=== PATIENT | female | born 1930 | race Caucasian/White ===

== ENCOUNTER 2016-12-15 09:37 | Emergency (ER) | payer OTHER, MEDICARE ==
[2016-12-15 10:00] VITALS: BP 147/70; BMI 35.2
--- NOTE | 2016-12-15 10:04 | DR.GENAD ---
HPI - PCP Primary Care Physician: DR. ROMERO - HPI Comment HPI Comment: PATIENT WAS REACHING FOR HER PHONE AND FELL OFF THE BED. HIT HEAD AND HAVE MULTIPLE BRUISES. NO LOC. - Complaint/Symptoms Chief Complaint Doctors Comments: FELL, MULTIPLE BRUISE, HIT HEAD. Chief Complaint:: JENNA FROM [facility] CALLED AND STATES " PT TOOK A TUMBLE AND SHE HAS A KNOT ON HER HEAD AND BRUISES TO HER BODY " .. Self Treatment fo Chief Complaint: PT STATES " I WAS REACHING FOR MY PHONE AND IT WAS TOO FAR AND SHE FELL OFF THE BED AND HIT THE FLOOR AND THAT A SENIOR GROUP MANAGER WALKED IN AND FOUND HER NO LOC" - Nurses notes reviewed Nurses Notes Review: Yes - Source History Provided: Patient, Correction - Mode of Arrival Mode of Arrival: Wheelchair - Timing Onset of Chief Complaint: 12/15/16 Came on: Suddenly - Duration Duration: Constant Duration: Minutes - Severity Severity: Moderate PMH - PMH Past Medical History: Yes Past Medical History: Anxiety, Arthritis, Coronary Artery Disease, Depression, GERD, Hypertension Past Surgical History: Yes Surgical History: Hysterectomy - Family History History of Family Medical Conditions: No Family Medical History: Coronary Artery Disease, Heart Failure, Hypertension - Social History Does patient currently use any type of tobacco product: No Have you used tobacco products in the last 12 months: No Type of Tobacco Use: None Does any household member use tobacco: No Alcohol Use: None Do you use any recreational Drugs:: No Lives With: Family Lives Where: Home - infectious screening In the last 2 months have you had wt loss of >10#?: NO Have you had fever, night sweats or hemotysis?: No Have you traveled outside the country in the last 6 months?: No Isolation: Standard ROS - Review of Systems Constitutional: No Symptoms Reported Eyes: No Symptoms Reported. negative: Eye Pain, Discharge ENTM: No Symptoms Reported Respiratoy: No Symptoms Reported Cardiovascular: No Symptoms Reported Gastrointestinal/Abdominal: No Symptoms Reported Genitourinary: No Symptoms Reported Neurological: No Symptoms Reported Musculoskeletal: Back Pain, Neck, Elbow, Knee Integumentary: Bruises (ABRASION) Hematologic/Lymphatic: Easy Bruising Endocrine: No Symptoms Reported All Other Systems: Reviewed and Negative PE - Vital Signs Vitals: Temperature 99.1 F Pulse Rate 103 Respiratory Rate 22 Blood Pressure [Right Calf] 109/62 Blood Pressure [Right Arm] 102/51 Blood Pressure [Left Arm] 141/74 Blood Pressure 147/70 O2 Sat by Pulse Oximetry 97 - General Limitations: No Limitations General Appearance: Alert - Head Head Exam: Other (BRUISING FOREHEQAD) - Eyes Eye exam: Normal Appearance - ENT ENT Exam: Normal External Ear Exam External Ear Exam: Normal External Inspection TM/Canal Exam: Bilateral Normal Nose Exam: Normal Nose Exam Mouth Exam: Normal Inspection Throat Exam: Normal Inspection - Neck Neck Exam: Trachea Midline, Tenderness (LOWER NECK) - Chest Chest Inspection: Symmetric Chest Wall Rise - Respiratory Respiratory Exam: Bilateral Rhonchi, Lower Rhonchi - Cardiovascular Cardiovascular Exam: Regular Rate, Normal Rhythm, Normal Heart Sounds - Abdominal Exam Abdominal Exam: Normal Bowel Sounds, Soft. negative: Distention, Tenderness - Extremities Extremities Exam: Tenderness, Joint Swelling - Back Back Exam: Paraspinal Tenderness - Neurologic Neurological Exam: Alert - Skin Skin Exam: Erythema MDM - Differential Diagnosis Differential Diagnosis: MULTIPLE CONTUSION, STRAIN, SPRAIN, FRACTURE Course - Treatment Treatment: SEE ORDERS. - Education/Counseling Education/Counseling: Patient Educated On: Diagnosis, Needs for Follow Up ROR - XRAY XRAY Interpreted by: Radiologist XRAY Findings: REPORT NOTED - Diagnosis Discharge Problem: Multiple contusions, Sprain, multiple, Head trauma - Discharge Plan Disposition: 01 HOME, SELF-CARE Condition: Stable - Follow ups/Referrals Follow ups/Referrals: Jules Romero [Primary Care Provider] - 1 day - Instructions Instructions: Contusion, Knee Sprain, [id number], Knee Pain, [id number], Hip Pain, Elbow Contusion, [id number], Facial or Scalp Contusion Additional Instructions: RETURN TO ED IF WORSE. AMBULATE IN WHEEL CHAIR NEEDED.
--- NOTE | 2016-12-15 10:38 | CT ---
CT head without contrast Indication: Fall with head injury. Comparison: 12/10/2016 Technique: CT images of the head were obtained without contrast. Automatic exposure control was util ized. Findings: There is a left-sided forehead scalp contusion. No underlying calvarial fracture is identi fied. The major paranasal sinuses and mastoid air cells are clear. Moderate generalized brain atroph y is unchanged from prior. There is no evidence for acute bleed, mass, mass effect, or abnormal extr a-axial collection. Impression: No acute intracranial abnormality. Reported By:
--- NOTE | 2016-12-15 10:45 | CT ---
CT cervical spine without contrast Indication: Fall with neck injury. Technique: CT images of the cervical spine were obtained without contrast. Automatic exposure contro l was utilized. Findings: There is straightening of the normal cervical lordosis, which is likely positional or rela cody to muscle spasm. No acute fracture or subluxation of the cervical spine is identified. There is moderate to advanced multilevel discogenic and facet arthropathy, most significant at C5-6 and C6-7. No prevertebral soft tissue swelling is appreciated. The lung apices are clear, without evidence fo r apical pneumothorax. Impression: No evidence for acute cervical spine fracture. Multilevel degenerative disease. Reported By:
--- NOTE | 2016-12-15 10:49 | CT ---
CT lumbar spine without contrast Indication: Low back pain after fall. Technique: CT images of the lumbar spine were obtained without contrast. Automatic exposure control was utilized. Findings: There is mild dextroscoliosis of the lumbar spine. The AP alignment is normal. There is no evidence for significant vertebral body height loss. No acute lumbar spine fracture or subluxation is identified. There is multilevel facet and discogenic DJD, most significant at L5-S1. Generalized osteopenia is noted. Colonic diverticulosis is noted. There are multiple urinary bladder diverticula. Impression: No evidence of acute lumbar spine injury. Multilevel spondylosis. Generalized osteopenia. Colonic diverticulosis, multiple urinary bladder diverticula. Reported By:
--- NOTE | 2016-12-15 11:27 | RAD ---
Left hip, two views Indication: Hip pain after fall. Findings: The bones are diffusely osteopenic. There are mild degenerative changes of the hips. No co rtical lucency or malalignment of the hip identified. Impression: No evidence of acute left hip fracture or subluxation. Reported By:
--- NOTE | 2016-12-15 11:28 | RAD ---
Left elbow, three views Indication: Elbow pain after fall. Findings: The lateral view is suboptimal. The bones are diffusely osteopenic. No cortical lucency or malalignment identified. No significant soft tissue abnormality. Impression: No acute fracture or subluxation of the left elbow is identified. Generalized osteopenia . Reported By:
--- NOTE | 2016-12-15 11:32 | RAD ---
Left knee, three views Indication: Knee pain after fall. Findings: There is moderate tricompartmental DJD. No acute fracture or subluxation is identified. Th ere is a small joint effusion. The bones are diffusely osteopenic. Impression: No evidence for acute left knee injury. Moderate tricompartmental DJD. Reported By:
--- NOTE | 2016-12-15 11:36 | RAD ---
Right knee, three views Indication: Knee pain after fall. Findings: There is moderate to advanced tricompartmental DJD, most significant in the medial femorot ibial compartment. Small joint effusion is noted. No acute fracture or subluxation of the right knee is identified. There is generalized osteopenia. Impression: Tricompartmental DJD without evidence for acute right knee injury. Reported By:
[2016-12-15] MEDS ORDERED: TYLENOL ELIXIR 325 MG UDC PO ONE (11:49)
== END 2016-12-15 12:10 | disposition home or self-care (01) ==
LOC: ER 09:37
DX: S20.219A Contusion of unspecified front wall of thorax, initial encounter (principal); S09.8XXA Other specified injuries of head, initial encounter; T07 Unspecified multiple injuries; W06.XXXA Fall from bed, initial encounter; Y92.129 Unspecified place in nursing home as the place of occurrence of the external cause
CPT/HCPCS: 70450; 72125; 72131; 73070; 73501; 73564; 99283

== ENCOUNTER 2017-01-21 17:48 | Inpatient (IN) | payer OTHER, MEDICARE ==
[2017-01-21 21:46] VITALS: BMI 25.6
[2017-01-21] MEDS: NS 1000 ML 1,000 ML IV SCH (22:32)
[2017-01-22 05:16] LABS: BASOPHILS % (AUTO) 0.6 % (0.2-1.0); EOSINOPHILS # (AUTO) 0.3 x10^3/uL (0.0-0.2); EOSINOPHILS % (AUTO) 4.4 % (0.9-2.9); HEMATOCRIT 30.9 % (36.0-47.0); HEMOGLOBIN 10.5 g/dL (12.0-16.0); LYMPHOCYTES # (AUTO) 1.4 X10^3/uL (1.3-2.9); MEAN CORPUSCULAR HEMOGLOBIN 27.3 pg (27.0-34.0); MEAN CORPUSCULAR HGB CONC 34.2 g/dL (33.0-35.0); MEAN CORPUSCULAR VOLUME 79.9 fL (80.0-100.0); MEAN PLATELET VOLUME 6.6 fL (7.4-11.0); MONOCYTES % (AUTO) 15.7 % (0.0-13.0); NEUTROPHILS # (AUTO) 3.8 x10^3/uL (2.2-4.8); NEUTROPHILS % (AUTO) 58.3 % (42.0-75.0); PLATELET COUNT 76 X10^3/uL (150.0-450.0); RED BLOOD COUNT 3.86 X10^6/uL (3.5-5.4); RED CELL DISTRIBUTION WIDTH 15.6 % (11.6-16.5); WHITE BLOOD COUNT 6.5 X10^3/uL (3.6-10.0)
[2017-01-22 05:26] LABS: ALANINE AMINOTRANSFERASE 11 Units/L (12-78); ALBUMIN 2.5 g/dL (3.4-5.0); ALKALINE PHOSPHATASE 63 Units/L (46-116); ASPARTATE AMINO TRANSFERASE 18 Units/L (15-37); BLOOD UREA NITROGEN 9 mg/dL (7-18); CALCIUM 8.4 mg/dL (8.5-10.1); CARBON DIOXIDE 26.5 mmol/L (21-32); CHLORIDE 93 mmol/L (98-107); COR CA(FOR HYPOALB) 9.6 mg/dL (8.5-10.1); CREATININE 0.68 mg/dL (0.55-1.02); GLUCOSE 97 mg/dL (65-99); eGFR BLACK RACES > 60 (>60); eGFR NON BLACK RACES > 60 (>60)
[2017-01-22 05:29] LABS: SODIUM 125 mmol/L (136-145)
[2017-01-22 06:14] LABS: BILIRUBIN,URINE NEGATIVE (NEGATIVE); BLOOD/HEMOGLOBIN,URINE 5+ (NEGATIVE); GLUCOSE, URINE NEGATIVE (NEGATIVE); KETONES,URINE NEGATIVE (NEGATIVE); LEUKOCYTE ESTERASE ,URINE 3+ (NEGATIVE); NITRITES,URINE NEGATIVE (NEGATIVE); PROTEIN,URINE 3+ (NEGATIVE); UROBILINOGEN,URINE NORMAL (NORMAL)
[2017-01-22 06:26] LABS: COLOR,URINE YELLOW (YELLOW)
[2017-01-22 06:34] LABS: APPEARANCE,URINE TURBID (CLEAR)
[2017-01-22 06:38] LABS: BACTERIA,URINE 1+ /HPF (NEGATIVE); HYALINE CASTS, URINE NUMEROUS /LPF (NEGATIVE); SQUAMOUS EPITHELIAL CELL,UR FEW /HPF (NEGATIVE)
[2017-01-22] MEDS ORDERED: [UNRECOGNIZED DRUG - OTHER] PO PRN (07:54)
[2017-01-22] MEDS ORDERED: NORCO 5/325 MG TAB PO PRN (07:54)
[2017-01-22] MEDS ORDERED: LEVSIN/MAALOX/LIDOC VISC PO PRN (07:54)
[2017-01-22] MEDS ORDERED: TYLENOL 325 MG TAB PO PRN (08:44)
[2017-01-22] MEDS ORDERED: [UNRECOGNIZED DRUG - OTHER] PO SCH (09:00)
[2017-01-22] MEDS ORDERED: [UNRECOGNIZED DRUG - OTHER] PO SCH (09:00)
[2017-01-22] MEDS ORDERED: [UNRECOGNIZED DRUG - OTHER] PO SCH (09:00)
[2017-01-22] MEDS: ALBUMIN HUMAN 25%- 100ML 100 ML IV SCH (09:57)
[2017-01-22] MEDS: FLONASE NASAL SPRAY ENOSTRIL SCH (09:59)
[2017-01-22] MEDS: ARTIFICIAL TEARS DROPS EACHEYE SCH ×4 (10:00→22:23)
[2017-01-22] MEDS: PATANOL 0.1% EYE DROPS EACHEYE SCH ×2 (10:01→22:23)
[2017-01-22] MEDS: COLACE CAP 100 MG PO SCH ×2 (10:02→22:20)
[2017-01-22] MEDS: MOBIC TAB 15 MG PO SCH (10:02)
[2017-01-22] MEDS: COREG TAB 6.25 MG PO SCH ×2 (10:02→22:20)
[2017-01-22] MEDS: MICRO K EXTEN CAP 10 MEQ PO SCH (10:02)
[2017-01-22] MEDS: PriLOSEC PO SCH (10:02)
[2017-01-22] MEDS: NEURONTIN CAP 400 MG PO SCH (10:03)
[2017-01-22] MEDS: DIOVAN TAB 80 MG PO SCH (10:03)
[2017-01-22] MEDS: FOLIC ACID TAB 1 MG PO SCH (10:03)
[2017-01-22] MEDS: ATIVAN TAB 0.5 MG PO SCH (10:03)
[2017-01-22] MEDS: NORVASC TAB 5 MG PO SCH (10:03)
[2017-01-22] MEDS: DITROPAN TAB 5 MG PO SCH ×3 (10:03→22:19)
[2017-01-22] MEDS: NS 1000 ML 1,000 ML IV SCH ×2 (10:04→22:29)
[2017-01-22] MEDS: MIRALAX POWDER (1 DOSE 17GM) PO SCH (10:04)
--- NOTE | 2017-01-22 15:46 | DR.H&P ---
H&P - History & Physical for Day of: H&P Date: 01/21/17 - Chief Complaint Chief Complaint: HYPONATREMIA - Allergies Allergies/Adverse Reactions: Allergies Allergy/AdvReac Type Severity Reaction Status Date / Time No Known Drug Allergy Allergy Verified 11/24/14 03:02 - History of Present Illness History of Present Illness: THIS IS AN 86 YEAR OLD FEMALE, WHO IS A PATIENT OF OURS. SHE RESIDES AT [facility]. PATIENT IS DIRECT ADMITTED FOR HYPONATREMIA. PATIENT HAD ROUTINE LABS TODAY, WHICH REPORTED A SODIUM LEVEL OF 123. PATIENT IS SYMPTOMATIC WITH COMPLAINTS OF A HEADACHE, MUSCLE WEAKNESS, NAUSEA, AND IS NOTED WITH INTERMITTENT CONFUSION. STAFF REPORTS SYMPTOMS HAVE BEEN ON-GOING FOR SEVERAL DAYS AND HAVE WORSENED. WE WILL ADMIT PATIENT FOR FURTHER TREATMENT AND EVALUATION. WE WILL START PATIENT ON NORMAL SALINE AND CONTINUE TO MONITOR LABS. - Past Medical History Past Medical History: Anemia, Anxiety, Arthritis, Coronary Artery Disease, Depression, Dyslipidemia, GERD, Hypertension Additional Medical History: Freq UTI's, Conjunctivitis, Dry Eyes, Upper Respiratory Infection, Constipation, Urinary Incontinence, Muscle Weakness, Osteoarthritis - Past Surgical History Surgical History: Hysterectomy - Family History Family Medical History: Coronary Artery Disease, Heart Failure, Hypertension - Social History Does patient currently use any type of tobacco product: No Have you used tobacco products in the last 12 months: No Type of Tobacco Use: None Alcohol Use: None Drug Use: None - Medications Home Medications: Omeprazole [PRILOSEC 20 MG *] 20 mg PO DAILY 08/06/13 Cetirizine HCl [Zyrtec Tab 10 mg] 1 tab PO HS 11/29/14 Potassium Chloride [K-Tab] 1 tab PO DAILY 11/29/14 Oxybutynin Chloride [Ditropan XL] 5 mg PO DAILY 11/30/14 Folic Acid [FOLIC ACID TAB 1 MG *] 1 mg PO DAILY #30 tab 12/23/14 Hydrocodone-Acetaminophen [[place]] 1 tab PO Q6H PRN #90 tab 12/23/14 Acetaminophen [Tylenol Arthritis Pain] 1 tab PO DAILY PRN 06/06/16 Cyanocobalamin 1,000 mcg IM MONTHLY 06/06/16 Docusate Sodium [COLACE CAP 100 MG *] 1 cap PO BID 06/06/16 Fluticasone Propionate (Nasal) [Flonase Allergy Relief Ch (NASAL)] 1 spray ENOSTRIL DAILY 06/06/16 Gabapentin 1 cap PO DAILY 06/06/16 Meloxicam 15 tab PO DAILY 06/06/16 Amlodipine Besylate [NORVASC 5 MG *] 1 tab PO DAILY 12/15/16 Gi Cocktail [LEVSIN/Maalox/Lidoc Visc (GI COCKTAIL) *] 30 ml PO QID PRN Olopatadine HCl [Patanol] 1 drop EACHEYE BID 12/15/16 Artificial Tears (Ophth) [ARTIFICIAL TEARS (ophth) drops *] 1 drop EACHEYE QID 01/21/17 Carvedilol 1 tab PO BID 01/21/17 Lorazepam 1 tab PO DAILY 01/21/17 Polyethylene Glycol Pwd Ud [MIRALAX POWDER (17 GM DOSE) *] 17 gm PO DAILY Trazodone HCl [TRAZODONE 50 MG (DESYREL) *] 150 mg PO HS 01/21/17 Valsartan 1 tab PO DAILY 01/21/17 - Review of Systems Constitutional: Weakness, Malaise Eyes: No Symptoms Reported. denies: Pain, Vision Change, Conjunctivae Inflammation, Eyelid Inflammation, Redness ENT: No Symptoms Reported. denies: Ear Pain, Ear Discharge, Nose Pain, Nose Discharge, Nose Congestion, Mouth Pain, Mouth Swelling, Throat Pain, Throat Swelling Respiratory: No Symptoms Reported. denies: Cough, Shortness of Breath, Hemoptysis, SOB with Excertion, Pleuritic Pain, Sputum, Wheezing Cardiovascular: No Symptoms Reported. denies: Chest Pain, Palpitations, Orthopnea, Paroxysmal Noc. Dyspnea, Edema, Light Headedness Gastrointestinal: Nausea. denies: Vomiting, Abdominal Pain, Diarrhea, Constipation, Melena, Hematochezia Genitourinary: No Symptoms Reported. denies: Dysuria, Frequency, Incontinence, Hematuria, Retention Musculoskeletal: Other (Muscle Weakness) Skin: No Symptoms Reported. denies: Lesions, Jaundice, Bruising, Wound, Ecchymosis Neurological: Weakness, Confusion. denies: Numbness, Incoordination, Change in Speech, Seizures - Physical Exam Vital Signs: Temperature 97.6 F Pulse Rate [Right Radial] 81 Respiratory Rate 18 Blood Pressure [Right Calf] 109/62 Blood Pressure [Right Arm] 146/63 Blood Pressure [Left Arm] 141/74 Blood Pressure 147/70 O2 Sat by Pulse Oximetry 98 Oriented: Person Eyes: Normal. negative: Blurred Vision, Diplopia, Discharge, Pain, Redness, Photophobia Ear: Normal. negative: Swelling, Ecchymosis, Hemotypanum, Abrasion, Laceration Nose: Normal. negative: Injected, Discharge, Blood Throat: Dry. negative: Tonsillar Hypertrophy, Exudate Respiratory: Clear Throughout Cardiovascular: Normal. negative: Murmur, Edema : Normal. negative: Dysuria, Hematuria, Frequency, Discharge, Bleeding, Auscultation: Bowel Sounds: Decreased. negative: Bruit Palpation: Normal. negative: Spleen Enlarged, Liver Enlarged, Mass Pulsatile Tenderness: Normal. negative: Rebound, Guarding, Rigidity Skin: Decreased Turgur. negative: Diaphoresis, Wound, Bruising, Ecchymosis Musculoskeletal: Instability Psychiatric: Other (Intermittent confusion) Mood Description: Calm Affect: Normal Speech Pattern: Clear, Inappropriate - Assessment/Plan (1) Hyponatremia Status: Acute Plan: ADMIT PATIENT, START IV FLUIDS, MONITOR LABS. (2) Altered mental status Qualifiers: Altered mental status type: transient alteration of awareness Coma depth: C Coma timing: C Qualified Code(s): R40.4 - Transient alteration of awareness Status: Acute Plan: START IV FLUIDS, CONTINUE TO MONITOR. (3) Muscle weakness Status: Acute Plan: ABOVE. (4) Nausea Status: Acute Plan: ABOVE. (5) Headache Qualifiers: Headache type: tension-type Headache chronicity pattern: acute headache Intractability: not intractable Qualified Code(s): G44.209 - Tension-type headache, unspecified, not intractable Status: Acute Plan: ABOVE. (6) Hypertension Qualifiers: Hypertension type: essential hypertension Qualified Code(s): I10 - Essential (primary) hypertension Status: Chronic (7) Arthritis Status: Chronic (8) Chronic back pain Qualifiers: Back pain location: low back pain Back pain laterality: bilateral Sciatica presence: without sciatica Sciatica laterality: S Qualified Code(s) : M54.5 - Low back pain; G89.29 - Other chronic pain Status: Chronic (9) Constipation Qualifiers: Constipation type: slow transit constipation Qualified Code(s): K59.01 - Slow transit constipation Status: Chronic (10) Depressive disorder Status: Chronic (11) Essential hypertension Status: Chronic (12) GERD (gastroesophageal reflux disease) Qualifiers: Esophagitis presence: esophagitis presence not specified Qualified Code(s) : K21.9 - Gastro-esophageal reflux disease without esophagitis Status: Chronic (13) Generalized anxiety disorder Status: Chronic
--- NOTE | 2017-01-22 16:43 | PCM.PROG ---
Progress Note - Progress Note for Day of Date: 01/22/17 - Subjective Subjective: PATIENT CONTINUES WITH HYPONATREMIA ALONG WITH CONFUSION, MUSCLE WEAKNESS, HEADACHE, AND OCCASIONAL NAUSEA. SODIUM LEVEL INCREASED FROM 123 TO 125. CBC WNL EXCEPT: H/H 10.5/30.9, PLT COUNT 76. CMP WNL EXCEPT: SODIUM 125, CHL 93, CALCIUM 8.4, TOT PROTEIN 6.0, ALBUMIN 2.5. URINALYSIS ABNORMALS: PROTEIN 3+, OCCULT BLOOD 5+, LEUKOCYTE ESTERASE 3+, RBC 2-6, WBC 8-15, BACTERIA 1+; CULTURE PENDING. WE WILL START IV ROCEPHIN, CONTINUE IV FLUIDS, CONTINUE TO MONITOR, AND FOLLOW UP IN AM WITH LABS. - Past Medical Family Social History Past Med/Fam/Surg Hx: No changes since H&P Allergies: Allergies No Known Drug Allergy Allergy (Verified 11/24/14 03:02) - Review of Systems ROS: No change since H&P - Vital Signs and I&O's Vital Signs: Temperature 97.6 F Pulse Rate [Right Radial] 81 Respiratory Rate 18 Blood Pressure [Right Calf] 109/62 Blood Pressure [Right Arm] 146/63 Blood Pressure [Left Arm] 141/74 Blood Pressure 147/70 O2 Sat by Pulse Oximetry 98 Intake and Output: Intake & Output 01/20/17 01/21/17 01/22/17 01/23/17 11:59 11:59 11:59 11:59 Intake Total 620 50 Balance 620 50 - Physical Exam Oriented: Person Eyes: Normal. negative: Blurred Vision, Diplopia, Discharge, Pain, Redness, Photophobia Ear: Normal. negative: Swelling, Ecchymosis, Hemotypanum, Abrasion, Laceration Nose: Normal. negative: Injected, Discharge, Blood Throat: Dry. negative: Tonsillar Hypertrophy, Exudate Respiratory: Normal Cardiovascular: Normal. negative: Murmur, Edema : Normal. negative: Dysuria, Hematuria, Frequency, Discharge, Bleeding, Auscultation: Bowel Sounds: Decreased. negative: Bruit Palpation: Normal. negative: Spleen Enlarged, Liver Enlarged, Mass Pulsatile Tenderness: Normal. negative: Rebound, Guarding, Rigidity Skin: Decreased Turgur. negative: Diaphoresis, Wound, Bruising, Ecchymosis Musculoskeletal: Instability Psychiatric: Other (Intermittent confusion) Mood Description: Calm Affect: Normal Speech Pattern: Clear, Inappropriate - Laboratory and Diagnostics Result Diagrams: 01/22/17 04:25 01/22/17 04:25 Labs: Laboratory WBC 6.5 X10^3/uL (3.6-10.0) 01/22/17 04:25 RBC 3.86 X10^6/uL (3.5-5.4) 01/22/17 04:25 Hgb 10.5 g/dL (12.0-16.0) L 01/22/17 04:25 Hct 30.9 % (36.0-47.0) L 01/22/17 04:25 MCV 79.9 fL (80.0-100.0) L 01/22/17 04:25 MCH 27.3 pg (27.0-34.0) 01/22/17 04:25 MCHC 34.2 g/dL (33.0-35.0) 01/22/17 04:25 RDW 15.6 % (11.6-16.5) 01/22/17 04:25 Plt Count 76 X10^3/uL (150.0-450.0) L 01/22/17 04:25 MPV 6.6 fL (7.4-11.0) L 01/22/17 04:25 Neut % 58.3 % (42.0-75.0) 01/22/17 04:25 Lymph % 21.0 % (21.0-51.0) 01/22/17 04:25 Ralls % 15.7 % (0.0-13.0) H 01/22/17 04:25 Eos % 4.4 % (0.9-2.9) H 01/22/17 04:25 Baso % 0.6 % (0.2-1.0) 01/22/17 04:25 Neut # 3.8 x10^3/uL (2.2-4.8) 01/22/17 04:25 Lymph # 1.4 X10^3/uL (1.3-2.9) 01/22/17 04:25 Ralls # 1.0 x10^3/uL (0.3-0.8) H 01/22/17 04:25 Eos # 0.3 x10^3/uL (0.0-0.2) H 01/22/17 04:25 Baso # 0.0 X10^3/uL (0.0-0.1) 01/22/17 04:25 Absolute Nucleated RBC 0.0 /100WBC 01/22/17 04:25 Sodium 125 mmol/L (136-145) L* 01/22/17 04:25 Corrected Sodium TNP 01/22/17 04:25 Potassium 3.9 mmol/L (3.5-5.1) 01/22/17 04:25 Chloride 93 mmol/L (98-107) L 01/22/17 04:25 Carbon Dioxide 26.5 mmol/L (21-32) 01/22/17 04:25 BUN 9 mg/dL (7-18) 01/22/17 04:25 Creatinine 0.68 mg/dL (0.55-1.02) 01/22/17 04:25 Est GFR (MDRD) Af Amer > 60 (>60) 01/22/17 04:25 Est GFR (MDRD) Non-Af > 60 (>60) 01/22/17 04:25 Glucose 97 mg/dL (65-99) 01/22/17 04:25 Calcium 8.4 mg/dL (8.5-10.1) L 01/22/17 04:25 Corrected Calcium 9.6 mg/dL (8.5-10.1) 01/22/17 04:25 Total Bilirubin 0.40 mg/dL (0.2-1.0) 01/22/17 04:25 AST 18 Units/L (15-37) 01/22/17 04:25 ALT 11 Units/L (12-78) L 01/22/17 04:25 Alkaline Phosphatase 63 Units/L (46-116) 01/22/17 04:25 Total Protein 6.0 g/dL (6.4-8.2) L 01/22/17 04:25 Albumin 2.5 g/dL (3.4-5.0) L 01/22/17 04:25 Globulin 3.5 g/dL (2.5-4.5) 01/22/17 04:25 Albumin/Globulin Ratio 0.7 Ratio (1.1-2.1) L 01/22/17 04:25 Specimen Type Clean catch urine 01/22/17 05:25 Urine Color Yellow (YELLOW) 01/22/17 05:25 Urine Appearance Turbid (CLEAR) 01/22/17 05:25 Urine pH 8.0 (5.0 - 8.0) 01/22/17 05:25 Ur Specific [place] 1.015 (1.000-1.030) 01/22/17 05:25 Urine Protein 3+ (NEGATIVE) 01/22/17 05:25 Urine Glucose (UA) Negative (NEGATIVE) 01/22/17 05:25 Urine Ketones Negative (NEGATIVE) 01/22/17 05:25 Urine Occult Blood 5+ (NEGATIVE) 01/22/17 05:25 Urine Nitrite Negative (NEGATIVE) 01/22/17 05:25 Urine Bilirubin Negative (NEGATIVE) 01/22/17 05:25 Urine Urobilinogen Normal (NORMAL) 01/22/17 05:25 Ur Leukocyte Esterase 3+ (NEGATIVE) 01/22/17 05:25 Urine RBC 2 - 6 /HPF (NEGATIVE) 01/22/17 05:25 Urine WBC 8 - 15 /HPF (NEGATIVE) 01/22/17 05:25 Ur Squamous Epith Cells Few /HPF (NEGATIVE) 01/22/17 05:25 Urine Bacteria 1+ /HPF (NEGATIVE) 01/22/17 05:25 Hyaline Casts Numerous /LPF (NEGATIVE) 01/22/17 05:25 Ur Culture Indicated? Yes/culture set up 01/22/17 05:25 - Plan (1) Hyponatremia Status: Acute Plan: CONTINUE IV FLUIDS, MONITOR LABS. (2) Altered mental status Status: Acute Qualifiers: Altered mental status type: transient alteration of awareness Coma depth: C Coma timing: C Qualified Code(s): R40.4 - Transient alteration of awareness Plan: CONTINUE IV FLUIDS, CONTINUE TO MONITOR. (3) Muscle weakness Status: Acute Plan: ABOVE. (4) Nausea Status: Acute Plan: ABOVE. (5) Headache Status: Acute Qualifiers: Headache type: tension-type Headache chronicity pattern: acute headache Intractability: not intractable Qualified Code(s): G44.209 - Tension-type headache, unspecified, not intractable Plan: ABOVE. (6) Hypertension Status: Chronic Qualifiers: Hypertension type: essential hypertension Qualified Code(s): I10 - Essential (primary) hypertension (7) Arthritis Status: Chronic (8) Chronic back pain Status: Chronic Qualifiers: Back pain location: low back pain Back pain laterality: bilateral Sciatica presence: without sciatica Sciatica laterality: S Qualified Code(s) : M54.5 - Low back pain; G89.29 - Other chronic pain (9) Constipation Status: Chronic Qualifiers: Constipation type: slow transit constipation Qualified Code(s): K59.01 - Slow transit constipation (10) Depressive disorder Status: Chronic (11) Essential hypertension Status: Chronic (12) GERD (gastroesophageal reflux disease) Status: Chronic Qualifiers: Esophagitis presence: esophagitis presence not specified Qualified Code(s) : K21.9 - Gastro-esophageal reflux disease without esophagitis (13) Generalized anxiety disorder Status: Chronic
[2017-01-22] MEDS: ROCEPHIN VIAL 1 GM 1 GM in NS 50 ML IV + SPIKE MINIBAG* 50 ML IV SCH (17:59)
[2017-01-22] MEDS: DESYREL PO SCH (22:17)
[2017-01-22] MEDS: ZyrTEC TAB 10 MG PO SCH (22:29)
[2017-01-23 05:19] LABS: BASOPHILS # (AUTO) 0.1 X10^3/uL (0.0-0.1); BASOPHILS % (AUTO) 0.9 % (0.2-1.0); EOSINOPHILS # (AUTO) 0.2 x10^3/uL (0.0-0.2); EOSINOPHILS % (AUTO) 3.4 % (0.9-2.9); HEMATOCRIT 29.6 % (36.0-47.0); LYMPHOCYTES # (AUTO) 1.2 X10^3/uL (1.3-2.9); LYMPHOCYTES % (AUTO) 19.1 % (21.0-51.0); MEAN CORPUSCULAR HEMOGLOBIN 27.3 pg (27.0-34.0); MEAN CORPUSCULAR HGB CONC 33.7 g/dL (33.0-35.0); MEAN CORPUSCULAR VOLUME 81.1 fL (80.0-100.0); MEAN PLATELET VOLUME 6.6 fL (7.4-11.0); MONOCYTES % (AUTO) 16.9 % (0.0-13.0); NEUTROPHILS # (AUTO) 3.6 x10^3/uL (2.2-4.8); NEUTROPHILS % (AUTO) 59.7 % (42.0-75.0); PLATELET COUNT 75 X10^3/uL (150.0-450.0); RED BLOOD COUNT 3.65 X10^6/uL (3.5-5.4); RED CELL DISTRIBUTION WIDTH 15.9 % (11.6-16.5)
[2017-01-23 05:34] LABS: ALANINE AMINOTRANSFERASE 7 Units/L (12-78); ALBUMIN 2.8 g/dL (3.4-5.0); ALKALINE PHOSPHATASE 56 Units/L (46-116); ASPARTATE AMINO TRANSFERASE 15 Units/L (15-37); BLOOD UREA NITROGEN 5 mg/dL (7-18); CALCIUM 8.3 mg/dL (8.5-10.1); CARBON DIOXIDE 24.5 mmol/L (21-32); CHLORIDE 98 mmol/L (98-107); COR CA(FOR HYPOALB) 9.3 mg/dL (8.5-10.1); CREATININE 0.57 mg/dL (0.55-1.02); GLUCOSE 109 mg/dL (65-99); SODIUM 131 mmol/L (136-145); eGFR BLACK RACES > 60 (>60); eGFR NON BLACK RACES > 60 (>60)
[2017-01-23] MEDS: PATANOL 0.1% EYE DROPS EACHEYE SCH ×2 (09:00→22:05)
[2017-01-23] MEDS: FLONASE NASAL SPRAY ENOSTRIL SCH (09:00)
[2017-01-23] MEDS: ARTIFICIAL TEARS DROPS EACHEYE SCH ×4 (09:00→22:05)
[2017-01-23] MEDS: MIRALAX POWDER (1 DOSE 17GM) PO SCH (10:30)
[2017-01-23] MEDS: ROCEPHIN VIAL 1 GM 1 GM in NS 50 ML IV + SPIKE MINIBAG* 50 ML IV SCH (10:44)
[2017-01-23] MEDS: MOBIC TAB 15 MG PO SCH (10:45)
[2017-01-23] MEDS: FOLIC ACID TAB 1 MG PO SCH (10:46)
[2017-01-23] MEDS: COREG TAB 6.25 MG PO SCH ×2 (10:46→22:04)
[2017-01-23] MEDS: NEURONTIN CAP 400 MG PO SCH (10:46)
[2017-01-23] MEDS: COLACE CAP 100 MG PO SCH ×2 (10:46→22:03)
[2017-01-23] MEDS: PriLOSEC PO SCH (10:46)
[2017-01-23] MEDS: DITROPAN TAB 5 MG PO SCH ×2 (10:47→22:03)
[2017-01-23] MEDS: MICRO K EXTEN CAP 10 MEQ PO SCH (10:47)
[2017-01-23] MEDS: ATIVAN TAB 0.5 MG PO SCH (10:48)
[2017-01-23] MEDS: NORVASC TAB 5 MG PO SCH (10:48)
[2017-01-23] MEDS: DIOVAN TAB 80 MG PO SCH (10:48)
[2017-01-23] MEDS: ALBUMIN HUMAN 25%- 100ML 100 ML IV SCH (10:49)
[2017-01-23] MEDS: ZyrTEC TAB 10 MG PO SCH (22:03)
[2017-01-23] MEDS: DESYREL PO SCH (22:04)
[2017-01-23] MEDS: NS 1000 ML 1,000 ML IV SCH (23:50)
[2017-01-24] MEDS: NS 1000 ML 1,000 ML IV SCH ×2 (03:28→14:46)
[2017-01-24 05:22] LABS: BASOPHILS % (AUTO) 0.6 % (0.2-1.0); EOSINOPHILS # (AUTO) 0.2 x10^3/uL (0.0-0.2); HEMATOCRIT 27.1 % (36.0-47.0); HEMOGLOBIN 9.3 g/dL (12.0-16.0); LYMPHOCYTES # (AUTO) 1.2 X10^3/uL (1.3-2.9); LYMPHOCYTES % (AUTO) 21.8 % (21.0-51.0); MEAN CORPUSCULAR HEMOGLOBIN 27.5 pg (27.0-34.0); MEAN CORPUSCULAR HGB CONC 34.2 g/dL (33.0-35.0); MEAN CORPUSCULAR VOLUME 80.4 fL (80.0-100.0); MEAN PLATELET VOLUME 6.5 fL (7.4-11.0); MONOCYTES % (AUTO) 17.1 % (0.0-13.0); NEUTROPHILS # (AUTO) 3.3 x10^3/uL (2.2-4.8); NEUTROPHILS % (AUTO) 57.5 % (42.0-75.0); PLATELET COUNT 70 X10^3/uL (150.0-450.0); RED BLOOD COUNT 3.37 X10^6/uL (3.5-5.4); RED CELL DISTRIBUTION WIDTH 15.7 % (11.6-16.5); WHITE BLOOD COUNT 5.7 X10^3/uL (3.6-10.0)
[2017-01-24 05:35] LABS: ALANINE AMINOTRANSFERASE 10 Units/L (12-78); ALKALINE PHOSPHATASE 51 Units/L (46-116); ASPARTATE AMINO TRANSFERASE 14 Units/L (15-37); BLOOD UREA NITROGEN 4 mg/dL (7-18); CALCIUM 8.3 mg/dL (8.5-10.1); CARBON DIOXIDE 25.9 mmol/L (21-32); CHLORIDE 100 mmol/L (98-107); COR CA(FOR HYPOALB) 9.1 mg/dL (8.5-10.1); CREATININE 0.58 mg/dL (0.55-1.02); GLUCOSE 87 mg/dL (65-99); SODIUM 134 mmol/L (136-145); TOTAL PROTEIN 5.8 g/dL (6.4-8.2); eGFR BLACK RACES > 60 (>60); eGFR NON BLACK RACES > 60 (>60)
[2017-01-24] MEDS ORDERED: K-RIDER 10 MEQ/NS 100 ML 10 MEQ/100 ML BAG IV PRN (08:04)
[2017-01-24] MEDS ORDERED: K-LYTE EFFERVESCENT PO PRN (08:04)
[2017-01-24] MEDS ORDERED: POTASSIUM CHLORIDE LIQ 20 MEQ UDC PO PRN (08:04)
[2017-01-24] MEDS ORDERED: K-DUR TAB 20 MEQ PO PRN (08:04)
[2017-01-24] MEDS: ALBUMIN HUMAN 25%- 100ML 100 ML IV SCH (10:13)
[2017-01-24] MEDS: ROCEPHIN VIAL 1 GM 1 GM in NS 50 ML IV + SPIKE MINIBAG* 50 ML IV SCH (10:14)
[2017-01-24] MEDS: MOBIC TAB 15 MG PO SCH (10:16)
[2017-01-24] MEDS: NEURONTIN CAP 400 MG PO SCH (10:16)
[2017-01-24] MEDS: DITROPAN TAB 5 MG PO SCH ×2 (10:16→21:55)
[2017-01-24] MEDS: PriLOSEC PO SCH (10:16)
[2017-01-24] MEDS: COLACE CAP 100 MG PO SCH ×2 (10:16→21:53)
[2017-01-24] MEDS: ATIVAN TAB 0.5 MG PO SCH (10:16)
[2017-01-24] MEDS: MICRO K EXTEN CAP 10 MEQ PO SCH (10:16)
[2017-01-24] MEDS: NORVASC TAB 5 MG PO SCH (10:17)
[2017-01-24] MEDS: FOLIC ACID TAB 1 MG PO SCH (10:17)
[2017-01-24] MEDS: ARTIFICIAL TEARS DROPS EACHEYE SCH ×4 (10:17→21:54)
[2017-01-24] MEDS: MIRALAX POWDER (1 DOSE 17GM) PO SCH (10:17)
[2017-01-24] MEDS: DIOVAN TAB 80 MG PO SCH (10:17)
[2017-01-24] MEDS: FLONASE NASAL SPRAY ENOSTRIL SCH (10:17)
[2017-01-24] MEDS: COREG TAB 6.25 MG PO SCH ×2 (10:18→21:53)
[2017-01-24] MEDS: PATANOL 0.1% EYE DROPS EACHEYE SCH ×2 (10:18→21:54)
[2017-01-24] MEDS: DESYREL PO SCH (21:54)
[2017-01-24] MEDS: ZyrTEC TAB 10 MG PO SCH (21:54)
[2017-01-25] MEDS: NS 1000 ML 1,000 ML IV SCH ×2 (01:57→06:34)
[2017-01-25 06:00] LABS: ALANINE AMINOTRANSFERASE 8 Units/L (12-78); ALBUMIN 3.2 g/dL (3.4-5.0); ALKALINE PHOSPHATASE 50 Units/L (46-116); ASPARTATE AMINO TRANSFERASE 10 Units/L (15-37); BLOOD UREA NITROGEN 4 mg/dL (7-18); CALCIUM 8.7 mg/dL (8.5-10.1); CARBON DIOXIDE 25.1 mmol/L (21-32); CHLORIDE 97 mmol/L (98-107); COR CA(FOR HYPOALB) 9.3 mg/dL (8.5-10.1); CREATININE 0.57 mg/dL (0.55-1.02); GLUCOSE 81 mg/dL (65-99); SODIUM 134 mmol/L (136-145); eGFR BLACK RACES > 60 (>60); eGFR NON BLACK RACES > 60 (>60)
[2017-01-25 06:08] LABS: BASOPHILS % (AUTO) 0.6 % (0.2-1.0); EOSINOPHILS # (AUTO) 0.2 x10^3/uL (0.0-0.2); EOSINOPHILS % (AUTO) 3.5 % (0.9-2.9); HEMATOCRIT 28.2 % (36.0-47.0); HEMOGLOBIN 9.7 g/dL (12.0-16.0); LYMPHOCYTES # (AUTO) 1.3 X10^3/uL (1.3-2.9); LYMPHOCYTES % (AUTO) 21.1 % (21.0-51.0); MEAN CORPUSCULAR HEMOGLOBIN 27.7 pg (27.0-34.0); MEAN CORPUSCULAR HGB CONC 34.4 g/dL (33.0-35.0); MEAN CORPUSCULAR VOLUME 80.5 fL (80.0-100.0); MEAN PLATELET VOLUME 6.5 fL (7.4-11.0); MONOCYTES % (AUTO) 15.7 % (0.0-13.0); NEUTROPHILS # (AUTO) 3.6 x10^3/uL (2.2-4.8); NEUTROPHILS % (AUTO) 59.1 % (42.0-75.0); PLATELET COUNT 63 X10^3/uL (150.0-450.0); RED BLOOD COUNT 3.51 X10^6/uL (3.5-5.4); RED CELL DISTRIBUTION WIDTH 15.7 % (11.6-16.5); WHITE BLOOD COUNT 6.1 X10^3/uL (3.6-10.0)
[2017-01-25] MEDS: ALBUMIN HUMAN 25%- 100ML 100 ML IV SCH (09:36)
[2017-01-25] MEDS: ROCEPHIN VIAL 1 GM 1 GM in NS 50 ML IV + SPIKE MINIBAG* 50 ML IV SCH (09:36)
[2017-01-25] MEDS: MIRALAX POWDER (1 DOSE 17GM) PO SCH (09:37)
[2017-01-25] MEDS: NEURONTIN CAP 400 MG PO SCH (09:37)
[2017-01-25] MEDS: ATIVAN TAB 0.5 MG PO SCH (09:37)
[2017-01-25] MEDS: DITROPAN TAB 5 MG PO SCH (09:38)
[2017-01-25] MEDS: COLACE CAP 100 MG PO SCH (09:38)
[2017-01-25] MEDS: COREG TAB 6.25 MG PO SCH (09:38)
[2017-01-25] MEDS: NORVASC TAB 5 MG PO SCH (09:38)
[2017-01-25] MEDS: MOBIC TAB 15 MG PO SCH (09:38)
[2017-01-25] MEDS: FOLIC ACID TAB 1 MG PO SCH (09:39)
[2017-01-25] MEDS: MICRO K EXTEN CAP 10 MEQ PO SCH (09:47)
[2017-01-25] MEDS: PriLOSEC PO SCH (09:47)
[2017-01-25] MEDS: PATANOL 0.1% EYE DROPS EACHEYE SCH (09:47)
[2017-01-25] MEDS: FLONASE NASAL SPRAY ENOSTRIL SCH (09:47)
[2017-01-25] MEDS: ARTIFICIAL TEARS DROPS EACHEYE SCH (09:47)
[2017-01-25] MEDS: DIOVAN TAB 80 MG PO SCH (09:49)
--- NOTE | 2017-01-25 10:47 | PCM.PROG ---
Progress Note - Progress Note for Day of Date: 01/23/17 - Subjective Subjective: PATIENT CONTINUES WITH INTERMITTENT CONFUSION, MUSCLE WEAKNESS, HEADACHE, AND OCCASIONAL NAUSEA. SODIUM LEVEL HAS INCREASED FROM 125 TO 131. CBC WNL EXCEPT: H/H 10.0/29.6, PLT COUNT 75. CMP WNL EXCEPT: SODIUM 131, GLUCOSE 109, CALCIUM 8.3, TOT PROTEIN 6.0, ALBUMIN 2.8. WE WILL FLUID RESTRICT TO LESS THAN 1000MLS PER 24 HOURS. WE WILL CONTINUE IV ROCEPHIN, CONTINUE IV FLUIDS, CONTINUE TO MONITOR, AND FOLLOW UP IN AM WITH LABS. - Past Medical Family Social History Past Med/Fam/Surg Hx: No changes since H&P Allergies: Allergies No Known Drug Allergy Allergy (Verified 11/24/14 03:02) - Review of Systems ROS: No change since H&P - Vital Signs and I&O's Vital Signs: Temperature 97.6 F Pulse Rate [Right Radial] 103 Respiratory Rate 20 Blood Pressure [Right Calf] 109/62 Blood Pressure [Right Arm] 109/61 Blood Pressure [Left Arm] 141/74 Blood Pressure 147/70 O2 Sat by Pulse Oximetry 95 Intake and Output: Intake & Output 01/22/17 01/23/17 01/24/17 01/25/17 11:59 11:59 11:59 11:59 Intake Total 174 567 2363 1300 Output Total 200 500 Balance 753 839 1451 800 - Physical Exam Oriented: Person Eyes: Normal. negative: Blurred Vision, Diplopia, Discharge, Pain, Redness, Photophobia Ear: Normal. negative: Swelling, Ecchymosis, Hemotypanum, Abrasion, Laceration Nose: Normal. negative: Injected, Discharge, Blood Throat: Dry. negative: Tonsillar Hypertrophy, Exudate Respiratory: Normal Cardiovascular: Normal. negative: Murmur, Edema : Normal. negative: Dysuria, Hematuria, Frequency, Discharge, Bleeding, Auscultation: Bowel Sounds: Decreased. negative: Bruit Palpation: Normal. negative: Spleen Enlarged, Liver Enlarged, Mass Pulsatile Tenderness: Normal. negative: Rebound, Guarding, Rigidity Skin: Decreased Turgur. negative: Diaphoresis, Wound, Bruising, Ecchymosis Musculoskeletal: Instability Psychiatric: Other (Intermittent confusion) Mood Description: Calm Affect: Normal Speech Pattern: Clear, Appropriate - Laboratory and Diagnostics Result Diagrams: 01/25/17 04:32 01/25/17 04:32 Labs: 01/22/17 05:25 Urine,Clean Catch Urine Culture - Final Escherichia Coli 01/21/17 19:49 Blood Blood Culture - Preliminary 01/21/17 19:55 Blood Blood Culture - Preliminary Laboratory WBC 6.1 X10^3/uL (3.6-10.0) 01/25/17 04:32 RBC 3.51 X10^6/uL (3.5-5.4) 01/25/17 04:32 Hgb 9.7 g/dL (12.0-16.0) L 01/25/17 04:32 Hct 28.2 % (36.0-47.0) L 01/25/17 04:32 MCV 80.5 fL (80.0-100.0) 01/25/17 04:32 MCH 27.7 pg (27.0-34.0) 01/25/17 04:32 MCHC 34.4 g/dL (33.0-35.0) 01/25/17 04:32 RDW 15.7 % (11.6-16.5) 01/25/17 04:32 Plt Count 63 X10^3/uL (150.0-450.0) L 01/25/17 04:32 MPV 6.5 fL (7.4-11.0) L 01/25/17 04:32 Neut % 59.1 % (42.0-75.0) 01/25/17 04:32 Lymph % 21.1 % (21.0-51.0) 01/25/17 04:32 [place] % 15.7 % (0.0-13.0) H 01/25/17 04:32 Eos % 3.5 % (0.9-2.9) H 01/25/17 04:32 Baso % 0.6 % (0.2-1.0) 01/25/17 04:32 Neut # 3.6 x10^3/uL (2.2-4.8) 01/25/17 04:32 Lymph # 1.3 X10^3/uL (1.3-2.9) 01/25/17 04:32 [place]hing # 1.0 x10^3/uL (0.3-0.8) H 01/25/17 04:32 Eos # 0.2 x10^3/uL (0.0-0.2) 01/25/17 04:32 Baso # 0.0 X10^3/uL (0.0-0.1) 01/25/17 04:32 Absolute Nucleated RBC 0.1 /100WBC 01/25/17 04:32 Sodium 134 mmol/L (136-145) L 01/25/17 04:32 Corrected Sodium TNP 01/25/17 04:32 Potassium 3.3 mmol/L (3.5-5.1) L 01/25/17 04:32 Chloride 97 mmol/L (98-107) L 01/25/17 04:32 Carbon Dioxide 25.1 mmol/L (21-32) 01/25/17 04:32 BUN 4 mg/dL (7-18) L 01/25/17 04:32 Creatinine 0.57 mg/dL (0.55-1.02) 01/25/17 04:32 Est GFR (MDRD) Af Amer > 60 (>60) 01/25/17 04:32 Est GFR (MDRD) Non-Af > 60 (>60) 01/25/17 04:32 Glucose 81 mg/dL (65-99) 01/25/17 04:32 Calcium 8.7 mg/dL (8.5-10.1) 01/25/17 04:32 Corrected Calcium 9.3 mg/dL (8.5-10.1) 01/25/17 04:32 Total Bilirubin 0.60 mg/dL (0.2-1.0) 01/25/17 04:32 AST 10 Units/L (15-37) L 01/25/17 04:32 ALT 8 Units/L (12-78) L 01/25/17 04:32 Alkaline Phosphatase 50 Units/L (46-116) 01/25/17 04:32 Total Protein 6.0 g/dL (6.4-8.2) L 01/25/17 04:32 Albumin 3.2 g/dL (3.4-5.0) L 01/25/17 04:32 Globulin 2.8 g/dL (2.5-4.5) 01/25/17 04:32 Albumin/Globulin Ratio 1.1 Ratio (1.1-2.1) 01/25/17 04:32 Specimen Type Clean catch urine 01/22/17 05:25 Urine Color Yellow (YELLOW) 01/22/17 05:25 Urine Appearance Turbid (CLEAR) 01/22/17 05:25 Urine pH 8.0 (5.0 - 8.0) 01/22/17 05:25 Ur Specific [place] 1.015 (1.000-1.030) 01/22/17 05:25 Urine Protein 3+ (NEGATIVE) 01/22/17 05:25 Urine Glucose (UA) Negative (NEGATIVE) 01/22/17 05:25 Urine Ketones Negative (NEGATIVE) 01/22/17 05:25 Urine Occult Blood 5+ (NEGATIVE) 01/22/17 05:25 Urine Nitrite Negative (NEGATIVE) 01/22/17 05:25 Urine Bilirubin Negative (NEGATIVE) 01/22/17 05:25 Urine Urobilinogen Normal (NORMAL) 01/22/17 05:25 Ur Leukocyte Esterase 3+ (NEGATIVE) 01/22/17 05:25 Urine RBC 2 - 6 /HPF (NEGATIVE) 01/22/17 05:25 Urine WBC 8 - 15 /HPF (NEGATIVE) 01/22/17 05:25 Ur Squamous Epith Cells Few /HPF (NEGATIVE) 01/22/17 05:25 Urine Bacteria 1+ /HPF (NEGATIVE) 01/22/17 05:25 Hyaline Casts Numerous /LPF (NEGATIVE) 01/22/17 05:25 Ur Culture Indicated? Yes/culture set up 01/22/17 05:25 - Plan (1) Hyponatremia Status: Acute Plan: FLUID RESTRICT, CONTINUE IV FLUIDS, MONITOR LABS. (2) Altered mental status Status: Acute Qualifiers: Altered mental status type: transient alteration of awareness Coma depth: C Coma timing: C Qualified Code(s): R40.4 - Transient alteration of awareness Plan: CONTINUE IV FLUIDS, CONTINUE TO MONITOR. (3) Muscle weakness Status: Acute Plan: ABOVE. (4) Nausea Status: Acute Plan: ABOVE. (5) Headache Status: Acute Qualifiers: Headache type: tension-type Headache chronicity pattern: acute headache Intractability: not intractable Qualified Code(s): G44.209 - Tension-type headache, unspecified, not intractable Plan: ABOVE. (6) Hypertension Status: Chronic Qualifiers: Hypertension type: essential hypertension Qualified Code(s): I10 - Essential (primary) hypertension (7) Arthritis Status: Chronic (8) Chronic back pain Status: Chronic Qualifiers: Back pain location: low back pain Back pain laterality: bilateral Sciatica presence: without sciatica Sciatica laterality: S Qualified Code(s) : M54.5 - Low back pain; G89.29 - Other chronic pain (9) Constipation Status: Chronic Qualifiers: Constipation type: slow transit constipation Qualified Code(s): K59.01 - Slow transit constipation (10) Depressive disorder Status: Chronic (11) Essential hypertension Status: Chronic (12) GERD (gastroesophageal reflux disease) Status: Chronic Qualifiers: Esophagitis presence: esophagitis presence not specified Qualified Code(s) : K21.9 - Gastro-esophageal reflux disease without esophagitis (13) Generalized anxiety disorder Status: Chronic
--- NOTE | 2017-01-25 10:58 | PCM.PROG ---
Progress Note - Progress Note for Day of Date: 01/24/17 - Subjective Subjective: PATIENT'S CONFUSION IS IMPROVING, ALONG WITH MUSCLE WEAKNESS, HEADACHE, AND NAUSEA. SHE IS MORE ALERT THIS MORNING. SODIUM LEVEL HAS IMPROVED FROM 131 TO 134. CBC WNL EXCEPT: H/H 9.3/27.1, PLT COUNT 70. CMP WNL EXCEPT: SODIUM 134, POTASSIUM 3.4, CALCIUM 8.3, TOT PROTEIN 5.8, ALBUMIN 3.0. WE WILL CONTINUE FLUID RESTRICTION, CONTINUE IV ROCEPHIN, IV FLUIDS, MONITOR, AND FOLLOW UP IN AM WITH LABS. - Past Medical Family Social History Past Med/Fam/Surg Hx: No changes since H&P Allergies: Allergies No Known Drug Allergy Allergy (Verified 11/24/14 03:02) - Review of Systems ROS: No change since H&P - Vital Signs and I&O's Vital Signs: Temperature 97.6 F Pulse Rate [Right Radial] 103 Respiratory Rate 20 Blood Pressure [Right Calf] 109/62 Blood Pressure [Right Arm] 109/61 Blood Pressure [Left Arm] 141/74 Blood Pressure 147/70 O2 Sat by Pulse Oximetry 95 Intake and Output: Intake & Output 01/22/17 01/23/17 01/24/17 01/25/17 11:59 11:59 11:59 11:59 Intake Total 160 749 4391 1300 Output Total 200 500 Balance 399 220 5280 800 - Physical Exam Oriented: Person Eyes: Normal. negative: Blurred Vision, Diplopia, Discharge, Pain, Redness, Photophobia Ear: Normal. negative: Swelling, Ecchymosis, Hemotypanum, Abrasion, Laceration Nose: Normal. negative: Injected, Discharge, Blood Throat: Dry. negative: Tonsillar Hypertrophy, Exudate Respiratory: Normal Cardiovascular: Normal. negative: Murmur, Edema : Normal. negative: Dysuria, Hematuria, Frequency, Discharge, Bleeding, Auscultation: Bowel Sounds: Decreased. negative: Bruit Palpation: Normal. negative: Spleen Enlarged, Liver Enlarged, Mass Pulsatile Tenderness: Normal. negative: Rebound, Guarding, Rigidity Skin: Decreased Turgur. negative: Diaphoresis, Wound, Bruising, Ecchymosis Musculoskeletal: Instability Psychiatric: Other (Intermittent confusion) Mood Description: Calm Affect: Normal Speech Pattern: Clear, Appropriate - Laboratory and Diagnostics Result Diagrams: 01/25/17 04:32 01/25/17 04:32 Labs: 01/22/17 05:25 Urine,Clean Catch Urine Culture - Final Escherichia Coli 01/21/17 19:49 Blood Blood Culture - Preliminary 01/21/17 19:55 Blood Blood Culture - Preliminary Laboratory WBC 6.1 X10^3/uL (3.6-10.0) 01/25/17 04:32 RBC 3.51 X10^6/uL (3.5-5.4) 01/25/17 04:32 Hgb 9.7 g/dL (12.0-16.0) L 01/25/17 04:32 Hct 28.2 % (36.0-47.0) L 01/25/17 04:32 MCV 80.5 fL (80.0-100.0) 01/25/17 04:32 MCH 27.7 pg (27.0-34.0) 01/25/17 04:32 MCHC 34.4 g/dL (33.0-35.0) 01/25/17 04:32 RDW 15.7 % (11.6-16.5) 01/25/17 04:32 Plt Count 63 X10^3/uL (150.0-450.0) L 01/25/17 04:32 MPV 6.5 fL (7.4-11.0) L 01/25/17 04:32 Neut % 59.1 % (42.0-75.0) 01/25/17 04:32 Lymph % 21.1 % (21.0-51.0) 01/25/17 04:32 [place] % 15.7 % (0.0-13.0) H 01/25/17 04:32 Eos % 3.5 % (0.9-2.9) H 01/25/17 04:32 Baso % 0.6 % (0.2-1.0) 01/25/17 04:32 Neut # 3.6 x10^3/uL (2.2-4.8) 01/25/17 04:32 Lymph # 1.3 X10^3/uL (1.3-2.9) 01/25/17 04:32 [place] # 1.0 x10^3/uL (0.3-0.8) H 01/25/17 04:32 Eos # 0.2 x10^3/uL (0.0-0.2) 01/25/17 04:32 Baso # 0.0 X10^3/uL (0.0-0.1) 01/25/17 04:32 Absolute Nucleated RBC 0.1 /100WBC 01/25/17 04:32 Sodium 134 mmol/L (136-145) L 01/25/17 04:32 Corrected Sodium TNP 01/25/17 04:32 Potassium 3.3 mmol/L (3.5-5.1) L 01/25/17 04:32 Chloride 97 mmol/L (98-107) L 01/25/17 04:32 Carbon Dioxide 25.1 mmol/L (21-32) 01/25/17 04:32 BUN 4 mg/dL (7-18) L 01/25/17 04:32 Creatinine 0.57 mg/dL (0.55-1.02) 01/25/17 04:32 Est GFR (MDRD) Af Amer > 60 (>60) 01/25/17 04:32 Est GFR (MDRD) Non-Af > 60 (>60) 01/25/17 04:32 Glucose 81 mg/dL (65-99) 01/25/17 04:32 Calcium 8.7 mg/dL (8.5-10.1) 01/25/17 04:32 Corrected Calcium 9.3 mg/dL (8.5-10.1) 01/25/17 04:32 Total Bilirubin 0.60 mg/dL (0.2-1.0) 01/25/17 04:32 AST 10 Units/L (15-37) L 01/25/17 04:32 ALT 8 Units/L (12-78) L 01/25/17 04:32 Alkaline Phosphatase 50 Units/L (46-116) 01/25/17 04:32 Total Protein 6.0 g/dL (6.4-8.2) L 01/25/17 04:32 Albumin 3.2 g/dL (3.4-5.0) L 01/25/17 04:32 Globulin 2.8 g/dL (2.5-4.5) 01/25/17 04:32 Albumin/Globulin Ratio 1.1 Ratio (1.1-2.1) 01/25/17 04:32 Specimen Type Clean catch urine 01/22/17 05:25 Urine Color Yellow (YELLOW) 01/22/17 05:25 Urine Appearance Turbid (CLEAR) 01/22/17 05:25 Urine pH 8.0 (5.0 - 8.0) 01/22/17 05:25 Ur Specific [place] 1.015 (1.000-1.030) 01/22/17 05:25 Urine Protein 3+ (NEGATIVE) 01/22/17 05:25 Urine Glucose (UA) Negative (NEGATIVE) 01/22/17 05:25 Urine Ketones Negative (NEGATIVE) 01/22/17 05:25 Urine Occult Blood 5+ (NEGATIVE) 01/22/17 05:25 Urine Nitrite Negative (NEGATIVE) 01/22/17 05:25 Urine Bilirubin Negative (NEGATIVE) 01/22/17 05:25 Urine Urobilinogen Normal (NORMAL) 01/22/17 05:25 Ur Leukocyte Esterase 3+ (NEGATIVE) 01/22/17 05:25 Urine RBC 2 - 6 /HPF (NEGATIVE) 01/22/17 05:25 Urine WBC 8 - 15 /HPF (NEGATIVE) 01/22/17 05:25 Ur Squamous Epith Cells Few /HPF (NEGATIVE) 01/22/17 05:25 Urine Bacteria 1+ /HPF (NEGATIVE) 01/22/17 05:25 Hyaline Casts Numerous /LPF (NEGATIVE) 01/22/17 05:25 Ur Culture Indicated? Yes/culture set up 01/22/17 05:25 - Plan (1) Hyponatremia Status: Acute Plan: FLUID RESTRICT, CONTINUE IV FLUIDS, MONITOR LABS. (2) Altered mental status Status: Acute Qualifiers: Altered mental status type: transient alteration of awareness Coma depth: C Coma timing: C Qualified Code(s): R40.4 - Transient alteration of awareness Plan: CONTINUE IV FLUIDS, CONTINUE TO MONITOR. (3) Muscle weakness Status: Acute Plan: ABOVE. (4) Nausea Status: Acute Plan: ABOVE. (5) Headache Status: Acute Qualifiers: Headache type: tension-type Headache chronicity pattern: acute headache Intractability: not intractable Qualified Code(s): G44.209 - Tension-type headache, unspecified, not intractable Plan: ABOVE. (6) Hypertension Status: Chronic Qualifiers: Hypertension type: essential hypertension Qualified Code(s): I10 - Essential (primary) hypertension (7) Arthritis Status: Chronic (8) Chronic back pain Status: Chronic Qualifiers: Back pain location: low back pain Back pain laterality: bilateral Sciatica presence: without sciatica Sciatica laterality: S Qualified Code(s) : M54.5 - Low back pain; G89.29 - Other chronic pain (9) Constipation Status: Chronic Qualifiers: Constipation type: slow transit constipation Qualified Code(s): K59.01 - Slow transit constipation (10) Depressive disorder Status: Chronic (11) Essential hypertension Status: Chronic (12) GERD (gastroesophageal reflux disease) Status: Chronic Qualifiers: Esophagitis presence: esophagitis presence not specified Qualified Code(s) : K21.9 - Gastro-esophageal reflux disease without esophagitis (13) Generalized anxiety disorder Status: Chronic
[2017-01-25 11:23] VITALS: BP 118/55
[2017-01-25] MEDS ORDERED: COREG TAB 6.25 MG ONE (18:51)
== END 2017-01-25 11:25 | DRG 641 ==
LOC: MED/SURG 17:48
PROVIDERS: ADMIT Internal Medicine; ATTEND Internal Medicine
DX: E87.1 Hypo-osmolality and hyponatremia (principal); R40.4 Transient alteration of awareness; G44.209 Tension-type headache, unspecified, not intractable; M62.81 Muscle weakness (generalized); M13.89 Other specified arthritis, multiple sites; I25.10 Atherosclerotic heart disease of native coronary artery without angina pectoris; E78.2 Mixed hyperlipidemia; K21.9 Gastro-esophageal reflux disease without esophagitis; I10 Essential (primary) hypertension; M54.5 Low back pain; K59.01 Slow transit constipation; F32.89 Other specified depressive episodes; F41.8 Other specified anxiety disorders; B96.29 Other Escherichia coli [E. coli] as the cause of diseases classified elsewhere; G89.29 Other chronic pain; R26.89 Other abnormalities of gait and mobility
CPT/HCPCS: 36415; 80053; 81001; 85025; 87040; 87086; 87088; 87186; 94760; 97535; A4216; A4222; P9047; J0696; J3480

== ENCOUNTER → 2017-04-17 | Outpatient (CLI) | payer OTHER, MEDICARE ==
--- NOTE | 2017-04-17 15:36 | RAD ---
Left wrist, three views Indication: Wrist pain post fall Comparison: February 15, 2015 Findings: The dorsally angulated distal radial fracture appears radiographically healed. Marked wide jerrica of the distal radial ulnar joint with mild positive ulnar variance appears unchanged. Degenerat isamar changes of the radiocarpal and intercarpal joints appears similar. No acute fracture or subluxat ion is identified. Soft tissues are unremarkable. Impression: Chronic posttraumatic and degenerative changes without acute osseous abnormality. Reported By:
== END ==
LOC: RAD 14:53
PROVIDERS: ATTEND Internal Medicine
DX: R52 Pain, unspecified (principal)
CPT/HCPCS: 73100

== ENCOUNTER → 2017-04-22 | Outpatient (CLI) | payer OTHER, MEDICARE ==
--- NOTE | 2017-04-22 13:56 | VAS ---
HISTORY: Bilateral lower extremity edema Study: Bilateral lower extremity venous Doppler Comparison: None TECHNIQUE: Multiple luciano scale and color flow Doppler images of the deep venous system were obtaine d of the right and left lower extremity. FINDINGS: The deep venous system of the right and left lower extremities were evaluated from the level of the common femoral vein through the popliteal vein. Normal color flow and augmentation can be observed. In addition, normal compression is seen throughout the deep venous system. IMPRESSION: 1. Negative for DVT. Reported By:
== END ==
LOC: RAD 11:01
PROVIDERS: ATTEND Internal Medicine
DX: R60.0 Localized edema (principal); M79.89 Other specified soft tissue disorders
CPT/HCPCS: 36415; 80053; 85025; 93970

== ENCOUNTER → 2017-04-30 | Outpatient (CLI) | payer OTHER, MEDICARE ==
--- NOTE | 2017-04-30 16:51 | RAD ---
HISTORY: Congestion. Study: Portable chest. Comparison: Chest x-ray dated April 30, 2017. Findings: Study slightly limited secondary to the lung apices off the field of view. The trachea is midline. The cardiac silhouette is slightly enlarged from the prior exam. Prominent perihilar vasculature with slight cephalization of vessels. Associated alveolar/interstitial marking s. Low lung volumes with eventration of the right hemidiaphragm. Blunting of the bilateral costophr enic angles likely representing left greater than right small pleural effusions. No obvious pneumoth orax. The bony thorax is unremarkable. IMPRESSION: Constellation of findings likely representing pulmonary edema secondary to congestive he art failure. Underlying infiltrate not entirely excluded. Reported By:
== END ==
LOC: RAD 16:07
PROVIDERS: ATTEND Internal Medicine
DX: R09.89 Other specified symptoms and signs involving the circulatory and respiratory systems (principal)
CPT/HCPCS: 71010

== ENCOUNTER 2017-07-02 18:06 | Inpatient (IN) | payer OTHER, MEDICARE ==
[2017-07-02 20:30] LABS: BASOPHILS % (AUTO) 0.6 % (0.2-1.0); EOSINOPHILS # (AUTO) 0.4 x10^3/uL (0.0-0.2); EOSINOPHILS % (AUTO) 7.1 % (0.9-2.9); HEMATOCRIT 31.6 % (36.0-47.0); HEMOGLOBIN 10.7 g/dL (12.0-16.0); LYMPHOCYTES # (AUTO) 1.4 X10^3/uL (1.3-2.9); LYMPHOCYTES % (AUTO) 24.6 % (21.0-51.0); MEAN CORPUSCULAR HEMOGLOBIN 29.8 pg (27.0-34.0); MEAN CORPUSCULAR HGB CONC 33.8 g/dL (33.0-35.0); MEAN CORPUSCULAR VOLUME 88.1 fL (80.0-100.0); MEAN PLATELET VOLUME 7.6 fL (7.4-11.0); MONOCYTES # (AUTO) 0.6 x10^3/uL (0.3-0.8); MONOCYTES % (AUTO) 10.1 % (0.0-13.0); NEUTROPHILS # (AUTO) 3.4 x10^3/uL (2.2-4.8); NEUTROPHILS % (AUTO) 57.6 % (42.0-75.0); PLATELET COUNT 108 X10^3/uL (150.0-450.0); RED BLOOD COUNT 3.59 X10^6/uL (3.5-5.4); WHITE BLOOD COUNT 5.9 X10^3/uL (3.6-10.0)
[2017-07-02 20:53] LABS: B-TYPE NATRIURETIC PEPTIDE 292 pg/mL (0-79)
[2017-07-02 21:11] LABS: ALANINE AMINOTRANSFERASE 13 Units/L (12-78); ALBUMIN 2.6 g/dL (3.4-5.0); ALKALINE PHOSPHATASE 44 Units/L (46-116); ASPARTATE AMINO TRANSFERASE 16 Units/L (15-37); BLOOD UREA NITROGEN 19 mg/dL (7-18); CARBON DIOXIDE 29.8 mmol/L (21-32); CHLORIDE 108 mmol/L (98-107); CREATININE 1.27 mg/dL (0.55-1.02); SODIUM 141 mmol/L (136-145); TOTAL PROTEIN 5.9 g/dL (6.4-8.2); eGFR BLACK RACES 51 (>60); eGFR NON BLACK RACES 43 (>60)
[2017-07-02 21:16] LABS: COR CA(FOR HYPOALB) 9.8 mg/dL (8.5-10.1)
[2017-07-02] MEDS: LASIX IVP SCH (21:45)
[2017-07-02 21:47] LABS: BILIRUBIN,URINE NEGATIVE (NEGATIVE); BLOOD/HEMOGLOBIN,URINE 3+ (NEGATIVE); GLUCOSE, URINE NEGATIVE (NEGATIVE); KETONES,URINE NEGATIVE (NEGATIVE); LEUKOCYTE ESTERASE ,URINE 3+ (NEGATIVE); NITRITES,URINE POSITIVE (NEGATIVE); PROTEIN,URINE 2+ (NEGATIVE); UROBILINOGEN,URINE NORMAL (NORMAL)
[2017-07-02] MEDS: ALBUMIN HUMAN 25%- 100ML 100 ML IV SCH (21:49)
[2017-07-02 21:52] LABS: APPEARANCE,URINE CLOUDY (CLEAR); BACTERIA,URINE 2+ /HPF (NEGATIVE); COLOR,URINE YELLOW (YELLOW); SQUAMOUS EPITHELIAL CELL,UR RARE /HPF (NEGATIVE); YEAST,URINE MANY /HPF (NEGATIVE)
[2017-07-02] MEDS ORDERED: LOPRESSOR INJ 5 MG AMP IVP ONE (22:50)
[2017-07-02 23:20] VITALS: BMI 20.2
[2017-07-02] MEDS ORDERED: FLUVIRIN IM ONE (23:20)
[2017-07-03] MEDS: ARTIFICIAL TEARS DROPS EACHEYE SCH ×6 (00:56→20:25)
[2017-07-03] MEDS: NORCO 5/325 MG TAB PO PRN ×3 (00:56→17:19)
[2017-07-03] MEDS ORDERED: CARDIZEM INJ 125 MG VIAL 125 MG in NS 100 ML IV 100 ML IV PRN (01:57)
[2017-07-03] MEDS ORDERED: CARDIZEM INJ 50 MG VIAL IVP ONE (02:00)
[2017-07-03] MEDS ORDERED: CARDIZEM INJ 125 MG VIAL ONE (02:04)
[2017-07-03] MEDS ORDERED: NS 100 ML IV + SPIKE MINIBAG* 100 ML IV ONE (02:04)
[2017-07-03 05:46] LABS: ALANINE AMINOTRANSFERASE 14 Units/L (12-78); ALKALINE PHOSPHATASE 33 Units/L (46-116); ASPARTATE AMINO TRANSFERASE 15 Units/L (15-37); BLOOD UREA NITROGEN 18 mg/dL (7-18); CALCIUM 8.7 mg/dL (8.5-10.1); CARBON DIOXIDE 29.2 mmol/L (21-32); CHLORIDE 106 mmol/L (98-107); COR CA(FOR HYPOALB) 9.5 mg/dL (8.5-10.1); CREATININE 1.14 mg/dL (0.55-1.02); SODIUM 141 mmol/L (136-145); TOTAL PROTEIN 5.9 g/dL (6.4-8.2); eGFR BLACK RACES 58 (>60); eGFR NON BLACK RACES 48 (>60)
[2017-07-03 05:51] LABS: BASOPHILS % (AUTO) 0.4 % (0.2-1.0); EOSINOPHILS # (AUTO) 0.4 x10^3/uL (0.0-0.2); EOSINOPHILS % (AUTO) 5.6 % (0.9-2.9); HEMATOCRIT 29.4 % (36.0-47.0); HEMOGLOBIN 10.1 g/dL (12.0-16.0); LYMPHOCYTES # (AUTO) 1.7 X10^3/uL (1.3-2.9); LYMPHOCYTES % (AUTO) 25.6 % (21.0-51.0); MEAN CORPUSCULAR HGB CONC 34.2 g/dL (33.0-35.0); MEAN CORPUSCULAR VOLUME 87.6 fL (80.0-100.0); MEAN PLATELET VOLUME 6.7 fL (7.4-11.0); MONOCYTES # (AUTO) 0.8 x10^3/uL (0.3-0.8); NEUTROPHILS # (AUTO) 3.7 x10^3/uL (2.2-4.8); NEUTROPHILS % (AUTO) 56.4 % (42.0-75.0); PLATELET COUNT 74 X10^3/uL (150.0-450.0); RED BLOOD COUNT 3.36 X10^6/uL (3.5-5.4); RED CELL DISTRIBUTION WIDTH 17.3 % (11.6-16.5); WHITE BLOOD COUNT 6.6 X10^3/uL (3.6-10.0)
--- NOTE | 2017-07-03 07:29 | RAD ---
HISTORY: Follow-up congestive heart failure Study: Chest AP portable Comparison: 04/30/2017 Findings: The heart is enlarged. Mild pulmonary venous congestion is present. Bilateral pleural effusions are u nchanged. No acute infiltrates are identified. The bony thorax is unremarkable. IMPRESSION: Cardiomegaly with mild pulmonary venous congestion Likely bilateral pleural effusions Reported By:
[2017-07-03] MEDS: ROCEPHIN VIAL 1 GM 1 GM in NS 50 ML IV + SPIKE MINIBAG* 50 ML IV SCH ×2 (08:10→09:28)
[2017-07-03] MEDS: LASIX IVP SCH ×2 (08:10→17:20)
[2017-07-03] MEDS ORDERED: LEVSIN/MAALOX/LIDOC VISC PO PRN (09:53)
[2017-07-03] MEDS ORDERED: PATIENT'S HOME MEDICATION (Hydrocodone-Acetaminophen [Norco] 1 TAB) PO PRN (09:53)
[2017-07-03] MEDS ORDERED: GABAPENTIN PO SCH (10:00)
[2017-07-03] MEDS ORDERED: PATIENT'S HOME MEDICATION (Lorazepam [Lorazepam] 1 TAB) PO SCH (10:00)
[2017-07-03] MEDS ORDERED: MELOXICAM PO SCH (10:00)
[2017-07-03] MEDS ORDERED: PATIENT'S HOME MEDICATION (Ferrous Fumarate [Hemocyte] 324 MG) PO SCH (10:00)
[2017-07-03] MEDS ORDERED: [UNRECOGNIZED DRUG - REMARK] SCH (10:00)
[2017-07-03] MEDS ORDERED: PATIENT'S HOME MEDICATION (Potassium Chloride [K-Tab Er] 1 TAB) PO SCH (10:00)
[2017-07-03] MEDS: OXYBUTYNIN CHLORIDE ER PO SCH (10:31)
[2017-07-03] MEDS: COREG TAB 3.125 MG PO SCH ×2 (10:31→20:26)
[2017-07-03] MEDS: MEGACE PO SCH (10:31)
[2017-07-03] MEDS: FOLIC ACID TAB 1 MG PO SCH (10:31)
[2017-07-03] MEDS: CARDIZEM SR 120 MG PO SCH ×2 (10:31→20:26)
[2017-07-03] MEDS: PriLOSEC PO SCH (10:31)
[2017-07-03] MEDS: COLACE CAP 100 MG PO SCH ×2 (10:31→20:26)
[2017-07-03] MEDS: MIRALAX POWDER (1 DOSE 17GM) PO SCH (10:32)
[2017-07-03] MEDS: VOLTAREN 1 % GEL MULTI DOSE TUBE EXT SCH ×2 (10:32→20:27)
[2017-07-03] MEDS: ALBUMIN HUMAN 25%- 100ML 100 ML IV SCH (11:25)
[2017-07-03 14:16] LABS: CALCIUM 8.7 mg/dL (8.5-10.1)
[2017-07-03] MEDS: ATIVAN TAB 0.5 MG PO SCH (17:38)
[2017-07-03] MEDS: ZyrTEC TAB 10 MG PO SCH (20:26)
[2017-07-03] MEDS: DESYREL PO SCH (20:26)
[2017-07-03] MEDS: ROBITUSSIN DM PO PRN (20:41)
--- NOTE | 2017-07-03 20:45 | DR.H&P ---
H&P - History & Physical for Day of: H&P Date: 07/02/17 - Chief Complaint Chief Complaint: short of breath, cough - Allergies Allergies/Adverse Reactions: Allergies Allergy/AdvReac Type Severity Reaction Status Date / Time No Known Drug Allergies Allergy Verified 07/02/17 18:51 - History of Present Illness History of Present Illness: IS A 86 YEAR OLD PATIENT OF OURS WHO WAS A DIRECT ADMISSION [facility] WITH COMPLAINTS OF SHORTNESS OF BREATH AND COUGH. AT THE LONG TERM, PATIENT HAD ALSO BEGAN COMPLAINTING OF ABDOMINAL PAIN, WEAKNESS, WEIGHT GAIN, AND LOWER EXTREMITY SWELLING. AN OUTPATIENT CT ABD/PELVIS WAS OBTAINED AND REPORTED FLUID OVERLOAD, MODERATE TO LARGE BILATERAL PLEURAL EFFUSIONS, BODY WALL EDEMA, AND SMALL VOLUME ASCITES, POSSIBLY RELATED TO CHF. MILD CARDIOMEGALY. URINARY BLADDER THICKENING. DIVERTICULOSIS WITHOUT EVIDENCE FOR ACUTE DIVERTICULITIS. ON ARRIVAL TO THE UNIT. ON EXAMINATION, LUNG SOUNDS WERE NOTED WITH RHONCHI THROUGHOUT. ABDOMEN IS SOFT, ROUND, AND TENDER WITH NORMAL BOWEL SOUNDS NOTED IN ALL QUADRANTS. 4+ PITTING EDEAM IS NOTED TO BILATERAL LOWER EXTREMITIES. VITALS SIGNS ON ADMISSION WERE 99.3-046-19-100%-131/77. A CBC, CMP, URINALYSIS, AND EKG WERE OBTAINED ON ADMISSION. ABNORMAL LAB VALUES INCLUDE THE FOLLOWING: Hgb 10.7, Hct 31.6, RDW 18.0, Plt Count 108, Chloride 108, BUN 19, Creatinine 1.27, GFR af 51 , GFR non 43, Alk Phos 44, BNP 292, Total Protein 5.9, Albumin 2.6, A/G ratio 0.8. URINALYSIS REPORTED Catherized, Protein 2+, Occult Blood 3+, Nitrite Positive, Leuk Est 3+, RBC 3-5, WBC 25-30, Bacteria 2+, Yeast Many, Culture Pending. SHE WAS STARTED ON ALBUMIN 25% DAILY, LASIX 40MG IV BID, AND SALINE LOCK FLUSH TID. WE PLANNED TO FOLLOW UP WITH AM LABS AND CHEST XRAY AND CONTINUE TO MONITOR. - Past Medical History Past Medical History: Anemia, Anxiety, Arthritis, Coronary Artery Disease, Depression, Dyslipidemia, GERD, Hypertension Additional Medical History: Freq UTI's, Conjunctivitis, Dry Eyes, Upper Respiratory Infection, Constipation, Urinary Incontinence, Muscle Weakness, Osteoarthritis - Past Surgical History Surgical History: Hysterectomy - Family History Family Medical History: Coronary Artery Disease, Heart Failure, Hypertension - Social History Does patient currently use any type of tobacco product: No Type of Tobacco Use: None Does any household member use tobacco: No Alcohol Use: None Drug Use: None - Medications Home Medications: Calcium Carbonate/Vitamin D3 [Calcium 600+D3 600-800 mg-Unit] 1 tab PO DAILY 01/14 [History Confirmed 07/03/17] Carvedilol [Coreg Tab 12.5 mg] 12.5 mg PO BID 07/03/17 [History Confirmed ] Diclofenac Sodium (Topical) [Voltaren 1 % Gel Multi Dose Tube] 1 applic EXT BID 07/03/17 [History Confirmed 07/03/17] Ferrous Fumarate [Hemocyte] 324 mg PO DAILY 07/03/17 [History Confirmed 07/03/17 ] Fluticasone Propionate [Sm Allergy Relief Nasal S] 2 inh NA DAILY 07/03/17 [ History Confirmed 07/03/17] Megestrol Acetate [Megace] 40 mg PO DAILY 07/03/17 [History Confirmed 07/03/17] Trazodone HCl 150 mg PO HS 07/03/17 [History Confirmed 07/03/17] - Review of Systems Constitutional: Weakness Eyes: No Symptoms Reported ENT: No Symptoms Reported Respiratory: See HPI, Cough, Shortness of Breath, SOB with Excertion Cardiovascular: Edema Gastrointestinal: Abdominal Pain Genitourinary: No Symptoms Reported Musculoskeletal: No Symptoms Reported Skin: Wound Neurological: Weakness - Physical Exam Vital Signs: Temperature 98.7 F Pulse Rate [Apical] 97 Respiratory Rate 22 Blood Pressure [Right Calf] 109/62 Blood Pressure [Right Arm] 136/75 Blood Pressure [Left Arm] 141/74 Blood Pressure 125/80 O2 Sat by Pulse Oximetry 96 Oriented: Normal Eyes: Normal Ear: Normal Nose: Normal Throat: Normal Respiratory: Rhonchi Throughout Cardiovascular: Edema : Normal Auscultation: Bowel Sounds: Normal Palpation: Normal Tenderness: Normal Skin: Normal Musculoskeletal: Normal Psychiatric: Normal Mood Description: Calm Affect: Normal Speech Pattern: Clear - Assessment/Plan (1) CHF (congestive heart failure) Qualifiers: Congestive heart failure type: systolic Congestive heart failure chronicity : acute on chronic Qualified Code(s): I50.23 - Acute on chronic systolic ( congestive) heart failure Status: Acute Plan: LASIX 40MG IV BID, MONITOR CHEST XRAY AND LABS, CONTINUE TO MONITOR (2) Hypoproteinemia Status: Acute Plan: ALBUMIN 25% IV DAILY, CONTINUE TO MONITOR
[2017-07-03] MEDS ORDERED: PATIENT'S HOME MEDICATION (Trazodone Hcl [Trazodone Hcl] 150 MG) PO SCH (21:00)
[2017-07-04 05:36] LABS: BASOPHILS % (AUTO) 0.5 % (0.2-1.0); EOSINOPHILS # (AUTO) 0.4 x10^3/uL (0.0-0.2); EOSINOPHILS % (AUTO) 6.9 % (0.9-2.9); HEMATOCRIT 30.9 % (36.0-47.0); HEMOGLOBIN 10.4 g/dL (12.0-16.0); LYMPHOCYTES # (AUTO) 1.3 X10^3/uL (1.3-2.9); LYMPHOCYTES % (AUTO) 21.9 % (21.0-51.0); MEAN CORPUSCULAR HEMOGLOBIN 29.5 pg (27.0-34.0); MEAN CORPUSCULAR HGB CONC 33.7 g/dL (33.0-35.0); MEAN CORPUSCULAR VOLUME 87.5 fL (80.0-100.0); MEAN PLATELET VOLUME 6.6 fL (7.4-11.0); MONOCYTES # (AUTO) 0.6 x10^3/uL (0.3-0.8); MONOCYTES % (AUTO) 10.4 % (0.0-13.0); NEUTROPHILS # (AUTO) 3.6 x10^3/uL (2.2-4.8); NEUTROPHILS % (AUTO) 60.3 % (42.0-75.0); PLATELET COUNT 69 X10^3/uL (150.0-450.0); RED BLOOD COUNT 3.53 X10^6/uL (3.5-5.4); RED CELL DISTRIBUTION WIDTH 17.4 % (11.6-16.5)
[2017-07-04 05:52] LABS: ALANINE AMINOTRANSFERASE 9 Units/L (12-78); ALKALINE PHOSPHATASE 32 Units/L (46-116); ASPARTATE AMINO TRANSFERASE 13 Units/L (15-37); BLOOD UREA NITROGEN 15 mg/dL (7-18); CALCIUM 8.7 mg/dL (8.5-10.1); CARBON DIOXIDE 32.5 mmol/L (21-32); CHLORIDE 104 mmol/L (98-107); COR CA(FOR HYPOALB) 9.5 mg/dL (8.5-10.1); CREATININE 0.96 mg/dL (0.55-1.02); SODIUM 141 mmol/L (136-145); TOTAL PROTEIN 5.8 g/dL (6.4-8.2); eGFR BLACK RACES > 60 (>60); eGFR NON BLACK RACES 59 (>60)
[2017-07-04] MEDS ORDERED: K-DUR TAB 20 MEQ PO PRN (06:09)
[2017-07-04] MEDS ORDERED: K-LYTE EFFERVESCENT PO PRN (06:09)
[2017-07-04] MEDS ORDERED: POTASSIUM CHLORIDE LIQ 20 MEQ UDC PO PRN (06:09)
[2017-07-04] MEDS ORDERED: K-RIDER 10 MEQ/NS 100 ML 10 MEQ/100 ML BAG IV PRN (06:09)
[2017-07-04] MEDS ORDERED: NS 500 ML IV 500 ML IV ONE (07:51)
[2017-07-04] MEDS: ATIVAN TAB 0.5 MG PO SCH ×2 (08:18→16:30)
[2017-07-04] MEDS: ROCEPHIN VIAL 1 GM 1 GM in NS 50 ML IV + SPIKE MINIBAG* 50 ML IV SCH (08:18)
[2017-07-04] MEDS: OXYBUTYNIN CHLORIDE ER PO SCH (08:19)
[2017-07-04] MEDS: OSCAL+D or CALTRATE+D PO SCH (08:19)
[2017-07-04] MEDS: MOBIC TAB 15 MG PO SCH (08:19)
[2017-07-04] MEDS: NEURONTIN CAP 400 MG PO SCH (08:19)
[2017-07-04] MEDS: LASIX IVP SCH ×2 (08:19→16:31)
[2017-07-04] MEDS: COREG TAB 3.125 MG PO SCH ×2 (08:19→22:15)
[2017-07-04] MEDS: PriLOSEC PO SCH (08:19)
[2017-07-04] MEDS: MICRO K EXTEN CAP 10 MEQ PO SCH (08:19)
[2017-07-04] MEDS: MIRALAX POWDER (1 DOSE 17GM) PO SCH (08:19)
[2017-07-04] MEDS: COLACE CAP 100 MG PO SCH ×2 (08:19→21:13)
[2017-07-04] MEDS: MEGACE PO SCH (08:19)
[2017-07-04] MEDS: FOLIC ACID TAB 1 MG PO SCH (08:19)
[2017-07-04] MEDS: CARDIZEM SR 120 MG PO SCH ×3 (08:19→22:58)
[2017-07-04] MEDS: ARTIFICIAL TEARS DROPS EACHEYE SCH ×5 (08:20→22:58)
[2017-07-04] MEDS: ALBUMIN HUMAN 25%- 100ML 100 ML IV SCH (08:20)
[2017-07-04] MEDS: HEMOCYTE-PLUS PO SCH (08:21)
[2017-07-04] MEDS: VOLTAREN 1 % GEL MULTI DOSE TUBE EXT SCH ×2 (08:21→21:13)
[2017-07-04] MEDS ORDERED: ZOFRAN INJ 4 MG VIAL IVP PRN (10:56)
[2017-07-04] MEDS: FLONASE NASAL SPRAY ENOSTRIL SCH (11:09)
--- NOTE | 2017-07-04 11:38 | PCM.PROG ---
Progress Note - Progress Note for Day of Date: 07/03/17 - Subjective Subjective: WAS ADMITTED FOR CHF AND HYPOPROTEINEMIA. TODAY, SHE IS ALERT AND ORIENTED, SITTING UP IN BED ON MORNING ROUNDS. SHE CONTINUES WITH COMPLAINTS OF WEAKNESS AND SHORTNESS OF BREATH. SHE CONTINUES WITH BILATERAL LOWER EXTREMITY EDEMA. TODAY, IT IS 2+. THROUGHTOUT THE NIGHT, SHE WAS NOTED WITH INCREASED HEARTRATE. HEARTRATE WAS NOTED IN THE 140S. AN EKG WAS OBTAINED AND REPORTED SVT WITH HR 143. SHE WAS STARTED ON A CARGIZEM DRIP AT 10MG/HR. ON EXAMINATION, LUNGS ARE NOTED WITH WHEEZING BILATERALLY TO AUSCULTATION. ABDOMEN IS SOFT, ROUND, AND NON-TENDER. HER VITAL SIGNS THIS MORNING ARE 97.9, 72, 25, 95% RA, 124/57. A CBC, CMP, AND CHEST XRAY WERE OBTAINED. ABNORMAL LAB RESULTS INCLUDE THE FOLLOWING: RBC 3.36, Hgb 10.1, Hct 29.4, RDW 17.3, Plt Count 74, Creatinine 1.14, GFR af 58, GFR non 48, Alk Phos 33, Total Protein 5.9, Albumin 3.0, A/G Ratio 1.0. CHEST XRAY REPORTED Cardiomegaly with mild pulmonary venous congestion. Likely bilateral pleural effusions. EKG REPORTED: Atrial Flutter. Rate=69. Today, we will start Cardizem CD 120mg daily and wean off of Cardizem drip. We will also review home medications and adjust appropriately. Otherwise, we will continue with current plan of care, obtain am labs, and continue to monitor. - Past Medical Family Social History Past Med/Fam/Surg Hx: No changes since H&P Allergies: Allergies No Known Drug Allergies Allergy (Verified 07/02/17 18:51) - Review of Systems ROS: No change since H&P - Vital Signs and I&O's Vital Signs: Temperature 98.1 F Pulse Rate [Apical] 87 Respiratory Rate 26 Blood Pressure [Right Calf] 109/62 Blood Pressure [Right Arm] 143/65 Blood Pressure [Left Arm] 141/74 Blood Pressure 125/80 O2 Sat by Pulse Oximetry 97 Intake and Output: Intake & Output 07/01/17 07/02/17 07/03/17 07/04/17 11:59 11:59 11:59 11:59 Intake Total 408 1010 Output Total 1900 3300 Balance -1492 -2290 - Physical Exam Oriented: Normal Eyes: Normal Ear: Normal Nose: Normal Throat: Normal Respiratory: Generalized, Wheezes Cardiovascular: Edema : Normal Auscultation: Bowel Sounds: Normal Palpation: Normal Tenderness: Normal Skin: Normal Musculoskeletal: Normal Psychiatric: Normal Mood Description: Calm Affect: Normal Speech Pattern: Clear - Laboratory and Diagnostics Result Diagrams: 07/04/17 04:35 07/04/17 04:35 Labs: 07/02/17 21:35 Urine,Catheterized Urine Culture - Final Laboratory WBC 6.0 X10^3/uL (3.6-10.0) 07/04/17 04:35 RBC 3.53 X10^6/uL (3.5-5.4) 07/04/17 04:35 Hgb 10.4 g/dL (12.0-16.0) L 07/04/17 04:35 Hct 30.9 % (36.0-47.0) L 07/04/17 04:35 MCV 87.5 fL (80.0-100.0) 07/04/17 04:35 MCH 29.5 pg (27.0-34.0) 07/04/17 04:35 MCHC 33.7 g/dL (33.0-35.0) 07/04/17 04:35 RDW 17.4 % (11.6-16.5) H 07/04/17 04:35 Plt Count 69 X10^3/uL (150.0-450.0) L 07/04/17 04:35 MPV 6.6 fL (7.4-11.0) L 07/04/17 04:35 Neut % 60.3 % (42.0-75.0) 07/04/17 04:35 Lymph % 21.9 % (21.0-51.0) 07/04/17 04:35 [place] % 10.4 % (0.0-13.0) 07/04/17 04:35 Eos % 6.9 % (0.9-2.9) H 07/04/17 04:35 Baso % 0.5 % (0.2-1.0) 07/04/17 04:35 Neut # 3.6 x10^3/uL (2.2-4.8) 07/04/17 04:35 Lymph # 1.3 X10^3/uL (1.3-2.9) 07/04/17 04:35 [place] # 0.6 x10^3/uL (0.3-0.8) 07/04/17 04:35 Eos # 0.4 x10^3/uL (0.0-0.2) H 07/04/17 04:35 Baso # 0.0 X10^3/uL (0.0-0.1) 07/04/17 04:35 Absolute Nucleated RBC 0.0 /100WBC 07/04/17 04:35 Sodium 141 mmol/L (136-145) 07/04/17 04:35 Corrected Sodium TNP 07/04/17 04:35 Potassium 3.2 mmol/L (3.5-5.1) L 07/04/17 04:35 Chloride 104 mmol/L (98-107) 07/04/17 04:35 Carbon Dioxide 32.5 mmol/L (21-32) H 07/04/17 04:35 BUN 15 mg/dL (7-18) 07/04/17 04:35 Creatinine 0.96 mg/dL (0.55-1.02) 07/04/17 04:35 Est GFR (MDRD) Af Amer > 60 (>60) 07/04/17 04:35 Est GFR (MDRD) Non-Af 59 (>60) 07/04/17 04:35 Glucose 86 mg/dL (65-99) 07/04/17 04:35 Calcium 8.7 mg/dL (8.5-10.1) 07/04/17 04:35 Corrected Calcium 9.5 mg/dL (8.5-10.1) 07/04/17 04:35 Total Bilirubin 0.50 mg/dL (0.2-1.0) 07/04/17 04:35 AST 13 Units/L (15-37) L 07/04/17 04:35 ALT 9 Units/L (12-78) L 07/04/17 04:35 Alkaline Phosphatase 32 Units/L (46-116) L 07/04/17 04:35 B-Natriuretic Peptide 292 pg/mL (0-79) H 07/02/17 20:50 Total Protein 5.8 g/dL (6.4-8.2) L 07/04/17 04:35 Albumin 3.0 g/dL (3.4-5.0) L 07/04/17 04:35 Globulin 2.8 g/dL (2.5-4.5) 07/04/17 04:35 Albumin/Globulin Ratio 1.1 Ratio (1.1-2.1) 07/04/17 04:35 Specimen Type Catherized urine 07/02/17 21:35 Urine Color Yellow (YELLOW) 07/02/17 21:35 Urine Appearance Cloudy (CLEAR) 07/02/17 21:35 Urine pH 5.0 (5.0 - 8.0) 07/02/17 21:35 Ur Specific [place] 1.020 (1.000-1.030) 07/02/17 21:35 Urine Protein 2+ (NEGATIVE) 07/02/17 21:35 Urine Glucose (UA) Negative (NEGATIVE) 07/02/17 21:35 Urine Ketones Negative (NEGATIVE) 07/02/17 21:35 Urine Occult Blood 3+ (NEGATIVE) 07/02/17 21:35 Urine Nitrite Positive (NEGATIVE) 07/02/17 21:35 Urine Bilirubin Negative (NEGATIVE) 07/02/17 21:35 Urine Urobilinogen Normal (NORMAL) 07/02/17 21:35 Ur Leukocyte Esterase 3+ (NEGATIVE) 07/02/17 21:35 Urine RBC 3-5 /HPF (NEGATIVE) 07/02/17 21:35 Urine WBC 25-30 /HPF (NEGATIVE) 07/02/17 21:35 Ur Squamous Epith Cells Rare /HPF (NEGATIVE) 07/02/17 21:35 Urine Bacteria 2+ /HPF (NEGATIVE) 07/02/17 21:35 Urine Yeast Many /HPF (NEGATIVE) 07/02/17 21:35 Ur Culture Indicated? Yes/culture set up 07/02/17 21:35 - Plan (1) CHF (congestive heart failure) Status: Acute Qualifiers: Congestive heart failure type: systolic Congestive heart failure chronicity : acute on chronic Qualified Code(s): I50.23 - Acute on chronic systolic ( congestive) heart failure Plan: LASIX 40MG IV BID, MONITOR CHEST XRAY AND LABS, CONTINUE TO MONITOR (2) Hypoproteinemia Status: Acute Plan: ALBUMIN 25% IV DAILY, CONTINUE TO MONITOR
[2017-07-04] MEDS: ZyrTEC TAB 10 MG PO SCH (21:13)
[2017-07-04] MEDS: DESYREL PO SCH ×2 (22:15→22:59)
[2017-07-05 06:16] LABS: BASOPHILS % (AUTO) 0.4 % (0.2-1.0); EOSINOPHILS # (AUTO) 0.4 x10^3/uL (0.0-0.2); EOSINOPHILS % (AUTO) 5.5 % (0.9-2.9); HEMOGLOBIN 9.8 g/dL (12.0-16.0); LYMPHOCYTES # (AUTO) 1.7 X10^3/uL (1.3-2.9); LYMPHOCYTES % (AUTO) 23.9 % (21.0-51.0); MEAN CORPUSCULAR HEMOGLOBIN 29.7 pg (27.0-34.0); MEAN CORPUSCULAR HGB CONC 33.9 g/dL (33.0-35.0); MEAN CORPUSCULAR VOLUME 87.5 fL (80.0-100.0); MEAN PLATELET VOLUME 7.1 fL (7.4-11.0); MONOCYTES % (AUTO) 13.6 % (0.0-13.0); NEUTROPHILS % (AUTO) 56.6 % (42.0-75.0); PLATELET COUNT 68 X10^3/uL (150.0-450.0); RED BLOOD COUNT 3.31 X10^6/uL (3.5-5.4); RED CELL DISTRIBUTION WIDTH 17.4 % (11.6-16.5)
[2017-07-05 06:21] LABS: ALANINE AMINOTRANSFERASE 13 Units/L (12-78); ALKALINE PHOSPHATASE 37 Units/L (46-116); ASPARTATE AMINO TRANSFERASE 9 Units/L (15-37); BLOOD UREA NITROGEN 14 mg/dL (7-18); CALCIUM 8.5 mg/dL (8.5-10.1); CHLORIDE 104 mmol/L (98-107); COR CA(FOR HYPOALB) 9.3 mg/dL (8.5-10.1); CREATININE 1.19 mg/dL (0.55-1.02); SODIUM 141 mmol/L (136-145); TOTAL PROTEIN 5.6 g/dL (6.4-8.2); eGFR BLACK RACES 55 (>60); eGFR NON BLACK RACES 46 (>60)
[2017-07-05] MEDS: FLONASE NASAL SPRAY ENOSTRIL SCH (08:05)
[2017-07-05] MEDS: ARTIFICIAL TEARS DROPS EACHEYE SCH ×4 (08:05→20:33)
[2017-07-05] MEDS: LASIX IVP SCH ×2 (08:06→17:00)
[2017-07-05] MEDS: OSCAL+D or CALTRATE+D PO SCH (08:06)
[2017-07-05] MEDS: VOLTAREN 1 % GEL MULTI DOSE TUBE EXT SCH ×2 (08:06→20:35)
[2017-07-05] MEDS: PriLOSEC PO SCH (08:06)
[2017-07-05] MEDS: MICRO K EXTEN CAP 10 MEQ PO SCH (08:07)
[2017-07-05] MEDS: NEURONTIN CAP 400 MG PO SCH (08:07)
[2017-07-05] MEDS: CARDIZEM SR 120 MG PO SCH ×2 (08:07→20:34)
[2017-07-05] MEDS: OXYBUTYNIN CHLORIDE ER PO SCH (08:07)
[2017-07-05] MEDS: MEGACE PO SCH (08:07)
[2017-07-05] MEDS: COREG TAB 3.125 MG PO SCH ×2 (08:07→20:34)
[2017-07-05] MEDS: HEMOCYTE-PLUS PO SCH (08:07)
[2017-07-05] MEDS: COLACE CAP 100 MG PO SCH ×2 (08:07→20:34)
[2017-07-05] MEDS: FOLIC ACID TAB 1 MG PO SCH (08:07)
[2017-07-05] MEDS: MOBIC TAB 15 MG PO SCH (08:07)
[2017-07-05] MEDS: ALBUMIN HUMAN 25%- 100ML 100 ML IV SCH (08:08)
[2017-07-05] MEDS: ROCEPHIN VIAL 1 GM 1 GM in NS 50 ML IV + SPIKE MINIBAG* 50 ML IV SCH (08:08)
[2017-07-05] MEDS: MIRALAX POWDER (1 DOSE 17GM) PO SCH (08:08)
[2017-07-05] MEDS: ATIVAN TAB 0.5 MG PO SCH ×2 (08:09→17:30)
--- NOTE | 2017-07-05 10:35 | PCM.PROG ---
Progress Note - Progress Note for Day of Date: 07/04/17 - Subjective Subjective: WAS ADMITTED FOR CHF AND HYPOPROTEINEMIA. TODAY, SHE IS ALERT AND ORIENTED, LYING IN BED ON MORNING ROUNDS. SHE CONTINUES WITH COMPLAINTS OF WEAKNESS AND SHORTNESS OF BREATH. SHE CONTINUES WITH BILATERAL LOWER EXTREMITY EDEMA. TODAY, IT HAS DECRASED AND IS NOW 1+ BILATERALLY. ON EXAMINATION, LUNGS ARE NOTED WITH CRACKLES BILATERALLY TO AUSCULTATION. ABDOMEN IS SOFT, ROUND, AND NON-TENDER. SHE NOTED ON TELEMETY. ATRIAL FIBRILLATION IS NOTED WITH HEART RATE IN THE 90s. SHE IS WEARING NASAL CANNULA WITH OXYGEN AT 2L /MIN. HER VITAL SIGNS THIS MORNING ARE 98.1-97-24-98%-157/98. A CBC, CMP, AND CHEST XRAY WERE OBTAINED. ABNORMAL LAB RESULTS INCLUDE THE FOLLOWING: HGB 10.4, HCT 30.9, POTASSIUM 3.2, CARBON DIOXIDE 32.5, AST 13, ALT 9, ALK PHOS 32, TOTAL PROTEIN 5.8, ALBUMIN 3.0. CHEST XRAY REPORTED CHF WITH MILD INTERVAL INCREASED FLUID IN THE MINOR FISSURE. TODAY, WE WILL ORDER TO RESTRICT FLUIDS TO 1,000ML/ DAY. OTHERWISE, WE WILL CONTINUE WITH CURRENT PLAN OF CARE. WE WILL FOLLOW UP WITH AM LABS AND CONTINUE TO MONITOR PATIENT. - Past Medical Family Social History Past Med/Fam/Surg Hx: No changes since H&P Allergies: Allergies No Known Drug Allergies Allergy (Verified 07/02/17 18:51) - Review of Systems ROS: No change since H&P - Vital Signs and I&O's Vital Signs: Temperature 98.7 F Pulse Rate [Apical] 78 Respiratory Rate 18 Blood Pressure [Right Calf] 109/62 Blood Pressure [Right Arm] 128/56 Blood Pressure [Left Arm] 141/74 Blood Pressure 125/80 O2 Sat by Pulse Oximetry 98 Intake and Output: Intake & Output 07/02/17 07/03/17 07/04/17 07/05/17 11:59 11:59 11:59 11:59 Intake Total 408 1010 1180 Output Total 1900 3300 2650 Balance -5110 -2001 -8905 - Physical Exam Oriented: Normal Eyes: Normal Ear: Normal Nose: Normal Throat: Normal Respiratory: Generalized, Wheezes, OTHER (CRACKLES) Cardiovascular: Edema : Normal Auscultation: Bowel Sounds: Normal Palpation: Normal Tenderness: Normal Skin: Normal Musculoskeletal: Normal Psychiatric: Normal Mood Description: Calm Affect: Normal Speech Pattern: Clear, Appropriate - Laboratory and Diagnostics Result Diagrams: 07/05/17 04:55 07/05/17 04:55 Labs: 07/02/17 21:35 Urine,Catheterized Urine Culture - Final Laboratory WBC 7.0 X10^3/uL (3.6-10.0) 07/05/17 04:55 RBC 3.31 X10^6/uL (3.5-5.4) L 07/05/17 04:55 Hgb 9.8 g/dL (12.0-16.0) L 07/05/17 04:55 Hct 29.0 % (36.0-47.0) L 07/05/17 04:55 MCV 87.5 fL (80.0-100.0) 07/05/17 04:55 MCH 29.7 pg (27.0-34.0) 07/05/17 04:55 MCHC 33.9 g/dL (33.0-35.0) 07/05/17 04:55 RDW 17.4 % (11.6-16.5) H 07/05/17 04:55 Plt Count 68 X10^3/uL (150.0-450.0) L 07/05/17 04:55 MPV 7.1 fL (7.4-11.0) L 07/05/17 04:55 Neut % 56.6 % (42.0-75.0) 07/05/17 04:55 Lymph % 23.9 % (21.0-51.0) 07/05/17 04:55 [place] % 13.6 % (0.0-13.0) H 07/05/17 04:55 Eos % 5.5 % (0.9-2.9) H 07/05/17 04:55 Baso % 0.4 % (0.2-1.0) 07/05/17 04:55 Neut # 4.0 x10^3/uL (2.2-4.8) 07/05/17 04:55 Lymph # 1.7 X10^3/uL (1.3-2.9) 07/05/17 04:55 [place] # 1.0 x10^3/uL (0.3-0.8) H 07/05/17 04:55 Eos # 0.4 x10^3/uL (0.0-0.2) H 07/05/17 04:55 Baso # 0.0 X10^3/uL (0.0-0.1) 07/05/17 04:55 Absolute Nucleated RBC 0.1 /100WBC 07/05/17 04:55 Sodium 141 mmol/L (136-145) 07/05/17 04:55 Corrected Sodium TNP 07/05/17 04:55 Potassium 3.7 mmol/L (3.5-5.1) 07/05/17 04:55 Chloride 104 mmol/L (98-107) 07/05/17 04:55 Carbon Dioxide 36.0 mmol/L (21-32) H 07/05/17 04:55 BUN 14 mg/dL (7-18) 07/05/17 04:55 Creatinine 1.19 mg/dL (0.55-1.02) H 07/05/17 04:55 Est GFR (MDRD) Af Amer 55 (>60) L 07/05/17 04:55 Est GFR (MDRD) Non-Af 46 (>60) L 07/05/17 04:55 Glucose 82 mg/dL (65-99) 07/05/17 04:55 Calcium 8.5 mg/dL (8.5-10.1) 07/05/17 04:55 Corrected Calcium 9.3 mg/dL (8.5-10.1) 07/05/17 04:55 Total Bilirubin 0.50 mg/dL (0.2-1.0) 07/05/17 04:55 AST 9 Units/L (15-37) L 07/05/17 04:55 ALT 13 Units/L (12-78) 07/05/17 04:55 Alkaline Phosphatase 37 Units/L (46-116) L 07/05/17 04:55 B-Natriuretic Peptide 292 pg/mL (0-79) H 07/02/17 20:50 Total Protein 5.6 g/dL (6.4-8.2) L 07/05/17 04:55 Albumin 3.0 g/dL (3.4-5.0) L 07/05/17 04:55 Globulin 2.6 g/dL (2.5-4.5) 07/05/17 04:55 Albumin/Globulin Ratio 1.2 Ratio (1.1-2.1) 07/05/17 04:55 Specimen Type Catherized urine 07/02/17 21:35 Urine Color Yellow (YELLOW) 07/02/17 21:35 Urine Appearance Cloudy (CLEAR) 07/02/17 21:35 Urine pH 5.0 (5.0 - 8.0) 07/02/17 21:35 Ur Specific [place] 1.020 (1.000-1.030) 07/02/17 21:35 Urine Protein 2+ (NEGATIVE) 07/02/17 21:35 Urine Glucose (UA) Negative (NEGATIVE) 07/02/17 21:35 Urine Ketones Negative (NEGATIVE) 07/02/17 21:35 Urine Occult Blood 3+ (NEGATIVE) 07/02/17 21:35 Urine Nitrite Positive (NEGATIVE) 07/02/17 21:35 Urine Bilirubin Negative (NEGATIVE) 07/02/17 21:35 Urine Urobilinogen Normal (NORMAL) 07/02/17 21:35 Ur Leukocyte Esterase 3+ (NEGATIVE) 07/02/17 21:35 Urine RBC 3-5 /HPF (NEGATIVE) 07/02/17 21:35 Urine WBC 25-30 /HPF (NEGATIVE) 07/02/17 21:35 Ur Squamous Epith Cells Rare /HPF (NEGATIVE) 07/02/17 21:35 Urine Bacteria 2+ /HPF (NEGATIVE) 07/02/17 21:35 Urine Yeast Many /HPF (NEGATIVE) 07/02/17 21:35 Ur Culture Indicated? Yes/culture set up 07/02/17 21:35 - Plan (1) CHF (congestive heart failure) Status: Acute Qualifiers: Congestive heart failure type: systolic Congestive heart failure chronicity : acute on chronic Qualified Code(s): I50.23 - Acute on chronic systolic ( congestive) heart failure Plan: LASIX 40MG IV BID, CONTINUE COREG BID, MONITOR CHEST XRAY AND LABS, CONTINUE TO MONITOR (2) Hypoproteinemia Status: Acute Plan: ALBUMIN 25% IV DAILY, CONTINUE TO MONITOR (3) Atrial fibrillation Status: Acute Qualifiers: Atrial fibrillation type: unspecified Qualified Code(s): I48.91 - Unspecified atrial fibrillation Plan: CONTINUE CARDIZEM CD 120MG DAILY, WEAN OFF OF CARDIZEM DRIP, CONTINUE TO MONITOR. (4) Urinary tract infection Status: Acute Qualifiers: Urinary tract infection type: acute cystitis Hematuria presence: with hematuria Qualified Code(s): N30.01 - Acute cystitis with hematuria Plan: ROCEPHIN 1GM IV DAILY, CONTINUE TO MONITOR (5) Constipation Status: Chronic Qualifiers: Constipation type: slow transit constipation Qualified Code(s): K59.01 - Slow transit constipation Plan: CONTINUE COLACE, CONTINUE MIRALAX, CONTINUE TO MONITOR (6) Essential hypertension Status: Chronic Plan: CONTINUE COREG, CONTINUE TO MONITOR (7) GERD (gastroesophageal reflux disease) Status: Chronic Qualifiers: Esophagitis presence: esophagitis presence not specified Qualified Code(s) : K21.9 - Gastro-esophageal reflux disease without esophagitis Plan: CONTINUE PRILOSEC, CONTINUE TO MONITOR (8) Anemia Status: Chronic Qualifiers: Anemia type: iron deficiency Iron deficiency anemia type: inadequate dietary iron intake Qualified Code(s): D50.8 - Other iron deficiency anemias Plan: HEMOCYTE PLAUS DAILY, CONTINUE TO MONITOR (9) Decreased appetite Status: Chronic Plan: CONTINUE MEGACE, CONTINUE TO MONITOR
[2017-07-05] MEDS: TobraDEX OPHTH OINT EACHEYE SCH ×4 (11:10→22:21)
[2017-07-05] MEDS: DESYREL PO SCH (20:34)
[2017-07-05] MEDS: ZyrTEC TAB 10 MG PO SCH (20:35)
[2017-07-06 06:10] LABS: BASOPHILS % (AUTO) 0.6 % (0.2-1.0); EOSINOPHILS # (AUTO) 0.4 x10^3/uL (0.0-0.2); EOSINOPHILS % (AUTO) 6.9 % (0.9-2.9); HEMATOCRIT 30.1 % (36.0-47.0); HEMOGLOBIN 10.3 g/dL (12.0-16.0); LYMPHOCYTES # (AUTO) 1.6 X10^3/uL (1.3-2.9); LYMPHOCYTES % (AUTO) 26.5 % (21.0-51.0); MEAN CORPUSCULAR HEMOGLOBIN 29.9 pg (27.0-34.0); MEAN CORPUSCULAR HGB CONC 34.1 g/dL (33.0-35.0); MEAN CORPUSCULAR VOLUME 87.5 fL (80.0-100.0); MEAN PLATELET VOLUME 6.7 fL (7.4-11.0); MONOCYTES # (AUTO) 0.8 x10^3/uL (0.3-0.8); MONOCYTES % (AUTO) 12.8 % (0.0-13.0); NEUTROPHILS # (AUTO) 3.2 x10^3/uL (2.2-4.8); NEUTROPHILS % (AUTO) 53.2 % (42.0-75.0); PLATELET COUNT 68 X10^3/uL (150.0-450.0); RED BLOOD COUNT 3.44 X10^6/uL (3.5-5.4); RED CELL DISTRIBUTION WIDTH 17.5 % (11.6-16.5); WHITE BLOOD COUNT 5.9 X10^3/uL (3.6-10.0)
[2017-07-06] MEDS: TobraDEX OPHTH OINT EACHEYE SCH ×3 (06:14→22:15)
[2017-07-06 06:19] LABS: ALANINE AMINOTRANSFERASE 12 Units/L (12-78); ALBUMIN 3.3 g/dL (3.4-5.0); ALKALINE PHOSPHATASE 40 Units/L (46-116); ASPARTATE AMINO TRANSFERASE 14 Units/L (15-37); BLOOD UREA NITROGEN 16 mg/dL (7-18); CALCIUM 8.9 mg/dL (8.5-10.1); CARBON DIOXIDE 36.6 mmol/L (21-32); CHLORIDE 103 mmol/L (98-107); COR CA(FOR HYPOALB) 9.5 mg/dL (8.5-10.1); SODIUM 141 mmol/L (136-145); TOTAL PROTEIN 6.1 g/dL (6.4-8.2); eGFR BLACK RACES 50 (>60); eGFR NON BLACK RACES 41 (>60)
[2017-07-06] MEDS: LASIX IVP SCH ×2 (06:22→16:39)
[2017-07-06] MEDS: ALBUMIN HUMAN 25%- 100ML 100 ML IV SCH (09:37)
[2017-07-06] MEDS: ARTIFICIAL TEARS DROPS EACHEYE SCH ×4 (09:38→21:07)
[2017-07-06] MEDS: MICRO K EXTEN CAP 10 MEQ PO SCH (09:39)
[2017-07-06] MEDS: HEMOCYTE-PLUS PO SCH (09:39)
[2017-07-06] MEDS: CARDIZEM SR 120 MG PO SCH ×2 (09:39→21:08)
[2017-07-06] MEDS: OSCAL+D or CALTRATE+D PO SCH (09:39)
[2017-07-06] MEDS: OXYBUTYNIN CHLORIDE ER PO SCH (09:39)
[2017-07-06] MEDS: PriLOSEC PO SCH (09:39)
[2017-07-06] MEDS: MOBIC TAB 15 MG PO SCH (09:40)
[2017-07-06] MEDS: MIRALAX POWDER (1 DOSE 17GM) PO SCH (09:40)
[2017-07-06] MEDS: COLACE CAP 100 MG PO SCH ×2 (09:40→21:08)
[2017-07-06] MEDS: FOLIC ACID TAB 1 MG PO SCH (09:41)
[2017-07-06] MEDS: ROCEPHIN VIAL 1 GM 1 GM in NS 50 ML IV + SPIKE MINIBAG* 50 ML IV SCH (09:41)
[2017-07-06] MEDS: ATIVAN TAB 0.5 MG PO SCH ×2 (09:41→18:12)
[2017-07-06] MEDS: COREG TAB 3.125 MG PO SCH ×2 (09:41→21:08)
[2017-07-06] MEDS: MEGACE PO SCH (09:42)
[2017-07-06] MEDS: FLONASE NASAL SPRAY ENOSTRIL SCH (09:42)
[2017-07-06] MEDS: VOLTAREN 1 % GEL MULTI DOSE TUBE EXT SCH ×2 (09:42→21:08)
[2017-07-06] MEDS: NEURONTIN CAP 400 MG PO SCH (10:00)
[2017-07-06] MEDS: NORCO 5/325 MG TAB PO PRN (16:56)
[2017-07-06] MEDS: DESYREL PO SCH (21:08)
[2017-07-06] MEDS: ROBITUSSIN DM PO PRN (21:09)
[2017-07-06] MEDS: ZyrTEC TAB 10 MG PO SCH (21:09)
--- NOTE | 2017-07-06 22:15 | PCM.PROG ---
Progress Note - Progress Note for Day of Date: 07/05/17 - Subjective Subjective: WAS ADMITTED FOR CHF AND HYPOPROTEINEMIA. TODAY, SHE IS ALERT AND ORIENTED, LYING IN BED ON MORNING ROUNDS. SHE CONTINUES WITH COMPLAINTS OF WEAKNESS AND SHORTNESS OF BREATH. TODAY, SHE IS ALSO NOTED WITH COMPLAINTS OF MILD EPIGASTRIC PAIN. BILATERAL LOWER EXTREMITY EDEMA HAS RETURNED TO PATIENT'S BASELINE. ON EXAMINATION, LUNGS ARE NOTED WITH RHONCHI BILATERALLY TO AUSCULTATION. ABDOMEN IS SOFT, ROUND, AND NON-TENDER. NORMAL BOWEL SOUNDS ARE NOTED IN ALL QUADRANTS. PATIENT IS NOTED WITH REDNESS AND DRAINAGE TO BILATERAL EYES. SHE NOTED ON TELEMETRY. SINUS RHYTHM IS NOTED WITH HEARTRATE IN THE 80S. SHE IS WEARING NASAL CANNULA WITH OXYGEN AT 2L/MIN. HER VITAL SIGNS THIS MORNING ARE 98.7-87-15-98%-145/67. A CBC, CMP, AND CHEST XRAY WERE OBTAINED. ABNORMAL LAB RESULTS INCLUDE THE FOLLOWING: RBC 3.31, HCT 29, CREATININE 1.19, AST 9, ALK PHOS 37, TOTAL PROTEIN 5.6, ALBUMIN 3.0. A CHEST XRAY WAS OBTAINED AND A READING IS PENDING. TODAY, WE WILL START TOBRADEX OPTHALMIC OINTMENT TID AND GI COCKTAIL FOR ABDOMINAL PAIN. OTHERWISE, WE WILL CONTINUE WITH CURRENT PLAN OF CARE. WE WILL FOLLOW UP WITH AM LABS AND CONTINUE TO MONITOR PATIENT. - Past Medical Family Social History Past Med/Fam/Surg Hx: No changes since H&P Allergies: Allergies No Known Drug Allergies Allergy (Verified 07/02/17 18:51) - Review of Systems ROS: No change since H&P - Vital Signs and I&O's Vital Signs: Temperature 98.7 F Pulse Rate [Apical] 113 Respiratory Rate 27 Blood Pressure [Right Calf] 109/62 Blood Pressure [Right Arm] 132/81 Blood Pressure [Left Arm] 141/74 Blood Pressure 125/80 O2 Sat by Pulse Oximetry 96 Intake and Output: Intake & Output 07/04/17 07/05/17 07/06/17 07/07/17 11:59 11:59 11:59 11:59 Intake Total 1010 4066 130 1288 Output Total 3300 2650 2420 Balance -2290 -1470 -1450 1457 - Physical Exam Oriented: Normal Eyes: Normal Ear: Normal Nose: Normal Throat: Normal Respiratory: Generalized, Rhonchi Cardiovascular: Edema : Normal Auscultation: Bowel Sounds: Normal Palpation: Normal Tenderness: Normal Skin: Normal Musculoskeletal: Normal Psychiatric: Normal Mood Description: Calm Affect: Normal Speech Pattern: Clear, Appropriate - Laboratory and Diagnostics Result Diagrams: 07/06/17 05:08 07/06/17 05:08 Labs: 07/02/17 21:35 Urine,Catheterized Urine Culture - Final Laboratory WBC 5.9 X10^3/uL (3.6-10.0) 07/06/17 05:08 RBC 3.44 X10^6/uL (3.5-5.4) L 07/06/17 05:08 Hgb 10.3 g/dL (12.0-16.0) L 07/06/17 05:08 Hct 30.1 % (36.0-47.0) L 07/06/17 05:08 MCV 87.5 fL (80.0-100.0) 07/06/17 05:08 MCH 29.9 pg (27.0-34.0) 07/06/17 05:08 MCHC 34.1 g/dL (33.0-35.0) 07/06/17 05:08 RDW 17.5 % (11.6-16.5) H 07/06/17 05:08 Plt Count 68 X10^3/uL (150.0-450.0) L 07/06/17 05:08 MPV 6.7 fL (7.4-11.0) L 07/06/17 05:08 Neut % 53.2 % (42.0-75.0) 07/06/17 05:08 Lymph % 26.5 % (21.0-51.0) 07/06/17 05:08 [place] % 12.8 % (0.0-13.0) 07/06/17 05:08 Eos % 6.9 % (0.9-2.9) H 07/06/17 05:08 Baso % 0.6 % (0.2-1.0) 07/06/17 05:08 Neut # 3.2 x10^3/uL (2.2-4.8) 07/06/17 05:08 Lymph # 1.6 X10^3/uL (1.3-2.9) 07/06/17 05:08 [place] # 0.8 x10^3/uL (0.3-0.8) 07/06/17 05:08 Eos # 0.4 x10^3/uL (0.0-0.2) H 07/06/17 05:08 Baso # 0.0 X10^3/uL (0.0-0.1) 07/06/17 05:08 Absolute Nucleated RBC 0.0 /100WBC 07/06/17 05:08 Sodium 141 mmol/L (136-145) 07/06/17 05:08 Corrected Sodium TNP 07/06/17 05:08 Potassium 3.5 mmol/L (3.5-5.1) 07/06/17 05:08 Chloride 103 mmol/L (98-107) 07/06/17 05:08 Carbon Dioxide 36.6 mmol/L (21-32) H 07/06/17 05:08 BUN 16 mg/dL (7-18) 07/06/17 05:08 Creatinine 1.30 mg/dL (0.55-1.02) H 07/06/17 05:08 Est GFR (MDRD) Af Amer 50 (>60) L 07/06/17 05:08 Est GFR (MDRD) Non-Af 41 (>60) L 07/06/17 05:08 Glucose 82 mg/dL (65-99) 07/06/17 05:08 Calcium 8.9 mg/dL (8.5-10.1) 07/06/17 05:08 Corrected Calcium 9.5 mg/dL (8.5-10.1) 07/06/17 05:08 Total Bilirubin 0.50 mg/dL (0.2-1.0) 07/06/17 05:08 AST 14 Units/L (15-37) L 07/06/17 05:08 ALT 12 Units/L (12-78) 07/06/17 05:08 Alkaline Phosphatase 40 Units/L (46-116) L 07/06/17 05:08 B-Natriuretic Peptide 292 pg/mL (0-79) H 07/02/17 20:50 Total Protein 6.1 g/dL (6.4-8.2) L 07/06/17 05:08 Albumin 3.3 g/dL (3.4-5.0) L 07/06/17 05:08 Globulin 2.8 g/dL (2.5-4.5) 07/06/17 05:08 Albumin/Globulin Ratio 1.2 Ratio (1.1-2.1) 07/06/17 05:08 Specimen Type Catherized urine 07/02/17 21:35 Urine Color Yellow (YELLOW) 07/02/17 21:35 Urine Appearance Cloudy (CLEAR) 07/02/17 21:35 Urine pH 5.0 (5.0 - 8.0) 07/02/17 21:35 Ur Specific [place] 1.020 (1.000-1.030) 07/02/17 21:35 Urine Protein 2+ (NEGATIVE) 07/02/17 21:35 Urine Glucose (UA) Negative (NEGATIVE) 07/02/17 21:35 Urine Ketones Negative (NEGATIVE) 07/02/17 21:35 Urine Occult Blood 3+ (NEGATIVE) 07/02/17 21:35 Urine Nitrite Positive (NEGATIVE) 07/02/17 21:35 Urine Bilirubin Negative (NEGATIVE) 07/02/17 21:35 Urine Urobilinogen Normal (NORMAL) 07/02/17 21:35 Ur Leukocyte Esterase 3+ (NEGATIVE) 07/02/17 21:35 Urine RBC 3-5 /HPF (NEGATIVE) 07/02/17 21:35 Urine WBC 25-30 /HPF (NEGATIVE) 07/02/17 21:35 Ur Squamous Epith Cells Rare /HPF (NEGATIVE) 07/02/17 21:35 Urine Bacteria 2+ /HPF (NEGATIVE) 07/02/17 21:35 Urine Yeast Many /HPF (NEGATIVE) 07/02/17 21:35 Ur Culture Indicated? Yes/culture set up 07/02/17 21:35 - Plan (1) CHF (congestive heart failure) Status: Acute Qualifiers: Congestive heart failure type: systolic Congestive heart failure chronicity : acute on chronic Qualified Code(s): I50.23 - Acute on chronic systolic ( congestive) heart failure Plan: LASIX 40MG IV BID, CONTINUE COREG BID, MONITOR CHEST XRAY AND LABS, CONTINUE TO MONITOR (2) Hypoproteinemia Status: Acute Plan: ALBUMIN 25% IV DAILY, CONTINUE TO MONITOR (3) Atrial fibrillation Status: Acute Qualifiers: Atrial fibrillation type: unspecified Qualified Code(s): I48.91 - Unspecified atrial fibrillation Plan: CONTINUE CARDIZEM CD 120MG DAILY, CONTINUE TO MONITOR. (4) Urinary tract infection Status: Acute Qualifiers: Urinary tract infection type: acute cystitis Hematuria presence: with hematuria Qualified Code(s): N30.01 - Acute cystitis with hematuria Plan: ROCEPHIN 1GM IV DAILY, CONTINUE TO MONITOR (5) Constipation Status: Chronic Qualifiers: Constipation type: slow transit constipation Qualified Code(s): K59.01 - Slow transit constipation Plan: CONTINUE COLACE, CONTINUE MIRALAX, CONTINUE TO MONITOR (6) Essential hypertension Status: Chronic Plan: CONTINUE COREG, CONTINUE TO MONITOR (7) GERD (gastroesophageal reflux disease) Status: Chronic Qualifiers: Esophagitis presence: esophagitis presence not specified Qualified Code(s) : K21.9 - Gastro-esophageal reflux disease without esophagitis Plan: CONTINUE PRILOSEC, CONTINUE TO MONITOR (8) Anemia Status: Chronic Qualifiers: Anemia type: iron deficiency Iron deficiency anemia type: inadequate dietary iron intake Qualified Code(s): D50.8 - Other iron deficiency anemias Plan: HEMOCYTE PLAUS DAILY, CONTINUE TO MONITOR (9) Decreased appetite Status: Chronic Plan: CONTINUE MEGACE, CONTINUE TO MONITOR
[2017-07-07] MEDS: LASIX IVP SCH (06:09)
[2017-07-07] MEDS: TobraDEX OPHTH OINT EACHEYE SCH (06:09)
[2017-07-07 06:11] LABS: BASOPHILS % (AUTO) 0.6 % (0.2-1.0); EOSINOPHILS # (AUTO) 0.5 x10^3/uL (0.0-0.2); EOSINOPHILS % (AUTO) 6.9 % (0.9-2.9); HEMATOCRIT 30.3 % (36.0-47.0); HEMOGLOBIN 10.4 g/dL (12.0-16.0); LYMPHOCYTES # (AUTO) 1.6 X10^3/uL (1.3-2.9); LYMPHOCYTES % (AUTO) 23.5 % (21.0-51.0); MEAN CORPUSCULAR HGB CONC 34.5 g/dL (33.0-35.0); MEAN PLATELET VOLUME 6.7 fL (7.4-11.0); MONOCYTES # (AUTO) 0.9 x10^3/uL (0.3-0.8); MONOCYTES % (AUTO) 12.4 % (0.0-13.0); NEUTROPHILS # (AUTO) 3.9 x10^3/uL (2.2-4.8); NEUTROPHILS % (AUTO) 56.6 % (42.0-75.0); PLATELET COUNT 72 X10^3/uL (150.0-450.0); RED BLOOD COUNT 3.48 X10^6/uL (3.5-5.4); RED CELL DISTRIBUTION WIDTH 16.8 % (11.6-16.5); WHITE BLOOD COUNT 6.9 X10^3/uL (3.6-10.0)
[2017-07-07 06:42] LABS: ALANINE AMINOTRANSFERASE 10 Units/L (12-78); ALBUMIN 3.5 g/dL (3.4-5.0); ALKALINE PHOSPHATASE 34 Units/L (46-116); ASPARTATE AMINO TRANSFERASE 14 Units/L (15-37); BLOOD UREA NITROGEN 16 mg/dL (7-18); CALCIUM 9.5 mg/dL (8.5-10.1); CARBON DIOXIDE 35.7 mmol/L (21-32); CHLORIDE 98 mmol/L (98-107); CREATININE 1.15 mg/dL (0.55-1.02); SODIUM 140 mmol/L (136-145); TOTAL PROTEIN 6.4 g/dL (6.4-8.2); eGFR BLACK RACES 58 (>60); eGFR NON BLACK RACES 48 (>60)
[2017-07-07] MEDS: MILK OF MAGNESIA PO SCH ×2 (08:30→09:53)
[2017-07-07] MEDS: ALBUMIN HUMAN 25%- 100ML 100 ML IV SCH (08:33)
[2017-07-07] MEDS: ROCEPHIN VIAL 1 GM 1 GM in NS 50 ML IV + SPIKE MINIBAG* 50 ML IV SCH (08:58)
[2017-07-07] MEDS: MEGACE PO SCH (08:59)
[2017-07-07] MEDS: MIRALAX POWDER (1 DOSE 17GM) PO SCH (08:59)
[2017-07-07] MEDS: MOBIC TAB 15 MG PO SCH (09:00)
[2017-07-07] MEDS: HEMOCYTE-PLUS PO SCH (09:00)
[2017-07-07] MEDS: PriLOSEC PO SCH (09:00)
[2017-07-07] MEDS: ATIVAN TAB 0.5 MG PO SCH (09:00)
[2017-07-07] MEDS: NEURONTIN CAP 400 MG PO SCH (09:00)
[2017-07-07] MEDS: FOLIC ACID TAB 1 MG PO SCH (09:00)
[2017-07-07] MEDS: OSCAL+D or CALTRATE+D PO SCH (09:00)
[2017-07-07] MEDS: MICRO K EXTEN CAP 10 MEQ PO SCH (09:01)
[2017-07-07] MEDS: OXYBUTYNIN CHLORIDE ER PO SCH (09:01)
[2017-07-07] MEDS: CARDIZEM SR 120 MG PO SCH (09:01)
[2017-07-07] MEDS: COREG TAB 3.125 MG PO SCH (09:01)
[2017-07-07] MEDS: COLACE CAP 100 MG PO SCH (09:01)
[2017-07-07] MEDS: VOLTAREN 1 % GEL MULTI DOSE TUBE EXT SCH (09:02)
[2017-07-07] MEDS: FLONASE NASAL SPRAY ENOSTRIL SCH (09:02)
[2017-07-07] MEDS: ARTIFICIAL TEARS DROPS EACHEYE SCH (09:03)
[2017-07-07] MEDS ORDERED: FLEET ENEMA ADULT PR ONE (09:39)
[2017-07-07 11:07] VITALS: BP 104/72
--- NOTE | 2017-07-08 12:02 | PCM.PROG ---
Progress Note - Progress Note for Day of Date: 07/06/17 - Subjective Subjective: WAS ADMITTED FOR CHF AND HYPOPROTEINEMIA. TODAY, SHE IS ALERT AND ORIENTED, LYING IN BED ON MORNING ROUNDS. SHE CONTINUES WITH COMPLAINTS OF WEAKNESS AND SHORTNESS OF BREATH. SHE REPORTS THAT SHE IS HAVING INCREASED SHORTNESS OF BREATH SINCE YESTERDAY. SHE DENIES EPIGASTRIC PAIN TODAY. ON EXAMINATION, LUNGS CONTINUE WITH RHONCHI BILATERALLY TO AUSCULTATION. ABDOMEN IS SOFT, ROUND, AND NON-TENDER. NORMAL BOWEL SOUNDS ARE NOTED IN ALL QUADRANTS. SHE NOTED ON TELEMETRY. SINUS RHYTHM IS NOTED WITH HEARTRATE IN THE 120S. SHE IS WEARING NASAL CANNULA WITH OXYGEN AT 2L/MIN. HER VITAL SIGNS THIS MORNING ARE 97.9-123-16-94%-134/79. A CBC, CMP, AND CHEST XRAY WERE OBTAINED. ABNORMAL LAB RESULTS INCLUDE THE FOLLOWING: RBC 3.44, HGB 10.3, HCT 30.1, CARBON DIOXIDE 36.6, CREATININE 1.30, AST 14, ALK PHOS 40, TOTAL PROTEIN 6.1, ALBUMIN 3.3. CHEST XRAY REPORTED CARDIOMEGALY WITHOUT DEFINITE CONGESTIVE HEART FAILURE, NO CHANGE IN BILATERAL PLEURAL EFFUSIONS. TODAY, WE WILL CONTINUE WITH CURRENT PLAN OF CARE. WE WILL FOLLOW UP WITH AM LABS AND CONTINUE TO MONITOR PATIENT. - Past Medical Family Social History Past Med/Fam/Surg Hx: No changes since H&P Allergies: Allergies No Known Drug Allergies Allergy (Verified 07/02/17 18:51) - Review of Systems ROS: No change since H&P - Vital Signs and I&O's Vital Signs: Temperature 98.6 F Pulse Rate [Apical] 117 Respiratory Rate 24 Blood Pressure [Right Calf] 109/62 Blood Pressure [Right Arm] 104/72 Blood Pressure [Left Arm] 141/74 Blood Pressure 125/80 O2 Sat by Pulse Oximetry 91 Intake and Output: Intake & Output 07/05/17 07/06/17 07/07/17 07/08/17 11:59 11:59 11:59 11:59 Intake Total 1180 970 770 Output Total 2650 2420 2550 Balance -8755 -6280 -8005 - Physical Exam Oriented: Normal Eyes: Normal Ear: Normal Nose: Normal Throat: Normal Respiratory: Generalized, Rhonchi Cardiovascular: Edema : Normal Auscultation: Bowel Sounds: Normal Palpation: Normal Tenderness: Normal Skin: Normal Musculoskeletal: Normal Psychiatric: Normal Mood Description: Calm Affect: Normal Speech Pattern: Clear, Appropriate - Laboratory and Diagnostics Result Diagrams: 07/07/17 05:35 07/07/17 05:35 Labs: 07/02/17 21:35 Urine,Catheterized Urine Culture - Final Laboratory WBC 6.9 X10^3/uL (3.6-10.0) 07/07/17 05:35 RBC 3.48 X10^6/uL (3.5-5.4) L 07/07/17 05:35 Hgb 10.4 g/dL (12.0-16.0) L 07/07/17 05:35 Hct 30.3 % (36.0-47.0) L 07/07/17 05:35 MCV 87.0 fL (80.0-100.0) 07/07/17 05:35 MCH 30.0 pg (27.0-34.0) 07/07/17 05:35 MCHC 34.5 g/dL (33.0-35.0) 07/07/17 05:35 RDW 16.8 % (11.6-16.5) H 07/07/17 05:35 Plt Count 72 X10^3/uL (150.0-450.0) L 07/07/17 05:35 MPV 6.7 fL (7.4-11.0) L 07/07/17 05:35 Neut % 56.6 % (42.0-75.0) 07/07/17 05:35 Lymph % 23.5 % (21.0-51.0) 07/07/17 05:35 [place] % 12.4 % (0.0-13.0) 07/07/17 05:35 Eos % 6.9 % (0.9-2.9) H 07/07/17 05:35 Baso % 0.6 % (0.2-1.0) 07/07/17 05:35 Neut # 3.9 x10^3/uL (2.2-4.8) 07/07/17 05:35 Lymph # 1.6 X10^3/uL (1.3-2.9) 07/07/17 05:35 [place] # 0.9 x10^3/uL (0.3-0.8) H 07/07/17 05:35 Eos # 0.5 x10^3/uL (0.0-0.2) H 07/07/17 05:35 Baso # 0.0 X10^3/uL (0.0-0.1) 07/07/17 05:35 Absolute Nucleated RBC 0.0 /100WBC 07/07/17 05:35 Sodium 140 mmol/L (136-145) 07/07/17 05:35 Corrected Sodium TNP 07/07/17 05:35 Potassium 3.5 mmol/L (3.5-5.1) 07/07/17 05:35 Chloride 98 mmol/L (98-107) 07/07/17 05:35 Carbon Dioxide 35.7 mmol/L (21-32) H 07/07/17 05:35 BUN 16 mg/dL (7-18) 07/07/17 05:35 Creatinine 1.15 mg/dL (0.55-1.02) H 07/07/17 05:35 Est GFR (MDRD) Af Amer 58 (>60) L 07/07/17 05:35 Est GFR (MDRD) Non-Af 48 (>60) L 07/07/17 05:35 Glucose 92 mg/dL (65-99) 07/07/17 05:35 Calcium 9.5 mg/dL (8.5-10.1) 07/07/17 05:35 Corrected Calcium TNP 07/07/17 05:35 Total Bilirubin 0.50 mg/dL (0.2-1.0) 07/07/17 05:35 AST 14 Units/L (15-37) L 07/07/17 05:35 ALT 10 Units/L (12-78) L 07/07/17 05:35 Alkaline Phosphatase 34 Units/L (46-116) L 07/07/17 05:35 B-Natriuretic Peptide 292 pg/mL (0-79) H 07/02/17 20:50 Total Protein 6.4 g/dL (6.4-8.2) 07/07/17 05:35 Albumin 3.5 g/dL (3.4-5.0) 07/07/17 05:35 Globulin 2.9 g/dL (2.5-4.5) 07/07/17 05:35 Albumin/Globulin Ratio 1.2 Ratio (1.1-2.1) 07/07/17 05:35 Specimen Type Catherized urine 07/02/17 21:35 Urine Color Yellow (YELLOW) 07/02/17 21:35 Urine Appearance Cloudy (CLEAR) 07/02/17 21:35 Urine pH 5.0 (5.0 - 8.0) 07/02/17 21:35 Ur Specific [place] 1.020 (1.000-1.030) 07/02/17 21:35 Urine Protein 2+ (NEGATIVE) 07/02/17 21:35 Urine Glucose (UA) Negative (NEGATIVE) 07/02/17 21:35 Urine Ketones Negative (NEGATIVE) 07/02/17 21:35 Urine Occult Blood 3+ (NEGATIVE) 07/02/17 21:35 Urine Nitrite Positive (NEGATIVE) 07/02/17 21:35 Urine Bilirubin Negative (NEGATIVE) 07/02/17 21:35 Urine Urobilinogen Normal (NORMAL) 07/02/17 21:35 Ur Leukocyte Esterase 3+ (NEGATIVE) 07/02/17 21:35 Urine RBC 3-5 /HPF (NEGATIVE) 07/02/17 21:35 Urine WBC 25-30 /HPF (NEGATIVE) 07/02/17 21:35 Ur Squamous Epith Cells Rare /HPF (NEGATIVE) 07/02/17 21:35 Urine Bacteria 2+ /HPF (NEGATIVE) 07/02/17 21:35 Urine Yeast Many /HPF (NEGATIVE) 07/02/17 21:35 Ur Culture Indicated? Yes/culture set up 07/02/17 21:35 - Plan (1) CHF (congestive heart failure) Status: Acute Qualifiers: Congestive heart failure type: systolic Congestive heart failure chronicity : acute on chronic Qualified Code(s): I50.23 - Acute on chronic systolic ( congestive) heart failure Plan: LASIX 40MG IV BID, CONTINUE COREG BID, MONITOR CHEST XRAY AND LABS, CONTINUE TO MONITOR (2) Hypoproteinemia Status: Acute Plan: ALBUMIN 25% IV DAILY, CONTINUE TO MONITOR (3) Atrial fibrillation Status: Resolved Qualifiers: Atrial fibrillation type: unspecified Qualified Code(s): I48.91 - Unspecified atrial fibrillation Plan: CONTINUE CARDIZEM CD 120MG DAILY, CONTINUE TO MONITOR. (4) Urinary tract infection Status: Acute Qualifiers: Urinary tract infection type: acute cystitis Hematuria presence: with hematuria Qualified Code(s): N30.01 - Acute cystitis with hematuria Plan: ROCEPHIN 1GM IV DAILY, CONTINUE TO MONITOR (5) Constipation Status: Chronic Qualifiers: Constipation type: slow transit constipation Qualified Code(s): K59.01 - Slow transit constipation Plan: CONTINUE COLACE, CONTINUE MIRALAX, CONTINUE TO MONITOR (6) Essential hypertension Status: Chronic Plan: CONTINUE COREG, CONTINUE TO MONITOR (7) GERD (gastroesophageal reflux disease) Status: Chronic Qualifiers: Esophagitis presence: esophagitis presence not specified Qualified Code(s) : K21.9 - Gastro-esophageal reflux disease without esophagitis Plan: CONTINUE PRILOSEC, CONTINUE TO MONITOR (8) Anemia Status: Chronic Qualifiers: Anemia type: iron deficiency Iron deficiency anemia type: inadequate dietary iron intake Qualified Code(s): D50.8 - Other iron deficiency anemias Plan: HEMOCYTE PLAUS DAILY, CONTINUE TO MONITOR (9) Decreased appetite Status: Chronic Plan: CONTINUE MEGACE, CONTINUE TO MONITOR
== END 2017-07-07 11:50 | DRG 292 ==
LOC: ICU 18:06 → OBSVTOIN 07-03 01:55
PROVIDERS: ADMIT Internal Medicine; ATTEND Internal Medicine
DX: I50.23 Acute on chronic systolic (congestive) heart failure (principal); N30.01 Acute cystitis with hematuria; K57.92 Diverticulitis of intestine, part unspecified, without perforation or abscess without bleeding; E77.8 Other disorders of glycoprotein metabolism; I48.2 Chronic atrial fibrillation; K59.00 Constipation, unspecified; R10.13 Epigastric pain; I10 Essential (primary) hypertension; Z87.440 Personal history of urinary (tract) infections
CPT/HCPCS: 36415; 71010; 80053; 81001; 83880; 85025; 87086; 90686; 93005; A4222; P9047; S0179; G0378; J0696; J1940; J2405; J3490

== ENCOUNTER → 2017-09-02 | Outpatient (CLI) | payer OTHER, MEDICARE ==
[2017-07-05 12:37] VITALS: BP 103/51
--- NOTE | 2017-09-02 11:29 | RAD ---
Examination: AP chest History: UTI Comparison reference 07/07/2017 Findings: The heart remains upper normal in transverse diameter. There is interval improvement in aer ation of the lungs and pleural spaces since prior study. There is still a small left pleural effusion with suspect airspace disease in both lung base these. The upper lungs are clear. No pneumothorax is seen. Impression: Interval improvement in appearance of the chest. Residual bibasal infiltrates/atelectasis with small left pleural effusion. Reported By:
== END ==
LOC: RAD 10:58
PROVIDERS: ATTEND Internal Medicine
DX: J06.9 Acute upper respiratory infection, unspecified (principal)
CPT/HCPCS: 71010

== ENCOUNTER → 2017-09-06 | Outpatient (CLI) | payer OTHER, MEDICARE ==
[2017-07-05 12:37] VITALS: BP 103/51
--- NOTE | 2017-09-06 15:16 | RAD ---
Examination: Chest, PA and lateral views History: Hypertension and anemia Comparison reference 09/02/2017 Findings: Continued stable heart size. Slight improvement in aeration of the base these with residual infiltrate and small pleural effusions, left larger than right. No new abnormality identified. Impression: Slight interval improvement with residual pleural-parenchymal findings in the bases. Con tinued follow-up indicated. Reported By:
== END ==
LOC: RAD 13:46
PROVIDERS: ATTEND Internal Medicine
DX: R05 Cough (principal); R09.89 Other specified symptoms and signs involving the circulatory and respiratory systems
CPT/HCPCS: 71020

== ENCOUNTER → 2018-01-14 | Outpatient (CLI) | payer OTHER, MEDICARE ==
[2017-07-05 12:37] VITALS: BP 103/51
--- NOTE | 2018-01-14 14:43 | US ---
Exam: Left wrist ultrasound History: Palpable mass noted along the volar aspect of the left wrist. Comparison: None Findings: This is a technically difficult exam. There appears to be a solid mass with adjacent fluid identified in the volar aspect of the left wrist. This is a poorly defined, nonspecific finding and w ill require further evaluation. Impression: Poorly visualized mass seen along the volar aspect of the left wrist. Further evaluation with MRI wou ld be useful. Reported By:
== END ==
LOC: RAD 11:08
PROVIDERS: ATTEND Student in an Organized Health Care Education/Training Program
DX: M67.432 Ganglion, left wrist (principal); M25.532 Pain in left wrist
CPT/HCPCS: 76881

== ENCOUNTER 2018-01-24 10:04 | Day surgery (SDC) | payer OTHER, MEDICARE ==
[~2018-01-24 10:04] MED LIST: ANCEF VIAL 1 GM ONE; NS 100 ML IV 100 ML IV ONE; NS 1000 ML 1,000 ML ONE
[2018-01-24 10:36] LABS: BASOPHILS % (AUTO) 0.4 % (0.2-1.0); EOSINOPHILS # (AUTO) 0.3 x10^3/uL (0.0-0.2); EOSINOPHILS % (AUTO) 3.1 % (0.9-2.9); HEMATOCRIT 35.6 % (36.0-47.0); HEMOGLOBIN 12.4 g/dL (12.0-16.0); LYMPHOCYTES # (AUTO) 1.9 X10^3/uL (1.3-2.9); LYMPHOCYTES % (AUTO) 22.6 % (21.0-51.0); MEAN CORPUSCULAR HEMOGLOBIN 31.2 pg (27.0-34.0); MEAN CORPUSCULAR HGB CONC 34.8 g/dL (33.0-35.0); MEAN CORPUSCULAR VOLUME 89.7 fL (80.0-100.0); MEAN PLATELET VOLUME 5.9 fL (7.4-11.0); MONOCYTES # (AUTO) 0.9 x10^3/uL (0.3-0.8); NEUTROPHILS # (AUTO) 5.2 x10^3/uL (2.2-4.8); NEUTROPHILS % (AUTO) 62.9 % (42.0-75.0); PLATELET COUNT 82 X10^3/uL (150.0-450.0); RED BLOOD COUNT 3.97 X10^6/uL (3.5-5.4); RED CELL DISTRIBUTION WIDTH 13.8 % (11.6-16.5); WHITE BLOOD COUNT 8.3 X10^3/uL (3.6-10.0)
[2018-01-24 10:47] LABS: ALANINE AMINOTRANSFERASE 14 Units/L (12-78); ALKALINE PHOSPHATASE 60 Units/L (46-116); ASPARTATE AMINO TRANSFERASE 20 Units/L (15-37); BLOOD UREA NITROGEN 24 mg/dL (7-18); CALCIUM 8.4 mg/dL (8.5-10.1); CARBON DIOXIDE 31.8 mmol/L (21-32); CHLORIDE 105 mmol/L (98-107); COR CA(FOR HYPOALB) 9.2 mg/dL (8.5-10.1); CREATININE 1.04 mg/dL (0.55-1.02); SODIUM 140 mmol/L (136-145); TOTAL PROTEIN 7.1 g/dL (6.4-8.2); eGFR BLACK RACES > 60 (>60); eGFR NON BLACK RACES 53 (>60)
[2018-01-24 11:00] LABS: PLATELET MORPHOLOGY COMMENT ABNORMAL (NORMAL)
[2018-01-24] MEDS ORDERED: XYLOCAINE 1% and EPINEPHRINE 1:100,000 ONE (11:23)
[2018-01-24] MEDS ORDERED: MARCAINE 0.25% INJ ONE (11:23)
[2018-01-24] MEDS ORDERED: NS IRRIGATION 1000 ML 500 ML IR ONE (11:40)
[2018-01-24 13:14] VITALS: BP 207/87
[2018-01-24] MEDS ORDERED: VERSED ONE (14:49)
[2018-01-24] MEDS ORDERED: DIPRIVAN VIAL ONE (14:49)
--- NOTE | 2018-02-19 08:42 | OR.GENERIC ---
Post-Op Note Generic - Post-Op Note Operative Report: Operative Report Date of Operation: January 24, 2018 Pre-Operative Diagnosis: Left wrist mass. Post-Operative Diagnosis: Left wrist callous with flexor carpi ulnaris tendon tear. Procedure: Incisional biopsy of left wrist mass. Surgeon: Luis Rodríguez MD Electronic Device Repairer: Akash Kunz CRNA Anesthesia: Monitored anesthesia care and local. Specimen: Left wrist capsular tissue at tendon tear. Estimated blood loss: Minimal. Complications: None. Summary: The patient is an 87 year old female who presented with a left wrist mass x 2 weeks. An ultrasound demonstrated a solid mass. The patient was offered incisional biopsy. The risk and benefits of the procedure including difficulty with anesthesia, bleeding, infection, scar formation, recurrence, and delayed healing were discussed with the patient. The patient understood these risks and requested the procedure. On January 24, 2018, the patient was brought to the operative theatre. A time out was performed verifying the patient and the procedure. After satisfactory induction of monitored anesthesia care, the left wrist was prepped with Chloraprep and draped in the usual fashion. A field block was performed using local anesthetic around the planned incision. A fusiform incision was made overlying the mass and a core of skin removed. The incision was slowly carried through the subcutaneous tissue using blunt dissection. A capsule was identified and the superficial surface dissected free from the subcutaneous tissue. The capsule was elevated and opened sharply. Tendon fibers were noted with frayed ends consistent with a tendon rupture. A portion of the capsule was removed sharply and sent to pathology. The remaining capsule was closed using interrupted 3-0 Vicryl sutures. Further palpation failed to demonstrate any other mass in the subcutaneous tissue. At this point, the decision was made to close and consult orthopedic surgery. The dermis was re-approximated using inverted, interrupted 3-0 Vicryl sutures. The skin edges were closed using interrupted 4-0 Ethilon sutures. A sterile dressing was placed. The patient was awakened and taken to the recovery room in stable condition. There were no complications. All counts were correct.
== END 2018-01-24 13:00 | DRG 607 ==
LOC: SURG1 10:04
PROVIDERS: ATTEND Student in an Organized Health Care Education/Training Program
PROC: 0JBH0ZX Excision of Left Lower Arm Subcutaneous Tissue and Fascia, Open Approach, Diagnostic (ICD-10-PCS; principal; 2018-01-24 10:30)
DX: R22.32 Localized swelling, mass and lump, left upper limb (principal); S66.812A Strain of other specified muscles, fascia and tendons at wrist and hand level, left hand, initial encounter; X58.XXXA Exposure to other specified factors, initial encounter; M67.432 Ganglion, left wrist
CPT/HCPCS: 36415; 80053; 85025; 99100; A4222; S0020; J0690; J2001; J2250; J3490

== ENCOUNTER → 2018-02-05 | Outpatient (CLI) | payer OTHER, MEDICARE ==
[2018-01-24 13:14] VITALS: BP 207/87
--- NOTE | 2018-02-05 16:21 | RAD ---
Left wrist, three views Indication: Palpable mass on the underside of the wrist. Comparison: 04/16/2017 Findings: There is unchanged chronic healed distal radial fracture demonstrating mild dorsal angulati on. Unchanged distal radioulnar joint widening is also similar to prior. Moderate radiocarpal and int ercarpal degenerative disease is noted. There is generalized osteopenia. No acute cortical disruption is observed. There is nonspecific mild soft tissue prominence along the volar aspect of the distal r adius/ulna, appreciated on the lateral view. No bony erosions or periostitis is appreciated. Impression: 1. Mild nonspecific soft tissue prominence along the volar aspect of the wrist. Consider ultrasound o r MRI for further evaluation. 2. Chronic healed distal radial fracture. No acute osseous abnormality. Degenerative changes as above . Osteopenia. Reported By:
== END ==
LOC: RAD 15:25
PROVIDERS: ATTEND Internal Medicine
DX: M25.532 Pain in left wrist (principal); Z98.890 Other specified postprocedural states
CPT/HCPCS: 73100

== ENCOUNTER → 2018-02-06 | Outpatient (CLI) | payer OTHER, MEDICARE ==
[2018-01-24 13:14] VITALS: BP 207/87
--- NOTE | 2018-02-06 12:31 | MRI ---
History: Left wrist mass and left wrist pain. Exam: Noncontrast MRI examination of the left wrist joint. Technique: Multi sequence and multiplanar MRI images of the left wrist joint were performed with IV c ontrast using T1, T2, and proton density sequencing for this examination. Comparison: Left wrist radiograph exam dated 02/05/2018. Findings: There is an old, healed, left distal radial diaphyseal fracture. There is volar migration of the ulna relative to the DRUJ and the radioulnar ligaments are markedly attenuated. This is probably secondar y to a prior radioulnar ligament/joint injury with abnormal widening of the DRUJ. No acute fracture o r acute bony injury is seen, however. No aggressive or infiltrating soft tissue mass lesion is seen o n T2 weighted imaging. There is trace joint fluid and there is remodeling of the distal ulna with ISABELLA J and osteoarthritis also observed. No acute tendon injury or subluxation is appreciated. There is no evidence for a DISI of DISI deformity. No aggressive bone marrow lesion is seen. There is moderate p roximal and mid carpal row, age related, osteoarthritis and chondromalacia. No focal joint erosion is seen. There is no definitive evidence for inflammatory arthritis. No other wrist joint injury or MSK abnormalities identified on this examination. Impression: Old, healed, left distal radial diaphyseal fracture. Abnormal volar migration of the ulna relative to the DRUJ & the radioulnar ligaments are markedly attenuated. This is probably secondary to a prior radioulnar ligament/DRUJ injury with abnormal widening of the DRUJ noted. No acute fractur e or acute bony injury is seen, however. No aggressive or infiltrating soft tissue mass lesion is see n on T2 weighted imaging. Trace joint fluid. Reported By:
== END ==
LOC: RAD 10:00
PROVIDERS: ATTEND Internal Medicine
DX: R22.32 Localized swelling, mass and lump, left upper limb (principal)
CPT/HCPCS: 73221

== ENCOUNTER 2018-09-10 15:19 | Inpatient (IN) ==
[2018-09-10] MEDS ORDERED: NS 1000 ML 1,000 ML ONE (17:37)
[2018-09-10] MEDS: NS 1000 ML 1,000 ML IV SCH (17:49)
[2018-09-10] MEDS: CARDIZEM INJ 125 MG VIAL 125 MG in NS 100 ML IV 100 ML IV PRN (17:50)
[2018-09-10 17:55] LABS: CKMB % 2.8 % (<4); CREATINE KINASE MB 1.1 ng/mL (0-4.0); TROPONIN I 0.03 ng/mL (0-1.5)
--- NOTE | 2018-09-10 17:59 | RAD ---
History: Atrial fibrillation Study: AP chest Comparison: September 06 Findings: The heart size is normal. The lungs are clear. There is resolution of previously demonstrated pleural fluid. Impression: No current evidence for active cardiopulmonary disease Reported By:
[2018-09-10 18:22] VITALS: BMI 21.9
[2018-09-10 18:55] LABS: BILIRUBIN,URINE NEGATIVE (NEGATIVE); BLOOD/HEMOGLOBIN,URINE 2+ (NEGATIVE); GLUCOSE, URINE NEGATIVE (NEGATIVE); KETONES,URINE NEGATIVE (NEGATIVE); LEUKOCYTE ESTERASE ,URINE 3+ (NEGATIVE); NITRITES,URINE POSITIVE (NEGATIVE); PROTEIN,URINE NEGATIVE (NEGATIVE); UROBILINOGEN,URINE NORMAL (NORMAL)
[2018-09-10 19:04] LABS: AMORPHOUS SEDIMENT,UR 1+ /HPF (NEGATIVE); APPEARANCE,URINE CLOUDY (CLEAR); BACTERIA,URINE 3+ /HPF (NEGATIVE); COLOR,URINE YELLOW (YELLOW); SQUAMOUS EPITHELIAL CELL,UR RARE /HPF (NEGATIVE)
[2018-09-10 19:46] LABS: CKMB % 3.1 % (<4); CREATINE KINASE 32 Units/L (26-192); CREATINE KINASE MB < 1.0 ng/mL (0-4.0); TROPONIN I 0.03 ng/mL (0-1.5)
[2018-09-10] MEDS: NORCO 5/325 MG TAB PO PRN (22:16)
[2018-09-10] MEDS: DESYREL PO SCH (22:16)
[2018-09-10] MEDS: ATIVAN TAB 0.5 MG PO PRN (22:16)
[2018-09-11 01:59] LABS: CKMB % 3.3 % (<4); TROPONIN I 0.04 ng/mL (0-1.5)
[2018-09-11] MEDS: NORCO 5/325 MG TAB PO PRN ×3 (05:49→20:43)
[2018-09-11] MEDS: CARDIZEM INJ 125 MG VIAL 125 MG in NS 100 ML IV 100 ML IV PRN (05:52)
[2018-09-11 06:34] LABS: BASOPHILS % (AUTO) 0.5 % (0.2-1.0); EOSINOPHILS # (AUTO) 0.1 x10^3/uL (0.0-0.2); EOSINOPHILS % (AUTO) 1.2 % (0.9-2.9); HEMATOCRIT 34.3 % (36.0-47.0); HEMOGLOBIN 11.9 g/dL (12.0-16.0); LYMPHOCYTES # (AUTO) 1.2 X10^3/uL (1.3-2.9); LYMPHOCYTES % (AUTO) 15.6 % (21.0-51.0); MEAN CORPUSCULAR HEMOGLOBIN 34.1 pg (27.0-34.0); MEAN CORPUSCULAR HGB CONC 34.6 g/dL (33.0-35.0); MEAN CORPUSCULAR VOLUME 98.6 fL (80.0-100.0); MEAN PLATELET VOLUME 6.5 fL (7.4-11.0); MONOCYTES # (AUTO) 0.7 x10^3/uL (0.3-0.8); NEUTROPHILS # (AUTO) 5.5 x10^3/uL (2.2-4.8); NEUTROPHILS % (AUTO) 73.7 % (42.0-75.0); PLATELET COUNT 93 X10^3/uL (150.0-450.0); RED BLOOD COUNT 3.48 X10^6/uL (3.5-5.4); RED CELL DISTRIBUTION WIDTH 14.6 % (11.6-16.5); WHITE BLOOD COUNT 7.5 X10^3/uL (3.6-10.0)
[2018-09-11 06:51] LABS: ALANINE AMINOTRANSFERASE 19 Units/L (12-78); ALBUMIN 2.7 g/dL (3.4-5.0); ALKALINE PHOSPHATASE 51 Units/L (46-116); ASPARTATE AMINO TRANSFERASE 18 Units/L (15-37); BLOOD UREA NITROGEN 20 mg/dL (7-18); CALCIUM 8.4 mg/dL (8.5-10.1); CARBON DIOXIDE 29.6 mmol/L (21-32); CHLORIDE 103 mmol/L (98-107); COR CA(FOR HYPOALB) 9.4 mg/dL (8.5-10.1); COR NA(FOR HYPERGLY) 140 mmol/L (136-145); SODIUM 139 mmol/L (136-145); TOTAL PROTEIN 5.9 g/dL (6.4-8.2); eGFR NON BLACK RACES 56 (>60)
[2018-09-11] MEDS: NS 1000 ML 1,000 ML IV SCH ×2 (07:44→23:56)
[2018-09-11] MEDS: TOPROL XL PO SCH (10:46)
[2018-09-11] MEDS: ATIVAN TAB 0.5 MG PO PRN (10:46)
[2018-09-11] MEDS: ELIQUIS PO SCH ×2 (10:46→20:42)
[2018-09-11] MEDS: ROCEPHIN VIAL 1 GRAM IVP SCH (10:47)
[2018-09-11] MEDS ORDERED: COREG TAB 3.125 MG PO SCH (11:00)
[2018-09-11] MEDS ORDERED: MOBIC TAB 15 MG PO SCH (11:00)
[2018-09-11] MEDS ORDERED: ALLEGRA ONE (11:58)
[2018-09-11] MEDS: FLONASE NASAL SPRAY ENOSTRIL SCH ×2 (12:07→22:12)
[2018-09-11] MEDS: FOLIC ACID TAB 1 MG PO SCH (12:08)
[2018-09-11] MEDS: SINGULAIR TAB 10 MG PO SCH (12:08)
[2018-09-11] MEDS: ALLEGRA PO SCH (12:08)
[2018-09-11] MEDS: MICRO K EXTEN CAP 10 MEQ PO SCH (12:08)
[2018-09-11] MEDS: OSCAL+D or CALTRATE+D PO SCH (12:08)
[2018-09-11] MEDS: HEMOCYTE-PLUS PO SCH (12:08)
[2018-09-11] MEDS: ARTIFICIAL TEARS DROPS EACHEYE SCH ×3 (12:08→20:42)
[2018-09-11] MEDS: COLACE CAP 100 MG PO SCH ×2 (12:09→20:42)
[2018-09-11] MEDS: NEURONTIN CAP 400 MG PO SCH (12:09)
[2018-09-11] MEDS: MIRALAX POWDER (1 DOSE 17 G) PO SCH (12:09)
[2018-09-11] MEDS: OXYBUTYNIN CHLORIDE ER PO SCH (12:09)
[2018-09-11] MEDS ORDERED: LANOXIN INJ IVP ONE ×2 (20:00→20:15)
[2018-09-11] MEDS: DESYREL PO SCH (20:42)
[2018-09-11] MEDS: PATIENT'S HOME MEDICATION TOP SCH (20:43)
[2018-09-11] MEDS ORDERED: VALIUM INJ IM PRN (23:02)
[2018-09-11] MEDS: VALIUM INJ IVP PRN (23:19)
[2018-09-12] MEDS: CARDIZEM INJ 125 MG VIAL 125 MG in NS 100 ML IV 100 ML IV PRN (03:26)
[2018-09-12 06:22] LABS: BASOPHILS % (AUTO) 0.4 % (0.2-1.0); EOSINOPHILS # (AUTO) 0.1 x10^3/uL (0.0-0.2); EOSINOPHILS % (AUTO) 0.8 % (0.9-2.9); HEMATOCRIT 33.8 % (36.0-47.0); HEMOGLOBIN 11.8 g/dL (12.0-16.0); LYMPHOCYTES # (AUTO) 0.9 X10^3/uL (1.3-2.9); LYMPHOCYTES % (AUTO) 7.4 % (21.0-51.0); MEAN CORPUSCULAR HEMOGLOBIN 34.2 pg (27.0-34.0); MEAN CORPUSCULAR VOLUME 97.9 fL (80.0-100.0); MEAN PLATELET VOLUME 6.1 fL (7.4-11.0); MONOCYTES # (AUTO) 1.3 x10^3/uL (0.3-0.8); MONOCYTES % (AUTO) 10.2 % (0.0-13.0); NEUTROPHILS # (AUTO) 10.1 x10^3/uL (2.2-4.8); NEUTROPHILS % (AUTO) 81.2 % (42.0-75.0); PLATELET COUNT 88 X10^3/uL (150.0-450.0); RED BLOOD COUNT 3.45 X10^6/uL (3.5-5.4); RED CELL DISTRIBUTION WIDTH 14.4 % (11.6-16.5); WHITE BLOOD COUNT 12.4 X10^3/uL (3.6-10.0)
[2018-09-12 06:36] LABS: ALANINE AMINOTRANSFERASE 14 Units/L (12-78); ALBUMIN 2.7 g/dL (3.4-5.0); ALKALINE PHOSPHATASE 61 Units/L (46-116); ASPARTATE AMINO TRANSFERASE 21 Units/L (15-37); BLOOD UREA NITROGEN 12 mg/dL (7-18); CALCIUM 8.5 mg/dL (8.5-10.1); CARBON DIOXIDE 26.2 mmol/L (21-32); CHLORIDE 106 mmol/L (98-107); COR CA(FOR HYPOALB) 9.5 mg/dL (8.5-10.1); COR NA(FOR HYPERGLY) 141 mmol/L (136-145); CREATININE 0.71 mg/dL (0.55-1.02); SODIUM 141 mmol/L (136-145); TOTAL PROTEIN 6.1 g/dL (6.4-8.2); eGFR NON BLACK RACES > 60 (>60)
[2018-09-12] MEDS ORDERED: ALLEGRA ONE (08:32)
[2018-09-12] MEDS ORDERED: VITAMIN B-12 INJ IM SCH (09:00)
[2018-09-12] MEDS: COLACE CAP 100 MG PO SCH ×2 (09:12→20:30)
[2018-09-12] MEDS: ROCEPHIN VIAL 1 GRAM IVP SCH (09:12)
[2018-09-12] MEDS: FOLIC ACID TAB 1 MG PO SCH (09:12)
[2018-09-12] MEDS: HEMOCYTE-PLUS PO SCH (09:12)
[2018-09-12] MEDS: NEURONTIN CAP 400 MG PO SCH (09:12)
[2018-09-12] MEDS: OSCAL+D or CALTRATE+D PO SCH (09:12)
[2018-09-12] MEDS: TOPROL XL PO SCH (09:12)
[2018-09-12] MEDS: ELIQUIS PO SCH ×2 (09:12→20:29)
[2018-09-12] MEDS: OXYBUTYNIN CHLORIDE ER PO SCH (09:12)
[2018-09-12] MEDS: MIRALAX POWDER (1 DOSE 17 G) PO SCH (09:12)
[2018-09-12] MEDS: LASIX PO SCH (09:12)
[2018-09-12] MEDS: SINGULAIR TAB 10 MG PO SCH (09:12)
[2018-09-12] MEDS: ALLEGRA PO SCH (09:13)
[2018-09-12] MEDS: MICRO K EXTEN CAP 10 MEQ PO SCH (09:13)
[2018-09-12] MEDS: FLONASE NASAL SPRAY ENOSTRIL SCH ×2 (09:13→20:29)
[2018-09-12] MEDS: ARTIFICIAL TEARS DROPS EACHEYE SCH ×4 (09:13→20:28)
[2018-09-12] MEDS: PATIENT'S HOME MEDICATION TOP SCH ×2 (10:41→20:28)
[2018-09-12] MEDS ORDERED: TOPROL XL PO SCH (11:00)
[2018-09-12] MEDS ORDERED: TOPROL XL PO NR (11:00)
[2018-09-12] MEDS: LANOXIN PO SCH (11:06)
[2018-09-12] MEDS: NS 1000 ML 1,000 ML IV SCH (12:47)
[2018-09-12] MEDS: NORCO 5/325 MG TAB PO PRN (20:30)
[2018-09-12] MEDS: DESYREL PO SCH (20:30)
[2018-09-12] MEDS: ATIVAN TAB 0.5 MG PO PRN (20:30)
[2018-09-13] MEDS: NS 1000 ML 1,000 ML IV SCH ×3 (03:11→16:09)
[2018-09-13 06:23] LABS: BASOPHILS % (AUTO) 0.5 % (0.2-1.0); EOSINOPHILS # (AUTO) 0.2 x10^3/uL (0.0-0.2); EOSINOPHILS % (AUTO) 2.1 % (0.9-2.9); HEMATOCRIT 32.1 % (36.0-47.0); HEMOGLOBIN 11.3 g/dL (12.0-16.0); LYMPHOCYTES # (AUTO) 1.1 X10^3/uL (1.3-2.9); LYMPHOCYTES % (AUTO) 15.1 % (21.0-51.0); MEAN CORPUSCULAR HEMOGLOBIN 34.6 pg (27.0-34.0); MEAN CORPUSCULAR HGB CONC 35.2 g/dL (33.0-35.0); MEAN CORPUSCULAR VOLUME 98.4 fL (80.0-100.0); MEAN PLATELET VOLUME 6.2 fL (7.4-11.0); MONOCYTES # (AUTO) 0.8 x10^3/uL (0.3-0.8); MONOCYTES % (AUTO) 10.9 % (0.0-13.0); NEUTROPHILS # (AUTO) 5.4 x10^3/uL (2.2-4.8); NEUTROPHILS % (AUTO) 71.4 % (42.0-75.0); PLATELET COUNT 88 X10^3/uL (150.0-450.0); RED BLOOD COUNT 3.26 X10^6/uL (3.5-5.4); RED CELL DISTRIBUTION WIDTH 14.5 % (11.6-16.5); WHITE BLOOD COUNT 7.5 X10^3/uL (3.6-10.0)
[2018-09-13 06:30] LABS: ALANINE AMINOTRANSFERASE 17 Units/L (12-78); ALBUMIN 2.4 g/dL (3.4-5.0); ALKALINE PHOSPHATASE 51 Units/L (46-116); ASPARTATE AMINO TRANSFERASE 16 Units/L (15-37); BLOOD UREA NITROGEN 15 mg/dL (7-18); CALCIUM 8.5 mg/dL (8.5-10.1); CARBON DIOXIDE 30.7 mmol/L (21-32); CHLORIDE 107 mmol/L (98-107); COR CA(FOR HYPOALB) 9.8 mg/dL (8.5-10.1); CREATININE 0.76 mg/dL (0.55-1.02); DIGOXIN 1.48 ng/mL (0.9-2); SODIUM 142 mmol/L (136-145); TOTAL PROTEIN 5.7 g/dL (6.4-8.2); eGFR NON BLACK RACES > 60 (>60)
[2018-09-13] MEDS ORDERED: ALLEGRA ONE (08:32)
[2018-09-13] MEDS: ROCEPHIN VIAL 1 GRAM IVP SCH (08:45)
[2018-09-13] MEDS: VALIUM INJ IVP PRN ×2 (08:45→21:13)
[2018-09-13] MEDS: MICRO K EXTEN CAP 10 MEQ PO SCH (08:48)
[2018-09-13] MEDS: ELIQUIS PO SCH ×2 (08:48→21:12)
[2018-09-13] MEDS: COLACE CAP 100 MG PO SCH ×2 (08:48→21:12)
[2018-09-13] MEDS: SINGULAIR TAB 10 MG PO SCH (08:48)
[2018-09-13] MEDS: ALLEGRA PO SCH (08:48)
[2018-09-13] MEDS: LASIX PO SCH (08:48)
[2018-09-13] MEDS: OXYBUTYNIN CHLORIDE ER PO SCH (08:48)
[2018-09-13] MEDS: NEURONTIN CAP 400 MG PO SCH (08:49)
[2018-09-13] MEDS: HEMOCYTE-PLUS PO SCH (08:49)
[2018-09-13] MEDS: TOPROL XL PO SCH (08:49)
[2018-09-13] MEDS: MIRALAX POWDER (1 DOSE 17 G) PO SCH (08:49)
[2018-09-13] MEDS: LANOXIN PO SCH (08:49)
[2018-09-13] MEDS: FOLIC ACID TAB 1 MG PO SCH (08:49)
[2018-09-13] MEDS: OSCAL+D or CALTRATE+D PO SCH (08:50)
[2018-09-13] MEDS: PATIENT'S HOME MEDICATION TOP SCH ×2 (08:59→21:13)
[2018-09-13] MEDS: ARTIFICIAL TEARS DROPS EACHEYE SCH ×4 (08:59→21:12)
[2018-09-13] MEDS: FLONASE NASAL SPRAY ENOSTRIL SCH ×2 (08:59→21:12)
[2018-09-13] MEDS ORDERED: MILK OF MAGNESIA PO SCH (09:00)
[2018-09-13] MEDS ORDERED: NORMODYNE INJ 20 MG VIAL IVP PRN (13:15)
[2018-09-13] MEDS: NORMODYNE INJ 20 MG VIAL IV PRN (13:35)
[2018-09-13] MEDS: CARDIZEM INJ 125 MG VIAL 125 MG in NS 100 ML IV 100 ML IV PRN (17:58)
--- NOTE | 2018-09-13 19:56 | DR.H&P ---
H&P - History & Physical for Day of: H&P Date: 09/10/18 - Chief Complaint Chief Complaint: ATRIAL FIBRILLATION, AMS - History of Present Illness History of Present Illness: IS A 88 YEAR OLD RESIDENT OF [facility]. STAFF REPORTS THAT PATIENT HAD A SUSTAINED HEARTRATE IN THE 130S AND CONFUSION. PATIENT DOES HAVE A KNOWN HISTORY OF ATRIAL FIBRILLATION FOR WHICH SHE TAKES CARDIZEM BY MOUTH. SHE WAS ADMITTED TO THE INTENSIVE CARE UNIT FOR ATRIAL FIBRILLATION WITH RVR. SHE WAS PLACED ON A CARDIZEM DRIP. ON ADMISSION, VITALS WERE 98.0-158-20-97%-119/77. LABS WERE OBTAINED PRIOR TO ADMISSION. ABNORMAL LAB VALUES INCLUDE THE FOLLOWING: WBCEUKOCYTES 3+. 12.9, PLT COUNT 103, CARBON DIOXIDE 33.2, BUN 23, CREATININE 1.05, TOTAL PROTEIN 6.2, ALBUMIN 2.9. CARDIAC ENZYMES WITHIN NORMAL LIMITS. URINALYSIS OBTAINED AND REVEALED: WBC 20-30, RBC 5-10, BACTERIA 3+, LEUKOCYTES 1+. EKG OBTAINED AND REVEALED: SVT WITH HR 159. A CHEST XRAY WAS OBTAINED AND REVEALED: No current evidence for active cardiopulmonary disease. SHE WAS STARTED ON ROCEPHIN 1GM IV DAILY FOR UTI AND HOME MEDICATIONS WERE RESUMED. WE PLAN TO OBTAIN SERIAL CARDIAC ENZYMES AND EKGS. OTHERWISE, WE WILL FOLLOW UP WITH AM LABS AND CONTINUE TO MONITOR. - Past Medical History Past Medical History: Anemia, Anxiety, Arthritis, Coronary Artery Disease, Depression, Dyslipidemia, GERD, Hypertension Additional Medical History: Freq UTI's, Conjunctivitis, Dry Eyes, Upper Respiratory Infection, Constipation, Urinary Incontinence, Muscle Weakness, Osteoarthritis - Past Surgical History Surgical History: Cholecystectomy, Hysterectomy - Family History Family Medical History: Diabetes Mellitus, ID, Sudden Cardiac - Social History Alcohol Use: Occasionally Drug Use: None - Medications Home Medications: tuberculin,PPD,multi-puncture Allergy (Verified 09/10/18 18:54) CONTINUE taking the following medications carvedilol 3.125 mg PO BID 09/10/18 [History] diltiazem HCl [Cardizem Cd (24 hr)] 120 mg PO DAILY 09/10/18 [History] fexofenadine [Hafsa Allergy] 180 mg PO QDAY 09/10/18 [History] folic acid 1 mg PO DAILY 09/10/18 [History] furosemide 40 mg PO QAM 09/10/18 [History] hydrocodone-acetaminophen 1 tab PO Q6HR 09/10/18 [History] meloxicam [Mobic] 15 mg PO DAILY 09/10/18 [History] montelukast 10 mg PO DAILY 09/10/18 [History] trazodone 50 mg PO HS 09/10/18 [History] - Review of Systems Constitutional: See HPI Eyes: No Symptoms Reported ENT: No Symptoms Reported Respiratory: Shortness of Breath Cardiovascular: See HPI Gastrointestinal: No Symptoms Reported Genitourinary: No Symptoms Reported Musculoskeletal: No Symptoms Reported Skin: No Symptoms Reported Neurological: Confusion - Physical Exam Vital Signs: Temperature 98.1 F Pulse Rate [Apical] 97 Pulse Rate 78 Respiratory Rate 34 Blood Pressure [Right Calf] 109/62 Blood Pressure [Right Arm] 162/74 Blood Pressure [Left Arm] 141/74 Blood Pressure 158/93 O2 Sat by Pulse Oximetry 96 Oriented: Not Oriented Eyes: Normal Ear: Normal Nose: Normal Throat: Normal Respiratory: Diminished Throughout Cardiovascular: Tachycardia : Normal Auscultation: Bowel Sounds: Normal Palpation: Normal Tenderness: Suprapubic, Mild. negative: Rebound, Guarding, Rigidity Skin: Normal Musculoskeletal: Normal Psychiatric: Normal Mood Description: Calm Affect: Normal Speech Pattern: Clear - Assessment/Plan (1) Atrial fibrillation Qualifiers: Atrial fibrillation type: chronic Qualified Code(s): I48.2 - Chronic atrial fibrillation Status: Resolved Plan: CARDIZEM DRIP, CARDIAC MONTIOR, SERIAL CARDIAC ENZYMES AND EKG, SUPPLEMENTAL OXYGEN, CONTINUE TO MONITOR (2) Urinary tract infection Qualifiers: Urinary tract infection type: acute cystitis Status: Acute Plan: ROCEPHIN 1GM IV DAILY, CONTINUE TO MONITOR (3) Altered mental status Qualifiers: Altered mental status type: transient alteration of awareness Qualified Code(s): R40.4 - Transient alteration of awareness Status: Acute Plan: TREAT UTI, CONTINUE HOME MEDS - Allergies Allergies/Adverse Reactions: Allergies Allergy/AdvReac Type Severity Reaction Status Date / Time tuberculin,PPD,multi-puncture Allergy Verified 09/10/18 18:54
--- NOTE | 2018-09-13 20:05 | PCM.PROG ---
Progress Note - Progress Note for Day of Date of Exam: 09/11/18 - Subjective Subjective: WAS ADMITTED FOR A-FIB WITH RVR AND A URINARY TRACT INFECTION. TODAY, SHE IS ALERT IN BED ON MORNING ROUNDS. SHE CONTINUES WITH ALTERED MENTAL STATUS AND ABDOMINAL PAIN. SHE REMAINS ON A CARDIZEM DRIP WITH HR 110-120. ON EXAMINATION, HEART RATE IS IRREGULAR IN RATE AND RHYTHM. BILATERAL LUNGS ARE NOTED WITH DIMINISHED LUNG SOUNDS THROUGHOUT. ABDOMEN IS FLAT, SOFT, AND NOTED WITH SUPRAPUBIC TENDERNESS TO PALPATION. HER VITALS THIS MORNING ARE 99.5-114-20-95%-167/69. LABS WERE OBTAINED. ABNORMAL LAB VALUES INCLUDE THE FOLLOWING: RBC 3.48, HGB 11.9, HCT 34.3, PLT COUNT 93, BUN 20, GLUCOSE 125, CALCIUM 8.4, TOTAL PROTEIN 5.9, ALBUMIN 2.7. MOST RECENT EKG REVEALS ATRIAL FIBRILLATION WITH HR 79(1:26AM). TODAY, WE WILL OBTAIN AN ECHO AND START ELIQUIS 5MG PO BID AND METOPROLO XL 25M MG PO DAILY. OTHERWISE, WE WILL CONTINUE WITH CURRENT PLAN OF CARE. WE PLAN TO FOLLOW UP WITH AM LABS AND CONTINUE TO MONITOR. - Past Medical Family Social History Past Med/Fam/Surg Hx: No changes since H&P Allergies: Allergies tuberculin,PPD,multi-puncture Allergy (Verified 09/10/18 18:54) - Review of Systems ROS: No change since H&P - Vital Signs and I&O's Vital Signs: Temperature 98.1 F Pulse Rate [Apical] 97 Pulse Rate 78 Respiratory Rate 34 Blood Pressure [Right Calf] 109/62 Blood Pressure [Right Arm] 162/74 Blood Pressure [Left Arm] 141/74 Blood Pressure 158/93 O2 Sat by Pulse Oximetry 96 Intake and Output: Intake & Output 09/11/18 09/12/18 09/13/18 09/14/18 11:59 11:59 11:59 11:59 Intake Total 1425 / 1425 870.0 / 870.0 2205 / 2205 859 / 859 Output Total 875 / 875 4500 / 4500 2700 / 2700 1000 / 1000 Balance 550 / 550 -3630.0 / -3630.0 -495 / -495 -141 / -141 - Physical Exam Oriented: Not Oriented Eyes: Normal Ear: Normal Nose: Normal Throat: Normal Cardiovascular: Tachycardia : Normal Auscultation: Bowel Sounds: Normal Palpation: Normal Tenderness: Suprapubic, Mild. negative: Rebound, Guarding, Rigidity Skin: Normal Musculoskeletal: Normal Psychiatric: Normal Mood Description: Calm Affect: Normal Speech Pattern: Clear - Laboratory and Diagnostics Result Diagrams: 09/13/18 05:57 09/13/18 05:57 Labs: 09/10/18 18:40 Urine,Catheterized Urine Culture - Final [facility] WBC 7.5 X10^3/uL (3.6-10.0) 09/13/18 05:57 RBC 3.26 X10^6/uL (3.5-5.4) L 09/13/18 05:57 Hgb 11.3 g/dL (12.0-16.0) L 09/13/18 05:57 Hct 32.1 % (36.0-47.0) L 09/13/18 05:57 MCV 98.4 fL (80.0-100.0) 09/13/18 05:57 MCH 34.6 pg (27.0-34.0) H 09/13/18 05:57 MCHC 35.2 g/dL (33.0-35.0) H 09/13/18 05:57 RDW 14.5 % (11.6-16.5) 09/13/18 05:57 Plt Count 88 X10^3/uL (150.0-450.0) L 09/13/18 05:57 MPV 6.2 fL (7.4-11.0) L 09/13/18 05:57 Neut % (Auto) 71.4 % (42.0-75.0) 09/13/18 05:57 Lymph % (Auto) 15.1 % (21.0-51.0) L 09/13/18 05:57 [place] % (Auto) 10.9 % (0.0-13.0) 09/13/18 05:57 Eos % (Auto) 2.1 % (0.9-2.9) 09/13/18 05:57 Baso % (Auto) 0.5 % (0.2-1.0) 09/13/18 05:57 Neut # (Auto) 5.4 x10^3/uL (2.2-4.8) H 09/13/18 05:57 Lymph # (Auto) 1.1 X10^3/uL (1.3-2.9) L 09/13/18 05:57 [place] # (Auto) 0.8 x10^3/uL (0.3-0.8) 09/13/18 05:57 Eos # (Auto) 0.2 x10^3/uL (0.0-0.2) 09/13/18 05:57 Baso # (Auto) 0.0 X10^3/uL (0.0-0.1) 09/13/18 05:57 Absolute Nucleated RBC 0.1 /100WBC 09/13/18 05:57 Sodium 142 mmol/L (136-145) 09/13/18 05:57 Corrected Sodium TNP 09/13/18 05:57 Potassium 4.1 mmol/L (3.5-5.1) 09/13/18 05:57 Chloride 107 mmol/L (98-107) 09/13/18 05:57 Carbon Dioxide 30.7 mmol/L (21-32) 09/13/18 05:57 BUN 15 mg/dL (7-18) 09/13/18 05:57 Creatinine 0.76 mg/dL (0.55-1.02) 09/13/18 05:57 Est GFR (MDRD) Af Amer > 60 (>60) 09/13/18 05:57 Est GFR (MDRD) Non-Af > 60 (>60) 09/13/18 05:57 Glucose 102 mg/dL (65-99) H 09/13/18 05:57 Calcium 8.5 mg/dL (8.5-10.1) 09/13/18 05:57 Corrected Calcium 9.8 mg/dL (8.5-10.1) 09/13/18 05:57 Total Bilirubin 0.30 mg/dL (0.2-1.0) 09/13/18 05:57 AST 16 Units/L (15-37) 09/13/18 05:57 ALT 17 Units/L (12-78) 09/13/18 05:57 Alkaline Phosphatase 51 Units/L (46-116) 09/13/18 05:57 Creatine Kinase 30 Units/L (26-192) 09/11/18 01:16 CK-MB (CK-2) 1.0 ng/mL (0-4.0) 09/11/18 01:16 CK/CKMB % Calc 3.3 % (<4) 09/11/18 01:16 Troponin I 0.04 ng/mL (0-1.5) 09/11/18 01:16 Total Protein 5.7 g/dL (6.4-8.2) L 09/13/18 05:57 Albumin 2.4 g/dL (3.4-5.0) L 09/13/18 05:57 Globulin 3.3 g/dL (2.5-4.5) 09/13/18 05:57 Albumin/Globulin Ratio 0.7 Ratio (1.1-2.1) L 09/13/18 05:57 Specimen Type Catherized urine 09/10/18 18:40 Urine Color Yellow (YELLOW) 09/10/18 18:40 Urine Appearance Cloudy (CLEAR) 09/10/18 18:40 Urine pH 8.0 (5.0 - 8.0) 09/10/18 18:40 Ur Specific [place] 1.015 (1.000-1.030) 09/10/18 18:40 Urine Protein Negative (NEGATIVE) 09/10/18 18:40 Urine Glucose (UA) Negative (NEGATIVE) 09/10/18 18:40 Urine Ketones Negative (NEGATIVE) 09/10/18 18:40 Urine Occult Blood 2+ (NEGATIVE) 09/10/18 18:40 Urine Nitrite Positive (NEGATIVE) 09/10/18 18:40 Urine Bilirubin Negative (NEGATIVE) 09/10/18 18:40 Urine Urobilinogen Normal (NORMAL) 09/10/18 18:40 Ur Leukocyte Esterase 3+ (NEGATIVE) 09/10/18 18:40 Urine RBC 5-10 /HPF (NONE SEEN) 09/10/18 18:40 Urine WBC 20-30 /HPF (NONE SEEN) 09/10/18 18:40 Ur Squamous Epith Cells Rare /HPF (NEGATIVE) 09/10/18 18:40 Amorphous Sediment 1+ /HPF (NEGATIVE) 09/10/18 18:40 Urine Bacteria 3+ /HPF (NEGATIVE) 09/10/18 18:40 Ur Culture Indicated? Yes/culture set up 09/10/18 18:40 Digoxin 1.48 ng/mL (0.9-2) 09/13/18 05:57 - Plan (1) Atrial fibrillation Status: Resolved Qualifiers: Atrial fibrillation type: chronic Qualified Code(s): I48.2 - Chronic atrial fibrillation Plan: OBTAIN ECHO, ELIQUIS 5MG PO BID, METOPROLOL XL 25MG PO DAILY, CARDIZEM DRIP, SUPPLEMENTAL OXYGEN, CONTINUE TO MONITOR (2) Urinary tract infection Status: Acute Qualifiers: Urinary tract infection type: acute cystitis Plan: ROCEPHIN 1GM IV DAILY, CONTINUE TO MONITOR (3) Altered mental status Status: Acute Qualifiers: Altered mental status type: transient alteration of awareness Qualified Code(s): R40.4 - Transient alteration of awareness Plan: TREAT UTI, CONTINUE HOME MEDS
[2018-09-13] MEDS: DESYREL PO SCH (21:12)
[2018-09-13] MEDS: MILK OF MAGNESIA PO SCH (21:13)
--- NOTE | 2018-09-13 22:39 | PCM.PROG ---
Progress Note - Progress Note for Day of Date of Exam: 09/12/18 - Subjective Subjective: WAS ADMITTED FOR A-FIB WITH RVR AND A URINARY TRACT INFECTION. TODAY, SHE IS ALERT IN BED ON MORNING ROUNDS. SHE CONTINUES WITH ALTERED MENTAL STATUS AND ABDOMINAL PAIN. SHE REMAINS IN THE INTENSIVE CARE UNIT. THROUGHOUT THE NIGHT, HEARTRATE REMAINED ELEVATED. SHE WAS GIVEN A BOLUS OF DIGOXIN. ON EXAMINATION, HEART RATE IS IRREGULAR. RATE IS NOTED TO BE IN THE 80s. BILATERAL LUNGS ARE NOTED WITH DIMINISHED LUNG SOUNDS THROUGHOUT. ABDOMEN IS FLAT, SOFT, AND NOTED WITH SUPRAPUBIC TENDERNESS TO PALPATION. HER VITALS THIS MORNING ARE 98.9-86-20-95%-201/86. LABS WERE OBTAINED. ABNORMAL LAB VALUES INCLUDE THE FOLLOWING: WBC 12.4, RBC 3.45, HGB 11.8, HCT 33.8, GLUCOSE 115, TOTAL PROTEIN 6.1, ALBUMIN 2.7. ECHO REVEALED AN EJECTION FRACTION OF 75%. TODAY, WE WILL INCREASE METOPROLOL TO 50MG PO DAILY AND START DIGOXIN 0.25MG PO DAILY. OTHERWISE, WE WILL CONTINUE WITH CURRENT PLAN OF CARE. WE PLAN TO FOLLOW UP WITH AM LABS AND CONTINUE TO MONITOR. - Past Medical Family Social History Past Med/Fam/Surg Hx: No changes since H&P Allergies: Allergies tuberculin,PPD,multi-puncture Allergy (Verified 09/10/18 18:54) - Review of Systems ROS: No change since H&P - Vital Signs and I&O's Vital Signs: Temperature 98.1 F Pulse Rate [Apical] 97 Pulse Rate 79 Respiratory Rate 24 Blood Pressure [Right Calf] 109/62 Blood Pressure [Right Arm] 162/74 Blood Pressure [Left Arm] 141/74 Blood Pressure 151/69 O2 Sat by Pulse Oximetry 97 Intake and Output: Intake & Output 09/11/18 09/12/18 09/13/18 09/14/18 11:59 11:59 11:59 11:59 Intake Total 1425 / 1425 870.0 / 870.0 2205 / 2205 864 / 864 Output Total 875 / 875 4500 / 4500 2700 / 2700 1000 / 1000 Balance 550 / 550 -3630.0 / -3630.0 -495 / -495 -136 / -136 - Physical Exam Oriented: Not Oriented Eyes: Normal Ear: Normal Nose: Normal Throat: Normal Cardiovascular: Tachycardia : Normal Auscultation: Bowel Sounds: Normal Palpation: Normal Tenderness: Suprapubic, Mild. negative: Rebound, Guarding, Rigidity Skin: Normal Musculoskeletal: Normal Psychiatric: Normal Mood Description: Calm Affect: Normal Speech Pattern: Clear - Laboratory and Diagnostics Result Diagrams: 09/13/18 05:57 09/13/18 05:57 Labs: 09/10/18 18:40 Urine,Catheterized Urine Culture - Final [facility] WBC 7.5 X10^3/uL (3.6-10.0) 09/13/18 05:57 RBC 3.26 X10^6/uL (3.5-5.4) L 09/13/18 05:57 Hgb 11.3 g/dL (12.0-16.0) L 09/13/18 05:57 Hct 32.1 % (36.0-47.0) L 09/13/18 05:57 MCV 98.4 fL (80.0-100.0) 09/13/18 05:57 MCH 34.6 pg (27.0-34.0) H 09/13/18 05:57 MCHC 35.2 g/dL (33.0-35.0) H 09/13/18 05:57 RDW 14.5 % (11.6-16.5) 09/13/18 05:57 Plt Count 88 X10^3/uL (150.0-450.0) L 09/13/18 05:57 MPV 6.2 fL (7.4-11.0) L 09/13/18 05:57 Neut % (Auto) 71.4 % (42.0-75.0) 09/13/18 05:57 Lymph % (Auto) 15.1 % (21.0-51.0) L 09/13/18 05:57 [place] % (Auto) 10.9 % (0.0-13.0) 09/13/18 05:57 Eos % (Auto) 2.1 % (0.9-2.9) 09/13/18 05:57 Baso % (Auto) 0.5 % (0.2-1.0) 09/13/18 05:57 Neut # (Auto) 5.4 x10^3/uL (2.2-4.8) H 09/13/18 05:57 Lymph # (Auto) 1.1 X10^3/uL (1.3-2.9) L 09/13/18 05:57 [place] # (Auto) 0.8 x10^3/uL (0.3-0.8) 09/13/18 05:57 Eos # (Auto) 0.2 x10^3/uL (0.0-0.2) 09/13/18 05:57 Baso # (Auto) 0.0 X10^3/uL (0.0-0.1) 09/13/18 05:57 Absolute Nucleated RBC 0.1 /100WBC 09/13/18 05:57 Sodium 142 mmol/L (136-145) 09/13/18 05:57 Corrected Sodium TNP 09/13/18 05:57 Potassium 4.1 mmol/L (3.5-5.1) 09/13/18 05:57 Chloride 107 mmol/L (98-107) 09/13/18 05:57 Carbon Dioxide 30.7 mmol/L (21-32) 09/13/18 05:57 BUN 15 mg/dL (7-18) 09/13/18 05:57 Creatinine 0.76 mg/dL (0.55-1.02) 09/13/18 05:57 Est GFR (MDRD) Af Amer > 60 (>60) 09/13/18 05:57 Est GFR (MDRD) Non-Af > 60 (>60) 09/13/18 05:57 Glucose 102 mg/dL (65-99) H 09/13/18 05:57 Calcium 8.5 mg/dL (8.5-10.1) 09/13/18 05:57 Corrected Calcium 9.8 mg/dL (8.5-10.1) 09/13/18 05:57 Total Bilirubin 0.30 mg/dL (0.2-1.0) 09/13/18 05:57 AST 16 Units/L (15-37) 09/13/18 05:57 ALT 17 Units/L (12-78) 09/13/18 05:57 Alkaline Phosphatase 51 Units/L (46-116) 09/13/18 05:57 Creatine Kinase 30 Units/L (26-192) 09/11/18 01:16 CK-MB (CK-2) 1.0 ng/mL (0-4.0) 09/11/18 01:16 CK/CKMB % Calc 3.3 % (<4) 09/11/18 01:16 Troponin I 0.04 ng/mL (0-1.5) 09/11/18 01:16 Total Protein 5.7 g/dL (6.4-8.2) L 09/13/18 05:57 Albumin 2.4 g/dL (3.4-5.0) L 09/13/18 05:57 Globulin 3.3 g/dL (2.5-4.5) 09/13/18 05:57 Albumin/Globulin Ratio 0.7 Ratio (1.1-2.1) L 09/13/18 05:57 Specimen Type Catherized urine 09/10/18 18:40 Urine Color Yellow (YELLOW) 09/10/18 18:40 Urine Appearance Cloudy (CLEAR) 09/10/18 18:40 Urine pH 8.0 (5.0 - 8.0) 09/10/18 18:40 Ur Specific [place] 1.015 (1.000-1.030) 09/10/18 18:40 Urine Protein Negative (NEGATIVE) 09/10/18 18:40 Urine Glucose (UA) Negative (NEGATIVE) 09/10/18 18:40 Urine Ketones Negative (NEGATIVE) 09/10/18 18:40 Urine Occult Blood 2+ (NEGATIVE) 09/10/18 18:40 Urine Nitrite Positive (NEGATIVE) 09/10/18 18:40 Urine Bilirubin Negative (NEGATIVE) 09/10/18 18:40 Urine Urobilinogen Normal (NORMAL) 09/10/18 18:40 Ur Leukocyte Esterase 3+ (NEGATIVE) 09/10/18 18:40 Urine RBC 5-10 /HPF (NONE SEEN) 09/10/18 18:40 Urine WBC 20-30 /HPF (NONE SEEN) 09/10/18 18:40 Ur Squamous Epith Cells Rare /HPF (NEGATIVE) 09/10/18 18:40 Amorphous Sediment 1+ /HPF (NEGATIVE) 18 18:40 Urine Bacteria 3+ /HPF (NEGATIVE) 18 18:40 Ur Culture Indicated? Yes/culture set up 09/10/18 18:40 Digoxin 1.48 ng/mL (0.9-2) 09/13/18 05:57 - Plan (1) Atrial fibrillation Status: Resolved Qualifiers: Atrial fibrillation type: chronic Qualified Code(s): I48.2 - Chronic atrial fibrillation Plan: ELIQUIS 5MG PO BID, METOPROLOL XL 50MG PO DAILY, DIGOXIN 0.25MG PO DAILY, CARDIZEM DRIP, SUPPLEMENTAL OXYGEN, CONTINUE TO MONITOR (2) Urinary tract infection Status: Acute Qualifiers: Urinary tract infection type: acute cystitis Plan: ROCEPHIN 1GM IV DAILY, CONTINUE TO MONITOR (3) Altered mental status Status: Acute Qualifiers: Altered mental status type: transient alteration of awareness Qualified Code(s): R40.4 - Transient alteration of awareness Plan: TREAT UTI, CONTINUE HOME MEDS (4) Hypertension Status: Chronic Qualifiers: Hypertension type: essential hypertension Qualified Code(s): I10 - Essential (primary) hypertension Plan: CONTINUE HOME MEDS
[2018-09-14] MEDS: NS 1000 ML 1,000 ML IV SCH ×2 (03:11→05:47)
[2018-09-14 07:05] LABS: BASOPHILS # (AUTO) 0.1 X10^3/uL (0.0-0.1); BASOPHILS % (AUTO) 0.7 % (0.2-1.0); EOSINOPHILS # (AUTO) 0.2 x10^3/uL (0.0-0.2); EOSINOPHILS % (AUTO) 2.3 % (0.9-2.9); HEMATOCRIT 31.9 % (36.0-47.0); HEMOGLOBIN 11.2 g/dL (12.0-16.0); LYMPHOCYTES # (AUTO) 1.3 X10^3/uL (1.3-2.9); LYMPHOCYTES % (AUTO) 16.3 % (21.0-51.0); MEAN CORPUSCULAR HEMOGLOBIN 34.8 pg (27.0-34.0); MEAN CORPUSCULAR VOLUME 99.5 fL (80.0-100.0); MEAN PLATELET VOLUME 6.6 fL (7.4-11.0); MONOCYTES # (AUTO) 0.9 x10^3/uL (0.3-0.8); MONOCYTES % (AUTO) 11.3 % (0.0-13.0); NEUTROPHILS # (AUTO) 5.3 x10^3/uL (2.2-4.8); NEUTROPHILS % (AUTO) 69.4 % (42.0-75.0); PLATELET COUNT 88 X10^3/uL (150.0-450.0); RED BLOOD COUNT 3.21 X10^6/uL (3.5-5.4); RED CELL DISTRIBUTION WIDTH 14.5 % (11.6-16.5); WHITE BLOOD COUNT 7.7 X10^3/uL (3.6-10.0)
[2018-09-14 07:17] LABS: ALANINE AMINOTRANSFERASE 20 Units/L (12-78); ALBUMIN 2.4 g/dL (3.4-5.0); ALKALINE PHOSPHATASE 49 Units/L (46-116); ASPARTATE AMINO TRANSFERASE 17 Units/L (15-37); BLOOD UREA NITROGEN 12 mg/dL (7-18); CALCIUM 8.3 mg/dL (8.5-10.1); CARBON DIOXIDE 31.1 mmol/L (21-32); CHLORIDE 107 mmol/L (98-107); COR CA(FOR HYPOALB) 9.6 mg/dL (8.5-10.1); CREATININE 0.75 mg/dL (0.55-1.02); DIGOXIN 1.42 ng/mL (0.9-2); SODIUM 145 mmol/L (136-145); TOTAL PROTEIN 5.6 g/dL (6.4-8.2); eGFR NON BLACK RACES > 60 (>60)
[2018-09-14] MEDS ORDERED: ALLEGRA ONE (08:49)
[2018-09-14] MEDS: MIRALAX POWDER (1 DOSE 17 G) PO SCH (08:59)
[2018-09-14] MEDS: ROCEPHIN VIAL 1 GRAM IVP SCH (08:59)
[2018-09-14] MEDS: ALLEGRA PO SCH (09:00)
[2018-09-14] MEDS: ELIQUIS PO SCH ×2 (09:00→21:10)
[2018-09-14] MEDS: OXYBUTYNIN CHLORIDE ER PO SCH (09:00)
[2018-09-14] MEDS: FOLIC ACID TAB 1 MG PO SCH (09:00)
[2018-09-14] MEDS: TOPROL XL PO SCH (09:00)
[2018-09-14] MEDS: NEURONTIN CAP 400 MG PO SCH (09:00)
[2018-09-14] MEDS: LANOXIN PO SCH (09:00)
[2018-09-14] MEDS: LASIX PO SCH (09:00)
[2018-09-14] MEDS: HEMOCYTE-PLUS PO SCH (09:00)
[2018-09-14] MEDS: MICRO K EXTEN CAP 10 MEQ PO SCH (09:01)
[2018-09-14] MEDS: ATIVAN TAB 0.5 MG PO PRN ×2 (09:01→21:15)
[2018-09-14] MEDS: SINGULAIR TAB 10 MG PO SCH (09:01)
[2018-09-14] MEDS: ARTIFICIAL TEARS DROPS EACHEYE SCH ×4 (09:01→21:10)
[2018-09-14] MEDS: PATIENT'S HOME MEDICATION TOP SCH ×2 (09:01→21:11)
[2018-09-14] MEDS: OSCAL+D or CALTRATE+D PO SCH (09:01)
[2018-09-14] MEDS: FLONASE NASAL SPRAY ENOSTRIL SCH ×2 (09:01→21:11)
[2018-09-14] MEDS: COLACE CAP 100 MG PO SCH ×2 (09:01→21:10)
[2018-09-14] MEDS: COZAAR PO SCH (09:21)
[2018-09-14] MEDS: DESYREL PO SCH (21:10)
[2018-09-14] MEDS: MILK OF MAGNESIA PO SCH (21:11)
[2018-09-14] MEDS: NORCO 5/325 MG TAB PO PRN (21:14)
[2018-09-15 06:23] LABS: BASOPHILS % (AUTO) 0.7 % (0.2-1.0); EOSINOPHILS # (AUTO) 0.2 x10^3/uL (0.0-0.2); EOSINOPHILS % (AUTO) 2.6 % (0.9-2.9); HEMATOCRIT 30.9 % (36.0-47.0); HEMOGLOBIN 10.7 g/dL (12.0-16.0); LYMPHOCYTES % (AUTO) 15.4 % (21.0-51.0); MEAN CORPUSCULAR HGB CONC 34.7 g/dL (33.0-35.0); MEAN CORPUSCULAR VOLUME 98.2 fL (80.0-100.0); MEAN PLATELET VOLUME 6.5 fL (7.4-11.0); MONOCYTES # (AUTO) 0.8 x10^3/uL (0.3-0.8); MONOCYTES % (AUTO) 11.7 % (0.0-13.0); NEUTROPHILS # (AUTO) 4.5 x10^3/uL (2.2-4.8); NEUTROPHILS % (AUTO) 69.6 % (42.0-75.0); PLATELET COUNT 83 X10^3/uL (150.0-450.0); RED BLOOD COUNT 3.15 X10^6/uL (3.5-5.4); RED CELL DISTRIBUTION WIDTH 14.8 % (11.6-16.5); WHITE BLOOD COUNT 6.5 X10^3/uL (3.6-10.0)
[2018-09-15 06:42] LABS: ALANINE AMINOTRANSFERASE 18 Units/L (12-78); ALBUMIN 2.3 g/dL (3.4-5.0); ALKALINE PHOSPHATASE 48 Units/L (46-116); ASPARTATE AMINO TRANSFERASE 17 Units/L (15-37); BLOOD UREA NITROGEN 17 mg/dL (7-18); CALCIUM 8.3 mg/dL (8.5-10.1); CARBON DIOXIDE 29.3 mmol/L (21-32); CHLORIDE 108 mmol/L (98-107); COR CA(FOR HYPOALB) 9.7 mg/dL (8.5-10.1); CREATININE 0.78 mg/dL (0.55-1.02); DIGOXIN 1.57 ng/mL (0.9-2); SODIUM 143 mmol/L (136-145); TOTAL PROTEIN 5.4 g/dL (6.4-8.2); eGFR NON BLACK RACES > 60 (>60)
[2018-09-15] MEDS ORDERED: ALLEGRA ONE ×2 (09:43→09:46)
[2018-09-15] MEDS: ROCEPHIN VIAL 1 GRAM IVP SCH (09:54)
[2018-09-15] MEDS: FOLIC ACID TAB 1 MG PO SCH (09:55)
[2018-09-15] MEDS: COZAAR PO SCH (09:55)
[2018-09-15] MEDS: LASIX PO SCH (09:55)
[2018-09-15] MEDS: NEURONTIN CAP 400 MG PO SCH (09:56)
[2018-09-15] MEDS: LANOXIN PO SCH (09:56)
[2018-09-15] MEDS: OXYBUTYNIN CHLORIDE ER PO SCH (09:57)
[2018-09-15] MEDS: TOPROL XL PO SCH (09:57)
[2018-09-15] MEDS: MIRALAX POWDER (1 DOSE 17 G) PO SCH (09:57)
[2018-09-15] MEDS: ELIQUIS PO SCH ×2 (09:57→20:51)
[2018-09-15] MEDS: COLACE CAP 100 MG PO SCH ×2 (09:57→20:51)
[2018-09-15] MEDS: SINGULAIR TAB 10 MG PO SCH (09:57)
[2018-09-15] MEDS: MICRO K EXTEN CAP 10 MEQ PO SCH (09:57)
[2018-09-15] MEDS: HEMOCYTE-PLUS PO SCH (09:57)
[2018-09-15] MEDS: PATIENT'S HOME MEDICATION TOP SCH ×2 (09:58→20:52)
[2018-09-15] MEDS: NS 1000 ML 1,000 ML IV SCH ×2 (09:58→18:25)
[2018-09-15] MEDS: ALLEGRA PO SCH (09:58)
[2018-09-15] MEDS: FLONASE NASAL SPRAY ENOSTRIL SCH ×2 (09:59→20:51)
[2018-09-15] MEDS: ARTIFICIAL TEARS DROPS EACHEYE SCH ×4 (09:59→20:51)
[2018-09-15] MEDS ORDERED: CATAPRES-TTS-1 TD SCH (10:00)
[2018-09-15] MEDS: OSCAL+D or CALTRATE+D PO SCH (10:04)
[2018-09-15] MEDS: DESYREL PO SCH (20:51)
[2018-09-15] MEDS: ATIVAN TAB 0.5 MG PO PRN (20:51)
[2018-09-15] MEDS: MILK OF MAGNESIA PO SCH (20:51)
--- NOTE | 2018-09-15 20:55 | PCM.PROG ---
Progress Note - Progress Note for Day of Date of Exam: 09/13/18 - Subjective Subjective: WAS ADMITTED FOR A-FIB WITH RVR AND A URINARY TRACT INFECTION. TODAY, SHE IS ALERT IN BED ON MORNING ROUNDS. SHE CONTINUES WITH ALTERED MENTAL STATUS AND ABDOMINAL PAIN. SHE REMAINS IN THE INTENSIVE CARE UNIT. HEART RATE HAS BEEN WELL CONTROLLED THROUGHOUT THE NIGHT, HOWEVER, BLOOD PRESSURE REMAINS ELEVATED. ON EXAMINATION, HEART IS REGULAR IN RATE AND RHYTHM. BILATERAL LUNGS ARE NOTED WITH DIMINISHED LUNG SOUNDS THROUGHOUT. ABDOMEN IS FLAT, SOFT, AND NOTED WITH SUPRAPUBIC TENDERNESS TO PALPATION. HER VITALS THIS MORNING ARE 98.1-78-26-98%-196/85. LABS WERE OBTAINED. ABNORMAL LAB VALUES INCLUDE THE FOLLOWING: RBC 3.26, HGB 11.3, HCT 32.1, GLUCOSE 102, TOTAL PROTEIN 5.7, ALBUMIN 2.4. WE WILL CONTINUE WITH CURRENT PLAN OF CARE. OTHERWISE, WE PLAN TO FOLLOW UP WITH AM LABS AND CONTINUE TO MONITOR. - Past Medical Family Social History Past Med/Fam/Surg Hx: No changes since H&P Allergies: Allergies tuberculin,PPD,multi-puncture Allergy (Verified 09/10/18 18:54) - Review of Systems ROS: No change since H&P - Vital Signs and I&O's Vital Signs: Temperature 99.7 F Pulse Rate [Apical] 97 Pulse Rate 72 Respiratory Rate 41 Blood Pressure [Right Calf] 109/62 Blood Pressure [Right Arm] 162/74 Blood Pressure [Left Arm] 141/74 Blood Pressure 166/72 O2 Sat by Pulse Oximetry 97 Intake and Output: Intake & Output 09/13/18 09/14/18 09/15/18 09/16/18 11:59 11:59 11:59 11:59 Intake Total 2205 / 2205 2169 / 2169 1827 / 182 698 / 698 Output Total 2700 / 2700 1000 / 1000 Balance -495 / -495 1169 / 1169 1827 / 182 698 / 698 - Physical Exam Oriented: Not Oriented Eyes: Normal Ear: Normal Nose: Normal Throat: Normal Cardiovascular: Normal, Tachycardia : Normal Auscultation: Bowel Sounds: Normal Palpation: Normal Tenderness: Suprapubic, Mild. negative: Rebound, Guarding, Rigidity Skin: Normal Musculoskeletal: Normal Psychiatric: Normal Mood Description: Calm Affect: Normal Speech Pattern: Clear, Inappropriate - Laboratory and Diagnostics Result Diagrams: 12/17/18 05:40 09/15/18 05:40 Labs: 09/10/18 18:40 Urine,Catheterized Urine Culture - Final [facility] WBC 6.5 X10^3/uL (3.6-10.0) 09/15/18 05:40 RBC 3.15 X10^6/uL (3.5-5.4) L 09/15/18 05:40 Hgb 10.7 g/dL (12.0-16.0) L 09/15/18 05:40 Hct 30.9 % (36.0-47.0) L 09/15/18 05:40 MCV 98.2 fL (80.0-100.0) 09/15/18 05:40 MCH 34.0 pg (27.0-34.0) 09/15/18 05:40 MCHC 34.7 g/dL (33.0-35.0) 09/15/18 05:40 RDW 14.8 % (11.6-16.5) 09/15/18 05:40 Plt Count 83 X10^3/uL (150.0-450.0) L 09/15/18 05:40 MPV 6.5 fL (7.4-11.0) L 09/15/18 05:40 Neut % (Auto) 69.6 % (42.0-75.0) 09/15/18 05:40 Lymph % (Auto) 15.4 % (21.0-51.0) L 09/15/18 05:40 [place] % (Auto) 11.7 % (0.0-13.0) 09/15/18 05:40 Eos % (Auto) 2.6 % (0.9-2.9) 09/15/18 05:40 Baso % (Auto) 0.7 % (0.2-1.0) 09/15/18 05:40 Neut # (Auto) 4.5 x10^3/uL (2.2-4.8) 09/15/18 05:40 Lymph # (Auto) 1.0 X10^3/uL (1.3-2.9) L 09/15/18 05:40 [place] # (Auto) 0.8 x10^3/uL (0.3-0.8) 09/15/18 05:40 Eos # (Auto) 0.2 x10^3/uL (0.0-0.2) 09/15/18 05:40 Baso # (Auto) 0.0 X10^3/uL (0.0-0.1) 09/15/18 05:40 Absolute Nucleated RBC 0.0 /100WBC 09/15/18 05:40 Sodium 143 mmol/L (136-145) 09/15/18 05:40 Corrected Sodium TNP 09/15/18 05:40 Potassium 3.8 mmol/L (3.5-5.1) 09/15/18 05:40 Chloride 108 mmol/L (98-107) H 09/15/18 05:40 Carbon Dioxide 29.3 mmol/L (21-32) 09/15/18 05:40 BUN 17 mg/dL (7-18) 09/15/18 05:40 Creatinine 0.78 mg/dL (0.55-1.02) 09/15/18 05:40 Est GFR (MDRD) Af Amer > 60 (>60) 09/15/18 05:40 Est GFR (MDRD) Non-Af > 60 (>60) 09/15/18 05:40 Glucose 87 mg/dL (65-99) 09/15/18 05:40 Calcium 8.3 mg/dL (8.5-10.1) L 09/15/18 05:40 Corrected Calcium 9.7 mg/dL (8.5-10.1) 09/15/18 05:40 Total Bilirubin 0.30 mg/dL (0.2-1.0) 09/15/18 05:40 AST 17 Units/L (15-37) 09/15/18 05:40 ALT 18 Units/L (12-78) 09/15/18 05:40 Alkaline Phosphatase 48 Units/L (46-116) 09/15/18 05:40 Creatine Kinase 30 Units/L (26-192) 09/11/18 01:16 CK-MB (CK-2) 1.0 ng/mL (0-4.0) 09/11/18 01:16 CK/CKMB % Calc 3.3 % (<4) 09/11/18 01:16 Troponin I 0.04 ng/mL (0-1.5) 09/11/18 01:16 Total Protein 5.4 g/dL (6.4-8.2) L 09/15/18 05:40 Albumin 2.3 g/dL (3.4-5.0) L 09/15/18 05:40 Globulin 3.1 g/dL (2.5-4.5) 09/15/18 05:40 Albumin/Globulin Ratio 0.7 Ratio (1.1-2.1) L 09/15/18 05:40 Specimen Type Catherized urine 09/10/18 18:40 Urine Color Yellow (YELLOW) 09/10/18 18:40 Urine Appearance Cloudy (CLEAR) 09/10/18 18:40 Urine pH 8.0 (5.0 - 8.0) 09/10/18 18:40 Ur Specific [place] 1.015 (1.000-1.030) 09/10/18 18:40 Urine Protein Negative (NEGATIVE) 09/10/18 18:40 Urine Glucose (UA) Negative (NEGATIVE) 09/10/18 18:40 Urine Ketones Negative (NEGATIVE) 09/10/18 18:40 Urine Occult Blood 2+ (NEGATIVE) 09/10/18 18:40 Urine Nitrite Positive (NEGATIVE) 09/10/18 18:40 Urine Bilirubin Negative (NEGATIVE) 09/10/18 18:40 Urine Urobilinogen Normal (NORMAL) 09/10/18 18:40 Ur Leukocyte Esterase 3+ (NEGATIVE) 09/10/18 18:40 Urine RBC 5-10 /HPF (NONE SEEN) 09/10/18 18:40 Urine WBC 20-30 /HPF (NONE SEEN) 18 18:40 Ur Squamous Epith Cells Rare /HPF (NEGATIVE) 18 18:40 Amorphous Sediment 1+ /HPF (NEGATIVE) 18 18:40 Urine Bacteria 3+ /HPF (NEGATIVE) 09/10/18 18:40 Ur Culture Indicated? Yes/culture set up 09/10/18 18:40 Digoxin 1.57 ng/mL (0.9-2) 09/15/18 05:40 - Plan (1) Atrial fibrillation Status: Resolved Qualifiers: Atrial fibrillation type: chronic Qualified Code(s): I48.2 - Chronic atrial fibrillation Plan: ELIQUIS 5MG PO BID, METOPROLOL XL 50MG PO DAILY, DIGOXIN 0.25MG PO DAILY, CARDIZEM DRIP, SUPPLEMENTAL OXYGEN, CONTINUE TO MONITOR (2) Altered mental status Status: Acute Qualifiers: Altered mental status type: transient alteration of awareness Qualified Code(s): R40.4 - Transient alteration of awareness Plan: TREAT UTI, CONTINUE HOME MEDS (3) Hypertension Status: Chronic Qualifiers: Hypertension type: essential hypertension Qualified Code(s): I10 - Essential (primary) hypertension Plan: CONTINUE HOME MEDS
[2018-09-16 06:40] LABS: ALANINE AMINOTRANSFERASE 20 Units/L (12-78); ALBUMIN 2.8 g/dL (3.4-5.0); ALKALINE PHOSPHATASE 53 Units/L (46-116); ASPARTATE AMINO TRANSFERASE 19 Units/L (15-37); BLOOD UREA NITROGEN 14 mg/dL (7-18); CALCIUM 8.7 mg/dL (8.5-10.1); CARBON DIOXIDE 28.4 mmol/L (21-32); CHLORIDE 104 mmol/L (98-107); COR CA(FOR HYPOALB) 9.7 mg/dL (8.5-10.1); CREATININE 0.69 mg/dL (0.55-1.02); SODIUM 139 mmol/L (136-145); eGFR NON BLACK RACES > 60 (>60)
[2018-09-16 06:49] LABS: BASOPHILS % (AUTO) 0.5 % (0.2-1.0); EOSINOPHILS # (AUTO) 0.2 x10^3/uL (0.0-0.2); EOSINOPHILS % (AUTO) 2.1 % (0.9-2.9); HEMATOCRIT 31.8 % (36.0-47.0); HEMOGLOBIN 11.3 g/dL (12.0-16.0); LYMPHOCYTES # (AUTO) 1.2 X10^3/uL (1.3-2.9); LYMPHOCYTES % (AUTO) 16.6 % (21.0-51.0); MEAN CORPUSCULAR HEMOGLOBIN 35.1 pg (27.0-34.0); MEAN CORPUSCULAR HGB CONC 35.5 g/dL (33.0-35.0); MEAN CORPUSCULAR VOLUME 98.8 fL (80.0-100.0); MEAN PLATELET VOLUME 6.5 fL (7.4-11.0); MONOCYTES # (AUTO) 0.9 x10^3/uL (0.3-0.8); MONOCYTES % (AUTO) 11.9 % (0.0-13.0); NEUTROPHILS # (AUTO) 5.1 x10^3/uL (2.2-4.8); NEUTROPHILS % (AUTO) 68.9 % (42.0-75.0); PLATELET COUNT 91 X10^3/uL (150.0-450.0); RED BLOOD COUNT 3.22 X10^6/uL (3.5-5.4); RED CELL DISTRIBUTION WIDTH 14.3 % (11.6-16.5); WHITE BLOOD COUNT 7.3 X10^3/uL (3.6-10.0)
[2018-09-16 07:20] LABS: BAND NEUTROPHILS % 5 % (0-10)
[2018-09-16] MEDS: NS 1000 ML 1,000 ML IV SCH ×2 (07:22→14:03)
[2018-09-16 07:24] LABS: PLATELET MORPHOLOGY COMMENT NORMAL (NORMAL)
[2018-09-16] MEDS ORDERED: ALLEGRA ONE (08:11)
[2018-09-16] MEDS: MICRO K EXTEN CAP 10 MEQ PO SCH (08:22)
[2018-09-16] MEDS: OXYBUTYNIN CHLORIDE ER PO SCH (08:22)
[2018-09-16] MEDS: TOPROL XL PO SCH (08:22)
[2018-09-16] MEDS: HEMOCYTE-PLUS PO SCH (08:23)
[2018-09-16] MEDS: LANOXIN PO SCH (08:23)
[2018-09-16] MEDS: LASIX PO SCH (08:23)
[2018-09-16] MEDS: SINGULAIR TAB 10 MG PO SCH (08:23)
[2018-09-16] MEDS: ELIQUIS PO SCH (08:25)
[2018-09-16] MEDS: COZAAR PO SCH (08:25)
[2018-09-16] MEDS: NEURONTIN CAP 400 MG PO SCH (08:26)
[2018-09-16] MEDS: ALLEGRA PO SCH (08:26)
[2018-09-16] MEDS: COLACE CAP 100 MG PO SCH (08:26)
[2018-09-16] MEDS: FOLIC ACID TAB 1 MG PO SCH (08:26)
[2018-09-16] MEDS: ARTIFICIAL TEARS DROPS EACHEYE SCH ×3 (08:27→17:01)
[2018-09-16] MEDS: FLONASE NASAL SPRAY ENOSTRIL SCH (08:27)
[2018-09-16] MEDS: ROCEPHIN VIAL 1 GRAM IVP SCH (08:28)
[2018-09-16] MEDS: MIRALAX POWDER (1 DOSE 17 G) PO SCH (08:28)
[2018-09-16] MEDS: OSCAL+D or CALTRATE+D PO SCH (09:33)
[2018-09-16] MEDS: PATIENT'S HOME MEDICATION TOP SCH (09:34)
[2018-09-16] MEDS ORDERED: MICRO K EXTEN CAP 10 MEQ PO ONE (10:00)
[2018-09-16] MEDS ORDERED: CATAPRES-TTS-3 TD SCH (10:00)
[2018-09-16] MEDS: NORMODYNE INJ 20 MG VIAL IV PRN (15:30)
[2018-09-16 16:44] VITALS: BP 146/64
== END 2018-09-16 17:25 | DRG 309 ==
LOC: ICU 17:01
PROVIDERS: ADMIT Internal Medicine; ATTEND Internal Medicine
DX: I25.10 Atherosclerotic heart disease of native coronary artery without angina pectoris; B96.4 Proteus (mirabilis) (morganii) as the cause of diseases classified elsewhere; I10 Essential (primary) hypertension; R26.89 Other abnormalities of gait and mobility; F41.8 Other specified anxiety disorders; N30.00 Acute cystitis without hematuria; I48.2 Chronic atrial fibrillation; K21.9 Gastro-esophageal reflux disease without esophagitis; R10.84 Generalized abdominal pain; E78.2 Mixed hyperlipidemia; R40.4 Transient alteration of awareness; F32.89 Other specified depressive episodes
CPT/HCPCS: 36415; 71010; 71045; 80053; 80162; 81001; 82550; 82553; 84484; 85025; 87086; 87088; 87186; 93005; 93306; 97110; 97163; 97167; A4222; J0696; J1160; J3360; J3490; J7030; J7050

== ENCOUNTER 2018-11-30 13:40 | Inpatient (IN) ==
[2018-11-30 13:55] VITALS: BMI 20.5
[2018-11-30] MEDS ORDERED: ROCEPHIN VIAL 1 GRAM IVP ONE (14:09)
--- NOTE | 2018-11-30 14:09 | DR.GENAD ---
HPI Time Seen Time Seen by Provider: 11/30/18 14:03 PCP Primary Care Physician: NICK HPI Comment HPI Comment: AGREE WITH HISTORY PER CHIEF COMPLAINT. Complaint/Symptoms Chief Complaint Doctors Comments: AMS. Chief Complaint:: ARLEN FROM [facility] CALLS AND STATES PT. HAD SOME ABNORMAL LAB WORK WHICH WAS DONE TODAY AND DR. MNEDEZ INFORMED THEM TO SEND TO ER FOR EVALUATION. [facility] STAFF STATE THAT PT. HAS BEEN SICK FOR ABOUT 2 DAYS. UPON ARRIVAL TO ER, PT. IS LETHARGIC AND DOES NOT RESPOND VERBALLY. Nurses notes reviewed Nurses Notes Review: Yes Source History Provided: Retirement Mode of Arrival Mode of Arrival: Stretcher Timing Onset of Chief Complaint: 11/28/18 Came on: Suddenly Duration Duration: Constant Duration: Days Severity Severity: Severe PMH PMH Past Medical History: Yes Past Medical History: Anemia, Anxiety, Arthritis, Coronary Artery Disease, Depression, Dyslipidemia, GERD and Hypertension Past Surgical History: Yes Surgical History: Cholecystectomy and Hysterectomy Family History History of Family Medical Conditions: Yes Family Medical History: Diabetes Mellitus, [place] and Sudden Cardiac Social History Does patient currently use any type of tobacco product: No Have you used tobacco products in the last 12 months: No Type of Tobacco Use: None Does any household member use tobacco: No Alcohol Use: None Do you use any recreational Drugs:: No Lives Where: [facility]irement infectious screening In the last 2 months have you had wt loss of >10#?: NO Have you had fever, night sweats or hemotysis?: No Have you traveled outside the country in the last 6 months?: No Isolation: Standard ROS Review of Systems Constitutional: Fever Eyes: No Symptoms Reported ENTM: No Symptoms Reported Respiratoy: No Symptoms Reported Cardiovascular: No Symptoms Reported Gastrointestinal/Abdominal: No Symptoms Reported Genitourinary: No Symptoms Reported Neurological: No Symptoms Reported Musculoskeletal: No Symptoms Reported Integumentary: No Symptoms Reported Hematologic/Lymphatic: No Symptoms Reported Endocrine: No Symptoms Reported Psychiatric: No Symptoms Reported All Other Systems: Reviewed and Negative PE Vital Signs Vitals: Temperature 98.2 F Pulse Rate [Left Brachial] 88 Pulse Rate 90 Respiratory Rate 20 Blood Pressure [Right Calf] 109/62 Blood Pressure [Right Arm] 158/70 Blood Pressure [Left Arm] 141/74 Blood Pressure 119/87 O2 Sat by Pulse Oximetry 98 General Limitations: Altered Mental Status General Appearance: Alert and In Distress Head Head Exam: Normal Inspection Eyes Eye exam: PERRL (PUPILS EQUAL AND REACTIVE.); negative Scleral Icterus and Conjunctival Injection ENT ENT Exam: Normal External Ear Exam External Ear Exam: Normal External Inspection TM/Canal Exam: Bilateral: Normal Nose Exam: Normal Nose Exam Mouth Exam: Normal Inspection Throat Exam: Normal Inspection Neck Neck Exam: Normal Inspection and Trachea Midline Chest Chest Inspection: Normal Inspection and Symmetric Chest Wall Rise Respiratory Respiratory Exam: Respiratory Distress Respiratory Exam: Bilateral: Clear to Auscultation and Bilateral: Rhonchi, Upper: Rhonchi and Lower: Rhonchi Cardiovascular Cardiovascular Exam: Regular Rate and Normal Rhythm Abdominal Exam Abdominal Exam: Normal Inspection, Normal Bowel Sounds and Soft; negative Tenderness Extremities Extremities Exam: Normal Capillary Refill Back Back Exam: negative Tenderness Neurologic Neurological Exam: Other (AMS. EYES CLOSE AND RESPOND TO DEEP PAINFUL STIMULI.) Psychiatric Psychiatric Exam: Other (AMS) Skin Skin Exam: Dry MDM Additional Information Additional Information Obtained From: Acetylene Operator ([facility] STAFF.) Differential Diagnosis Differential Diagnosis: AMS, SEPSIS, UTI, CVA, VA, PNEUMONIA. COURSE Treatment Treatment: SEE ORDERS. IN FLUIDS AND IV ANTIBIOTIC GIVEN IN ED. PATIENT S STILL RESPOND TO DEEP STIMULI. Consultation Consultation Comments: DISCUSS PATIENT WITH DR. MENDEZ. HE WILL ADMIT PATIENT. ROR Labs Reviewed Laboratory Results Reviewed?: Yes Result Diagrams: 12/02/18 05:16 12/02/18 05:16 Laboratory: 11/30/18 13:56 Blood Blood Culture - Preliminary 11/30/18 13:52 Blood Blood Culture - Preliminary WBC 11.7 X10^3/uL (3.6-10.0) H D 12/02/18 05:16 RBC 3.24 X10^6/uL (3.5-5.4) L 12/02/18 05:16 Hgb 10.4 g/dL (12.0-16.0) L 12/02/18 05:16 Hct 30.5 % (36.0-47.0) L 12/02/18 05:16 MCV 94.2 fL (80.0-100.0) 12/02/18 05:16 MCH 32.2 pg (27.0-34.0) 12/02/18 05:16 MCHC 34.2 g/dL (33.0-35.0) 12/02/18 05:16 RDW 13.6 % (11.6-16.5) 12/02/18 05:16 Plt Count 93 X10^3/uL (150.0-450.0) L 12/02/18 05:16 Plt Count Comment Decreased (ADEQUATE) A 12/01/18 04:50 MPV 6.2 fL (7.4-11.0) L 12/02/18 05:16 Neut % (Auto) 83.5 % (42.0-75.0) H 12/02/18 05:16 Lymph % (Auto) 6.1 % (21.0-51.0) L 12/02/18 05:16 [place] % (Auto) 9.8 % (0.0-13.0) 12/02/18 05:16 Eos % (Auto) 0.5 % (0.9-2.9) L 12/02/18 05:16 Baso % (Auto) 0.1 % (0.2-1.0) L 12/02/18 05:16 Neut # (Auto) 9.8 x10^3/uL (2.2-4.8) H 12/02/18 05:16 Lymph # (Auto) 0.7 X10^3/uL (1.3-2.9) L 12/02/18 05:16 [place] # (Auto) 1.2 x10^3/uL (0.3-0.8) H 12/02/18 05:16 Eos # (Auto) 0.1 x10^3/uL (0.0-0.2) 12/02/18 05:16 Baso # (Auto) 0.0 X10^3/uL (0.0-0.1) 12/02/18 05:16 Absolute Nucleated RBC 0.0 /100WBC 12/02/18 05:16 Total Counted 100 12/01/18 04:50 Neutrophils % (Manual) 74 % (39-76) 12/01/18 04:50 Band Neutrophils % 11 % (0-10) H 12/01/18 04:50 Lymphocytes % (Manual) 6 % (13-43) L 12/01/18 04:50 Monocytes % (Manual) 9 % (4-9) 12/01/18 04:50 Eosinophils % (Manual) 5 % (0-6) 11/30/18 13:56 Plt Morphology Comment Normal (NORMAL) 12/01/18 04:50 RBC Morphology Normal (NORMAL) 12/01/18 04:50 Sample Site Lr 11/30/18 14:08 ABG pH 7.410 (7.35-7.45) 11/30/18 14:08 ABG pCO2 46.0 mmHg (35.0-45.0) H 11/30/18 14:08 ABG pO2 60.0 mmHg (80.0-100.0) L 11/30/18 14:08 ABG HCO3 29.2 mmol/L (22-26) H 11/30/18 14:08 ABG O2 Saturation 91.0 % (90-100) 11/30/18 14:08 ABG Base Excess 3.8 mmol/L (-2.0-2.0) H 11/30/18 14:08 Chris Test Pos 11/30/18 14:08 A-a Gradient 82.0 mmHg 11/30/18 14:08 FiO2 28.0 11/30/18 14:08 Blood Gas Comments Pt osbaldo well. cdn 11/30/18 14:08 Sodium 151 mmol/L (136-145) H* 12/02/18 05:16 Corrected Sodium 152 mmol/L (136-145) H 12/02/18 05:16 Potassium 2.9 mmol/L (3.5-5.1) L* 12/02/18 05:16 Chloride 114 mmol/L (98-107) H 12/02/18 05:16 Carbon Dioxide 27.0 mmol/L (21-32) 12/02/18 05:16 BUN 17 mg/dL (7-18) 12/02/18 05:16 Creatinine 0.83 mg/dL (0.55-1.02) 12/02/18 05:16 Est GFR (MDRD) Af Amer > 60 (>60) 12/02/18 05:16 Est GFR (MDRD) Non-Af > 60 (>60) 12/02/18 05:16 Glucose 126 mg/dL (65-99) H 12/02/18 05:16 Lactic Acid 1.6 mmol/L (0.4-2.0) 11/30/18 13:56 Calcium 8.4 mg/dL (8.5-10.1) L 12/02/18 05:16 Corrected Calcium 9.9 mg/dL (8.5-10.1) 12/02/18 05:16 Magnesium 1.9 mg/dL (1.7-2.9) 12/02/18 05:16 Total Bilirubin 0.40 mg/dL (0.2-1.0) 12/02/18 05:16 AST 29 Units/L (15-37) 12/02/18 05:16 ALT 24 Units/L (12-78) 12/02/18 05:16 Alkaline Phosphatase 85 Units/L (46-116) 12/02/18 05:16 Creatine Kinase 33 Units/L (26-192) 12/01/18 04:50 CK-MB (CK-2) 1.3 ng/mL (0-4.0) 12/01/18 04:50 CK/CKMB % Calc 3.9 % (<4) 12/01/18 04:50 Troponin I 0.05 ng/mL (0-1.5) 12/01/18 04:50 C-Reactive Protein 159.40 mg/L (0-3.0) H 11/30/18 13:56 Total Protein 6.0 g/dL (6.4-8.2) L 12/02/18 05:16 Albumin 2.1 g/dL (3.4-5.0) L 12/02/18 05:16 Globulin 3.9 g/dL (2.5-4.5) 12/02/18 05:16 Albumin/Globulin Ratio 0.5 Ratio (1.1-2.1) L 12/02/18 05:16 Specimen Type Catherized urine 11/30/18 14:21 Urine Color Yellow (YELLOW) 11/30/18 14:21 Urine Appearance Cloudy (CLEAR) 11/30/18 14:21 Urine pH 9.0 (5.0 - 8.0) 11/30/18 14:21 Ur Specific [place] 1.015 (1.000-1.030) 11/30/18 14:21 Urine Protein 2+ (NEGATIVE) 11/30/18 14:21 Urine Glucose (UA) Negative (NEGATIVE) 11/30/18 14:21 Urine Ketones 4+ (NEGATIVE) 11/30/18 14:21 Urine Occult Blood 4+ (NEGATIVE) 11/30/18 14:21 Urine Nitrite Negative (NEGATIVE) 11/30/18 14:21 Urine Bilirubin Negative (NEGATIVE) 11/30/18 14:21 Urine Urobilinogen Normal (NORMAL) 11/30/18 14:21 Ur Leukocyte Esterase 3+ (NEGATIVE) 11/30/18 14:21 Urine RBC 3-5 /HPF (NONE SEEN) 11/30/18 14:21 Urine WBC Tntc /HPF (NONE SEEN) 11/30/18 14:21 Ur Squamous Epith Cells Rare /HPF (NEGATIVE) 11/30/18 14:21 Amorphous Sediment 3+ /HPF (NEGATIVE) 11/30/18 14:21 Urine Bacteria 4+ /HPF (NEGATIVE) 11/30/18 14:21 Ur Culture Indicated? Yes/culture set up 11/30/18 14:21 Digoxin 0.90 ng/mL (0.9-2) 12/02/18 05:16 XRAY XRAY Interpreted by: Radiologist XRAY Findings: REPORT ON RECORD NOTED. EKG [place]: Normal Rhythm: NSR and PACs ST: Ischemia Diagnosis Discharge Problem: Urinary tract infection Qualifiers: Urinary tract infection type: acute cystitis Hematuria presence: with hematuria Qualified Code(s): N30.01 - Acute cystitis with hematuria Altered mental status Qualifiers: Altered mental status type: transient alteration of awareness Qualified Code(s): R40.4 - Transient alteration of awareness
[2018-11-30 14:14] LABS: ABG ALLEN TEST POS; ABG BASE EXCESS 3.8 mmol/L (-2.0-2.0); ABG HCO3 29.2 mmol/L (22-26)
[2018-11-30 14:15] LABS: BASOPHILS % (AUTO) 0.2 % (0.2-1.0); EOSINOPHILS % (AUTO) 0.1 % (0.9-2.9); HEMATOCRIT 36.4 % (36.0-47.0); HEMOGLOBIN 12.6 g/dL (12.0-16.0); LYMPHOCYTES # (AUTO) 0.6 X10^3/uL (1.3-2.9); LYMPHOCYTES % (AUTO) 2.8 % (21.0-51.0); MEAN CORPUSCULAR HEMOGLOBIN 32.1 pg (27.0-34.0); MEAN CORPUSCULAR HGB CONC 34.5 g/dL (33.0-35.0); MEAN PLATELET VOLUME 6.7 fL (7.4-11.0); MONOCYTES # (AUTO) 2.6 x10^3/uL (0.3-0.8); MONOCYTES % (AUTO) 10.9 % (0.0-13.0); NEUTROPHILS # (AUTO) 20.1 x10^3/uL (2.2-4.8); PLATELET COUNT 83 X10^3/uL (150.0-450.0); RED BLOOD COUNT 3.92 X10^6/uL (3.5-5.4); RED CELL DISTRIBUTION WIDTH 13.4 % (11.6-16.5); WHITE BLOOD COUNT 23.4 X10^3/uL (3.6-10.0)
[2018-11-30] MEDS: NS 1000 ML 1,000 ML IV SCH ×2 (14:25→22:59)
[2018-11-30 14:27] LABS: BAND NEUTROPHILS % 13 % (0-10)
[2018-11-30 14:28] LABS: PLATELET MORPHOLOGY COMMENT NORMAL (NORMAL)
[2018-11-30 14:29] LABS: BILIRUBIN,URINE NEGATIVE (NEGATIVE); BLOOD/HEMOGLOBIN,URINE 4+ (NEGATIVE); GLUCOSE, URINE NEGATIVE (NEGATIVE); KETONES,URINE 4+ (NEGATIVE); LEUKOCYTE ESTERASE ,URINE 3+ (NEGATIVE); NITRITES,URINE NEGATIVE (NEGATIVE); PROTEIN,URINE 2+ (NEGATIVE); UROBILINOGEN,URINE NORMAL (NORMAL)
[2018-11-30 14:30] LABS: LACTIC ACID 1.6 mmol/L (0.4-2.0)
[2018-11-30 14:33] LABS: CALCIUM 9.9 mg/dL (8.5-10.1); CARBON DIOXIDE 27.8 mmol/L (21-32); CREATININE 1.5 mg/dL (0.55-1.02); TROPONIN I 0.04 ng/mL (0-1.5)
[2018-11-30 14:37] LABS: ALBUMIN 2.9 g/dL (3.4-5.0); COR CA(FOR HYPOALB) 10.8 mg/dL (8.5-10.1); CREATINE KINASE MB 1.1 ng/mL (0-4.0); TOTAL PROTEIN 7.3 g/dL (6.4-8.2)
[2018-11-30 14:40] LABS: APPEARANCE,URINE CLOUDY (CLEAR); COLOR,URINE YELLOW (YELLOW)
--- NOTE | 2018-11-30 14:51 | RAD ---
Examination: Portable AP chest History: SOB Comparison 09/10/2018 Findings: Continued normal heart size. The lungs are clear of active process. 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 Impression: No definite interval change or acute chest findings. Reported By:
[2018-11-30 14:52] LABS: AMORPHOUS SEDIMENT,UR 3+ /HPF (NEGATIVE); BACTERIA,URINE 4+ /HPF (NEGATIVE); SQUAMOUS EPITHELIAL CELL,UR RARE /HPF (NEGATIVE)
--- NOTE | 2018-11-30 15:59 | CT ---
HISTORY: Altered mental status Study: CT HEAD WITHOUT CONTRAST Comparison: 12/15/2016 Technique: Multiple axial images of the brain were obtained from the skull base to the vertex without administration of IV contrast. Findings: There is no intracranial hemorrhage or extra-axial fluid collection. There is no mass effect shift or cerebral edema. Moderate cortical atrophy of the supratentorial brain is observed. There is no evidence of an acute large artery territorial infarction. The calvarium is intact. The imaged paranasal sinuses and mastoid air cells are predominantly clear. Minor mucosal thickening of the left maxillary sinus is noted incidentally. Atheromatous calcifications of the cavernous ICA segments and bilateral vertebral arteries are demonstrated. IMPRESSION: 1. No acute intracranial process can be identified. Other chronic age-related involutional changes as discussed above Reported By:
[2018-11-30 23:59] LABS: CKMB % 7.6 % (<4); CREATINE KINASE MB 1.9 ng/mL (0-4.0); TROPONIN I 0.05 ng/mL (0-1.5)
[2018-12-01] MEDS ORDERED: CATAPRES TAB 0.1 MG PO PRN (01:06)
[2018-12-01] MEDS ORDERED: APRESOLINE INJ 20 MG VIAL IVP ONE (01:27)
[2018-12-01] MEDS ORDERED: APRESOLINE INJ 20 MG VIAL ONE (01:29)
[2018-12-01 05:17] LABS: BASOPHILS % (AUTO) 0.1 % (0.2-1.0); EOSINOPHILS % (AUTO) 0.1 % (0.9-2.9); HEMATOCRIT 35.6 % (36.0-47.0); HEMOGLOBIN 11.9 g/dL (12.0-16.0); LYMPHOCYTES # (AUTO) 0.9 X10^3/uL (1.3-2.9); MEAN CORPUSCULAR HEMOGLOBIN 31.7 pg (27.0-34.0); MEAN CORPUSCULAR HGB CONC 33.4 g/dL (33.0-35.0); MEAN PLATELET VOLUME 6.5 fL (7.4-11.0); MONOCYTES # (AUTO) 2.2 x10^3/uL (0.3-0.8); MONOCYTES % (AUTO) 9.8 % (0.0-13.0); NEUTROPHILS # (AUTO) 19.3 x10^3/uL (2.2-4.8); PLATELET COUNT 86 X10^3/uL (150.0-450.0); RED BLOOD COUNT 3.75 X10^6/uL (3.5-5.4); RED CELL DISTRIBUTION WIDTH 13.7 % (11.6-16.5); WHITE BLOOD COUNT 22.4 X10^3/uL (3.6-10.0)
[2018-12-01 05:42] LABS: ALBUMIN 2.5 g/dL (3.4-5.0); CALCIUM 9.7 mg/dL (8.5-10.1); CARBON DIOXIDE 28.6 mmol/L (21-32); COR CA(FOR HYPOALB) 10.9 mg/dL (8.5-10.1); CREATININE 1.28 mg/dL (0.55-1.02); MAGNESIUM 1.8 mg/dL (1.7-2.9); TOTAL PROTEIN 6.7 g/dL (6.4-8.2)
[2018-12-01 05:55] LABS: BAND NEUTROPHILS % 11 % (0-10); PLATELET MORPHOLOGY COMMENT NORMAL (NORMAL)
[2018-12-01 05:56] LABS: CKMB % 3.9 % (<4); CREATINE KINASE MB 1.3 ng/mL (0-4.0); TROPONIN I 0.05 ng/mL (0-1.5)
[2018-12-01] MEDS: NS 1000 ML 1,000 ML IV SCH ×4 (07:02→23:48)
[2018-12-01] MEDS ORDERED: KLOR-CON PO PRN (07:50)
[2018-12-01] MEDS ORDERED: POTASSIUM CHLORIDE LIQ 20 MEQ UDC PO PRN (07:50)
[2018-12-01] MEDS ORDERED: POTASSIUM CHL 60 MEQ/NS 0.45% 500 ML IV PRN (07:50)
[2018-12-01] MEDS: K-DUR TAB 20 MEQ PO PRN (08:37)
[2018-12-01] MEDS: MAGNESIUM SULFATE 1 GRAM/100 mL PREMIX 1 GM/100 ML BAG IV PRN ×2 (08:39→09:57)
[2018-12-01] MEDS ORDERED: PHARMACY CONSULT - DOSE _____ XX SCH (10:00)
[2018-12-01] MEDS: FORTAZ or TAZICEF VIAL INJ IVP SCH ×2 (11:01→20:30)
[2018-12-01] MEDS: LEVAQUIN PREMIX IV 500 MG 500 MG/100 ML BAG IV SCH (11:04)
[2018-12-01] MEDS: COZAAR PO SCH (12:41)
[2018-12-01] MEDS: LANOXIN PO SCH (12:42)
[2018-12-01] MEDS ORDERED: ATIVAN INJ 2 MG VIAL IVP PRN (12:55)
[2018-12-01] MEDS ORDERED: NORVASC TAB 5 MG PO SCH (13:00)
[2018-12-01] MEDS ORDERED: NORVASC TAB 5 MG PO ONE (15:57)
[2018-12-01] MEDS ORDERED: NORMODYNE INJ 100 MG VIAL ONE (16:22)
[2018-12-01] MEDS: NORMODYNE INJ 20 MG VIAL IVP PRN ×2 (16:33→20:49)
[2018-12-01] MEDS: ATIVAN INJ 2 MG VIAL IVP PRN (20:31)
--- NOTE | 2018-12-01 20:34 | DR.H&P ---
H&P - History & Physical for Day of: H&P Date: 11/30/18 - Chief Complaint Chief Complaint: AMS, ABNORMAL LABS - History of Present Illness History of Present Illness: IS A 88 YEAR OLD PATIENT OF OURS WHO IS A RESIDENT OF [facility]. SHE PRESENTED WITH COMPLAINTS OF ALTERED MENTAL STATUS AND ABNORMAL LABS. ASSISTED STAFF REPORTS THAT PATIENT HAS BEEN LETHARGIC AND DOES NOT RESPOND VERBALLY. OUTPATIENT LABS WERE OBTAINED TODAY AND REVEALED THE FOLLOWING ABNORMAL VALUES: WBC 21.3, PLT COUNT 81, BUN 36, CREATININE 1.49, GLUCOSE 175. ON ADMISSION, LABS WERE REPEATED AND REVEALED THE FOLLOWING ABNORMAL VALUES: WBC 23.4, PLT COUNT 83, BUN 36, CREATININE 1.50, GLUCOSE 195, CREATINE KINASE 22, CRP 159.40, ALBUMIN 2.9. URINALYSIS OBTAINED AND REVEALED: WBC TNTC, RBC 3-5, BACTERIA 4+, LEUKOCYTES 3+. ABG OBTAINED AND REVEALED: PH 7.410, OC02 46.0, P02 60.0, HC03 29.2, 02 SATURATION 91.0, BASE EXCESS 3.8. BLOOD AND URINE CULTURES PENDING. EKG OBTAINED AND REVEALED: SOMIS TACHYCARDIA WITH HR 100. CHEST XRAY REVEALED NO DEFINITE INTERVAL CHANGE OR ACUTE CHEST FINDINGS. BRAIN CT REVEALED: No acute intracranial process can be identified. Other chronic age-related involutional changes as discussed above. SHE WAS ADMITTED FOR FURTHER EVALUATION AND TREATMENT OF AMS AND UROSEPSIS. SHE WAS GIVEN ROCEPHIN 1GM IV X 1 DOSE IN THE ER. SHE WILL BE STARTED ON LEVAQUIN 500MG IV DAILY AND FORTAZ 1GM IV DAILY. OTHERWISE, WE PLAN TO FOLLOW UP WITH AM LABS AND CONTINUE TO MONITOR. - Past Medical History Past Medical History: Coronary Artery Disease, Hypertension, Dyslipidemia, Depression, Anxiety, Anemia, GERD, Arthritis Additional Medical History: Freq UTI's, Conjunctivitis, Dry Eyes, Upper Respiratory Infection, Constipation, Urinary Incontinence, Muscle Weakness, Osteoarthritis - Past Surgical History Surgical History: Cholecystectomy, Hysterectomy - Family History Family Medical History: Diabetes Mellitus, [place], Sudden Cardiac - Social History Does patient currently use any type of tobacco product: No Have you used tobacco products in the last 12 months: No Type of Tobacco Use: None Does any household member use tobacco: No Alcohol Use: None Drug Use: None - Medications Home Medications: tuberculin,PPD,multi-puncture Allergy (Verified 09/10/18 18:54) CONTINUE taking the following medications amlodipine [Norvasc] 5 mg PO DAILY 11/30/18 [History] clonidine [[id number]] 1 patch TRANSDERMAL WEEKLY 11/30/18 [History] digoxin [Lanoxin] 125 mcg PO DAILY 11/30/18 [History] losartan 100 mg PO DAILY 11/30/18 [History] multivitamin [Multiple Vitamins] 1 tab PO DAILY 11/30/18 [History] - Review of Systems Constitutional: See HPI Eyes: No Symptoms Reported ENT: No Symptoms Reported Respiratory: No Symptoms Reported Cardiovascular: No Symptoms Reported Gastrointestinal: No Symptoms Reported Genitourinary: No Symptoms Reported Musculoskeletal: No Symptoms Reported Skin: No Symptoms Reported Neurological: See HPI, Weakness, Confusion - Physical Exam Vital Signs: Temperature 99.0 F Pulse Rate [Left Brachial] 88 Pulse Rate 89 Respiratory Rate 20 Blood Pressure [Right Calf] 109/62 Blood Pressure [Right Arm] 158/70 Blood Pressure [Left Arm] 141/74 Blood Pressure 167/69 O2 Sat by Pulse Oximetry 95 Oriented: Unable to test Eyes: Normal Ear: Normal Nose: Normal Throat: Normal Respiratory: Diminished Throughout Cardiovascular: Normal : Normal Auscultation: Bowel Sounds: Normal Palpation: Normal Tenderness: Suprapubic Skin: Normal Musculoskeletal: Normal Psychiatric: Other (LETAHRGIC ) Mood Description: Flat Affect: Flat Speech Pattern: Inappropriate - Assessment/Plan (1) Urinary tract infection Qualifiers: Urinary tract infection type: acute cystitis Hematuria presence: with hematuria Qualified Code(s): N30.01 - Acute cystitis with hematuria Status: Acute Plan: NORMAL SALINE AT 125ML/HR, IV FORTAZ, IV LEVAQUIN, IV HYDRATION, CONTINUE TO MONITOR (2) Altered mental status Qualifiers: Altered mental status type: transient alteration of awareness Qualified Code(s): R40.4 - Transient alteration of awareness Status: Acute (3) Dehydration Status: Acute Plan: NORMAL SALINE AT 125ML/HR - Allergies Allergies/Adverse Reactions: Allergies Allergy/AdvReac Type Severity Reaction Status Date / Time tuberculin,PPD,multi-puncture Allergy Verified 09/10/18 18:54
--- NOTE | 2018-12-01 22:06 | PCM.PROG ---
Progress Note - Progress Note for Day of Date of Exam: 12/01/18 - Subjective Subjective: WAS ADMITTED FOR UROSEPSIS AND ALTERED MENTAL STATUS. TODAY, SHE IS LYING IN BED WITH EYES CLOSED ON MORNING ROUNDS. SHE IS DIFFICULT TO AROUSE AND DOES NOT RESPOND VERBALLY. HER VITALS THIS MORNING ARE 98.2-101-21-99%-175/73. LABS WERE OBTAINED. ABNORMAL LAB VALUES INCLUDE THE FOLL OWING: WBC 22.4, HGB 11.9, HCT 35.6, SODIUM 146, BUN 32, CREATININE 1.28, GLUCOSE 177, ALBUMIN 2.5. BLOOD AND URINE CULTURE PENDING. SHE IS CURRENTLY RECEIVING IV FORTAZ AND LEVAQUIN WELL NORMAL SALINE AT 125ML/HR. HER BLOOD PRESSURE HAS REMAINED ELEVATED THROUGHOUT THE NIGHT. TODAY, WE WILL RESUME HOME MEDICATIONS AND INCREASE NORVASC TO 10MG PO DAILY. OTHERWISE, WE WILL CONTINUE WITH CURRENT PLAN OF CARE. WE PLAN TO FOLLOW UP WITH AM LABS AND CONTINUE TO MONITOR. - Past Medical Family Social History Past Med/Fam/Surg Hx: No changes since H&P Allergies: Allergies tuberculin,PPD,multi-puncture Allergy (Verified 09/10/18 18:54) - Review of Systems ROS: No change since H&P - Vital Signs and I&O's Vital Signs: Temperature 98.8 F Pulse Rate [Left Brachial] 88 Pulse Rate 87 Respiratory Rate 33 Blood Pressure [Right Calf] 109/62 Blood Pressure [Right Arm] 158/70 Blood Pressure [Left Arm] 141/74 Blood Pressure 159/71 O2 Sat by Pulse Oximetry 97 Intake and Output: Intake & Output 11/29/18 11/30/18 12/01/18 12/02/18 11:59 11:59 11:59 11:59 Intake Total 700 / 700 1110 / 1110 Output Total 325 / 325 Balance 700 / 700 785 / 785 - Physical Exam Oriented: Unable to test Eyes: Normal Ear: Normal Nose: Normal Throat: Normal Respiratory: Normal Cardiovascular: Normal : Normal Auscultation: Bowel Sounds: Normal Palpation: Normal Tenderness: Suprapubic Skin: Normal Musculoskeletal: Normal Psychiatric: Other (LETAHRGIC ) Mood Description: Flat Affect: Flat Speech Pattern: Inappropriate - Laboratory and Diagnostics Result Diagrams: 12/01/18 04:50 12/01/18 04:50 Labs: Laboratory WBC 22.4 X10^3/uL (3.6-10.0) H 12/01/18 04:50 RBC 3.75 X10^6/uL (3.5-5.4) 12/01/18 04:50 Hgb 11.9 g/dL (12.0-16.0) L 12/01/18 04:50 Hct 35.6 % (36.0-47.0) L 12/01/18 04:50 MCV 95.0 fL (80.0-100.0) 12/01/18 04:50 MCH 31.7 pg (27.0-34.0) 12/01/18 04:50 MCHC 33.4 g/dL (33.0-35.0) 12/01/18 04:50 RDW 13.7 % (11.6-16.5) 12/01/18 04:50 Plt Count 86 X10^3/uL (150.0-450.0) L 12/01/18 04:50 Plt Count Comment Decreased (ADEQUATE) A 12/01/18 04:50 MPV 6.5 fL (7.4-11.0) L 12/01/18 04:50 Neut % (Auto) 86.0 % (42.0-75.0) H 12/01/18 04:50 Lymph % (Auto) 4.0 % (21.0-51.0) L 12/01/18 04:50 [place] % (Auto) 9.8 % (0.0-13.0) 12/01/18 04:50 Eos % (Auto) 0.1 % (0.9-2.9) L 12/01/18 04:50 Baso % (Auto) 0.1 % (0.2-1.0) L 12/01/18 04:50 Neut # (Auto) 19.3 x10^3/uL (2.2-4.8) H 12/01/18 04:50 Lymph # (Auto) 0.9 X10^3/uL (1.3-2.9) L 12/01/18 04:50 [place] # (Auto) 2.2 x10^3/uL (0.3-0.8) H 12/01/18 04:50 Eos # (Auto) 0.0 x10^3/uL (0.0-0.2) 12/01/18 04:50 Baso # (Auto) 0.0 X10^3/uL (0.0-0.1) 12/01/18 04:50 Absolute Nucleated RBC 0.0 /100WBC 12/01/18 04:50 Total Counted 100 12/01/18 04:50 Neutrophils % (Manual) 74 % (39-76) 12/01/18 04:50 Band Neutrophils % 11 % (0-10) H 12/01/18 04:50 Lymphocytes % (Manual) 6 % (13-43) L 12/01/18 04:50 Monocytes % (Manual) 9 % (4-9) 12/01/18 04:50 Eosinophils % (Manual) 5 % (0-6) 11/30/18 13:56 Plt Morphology Comment Normal (NORMAL) 12/01/18 04:50 RBC Morphology Normal (NORMAL) 12/01/18 04:50 Sample Site Lr 11/30/18 14:08 ABG pH 7.410 (7.35-7.45) 11/30/18 14:08 ABG pCO2 46.0 mmHg (35.0-45.0) H 11/30/18 14:08 ABG pO2 60.0 mmHg (80.0-100.0) L 11/30/18 14:08 ABG HCO3 29.2 mmol/L (22-26) H 11/30/18 14:08 ABG O2 Saturation 91.0 % (90-100) 11/30/18 14:08 ABG Base Excess 3.8 mmol/L (-2.0-2.0) H 11/30/18 14:08 Chris Test Pos 11/30/18 14:08 A-a Gradient 82.0 mmHg 11/30/18 14:08 FiO2 28.0 11/30/18 14:08 Blood Gas Comments Pt osbaldo well. cdn 11/30/18 14:08 Sodium 146 mmol/L (136-145) H 12/01/18 04:50 Corrected Sodium 148 mmol/L (136-145) H 12/01/18 04:50 Potassium 3.7 mmol/L (3.5-5.1) 12/01/18 04:50 Chloride 107 mmol/L (98-107) 12/01/18 04:50 Carbon Dioxide 28.6 mmol/L (21-32) 12/01/18 04:50 BUN 32 mg/dL (7-18) H 12/01/18 04:50 Creatinine 1.28 mg/dL (0.55-1.02) H 12/01/18 04:50 Est GFR (MDRD) Af Amer 51 (>60) L 12/01/18 04:50 Est GFR (MDRD) Non-Af 42 (>60) L 12/01/18 04:50 Glucose 177 mg/dL (65-99) H 12/01/18 04:50 Lactic Acid 1.6 mmol/L (0.4-2.0) 11/30/18 13:56 Calcium 9.7 mg/dL (8.5-10.1) 12/01/18 04:50 Corrected Calcium 10.9 mg/dL (8.5-10.1) H 12/01/18 04:50 Magnesium 1.8 mg/dL (1.7-2.9) 12/01/18 04:50 Total Bilirubin 0.30 mg/dL (0.2-1.0) 12/01/18 04:50 AST 25 Units/L (15-37) 12/01/18 04:50 ALT 24 Units/L (12-78) 12/01/18 04:50 Alkaline Phosphatase 91 Units/L (46-116) 12/01/18 04:50 Creatine Kinase 33 Units/L (26-192) 12/01/18 04:50 CK-MB (CK-2) 1.3 ng/mL (0-4.0) 12/01/18 04:50 CK/CKMB % Calc 3.9 % (<4) 12/01/18 04:50 Troponin I 0.05 ng/mL (0-1.5) 12/01/18 04:50 C-Reactive Protein 159.40 mg/L (0-3.0) H 11/30/18 13:56 Total Protein 6.7 g/dL (6.4-8.2) 12/01/18 04:50 Albumin 2.5 g/dL (3.4-5.0) L 12/01/18 04:50 Globulin 4.2 g/dL (2.5-4.5) 12/01/18 04:50 Albumin/Globulin Ratio 0.6 Ratio (1.1-2.1) L 12/01/18 04:50 Specimen Type Catherized urine 11/30/18 14:21 Urine Color Yellow (YELLOW) 11/30/18 14:21 Urine Appearance Cloudy (CLEAR) 11/30/18 14:21 Urine pH 9.0 (5.0 - 8.0) 11/30/18 14:21 Ur Specific [place] 1.015 (1.000-1.030) 11/30/18 14:21 Urine Protein 2+ (NEGATIVE) 11/30/18 14:21 Urine Glucose (UA) Negative (NEGATIVE) 11/30/18 14:21 Urine Ketones 4+ (NEGATIVE) 11/30/18 14:21 Urine Occult Blood 4+ (NEGATIVE) 11/30/18 14:21 Urine Nitrite Negative (NEGATIVE) 11/30/18 14:21 Urine Bilirubin Negative (NEGATIVE) 11/30/18 14:21 Urine Urobilinogen Normal (NORMAL) 11/30/18 14:21 Ur Leukocyte Esterase 3+ (NEGATIVE) 11/30/18 14:21 Urine RBC 3-5 /HPF (NONE SEEN) 11/30/18 14:21 Urine WBC Tntc /HPF (NONE SEEN) 11/30/18 14:21 Ur Squamous Epith Cells Rare /HPF (NEGATIVE) 11/30/18 14:21 Amorphous Sediment 3+ /HPF (NEGATIVE) 11/30/18 14:21 Urine Bacteria 4+ /HPF (NEGATIVE) 11/30/18 14:21 Ur Culture Indicated? Yes/culture set up 11/30/18 14:21 - Plan (1) Urinary tract infection Status: Acute Qualifiers: Urinary tract infection type: acute cystitis Hematuria presence: with hematuria Qualified Code(s): N30.01 - Acute cystitis with hematuria Plan: NORMAL SALINE AT 125ML/HR, IV FORTAZ, IV LEVAQUIN, IV HYDRATION, CONTINUE TO MONITOR (2) Altered mental status Status: Acute Qualifiers: Altered mental status type: transient alteration of awareness Qualified Code(s): R40.4 - Transient alteration of awareness (3) Dehydration Status: Acute Plan: NORMAL SALINE AT 125ML/HR (4) Hypertension Status: Chronic Qualifiers: Hypertension type: essential hypertension Qualified Code(s): I10 - Essential (primary) hypertension Plan: CONTINUE HOME MEDS, INCREASE NORVASC TO 10MG PO DAILY, CONTINUE TO MONITOR
[2018-12-02] MEDS: ATIVAN INJ 2 MG VIAL IVP PRN (04:15)
[2018-12-02] MEDS: NORMODYNE INJ 20 MG VIAL IVP PRN ×7 (05:29→21:55)
[2018-12-02 05:37] LABS: BASOPHILS % (AUTO) 0.1 % (0.2-1.0); EOSINOPHILS # (AUTO) 0.1 x10^3/uL (0.0-0.2); EOSINOPHILS % (AUTO) 0.5 % (0.9-2.9); HEMATOCRIT 30.5 % (36.0-47.0); HEMOGLOBIN 10.4 g/dL (12.0-16.0); LYMPHOCYTES # (AUTO) 0.7 X10^3/uL (1.3-2.9); LYMPHOCYTES % (AUTO) 6.1 % (21.0-51.0); MEAN CORPUSCULAR HEMOGLOBIN 32.2 pg (27.0-34.0); MEAN CORPUSCULAR HGB CONC 34.2 g/dL (33.0-35.0); MEAN CORPUSCULAR VOLUME 94.2 fL (80.0-100.0); MEAN PLATELET VOLUME 6.2 fL (7.4-11.0); MONOCYTES # (AUTO) 1.2 x10^3/uL (0.3-0.8); MONOCYTES % (AUTO) 9.8 % (0.0-13.0); NEUTROPHILS # (AUTO) 9.8 x10^3/uL (2.2-4.8); NEUTROPHILS % (AUTO) 83.5 % (42.0-75.0); PLATELET COUNT 93 X10^3/uL (150.0-450.0); RED BLOOD COUNT 3.24 X10^6/uL (3.5-5.4); RED CELL DISTRIBUTION WIDTH 13.6 % (11.6-16.5)
[2018-12-02 05:48] LABS: ALANINE AMINOTRANSFERASE 24 Units/L (12-78); ALBUMIN 2.1 g/dL (3.4-5.0); ALKALINE PHOSPHATASE 85 Units/L (46-116); ASPARTATE AMINO TRANSFERASE 29 Units/L (15-37); BLOOD UREA NITROGEN 17 mg/dL (7-18); CALCIUM 8.4 mg/dL (8.5-10.1); COR CA(FOR HYPOALB) 9.9 mg/dL (8.5-10.1); COR NA(FOR HYPERGLY) 152 mmol/L (136-145); CREATININE 0.83 mg/dL (0.55-1.02); MAGNESIUM 1.9 mg/dL (1.7-2.9); eGFR NON BLACK RACES > 60 (>60)
[2018-12-02] MEDS: K-RIDER 10 MEQ/NS 100 ML 10 MEQ/100 ML BAG IV PRN ×2 (05:56→07:25)
[2018-12-02 06:08] LABS: SODIUM 151 mmol/L (136-145)
[2018-12-02 06:09] LABS: CHLORIDE 114 mmol/L (98-107)
[2018-12-02 06:18] LABS: WHITE BLOOD COUNT 11.7 X10^3/uL (3.6-10.0)
[2018-12-02] MEDS: NS 1000 ML 1,000 ML IV SCH (07:19)
[2018-12-02] MEDS: POTASSIUM CHL 40 MEQ/NS 0.45% 500 ML IV PRN (08:20)
[2018-12-02] MEDS ORDERED: ALLEGRA ONE (08:45)
[2018-12-02] MEDS: NORVASC TAB 5 MG PO SCH (08:47)
[2018-12-02] MEDS: COZAAR PO SCH (08:47)
[2018-12-02] MEDS: LANOXIN PO SCH (08:49)
[2018-12-02] MEDS: SINGULAIR TAB 10 MG PO SCH (08:50)
[2018-12-02] MEDS: TAB-A-VITE PO SCH (08:51)
[2018-12-02] MEDS: FOLIC ACID TAB 1 MG PO SCH (08:51)
[2018-12-02] MEDS: OXYBUTYNIN CHLORIDE ER PO SCH (08:51)
[2018-12-02] MEDS: FORTAZ or TAZICEF VIAL INJ IVP SCH ×2 (08:54→21:00)
[2018-12-02] MEDS: CATAPRES-TTS-3 TD SCH (08:56)
[2018-12-02] MEDS ORDERED: VOLTAREN 1 % GEL MULTI DOSE TUBE EXT SCH (09:00)
[2018-12-02] MEDS ORDERED: VOLTAREN 1 % GEL MULTI DOSE TUBE EXT PRN (09:00)
[2018-12-02] MEDS ORDERED: LASIX PO SCH (09:00)
[2018-12-02] MEDS: MICRO K EXTEN CAP 10 MEQ PO SCH (09:01)
[2018-12-02] MEDS: MIRALAX POWDER (1 DOSE 17 G) PO SCH (09:01)
[2018-12-02] MEDS: HEMOCYTE-PLUS PO SCH (09:01)
[2018-12-02] MEDS: FLONASE NASAL SPRAY ENOSTRIL SCH ×2 (09:01→22:04)
[2018-12-02] MEDS: ALLEGRA PO SCH (09:01)
[2018-12-02] MEDS: CITRACAL + VITAMIN D PO SCH (09:02)
[2018-12-02] MEDS: LEVAQUIN PREMIX IV 500 MG 500 MG/100 ML BAG IV SCH (09:02)
[2018-12-02] MEDS: COLACE CAP 100 MG PO SCH ×2 (09:02→21:00)
[2018-12-02] MEDS: ARTIFICIAL TEARS DROPS EACHEYE SCH ×4 (09:03→21:00)
[2018-12-02] MEDS: D5W 1000 ML IV 1,000 ML IV SCH ×2 (09:06→22:04)
[2018-12-02] MEDS: HALDOL INJ IM PRN ×2 (10:40→22:50)
[2018-12-02] MEDS ORDERED: COZAAR PO SCH (13:00)
[2018-12-02] MEDS: MAGNESIUM SULFATE 1 GRAM/100 mL PREMIX 1 GM/100 ML BAG IV PRN ×2 (14:53→16:05)
[2018-12-02] MEDS: ROBITUSSIN DM PO PRN (14:59)
[2018-12-02] MEDS: MICRO K EXTEN CAP 10 MEQ PO PRN (17:24)
--- NOTE | 2018-12-02 20:20 | PCM.PROG ---
Progress Note - Progress Note for Day of Date of Exam: 12/02/18 - Subjective Subjective: WAS ADMITTED FOR UROSEPSIS AND ALTERED MENTAL STATUS. TODAY, SHE IS LYING IN BED WITH EYES OPEN ON MORNING ROUNDS. STAFF REPORTS THAT SHE HAS BEEN AGITATED, PULLING AT IV LINES, AND SPITTING OUT HER MEDICINE AT THE NURSING STAFF. HER VITALS THIS MORNING ARE 98.2-100-23-96%-191/84. LABS WERE OBTAINED. ABNORMAL LAB VALUES INCLUDE THE FOLLOWING: WBC 11.7, RBC 3.24, HGB 10.4, HCT 30.5, SODIUM 151, POTASSIUM 2.9, CHLORIDE 114, GLUCOSE 126, CALCIUM 8.4, TOTAL PROTEIN 6.0, ALBUMIN 2.1. BLOOD CULTURES PENDING. URINE CULTURE POSITIVE FOR GROWTH OF PROTEUS MIRABILIS. IT IS SENSITIVE TO THE FORTAZ, BUT RESISTANT TO THE LEVAQUIN. TODAY, WE WILL DISCONTINUE THE ATIVAN AND START HALDOL 1-2MG IM Q4H PRN AGITATION. WE WILL DISCONTINUE THE LEVAQUIN. OTHERWISE, WE WILL CONTINUE WITH CURRENT PLAN OF CARE. WE PLAN TO FOLLOW UP WITH AM LABS AND CONTINUE TO MONITOR. - Past Medical Family Social History Past Med/Fam/Surg Hx: No changes since H&P Allergies: Allergies tuberculin,PPD,multi-puncture Allergy (Verified 09/10/18 18:54) - Review of Systems ROS: No change since H&P - Vital Signs and I&O's Vital Signs: Temperature 98.2 F Pulse Rate [Left Brachial] 88 Pulse Rate 79 Respiratory Rate 20 Blood Pressure [Right Calf] 109/62 Blood Pressure [Right Arm] 158/70 Blood Pressure [Left Arm] 141/74 Blood Pressure 185/78 O2 Sat by Pulse Oximetry 97 Intake and Output: Intake & Output 11/30/18 12/01/18 12/02/18 12/03/18 11:59 11:59 11:59 11:59 Intake Total 1500 / 1500 2605 / 2605 1224 / 1224 Output Total 700 / 700 1125 / 1125 775 / 775 Balance 800 / 800 1480 / 1480 449 / 449 - Physical Exam Oriented: Not Oriented Eyes: Normal Ear: Normal Nose: Normal Throat: Normal Respiratory: Normal Cardiovascular: Normal : Normal Auscultation: Bowel Sounds: Normal Palpation: Normal Tenderness: Suprapubic Skin: Normal Musculoskeletal: Normal Psychiatric: Agitation Mood Description: Anxious Affect: Anxious Speech Pattern: Clear - Laboratory and Diagnostics Result Diagrams: 12/02/18 05:16 12/02/18 16:28 Labs: 11/30/18 13:56 Blood Blood Culture - Preliminary 11/30/18 13:52 Blood Blood Culture - Preliminary Laboratory WBC 11.7 X10^3/uL (3.6-10.0) H D 12/02/18 05:16 RBC 3.24 X10^6/uL (3.5-5.4) L 12/02/18 05:16 Hgb 10.4 g/dL (12.0-16.0) L 12/02/18 05:16 Hct 30.5 % (36.0-47.0) L 12/02/18 05:16 MCV 94.2 fL (80.0-100.0) 12/02/18 05:16 MCH 32.2 pg (27.0-34.0) 12/02/18 05:16 MCHC 34.2 g/dL (33.0-35.0) 12/02/18 05:16 RDW 13.6 % (11.6-16.5) 12/02/18 05:16 Plt Count 93 X10^3/uL (150.0-450.0) L 12/02/18 05:16 Plt Count Comment Decreased (ADEQUATE) A 12/01/18 04:50 MPV 6.2 fL (7.4-11.0) L 12/02/18 05:16 Neut % (Auto) 83.5 % (42.0-75.0) H 12/02/18 05:16 Lymph % (Auto) 6.1 % (21.0-51.0) L 12/02/18 05:16 [place] % (Auto) 9.8 % (0.0-13.0) 12/02/18 05:16 Eos % (Auto) 0.5 % (0.9-2.9) L 12/02/18 05:16 Baso % (Auto) 0.1 % (0.2-1.0) L 12/02/18 05:16 Neut # (Auto) 9.8 x10^3/uL (2.2-4.8) H 12/02/18 05:16 Lymph # (Auto) 0.7 X10^3/uL (1.3-2.9) L 12/02/18 05:16 [place] # (Auto) 1.2 x10^3/uL (0.3-0.8) H 12/02/18 05:16 Eos # (Auto) 0.1 x10^3/uL (0.0-0.2) 12/02/18 05:16 Baso # (Auto) 0.0 X10^3/uL (0.0-0.1) 12/02/18 05:16 Absolute Nucleated RBC 0.0 /100WBC 12/02/18 05:16 Total Counted 100 12/01/18 04:50 Neutrophils % (Manual) 74 % (39-76) 12/01/18 04:50 Band Neutrophils % 11 % (0-10) H 12/01/18 04:50 Lymphocytes % (Manual) 6 % (13-43) L 12/01/18 04:50 Monocytes % (Manual) 9 % (4-9) 12/01/18 04:50 Eosinophils % (Manual) 5 % (0-6) 11/30/18 13:56 Plt Morphology Comment Normal (NORMAL) 12/01/18 04:50 RBC Morphology Normal (NORMAL) 12/01/18 04:50 Sample Site Lr 11/30/18 14:08 ABG pH 7.410 (7.35-7.45) 11/30/18 14:08 ABG pCO2 46.0 mmHg (35.0-45.0) H 11/30/18 14:08 ABG pO2 60.0 mmHg (80.0-100.0) L 11/30/18 14:08 ABG HCO3 29.2 mmol/L (22-26) H 11/30/18 14:08 ABG O2 Saturation 91.0 % (90-100) 11/30/18 14:08 ABG Base Excess 3.8 mmol/L (-2.0-2.0) H 11/30/18 14:08 Chris Test Pos 11/30/18 14:08 A-a Gradient 82.0 mmHg 11/30/18 14:08 FiO2 28.0 11/30/18 14:08 Blood Gas Comments Pt osbaldo well. cdn 11/30/18 14:08 Sodium 151 mmol/L (136-145) H* 12/02/18 05:16 Corrected Sodium 152 mmol/L (136-145) H 12/02/18 05:16 Potassium 3.5 mmol/L (3.5-5.1) 12/02/18 16:28 Chloride 114 mmol/L (98-107) H 12/02/18 05:16 Carbon Dioxide 27.0 mmol/L (21-32) 12/02/18 05:16 BUN 17 mg/dL (7-18) 12/02/18 05:16 Creatinine 0.83 mg/dL (0.55-1.02) 12/02/18 05:16 Est GFR (MDRD) Af Amer > 60 (>60) 12/02/18 05:16 Est GFR (MDRD) Non-Af > 60 (>60) 12/02/18 05:16 Glucose 126 mg/dL (65-99) H 12/02/18 05:16 Lactic Acid 1.6 mmol/L (0.4-2.0) 11/30/18 13:56 Calcium 8.4 mg/dL (8.5-10.1) L 12/02/18 05:16 Corrected Calcium 9.9 mg/dL (8.5-10.1) 12/02/18 05:16 Magnesium 1.9 mg/dL (1.7-2.9) 12/02/18 05:16 Total Bilirubin 0.40 mg/dL (0.2-1.0) 12/02/18 05:16 AST 29 Units/L (15-37) 12/02/18 05:16 ALT 24 Units/L (12-78) 12/02/18 05:16 Alkaline Phosphatase 85 Units/L (46-116) 12/02/18 05:16 Creatine Kinase 33 Units/L (26-192) 12/01/18 04:50 CK-MB (CK-2) 1.3 ng/mL (0-4.0) 12/01/18 04:50 CK/CKMB % Calc 3.9 % (<4) 12/01/18 04:50 Troponin I 0.05 ng/mL (0-1.5) 12/01/18 04:50 C-Reactive Protein 159.40 mg/L (0-3.0) H 11/30/18 13:56 Total Protein 6.0 g/dL (6.4-8.2) L 12/02/18 05:16 Albumin 2.1 g/dL (3.4-5.0) L 12/02/18 05:16 Globulin 3.9 g/dL (2.5-4.5) 12/02/18 05:16 Albumin/Globulin Ratio 0.5 Ratio (1.1-2.1) L 12/02/18 05:16 Specimen Type Catherized urine 11/30/18 14:21 Urine Color Yellow (YELLOW) 11/30/18 14:21 Urine Appearance Cloudy (CLEAR) 11/30/18 14:21 Urine pH 9.0 (5.0 - 8.0) 11/30/18 14:21 Ur Specific [place] 1.015 (1.000-1.030) 11/30/18 14:21 Urine Protein 2+ (NEGATIVE) 11/30/18 14:21 Urine Glucose (UA) Negative (NEGATIVE) 11/30/18 14:21 Urine Ketones 4+ (NEGATIVE) 11/30/18 14:21 Urine Occult Blood 4+ (NEGATIVE) 11/30/18 14:21 Urine Nitrite Negative (NEGATIVE) 11/30/18 14:21 Urine Bilirubin Negative (NEGATIVE) 11/30/18 14:21 Urine Urobilinogen Normal (NORMAL) 11/30/18 14:21 Ur Leukocyte Esterase 3+ (NEGATIVE) 11/30/18 14:21 Urine RBC 3-5 /HPF (NONE SEEN) 11/30/18 14:21 Urine WBC Tntc /HPF (NONE SEEN) 11/30/18 14:21 Ur Squamous Epith Cells Rare /HPF (NEGATIVE) 11/30/18 14:21 Amorphous Sediment 3+ /HPF (NEGATIVE) 11/30/18 14:21 Urine Bacteria 4+ /HPF (NEGATIVE) 11/30/18 14:21 Ur Culture Indicated? Yes/culture set up 11/30/18 14:21 Digoxin 0.90 ng/mL (0.9-2) 12/02/18 05:16 - Plan (1) Urinary tract infection Status: Acute Qualifiers: Urinary tract infection type: acute cystitis Hematuria presence: with hematuria Qualified Code(s): N30.01 - Acute cystitis with hematuria Plan: NORMAL SALINE AT 125ML/HR, IV FORTAZ, IV LEVAQUIN, IV HYDRATION, CONTINUE TO MONITOR (2) Altered mental status Status: Acute Qualifiers: Altered mental status type: transient alteration of awareness Qualified Code(s): R40.4 - Transient alteration of awareness Plan: haldol 1-2mg iv q4h prn, continue to monitor (3) Dehydration Status: Acute Plan: NORMAL SALINE AT 125ML/HR (4) Hypertension Status: Chronic Qualifiers: Hypertension type: essential hypertension Qualified Code(s): I10 - Essential (primary) hypertension Plan: CONTINUE HOME MEDS, INCREASE NORVASC TO 10MG PO DAILY, CONTINUE TO MONITOR
[2018-12-02] MEDS: DESYREL PO SCH (21:00)
[2018-12-03] MEDS ORDERED: LASIX IVP ONE (01:55)
[2018-12-03] MEDS: LASIX IVP SCH (02:03)
[2018-12-03] MEDS: NORMODYNE INJ 20 MG VIAL IVP PRN ×6 (03:14→23:45)
[2018-12-03 06:10] LABS: BASOPHILS % (AUTO) 0.2 % (0.2-1.0); EOSINOPHILS # (AUTO) 0.1 x10^3/uL (0.0-0.2); EOSINOPHILS % (AUTO) 1.6 % (0.9-2.9); HEMOGLOBIN 11.5 g/dL (12.0-16.0); LYMPHOCYTES # (AUTO) 0.9 X10^3/uL (1.3-2.9); LYMPHOCYTES % (AUTO) 9.2 % (21.0-51.0); MEAN CORPUSCULAR HEMOGLOBIN 32.3 pg (27.0-34.0); MEAN CORPUSCULAR HGB CONC 34.9 g/dL (33.0-35.0); MEAN CORPUSCULAR VOLUME 92.6 fL (80.0-100.0); MEAN PLATELET VOLUME 6.3 fL (7.4-11.0); MONOCYTES % (AUTO) 10.5 % (0.0-13.0); NEUTROPHILS # (AUTO) 7.4 x10^3/uL (2.2-4.8); NEUTROPHILS % (AUTO) 78.5 % (42.0-75.0); PLATELET COUNT 103 X10^3/uL (150.0-450.0); RED BLOOD COUNT 3.56 X10^6/uL (3.5-5.4); RED CELL DISTRIBUTION WIDTH 13.9 % (11.6-16.5); WHITE BLOOD COUNT 9.4 X10^3/uL (3.6-10.0)
[2018-12-03 06:33] LABS: ALANINE AMINOTRANSFERASE 30 Units/L (12-78); ALBUMIN 2.4 g/dL (3.4-5.0); ALKALINE PHOSPHATASE 94 Units/L (46-116); ASPARTATE AMINO TRANSFERASE 33 Units/L (15-37); BLOOD UREA NITROGEN 8 mg/dL (7-18); CALCIUM 8.1 mg/dL (8.5-10.1); CARBON DIOXIDE 28.9 mmol/L (21-32); CHLORIDE 102 mmol/L (98-107); COR CA(FOR HYPOALB) 9.4 mg/dL (8.5-10.1); COR NA(FOR HYPERGLY) 139 mmol/L (136-145); CREATININE 0.77 mg/dL (0.55-1.02); MAGNESIUM 1.9 mg/dL (1.7-2.9); SODIUM 138 mmol/L (136-145); TOTAL PROTEIN 6.6 g/dL (6.4-8.2); eGFR NON BLACK RACES > 60 (>60)
[2018-12-03] MEDS: POTASSIUM CHL 40 MEQ/NS 0.45% 500 ML IV PRN (06:47)
[2018-12-03] MEDS ORDERED: ALLEGRA ONE (08:06)
[2018-12-03] MEDS: LANOXIN PO SCH (08:11)
[2018-12-03] MEDS: HEMOCYTE-PLUS PO SCH (08:11)
[2018-12-03] MEDS: FOLIC ACID TAB 1 MG PO SCH (08:11)
[2018-12-03] MEDS: MIRALAX POWDER (1 DOSE 17 G) PO SCH (08:14)
[2018-12-03] MEDS: COLACE CAP 100 MG PO SCH ×2 (08:14→21:12)
[2018-12-03] MEDS: TAB-A-VITE PO SCH (08:15)
[2018-12-03] MEDS: SINGULAIR TAB 10 MG PO SCH (08:15)
[2018-12-03] MEDS: ALLEGRA PO SCH (08:15)
[2018-12-03] MEDS: OXYBUTYNIN CHLORIDE ER PO SCH (08:16)
[2018-12-03] MEDS: COZAAR PO SCH (08:18)
[2018-12-03] MEDS: MICRO K EXTEN CAP 10 MEQ PO SCH (08:19)
[2018-12-03] MEDS: NORVASC TAB 5 MG PO SCH (08:19)
[2018-12-03] MEDS: FORTAZ or TAZICEF VIAL INJ IVP SCH ×2 (08:20→21:12)
[2018-12-03] MEDS: LEVAQUIN PREMIX IV 500 MG 500 MG/100 ML BAG IV SCH (08:20)
[2018-12-03] MEDS: ARTIFICIAL TEARS DROPS EACHEYE SCH ×4 (09:28→21:12)
[2018-12-03] MEDS: CITRACAL + VITAMIN D PO SCH (09:29)
[2018-12-03] MEDS: FLONASE NASAL SPRAY ENOSTRIL SCH ×2 (09:29→21:12)
[2018-12-03] MEDS: K-RIDER 10 MEQ/NS 100 ML 10 MEQ/100 ML BAG IV PRN (12:33)
[2018-12-03] MEDS ORDERED: D5W 1000 ML IV 1,000 ML IV SCH (14:49)
[2018-12-03] MEDS: ROBITUSSIN DM PO PRN (15:13)
[2018-12-03] MEDS: DUONEB 0.5 MG/3 MG NEB SCH ×2 (16:51→20:32)
[2018-12-03] MEDS: DESYREL PO SCH (21:12)
[2018-12-04] MEDS: NORMODYNE INJ 20 MG VIAL IVP PRN ×3 (00:35→04:55)
[2018-12-04 05:51] LABS: BASOPHILS % (AUTO) 0.1 % (0.2-1.0); EOSINOPHILS # (AUTO) 0.2 x10^3/uL (0.0-0.2); EOSINOPHILS % (AUTO) 2.5 % (0.9-2.9); HEMATOCRIT 31.4 % (36.0-47.0); HEMOGLOBIN 10.8 g/dL (12.0-16.0); LYMPHOCYTES # (AUTO) 0.9 X10^3/uL (1.3-2.9); LYMPHOCYTES % (AUTO) 10.1 % (21.0-51.0); MEAN CORPUSCULAR HEMOGLOBIN 31.8 pg (27.0-34.0); MEAN CORPUSCULAR HGB CONC 34.5 g/dL (33.0-35.0); MEAN CORPUSCULAR VOLUME 92.2 fL (80.0-100.0); MEAN PLATELET VOLUME 6.1 fL (7.4-11.0); MONOCYTES # (AUTO) 0.9 x10^3/uL (0.3-0.8); MONOCYTES % (AUTO) 10.2 % (0.0-13.0); NEUTROPHILS # (AUTO) 6.7 x10^3/uL (2.2-4.8); NEUTROPHILS % (AUTO) 77.1 % (42.0-75.0); PLATELET COUNT 84 X10^3/uL (150.0-450.0); RED BLOOD COUNT 3.41 X10^6/uL (3.5-5.4); RED CELL DISTRIBUTION WIDTH 13.5 % (11.6-16.5); WHITE BLOOD COUNT 8.7 X10^3/uL (3.6-10.0)
[2018-12-04 06:02] LABS: ALANINE AMINOTRANSFERASE 27 Units/L (12-78); ALBUMIN 1.9 g/dL (3.4-5.0); ALKALINE PHOSPHATASE 86 Units/L (46-116); ASPARTATE AMINO TRANSFERASE 24 Units/L (15-37); BLOOD UREA NITROGEN 7 mg/dL (7-18); CALCIUM 7.8 mg/dL (8.5-10.1); CARBON DIOXIDE 26.8 mmol/L (21-32); CHLORIDE 98 mmol/L (98-107); COR CA(FOR HYPOALB) 9.5 mg/dL (8.5-10.1); CREATININE 0.65 mg/dL (0.55-1.02); MAGNESIUM 1.8 mg/dL (1.7-2.9); SODIUM 129 mmol/L (136-145); TOTAL PROTEIN 5.6 g/dL (6.4-8.2); eGFR NON BLACK RACES > 60 (>60)
[2018-12-04 06:14] LABS: PLATELET MORPHOLOGY COMMENT NORMAL (NORMAL)
[2018-12-04] MEDS ORDERED: ALLEGRA ONE (08:03)
[2018-12-04] MEDS: FOLIC ACID TAB 1 MG PO SCH (08:10)
[2018-12-04] MEDS: COLACE CAP 100 MG PO SCH ×2 (08:10→20:42)
[2018-12-04] MEDS: LANOXIN PO SCH (08:10)
[2018-12-04] MEDS: NORVASC TAB 5 MG PO SCH (08:11)
[2018-12-04] MEDS: MICRO K EXTEN CAP 10 MEQ PO SCH (08:11)
[2018-12-04] MEDS: HEMOCYTE-PLUS PO SCH (08:11)
[2018-12-04] MEDS: OXYBUTYNIN CHLORIDE ER PO SCH (08:12)
[2018-12-04] MEDS: FORTAZ or TAZICEF VIAL INJ IVP SCH ×2 (08:12→20:42)
[2018-12-04] MEDS: TAB-A-VITE PO SCH (08:12)
[2018-12-04] MEDS: SINGULAIR TAB 10 MG PO SCH (08:12)
[2018-12-04] MEDS: COZAAR PO SCH (08:12)
[2018-12-04] MEDS: LASIX IVP SCH (08:12)
[2018-12-04] MEDS: FLONASE NASAL SPRAY ENOSTRIL SCH ×2 (08:13→20:42)
[2018-12-04] MEDS: CITRACAL + VITAMIN D PO SCH (08:13)
[2018-12-04] MEDS: MIRALAX POWDER (1 DOSE 17 G) PO SCH (08:13)
[2018-12-04] MEDS: ARTIFICIAL TEARS DROPS EACHEYE SCH ×4 (08:13→20:42)
[2018-12-04] MEDS: ALLEGRA PO SCH (08:14)
[2018-12-04] MEDS: DUONEB 0.5 MG/3 MG NEB SCH ×4 (08:15→20:40)
[2018-12-04] MEDS ORDERED: LASIX IVP SCH (09:00)
[2018-12-04] MEDS: TOPROL XL PO SCH (11:30)
--- NOTE | 2018-12-04 19:11 | PCM.PROG ---
Progress Note - Progress Note for Day of Date of Exam: 12/03/18 - Subjective Subjective: WAS ADMITTED FOR UROSEPSIS AND ALTERED MENTAL STATUS. TODAY, SHE IS LYING IN BED WITH EYES OPEN ON MORNING ROUNDS. SHE CONTINUES WITH AGITATION, BUT IMPROVED SLIGHTLY SINCE YESTERDAY. SHE REPORTS SHORTNESS OF BREATH. ON EXAMINATION, SHE IS NOTED WITH SCATTERED RHONCHI. HER VITALS THIS MORNING ARE 97.6-90-22-100%-168/72. LABS WERE OBTAINED. ABNORMAL LAB VALUES INCLUDE THE FOLLOWING: HGB 11.5, HCT 33.0, PLT COUNT 103, POTASSIUM 3.0, GLUCOSE 159, CALCIUM 8.1, ALBUMIN 2.4. BLOOD CULTURES PENDING. URINE CULTURE POSITIVE FOR GROWTH OF PROTEUS MIRABILIS. SHE IS CURRENTLY RECEIVING IV FORTAZ. TODAY, WE WILL ADD RESPIRATORY TREATMENTS, DECREASE IV FLUIDS, AND START LASIX 40MG IV DAILY. OTHERWISE, WE WILL CONTINUE WITH CURRENT PLAN OF CARE. WE PLAN TO FOLLOW UP WITH AM LABS AND CONTINUE TO MONITOR. - Past Medical Family Social History Past Med/Fam/Surg Hx: No changes since H&P Allergies: Allergies tuberculin,PPD,multi-puncture Allergy (Verified 09/10/18 18:54) - Review of Systems ROS: No change since H&P - Vital Signs and I&O's Vital Signs: Temperature 98.4 F Pulse Rate [Left Brachial] 88 Pulse Rate 105 Respiratory Rate 14 Blood Pressure [Right Calf] 109/62 Blood Pressure [Right Arm] 158/70 Blood Pressure [Left Arm] 141/74 Blood Pressure 179/86 O2 Sat by Pulse Oximetry 91 Intake and Output: Intake & Output 12/02/18 12/03/18 12/04/18 12/05/18 11:59 11:59 11:59 11:59 Intake Total 2605 / 2605 2229 / 2229 1840 / 1840 831 / 831 Output Total 1125 / 1125 3025 / 3025 1550 / 1550 1000 / 1000 Balance 1480 / 1480 -796 / -796 290 / 290 -169 / -169 - Physical Exam Oriented: Person Eyes: Normal Ear: Normal Nose: Normal Throat: Normal Respiratory: Normal Cardiovascular: Normal : Normal Auscultation: Bowel Sounds: Normal Palpation: Normal Tenderness: Suprapubic Skin: Normal Musculoskeletal: Normal Psychiatric: Agitation Mood Description: Anxious Affect: Anxious Speech Pattern: Clear, Appropriate, Delayed - Laboratory and Diagnostics Result Diagrams: 12/04/18 05:20 12/04/18 05:20 Labs: 11/30/18 13:56 Blood Blood Culture - Preliminary 11/30/18 13:52 Blood Blood Culture - Preliminary Laboratory WBC 8.7 X10^3/uL (3.6-10.0) 12/04/18 05:20 RBC 3.41 X10^6/uL (3.5-5.4) L 12/04/18 05:20 Hgb 10.8 g/dL (12.0-16.0) L 12/04/18 05:20 Hct 31.4 % (36.0-47.0) L 12/04/18 05:20 MCV 92.2 fL (80.0-100.0) 12/04/18 05:20 MCH 31.8 pg (27.0-34.0) 12/04/18 05:20 MCHC 34.5 g/dL (33.0-35.0) 12/04/18 05:20 RDW 13.5 % (11.6-16.5) 12/04/18 05:20 Plt Count 84 X10^3/uL (150.0-450.0) L 12/04/18 05:20 Plt Count Comment Decreased (ADEQUATE) A 12/04/18 05:20 MPV 6.1 fL (7.4-11.0) L 12/04/18 05:20 Neut % (Auto) 77.1 % (42.0-75.0) H 12/04/18 05:20 Lymph % (Auto) 10.1 % (21.0-51.0) L 12/04/18 05:20 [place] % (Auto) 10.2 % (0.0-13.0) 12/04/18 05:20 Eos % (Auto) 2.5 % (0.9-2.9) 12/04/18 05:20 Baso % (Auto) 0.1 % (0.2-1.0) L 12/04/18 05:20 Neut # (Auto) 6.7 x10^3/uL (2.2-4.8) H 12/04/18 05:20 Lymph # (Auto) 0.9 X10^3/uL (1.3-2.9) L 12/04/18 05:20 [place] # (Auto) 0.9 x10^3/uL (0.3-0.8) H 12/04/18 05:20 Eos # (Auto) 0.2 x10^3/uL (0.0-0.2) 12/04/18 05:20 Baso # (Auto) 0.0 X10^3/uL (0.0-0.1) 12/04/18 05:20 Absolute Nucleated RBC 0.1 /100WBC 12/04/18 05:20 Total Counted 100 12/01/18 04:50 Neutrophils % (Manual) 74 % (39-76) 12/01/18 04:50 Band Neutrophils % 11 % (0-10) H 12/01/18 04:50 Lymphocytes % (Manual) 6 % (13-43) L 12/01/18 04:50 Monocytes % (Manual) 9 % (4-9) 12/01/18 04:50 Eosinophils % (Manual) 5 % (0-6) 11/30/18 13:56 Plt Morphology Comment Normal (NORMAL) 12/04/18 05:20 RBC Morphology Normal (NORMAL) 12/04/18 05:20 Sample Site Lr 11/30/18 14:08 ABG pH 7.410 (7.35-7.45) 11/30/18 14:08 ABG pCO2 46.0 mmHg (35.0-45.0) H 11/30/18 14:08 ABG pO2 60.0 mmHg (80.0-100.0) L 11/30/18 14:08 ABG HCO3 29.2 mmol/L (22-26) H 11/30/18 14:08 ABG O2 Saturation 91.0 % (90-100) 11/30/18 14:08 ABG Base Excess 3.8 mmol/L (-2.0-2.0) H 11/30/18 14:08 Chris Test Pos 11/30/18 14:08 A-a Gradient 82.0 mmHg 11/30/18 14:08 FiO2 28.0 11/30/18 14:08 Blood Gas Comments Pt osbaldo well. cdn 11/30/18 14:08 Sodium 129 mmol/L (136-145) L 12/04/18 05:20 Corrected Sodium TNP 12/04/18 05:20 Potassium 3.9 mmol/L (3.5-5.1) 12/04/18 05:20 Chloride 98 mmol/L (98-107) 12/04/18 05:20 Carbon Dioxide 26.8 mmol/L (21-32) 12/04/18 05:20 BUN 7 mg/dL (7-18) 12/04/18 05:20 Creatinine 0.65 mg/dL (0.55-1.02) 12/04/18 05:20 Est GFR (MDRD) Af Amer > 60 (>60) 12/04/18 05:20 Est GFR (MDRD) Non-Af > 60 (>60) 12/04/18 05:20 Glucose 102 mg/dL (65-99) H 12/04/18 05:20 Lactic Acid 1.6 mmol/L (0.4-2.0) 11/30/18 13:56 Calcium 7.8 mg/dL (8.5-10.1) L 12/04/18 05:20 Corrected Calcium 9.5 mg/dL (8.5-10.1) 12/04/18 05:20 Magnesium 1.8 mg/dL (1.7-2.9) 12/04/18 05:20 Total Bilirubin 0.40 mg/dL (0.2-1.0) 12/04/18 05:20 AST 24 Units/L (15-37) 12/04/18 05:20 ALT 27 Units/L (12-78) 12/04/18 05:20 Alkaline Phosphatase 86 Units/L (46-116) 12/04/18 05:20 Creatine Kinase 33 Units/L (26-192) 12/01/18 04:50 CK-MB (CK-2) 1.3 ng/mL (0-4.0) 12/01/18 04:50 CK/CKMB % Calc 3.9 % (<4) 12/01/18 04:50 Troponin I 0.05 ng/mL (0-1.5) 12/01/18 04:50 C-Reactive Protein 159.40 mg/L (0-3.0) H 11/30/18 13:56 Total Protein 5.6 g/dL (6.4-8.2) L 12/04/18 05:20 Albumin 1.9 g/dL (3.4-5.0) L 12/04/18 05:20 Globulin 3.7 g/dL (2.5-4.5) 12/04/18 05:20 Albumin/Globulin Ratio 0.5 Ratio (1.1-2.1) L 12/04/18 05:20 Specimen Type Catherized urine 11/30/18 14:21 Urine Color Yellow (YELLOW) 11/30/18 14:21 Urine Appearance Cloudy (CLEAR) 11/30/18 14:21 Urine pH 9.0 (5.0 - 8.0) 11/30/18 14:21 Ur Specific [place] 1.015 (1.000-1.030) 11/30/18 14:21 Urine Protein 2+ (NEGATIVE) 11/30/18 14:21 Urine Glucose (UA) Negative (NEGATIVE) 11/30/18 14:21 Urine Ketones 4+ (NEGATIVE) 11/30/18 14:21 Urine Occult Blood 4+ (NEGATIVE) 11/30/18 14:21 Urine Nitrite Negative (NEGATIVE) 11/30/18 14:21 Urine Bilirubin Negative (NEGATIVE) 11/30/18 14:21 Urine Urobilinogen Normal (NORMAL) 11/30/18 14:21 Ur Leukocyte Esterase 3+ (NEGATIVE) 11/30/18 14:21 Urine RBC 3-5 /HPF (NONE SEEN) 11/30/18 14:21 Urine WBC Tntc /HPF (NONE SEEN) 11/30/18 14:21 Ur Squamous Epith Cells Rare /HPF (NEGATIVE) 11/30/18 14:21 Amorphous Sediment 3+ /HPF (NEGATIVE) 11/30/18 14:21 Urine Bacteria 4+ /HPF (NEGATIVE) 11/30/18 14:21 Ur Culture Indicated? Yes/culture set up 11/30/18 14:21 Digoxin 0.90 ng/mL (0.9-2) 12/02/18 05:16 - Plan (1) Urinary tract infection Status: Acute Qualifiers: Urinary tract infection type: acute cystitis Hematuria presence: with hematuria Qualified Code(s): N30.01 - Acute cystitis with hematuria Plan: NORMAL SALINE AT 125ML/HR, IV FORTAZ, IV LEVAQUIN, IV HYDRATION, CONTINUE TO MONITOR (2) Altered mental status Status: Acute Qualifiers: Altered mental status type: transient alteration of awareness Qualified Cod e(s): R40.4 - Transient alteration of awareness Plan: haldol 1-2mg iv q4h prn, continue to monitor (3) Dehydration Status: Acute Plan: NORMAL SALINE AT 125ML/HR (4) Hypertension Status: Chronic Qualifiers: Hypertension type: essential hypertension Qualified Code(s): I10 - Essential (primary) hypertension Plan: CONTINUE HOME MEDS, INCREASE NORVASC TO 10MG PO DAILY, CONTINUE TO MONITOR
[2018-12-04] MEDS: DESYREL PO SCH (20:42)
[2018-12-05 05:14] LABS: ALANINE AMINOTRANSFERASE 21 Units/L (12-78); ALBUMIN 1.9 g/dL (3.4-5.0); ALKALINE PHOSPHATASE 86 Units/L (46-116); ASPARTATE AMINO TRANSFERASE 23 Units/L (15-37); BLOOD UREA NITROGEN 8 mg/dL (7-18); CALCIUM 8.2 mg/dL (8.5-10.1); CARBON DIOXIDE 27.3 mmol/L (21-32); CHLORIDE 92 mmol/L (98-107); COR CA(FOR HYPOALB) 9.9 mg/dL (8.5-10.1); CREATININE 0.71 mg/dL (0.55-1.02); TOTAL PROTEIN 5.8 g/dL (6.4-8.2); eGFR NON BLACK RACES > 60 (>60)
[2018-12-05 05:15] LABS: SODIUM 123 mmol/L (136-145)
[2018-12-05 05:40] LABS: BASOPHILS % (AUTO) 0.4 % (0.2-1.0); EOSINOPHILS # (AUTO) 0.2 x10^3/uL (0.0-0.2); HEMATOCRIT 33.3 % (36.0-47.0); HEMOGLOBIN 11.6 g/dL (12.0-16.0); LYMPHOCYTES # (AUTO) 1.1 X10^3/uL (1.3-2.9); LYMPHOCYTES % (AUTO) 9.1 % (21.0-51.0); MEAN CORPUSCULAR HEMOGLOBIN 31.3 pg (27.0-34.0); MEAN CORPUSCULAR HGB CONC 34.7 g/dL (33.0-35.0); MEAN CORPUSCULAR VOLUME 90.3 fL (80.0-100.0); MONOCYTES # (AUTO) 1.3 x10^3/uL (0.3-0.8); MONOCYTES % (AUTO) 10.3 % (0.0-13.0); NEUTROPHILS # (AUTO) 9.5 x10^3/uL (2.2-4.8); NEUTROPHILS % (AUTO) 78.2 % (42.0-75.0); PLATELET COUNT 78 X10^3/uL (150.0-450.0); RED BLOOD COUNT 3.69 X10^6/uL (3.5-5.4); RED CELL DISTRIBUTION WIDTH 13.6 % (11.6-16.5); WHITE BLOOD COUNT 12.2 X10^3/uL (3.6-10.0)
[2018-12-05] MEDS ORDERED: NS 1000 ML 1,000 ML IV SCH (06:00)
[2018-12-05 06:13] LABS: PLATELET MORPHOLOGY COMMENT NORMAL (NORMAL)
[2018-12-05] MEDS ORDERED: NS 1000 ML 1,000 ML ONE (06:14)
[2018-12-05] MEDS ORDERED: ALLEGRA ONE (08:30)
[2018-12-05] MEDS: MIRALAX POWDER (1 DOSE 17 G) PO SCH (08:48)
[2018-12-05] MEDS: FORTAZ or TAZICEF VIAL INJ IVP SCH ×2 (08:48→21:10)
[2018-12-05] MEDS: LASIX IVP SCH (08:48)
[2018-12-05] MEDS: SINGULAIR TAB 10 MG PO SCH (08:49)
[2018-12-05] MEDS: NORVASC TAB 5 MG PO SCH (08:49)
[2018-12-05] MEDS: FOLIC ACID TAB 1 MG PO SCH (08:49)
[2018-12-05] MEDS: TOPROL XL PO SCH (08:49)
[2018-12-05] MEDS: TAB-A-VITE PO SCH (08:49)
[2018-12-05] MEDS: COLACE CAP 100 MG PO SCH ×2 (08:49→21:10)
[2018-12-05] MEDS: COZAAR PO SCH (08:49)
[2018-12-05] MEDS: LANOXIN PO SCH (08:50)
[2018-12-05] MEDS: HEMOCYTE-PLUS PO SCH (08:50)
[2018-12-05] MEDS: MICRO K EXTEN CAP 10 MEQ PO SCH (08:50)
[2018-12-05] MEDS: OXYBUTYNIN CHLORIDE ER PO SCH (08:51)
[2018-12-05] MEDS: FLONASE NASAL SPRAY ENOSTRIL SCH ×2 (08:51→21:10)
[2018-12-05] MEDS: CITRACAL + VITAMIN D PO SCH (08:51)
[2018-12-05] MEDS: ALLEGRA PO SCH (08:51)
[2018-12-05] MEDS: ARTIFICIAL TEARS DROPS EACHEYE SCH ×4 (08:52→21:10)
[2018-12-05] MEDS: DUONEB 0.5 MG/3 MG NEB SCH ×4 (09:01→20:08)
[2018-12-05] MEDS: ALBUMIN HUMAN 25%- 100 ML 100 ML IV SCH (12:45)
--- NOTE | 2018-12-05 15:19 | RAD ---
History: Shortness of breath Exam: Portable chest Comparison: 09/06/2017 Technique: Multiple grayscale and color flow Doppler images of the pelvis were obtained. Findings: The heart is borderline enlarged but unchanged. The pulmonary vessels are normal. The lungs are mildly hyperinflated and emphysematous. There are mild chronic interstitial changes throughout with mild linear scarring along the lung bases. There is some hazy right infrahilar opacity which is more apparent. IMPRESSION: Diffuse chronic lung changes with a questionable early right infrahilar infiltrate. Reported By:
[2018-12-05] MEDS: NORCO 5/325 MG TAB PO PRN (17:41)
[2018-12-05] MEDS ORDERED: NORMODYNE INJ 100 MG VIAL ONE (18:27)
[2018-12-05] MEDS: NORMODYNE INJ 20 MG VIAL IVP PRN (18:30)
[2018-12-05] MEDS ORDERED: SALINE 3% 15 ML NEB TX NEB ONE (20:06)
[2018-12-05] MEDS: DESYREL PO SCH (21:10)
[2018-12-06 05:24] LABS: BASOPHILS % (AUTO) 0.2 % (0.2-1.0); EOSINOPHILS # (AUTO) 0.2 x10^3/uL (0.0-0.2); EOSINOPHILS % (AUTO) 1.4 % (0.9-2.9); HEMOGLOBIN 11.4 g/dL (12.0-16.0); LYMPHOCYTES # (AUTO) 0.9 X10^3/uL (1.3-2.9); LYMPHOCYTES % (AUTO) 6.3 % (21.0-51.0); MEAN CORPUSCULAR HEMOGLOBIN 31.5 pg (27.0-34.0); MEAN CORPUSCULAR HGB CONC 34.6 g/dL (33.0-35.0); MEAN PLATELET VOLUME 6.3 fL (7.4-11.0); MONOCYTES # (AUTO) 1.9 x10^3/uL (0.3-0.8); MONOCYTES % (AUTO) 12.9 % (0.0-13.0); NEUTROPHILS # (AUTO) 11.7 x10^3/uL (2.2-4.8); NEUTROPHILS % (AUTO) 79.2 % (42.0-75.0); PLATELET COUNT 78 X10^3/uL (150.0-450.0); RED BLOOD COUNT 3.63 X10^6/uL (3.5-5.4); RED CELL DISTRIBUTION WIDTH 13.3 % (11.6-16.5); WHITE BLOOD COUNT 14.8 X10^3/uL (3.6-10.0)
[2018-12-06 05:43] LABS: ALANINE AMINOTRANSFERASE 19 Units/L (12-78); ALBUMIN 2.5 g/dL (3.4-5.0); ALKALINE PHOSPHATASE 84 Units/L (46-116); ASPARTATE AMINO TRANSFERASE 20 Units/L (15-37); BLOOD UREA NITROGEN 9 mg/dL (7-18); CALCIUM 8.7 mg/dL (8.5-10.1); CARBON DIOXIDE 30.2 mmol/L (21-32); CHLORIDE 93 mmol/L (98-107); COR CA(FOR HYPOALB) 9.9 mg/dL (8.5-10.1); COR NA(FOR HYPERGLY) 129 mmol/L (136-145); CREATININE 0.68 mg/dL (0.55-1.02); SODIUM 129 mmol/L (136-145); eGFR NON BLACK RACES > 60 (>60)
[2018-12-06 05:57] LABS: BAND NEUTROPHILS % 4 % (0-10)
[2018-12-06 05:58] LABS: PLATELET MORPHOLOGY COMMENT NORMAL (NORMAL)
[2018-12-06] MEDS: MICRO K EXTEN CAP 10 MEQ PO PRN ×2 (06:20→07:00)
[2018-12-06] MEDS ORDERED: ALLEGRA ONE (07:30)
[2018-12-06] MEDS: ALBUMIN HUMAN 25%- 100 ML 100 ML IV SCH (08:24)
[2018-12-06] MEDS: LASIX IVP SCH (08:28)
[2018-12-06] MEDS: FORTAZ or TAZICEF VIAL INJ IVP SCH ×2 (08:29→21:15)
[2018-12-06] MEDS ORDERED: KLOR-CON PO PRN (08:30)
[2018-12-06] MEDS ORDERED: K-DUR TAB 20 MEQ PO PRN (08:30)
[2018-12-06] MEDS ORDERED: K-RIDER 10 MEQ/NS 100 ML 10 MEQ/100 ML BAG IV PRN (08:30)
[2018-12-06] MEDS ORDERED: MICRO K EXTEN CAP 10 MEQ PO PRN (08:30)
[2018-12-06] MEDS ORDERED: POTASSIUM CHLORIDE LIQ 20 MEQ UDC PO PRN (08:30)
[2018-12-06] MEDS ORDERED: POTASSIUM CHL 40 MEQ/NS 0.45% 500 ML IV PRN (08:30)
[2018-12-06] MEDS ORDERED: POTASSIUM CHL 60 MEQ/NS 0.45% 500 ML IV PRN (08:30)
[2018-12-06] MEDS: ARTIFICIAL TEARS DROPS EACHEYE SCH ×4 (08:43→21:15)
[2018-12-06] MEDS: FLONASE NASAL SPRAY ENOSTRIL SCH ×2 (09:05→21:15)
[2018-12-06] MEDS: DIFLUCAN 200 MG IV PREMIX* 200 MG/100 ML BAG IV SCH (09:19)
[2018-12-06] MEDS: DUONEB 0.5 MG/3 MG NEB SCH ×4 (09:31→19:59)
[2018-12-06] MEDS: TOPROL XL PO SCH (09:55)
[2018-12-06] MEDS: COZAAR PO SCH (09:55)
[2018-12-06] MEDS: OXYBUTYNIN CHLORIDE ER PO SCH (10:03)
[2018-12-06] MEDS: NORVASC TAB 5 MG PO SCH (10:06)
[2018-12-06] MEDS: LANOXIN PO SCH (10:15)
[2018-12-06] MEDS: MICRO K EXTEN CAP 10 MEQ PO SCH (10:23)
[2018-12-06] MEDS: FOLIC ACID TAB 1 MG PO SCH (10:25)
[2018-12-06] MEDS: SINGULAIR TAB 10 MG PO SCH (10:26)
[2018-12-06] MEDS: HEMOCYTE-PLUS PO SCH (10:31)
[2018-12-06] MEDS: ALLEGRA PO SCH (10:32)
[2018-12-06] MEDS: TAB-A-VITE PO SCH (10:32)
[2018-12-06] MEDS: COLACE CAP 100 MG PO SCH ×2 (10:33→21:15)
[2018-12-06] MEDS: MIRALAX POWDER (1 DOSE 17 G) PO SCH (10:33)
[2018-12-06] MEDS: NS 1000 ML 1,000 ML IV SCH (10:41)
[2018-12-06] MEDS: SOLU-Cortef INJ IVP SCH ×3 (10:50→22:17)
[2018-12-06] MEDS: CITRACAL + VITAMIN D PO SCH (10:50)
[2018-12-06] MEDS: MAGNESIUM SULFATE 1 GRAM/100 mL PREMIX 1 GM/100 ML BAG IV PRN ×2 (10:58→12:49)
[2018-12-06] MEDS: DESYREL PO SCH (21:15)
[2018-12-07 05:17] LABS: BASOPHILS % (AUTO) 0.1 % (0.2-1.0); EOSINOPHILS % (AUTO) 0.1 % (0.9-2.9); HEMATOCRIT 26.6 % (36.0-47.0); LYMPHOCYTES # (AUTO) 0.8 X10^3/uL (1.3-2.9); LYMPHOCYTES % (AUTO) 5.7 % (21.0-51.0); MEAN CORPUSCULAR HEMOGLOBIN 32.2 pg (27.0-34.0); MEAN CORPUSCULAR HGB CONC 35.2 g/dL (33.0-35.0); MEAN CORPUSCULAR VOLUME 91.6 fL (80.0-100.0); MEAN PLATELET VOLUME 6.5 fL (7.4-11.0); MONOCYTES # (AUTO) 1.9 x10^3/uL (0.3-0.8); MONOCYTES % (AUTO) 13.7 % (0.0-13.0); NEUTROPHILS # (AUTO) 10.9 x10^3/uL (2.2-4.8); NEUTROPHILS % (AUTO) 80.4 % (42.0-75.0); PLATELET COUNT 97 X10^3/uL (150.0-450.0); RED BLOOD COUNT 2.91 X10^6/uL (3.5-5.4); RED CELL DISTRIBUTION WIDTH 13.6 % (11.6-16.5); WHITE BLOOD COUNT 13.5 X10^3/uL (3.6-10.0)
[2018-12-07 05:23] LABS: ALANINE AMINOTRANSFERASE 18 Units/L (12-78); ALBUMIN 2.5 g/dL (3.4-5.0); ALKALINE PHOSPHATASE 71 Units/L (46-116); ASPARTATE AMINO TRANSFERASE 21 Units/L (15-37); BLOOD UREA NITROGEN 9 mg/dL (7-18); CALCIUM 8.3 mg/dL (8.5-10.1); CARBON DIOXIDE 27.9 mmol/L (21-32); CHLORIDE 98 mmol/L (98-107); COR CA(FOR HYPOALB) 9.5 mg/dL (8.5-10.1); COR NA(FOR HYPERGLY) 134 mmol/L (136-145); CREATININE 0.66 mg/dL (0.55-1.02); MAGNESIUM 2.3 mg/dL (1.7-2.9); SODIUM 133 mmol/L (136-145); TOTAL PROTEIN 5.8 g/dL (6.4-8.2); eGFR NON BLACK RACES > 60 (>60)
[2018-12-07 05:28] LABS: HEMOGLOBIN 9.4 g/dL (12.0-16.0)
[2018-12-07 05:47] LABS: BAND NEUTROPHILS % 2 % (0-10); PLATELET MORPHOLOGY COMMENT NORMAL (NORMAL)
[2018-12-07] MEDS: NS 1000 ML 1,000 ML IV SCH ×2 (06:08→19:34)
[2018-12-07] MEDS: SOLU-Cortef INJ IVP SCH ×3 (06:08→21:09)
[2018-12-07] MEDS: NORMODYNE INJ 20 MG VIAL IVP PRN (06:35)
[2018-12-07] MEDS ORDERED: ALLEGRA ONE ×2 (08:30→11:06)
[2018-12-07] MEDS: FORTAZ or TAZICEF VIAL INJ IVP SCH ×2 (08:39→20:31)
[2018-12-07] MEDS: ALBUMIN HUMAN 25%- 100 ML 100 ML IV SCH (08:44)
[2018-12-07] MEDS: DUONEB 0.5 MG/3 MG NEB SCH ×4 (08:53→20:50)
[2018-12-07] MEDS: ARTIFICIAL TEARS DROPS EACHEYE SCH ×4 (09:34→20:30)
[2018-12-07] MEDS: DIFLUCAN 200 MG IV PREMIX* 200 MG/100 ML BAG IV SCH (09:36)
[2018-12-07] MEDS: FLONASE NASAL SPRAY ENOSTRIL SCH ×2 (09:37→20:30)
[2018-12-07] MEDS: COZAAR PO SCH (10:20)
[2018-12-07] MEDS: NORVASC TAB 5 MG PO SCH (10:32)
[2018-12-07] MEDS: SINGULAIR TAB 10 MG PO SCH (10:38)
[2018-12-07] MEDS: TOPROL XL PO SCH (10:41)
[2018-12-07] MEDS: FOLIC ACID TAB 1 MG PO SCH (10:45)
[2018-12-07] MEDS: LANOXIN PO SCH (10:50)
[2018-12-07] MEDS: OXYBUTYNIN CHLORIDE ER PO SCH (10:50)
[2018-12-07] MEDS: MIRALAX POWDER (1 DOSE 17 G) PO SCH (10:53)
[2018-12-07] MEDS: TAB-A-VITE PO SCH (10:53)
[2018-12-07] MEDS: MICRO K EXTEN CAP 10 MEQ PO SCH (10:56)
[2018-12-07] MEDS: HEMOCYTE-PLUS PO SCH (10:56)
[2018-12-07] MEDS: COLACE CAP 100 MG PO SCH ×2 (10:57→20:30)
[2018-12-07] MEDS: ALLEGRA PO SCH (11:08)
[2018-12-07] MEDS: CITRACAL + VITAMIN D PO SCH (11:09)
[2018-12-07] MEDS: K-DUR TAB 20 MEQ PO PRN (14:59)
[2018-12-07] MEDS: DESYREL PO SCH (20:30)
[2018-12-08] MEDS: SOLU-Cortef INJ IVP SCH ×3 (05:11→22:00)
[2018-12-08 05:24] LABS: BASOPHILS % (AUTO) 0.3 % (0.2-1.0); EOSINOPHILS % (AUTO) 0.4 % (0.9-2.9); HEMATOCRIT 27.7 % (36.0-47.0); HEMOGLOBIN 9.7 g/dL (12.0-16.0); LYMPHOCYTES # (AUTO) 1.3 X10^3/uL (1.3-2.9); LYMPHOCYTES % (AUTO) 12.3 % (21.0-51.0); MEAN CORPUSCULAR HEMOGLOBIN 32.2 pg (27.0-34.0); MEAN CORPUSCULAR VOLUME 91.9 fL (80.0-100.0); MEAN PLATELET VOLUME 5.7 fL (7.4-11.0); MONOCYTES # (AUTO) 1.9 x10^3/uL (0.3-0.8); MONOCYTES % (AUTO) 17.4 % (0.0-13.0); NEUTROPHILS # (AUTO) 7.6 x10^3/uL (2.2-4.8); NEUTROPHILS % (AUTO) 69.6 % (42.0-75.0); PLATELET COUNT 155 X10^3/uL (150.0-450.0); RED BLOOD COUNT 3.01 X10^6/uL (3.5-5.4); RED CELL DISTRIBUTION WIDTH 13.5 % (11.6-16.5)
[2018-12-08 05:39] LABS: ALANINE AMINOTRANSFERASE 28 Units/L (12-78); ALBUMIN 2.9 g/dL (3.4-5.0); ALKALINE PHOSPHATASE 65 Units/L (46-116); ASPARTATE AMINO TRANSFERASE 28 Units/L (15-37); BLOOD UREA NITROGEN 9 mg/dL (7-18); CALCIUM 8.7 mg/dL (8.5-10.1); CARBON DIOXIDE 27.7 mmol/L (21-32); CHLORIDE 105 mmol/L (98-107); COR CA(FOR HYPOALB) 9.6 mg/dL (8.5-10.1); CREATININE 0.58 mg/dL (0.55-1.02); SODIUM 139 mmol/L (136-145); TOTAL PROTEIN 6.2 g/dL (6.4-8.2); eGFR NON BLACK RACES > 60 (>60)
[2018-12-08] MEDS: K-RIDER 10 MEQ/NS 100 ML 10 MEQ/100 ML BAG IV PRN ×2 (05:55→07:11)
[2018-12-08 06:12] LABS: BAND NEUTROPHILS % 3 % (0-10)
[2018-12-08 06:13] LABS: PLATELET MORPHOLOGY COMMENT NORMAL (NORMAL)
[2018-12-08] MEDS ORDERED: ALLEGRA ONE (08:36)
[2018-12-08] MEDS: DUONEB 0.5 MG/3 MG NEB SCH ×4 (09:25→21:16)
[2018-12-08] MEDS: ALBUMIN HUMAN 25%- 100 ML 100 ML IV SCH (09:29)
[2018-12-08] MEDS: ALLEGRA PO SCH (09:31)
[2018-12-08] MEDS: ARTIFICIAL TEARS DROPS EACHEYE SCH ×4 (09:32→20:55)
[2018-12-08] MEDS: CITRACAL + VITAMIN D PO SCH (09:32)
[2018-12-08] MEDS: COZAAR PO SCH ×2 (09:32→14:19)
[2018-12-08] MEDS: DIFLUCAN 200 MG IV PREMIX* 200 MG/100 ML BAG IV SCH (09:32)
[2018-12-08] MEDS: COLACE CAP 100 MG PO SCH ×2 (09:32→20:55)
[2018-12-08] MEDS: LANOXIN PO SCH (09:33)
[2018-12-08] MEDS: FORTAZ or TAZICEF VIAL INJ IVP SCH ×3 (09:33→21:25)
[2018-12-08] MEDS: HEMOCYTE-PLUS PO SCH (09:33)
[2018-12-08] MEDS: FLONASE NASAL SPRAY ENOSTRIL SCH ×2 (09:33→20:55)
[2018-12-08] MEDS: FOLIC ACID TAB 1 MG PO SCH (09:33)
[2018-12-08] MEDS: NORVASC TAB 5 MG PO SCH (09:34)
[2018-12-08] MEDS: MICRO K EXTEN CAP 10 MEQ PO SCH (09:34)
[2018-12-08] MEDS: MIRALAX POWDER (1 DOSE 17 G) PO SCH (09:34)
[2018-12-08] MEDS: TOPROL XL PO SCH (09:35)
[2018-12-08] MEDS: SINGULAIR TAB 10 MG PO SCH (09:35)
[2018-12-08] MEDS: OXYBUTYNIN CHLORIDE ER PO SCH (09:35)
[2018-12-08] MEDS: TAB-A-VITE PO SCH (09:35)
[2018-12-08] MEDS: PEPCID 20 MG IV PREMIX* 20 MG/50 ML BAG IV SCH ×2 (10:37→20:55)
[2018-12-08] MEDS: LEVSIN/MAALOX/LIDOC VISC PO SCH ×4 (10:40→22:00)
--- NOTE | 2018-12-08 10:54 | PCM.PROG ---
Progress Note - Progress Note for Day of Date of Exam: 12/04/18 - Subjective Subjective: WAS ADMITTED FOR UROSEPSIS AND ALTERED MENTAL STATUS. TODAY, SHE IS LYING IN BED WITH EYES OPEN ON MORNING ROUNDS. FAMILY AND STAFF REPORT THAT SHE HAS BEEN CALM AND WITHOUT DISTRESS THIS MORNING. FAMILY REPORTS THAT PATIENT HAS A DECREASED APPETITE. ON EXAMINATION, SHE IS NOTED WITH SCATTERED RHONCHI. HER VITALS THIS MORNING ARE 98.2-82-17-97%-169/81. LABS WERE OBTAINED. ABNORMAL LAB VALUES INCLUDE THE FOLLOWING: RBC 3.41, 10.8, HCT 31.4, SODIUM 129, GLUCOSE 102, CALCIUM 7.8, TOTAL PROTEIN 5.6, ALBUMIN 1.9. BLOOD CULTURES PENDING. URINE CULTURE POSITIVE FOR GROWTH OF PROTEUS MIRABILIS. SHE IS CURRENTLY RECEIVING IV FORTAZ. HER BLOOD PRESSURE HAS REMAINED ELEVATED THROUGHOUT THE NIGHT. TODAY, WE WILL START METOPROLOL 25MG XL, ONE HALF TABLET DAILY. OTHERWISE, WE WILL CONTINUE WITH CURRENT PLAN OF CARE. WE PLAN TO FOLLOW UP WITH AM LABS AND CONTINUE TO MONITOR. - Past Medical Family Social History Past Med/Fam/Surg Hx: No changes since H&P Allergies: Allergies tuberculin,PPD,multi-puncture Allergy (Verified 09/10/18 18:54) - Review of Systems ROS: No change since H&P - Vital Signs and I&O's Vital Signs: Temperature 98.3 F Pulse Rate [Left Brachial] 88 Pulse Rate 134 Respiratory Rate 17 Blood Pressure [Right Calf] 109/62 Blood Pressure [Right Arm] 158/70 Blood Pressure [Left Arm] 141/74 Blood Pressure 186/99 O2 Sat by Pulse Oximetry 95 Intake and Output: Intake & Output 12/05/18 12/06/18 12/07/18 12/08/18 10:59 10:59 11:59 11:59 Intake Total 2557 / 2557 Output Total Balance 2557 / 2557 - Physical Exam Oriented: Person Eyes: Normal Ear: Normal Nose: Normal Throat: Normal Respiratory: Normal Cardiovascular: Normal : Normal Auscultation: Bowel Sounds: Normal Palpation: Normal Tenderness: Suprapubic Skin: Normal Musculoskeletal: Normal Psychiatric: Agitation Mood Description: Anxious Affect: Anxious Speech Pattern: Clear, Appropriate, Delayed - Laboratory and Diagnostics Result Diagrams: 12/08/18 05:14 12/08/18 05:14 Labs: 12/05/18 10:10 Stool Stool Culture - Final 12/05/18 10:10 Stool - Final 11/30/18 13:56 Blood Blood Culture - Final 11/30/18 13:52 Blood Blood Culture - Final Laboratory WBC 11.0 X10^3/uL (3.6-10.0) H 12/08/18 05:14 RBC 3.01 X10^6/uL (3.5-5.4) L 12/08/18 05:14 Hgb 9.7 g/dL (12.0-16.0) L 12/08/18 05:14 Hct 27.7 % (36.0-47.0) L 12/08/18 05:14 MCV 91.9 fL (80.0-100.0) 12/08/18 05:14 MCH 32.2 pg (27.0-34.0) 12/08/18 05:14 MCHC 35.0 g/dL (33.0-35.0) 12/08/18 05:14 RDW 13.5 % (11.6-16.5) 12/08/18 05:14 Plt Count 155 X10^3/uL (150.0-450.0) 12/08/18 05:14 Plt Count Comment Adequate (ADEQUATE) 12/08/18 05:14 MPV 5.7 fL (7.4-11.0) L 12/08/18 05:14 Neut % (Auto) 69.6 % (42.0-75.0) 12/08/18 05:14 Lymph % (Auto) 12.3 % (21.0-51.0) L 12/08/18 05:14 [place] % (Auto) 17.4 % (0.0-13.0) H 12/08/18 05:14 Eos % (Auto) 0.4 % (0.9-2.9) L 12/08/18 05:14 Baso % (Auto) 0.3 % (0.2-1.0) 12/08/18 05:14 Neut # (Auto) 7.6 x10^3/uL (2.2-4.8) H 12/08/18 05:14 Lymph # (Auto) 1.3 X10^3/uL (1.3-2.9) 12/08/18 05:14 [place] # (Auto) 1.9 x10^3/uL (0.3-0.8) H 12/08/18 05:14 Eos # (Auto) 0.0 x10^3/uL (0.0-0.2) 12/08/18 05:14 Baso # (Auto) 0.0 X10^3/uL (0.0-0.1) 12/08/18 05:14 Absolute Nucleated RBC 0.0 /100WBC 12/08/18 05:14 Total Counted 100 12/08/18 05:14 Neutrophils % (Manual) 69 % (39-76) 12/08/18 05:14 Band Neutrophils % 3 % (0-10) 12/08/18 05:14 Lymphocytes % (Manual) 16 % (13-43) 12/08/18 05:14 Monocytes % (Manual) 9 % (4-9) 12/08/18 05:14 Eosinophils % (Manual) 1 % (0-6) 12/08/18 05:14 Atypical Lymphocytes 2 12/08/18 05:14 Plt Morphology Comment Normal (NORMAL) 12/08/18 05:14 RBC Morphology Normal (NORMAL) 12/08/18 05:14 Sample Site Lr 11/30/18 14:08 ABG pH 7.410 (7.35-7.45) 11/30/18 14:08 ABG pCO2 46.0 mmHg (35.0-45.0) H 11/30/18 14:08 ABG pO2 60.0 mmHg (80.0-100.0) L 11/30/18 14:08 ABG HCO3 29.2 mmol/L (22-26) H 11/30/18 14:08 ABG O2 Saturation 91.0 % (90-100) 11/30/18 14:08 ABG Base Excess 3.8 mmol/L (-2.0-2.0) H 11/30/18 14:08 Chris Test Pos 11/30/18 14:08 A-a Gradient 82.0 mmHg 11/30/18 14:08 FiO2 28.0 11/30/18 14:08 Blood Gas Comments Pt osbaldo well. cdn 11/30/18 14:08 Sodium 139 mmol/L (136-145) 12/08/18 05:14 Corrected Sodium TNP 12/08/18 05:14 Potassium 3.0 mmol/L (3.5-5.1) L* 12/08/18 05:14 Chloride 105 mmol/L (98-107) 12/08/18 05:14 Carbon Dioxide 27.7 mmol/L (21-32) 12/08/18 05:14 BUN 9 mg/dL (7-18) 12/08/18 05:14 Creatinine 0.58 mg/dL (0.55-1.02) 12/08/18 05:14 Est GFR (MDRD) Af Amer > 60 (>60) 12/08/18 05:14 Est GFR (MDRD) Non-Af > 60 (>60) 12/08/18 05:14 Glucose 107 mg/dL (65-99) H 12/08/18 05:14 Lactic Acid 1.6 mmol/L (0.4-2.0) 11/30/18 13:56 Calcium 8.7 mg/dL (8.5-10.1) 12/08/18 05:14 Corrected Calcium 9.6 mg/dL (8.5-10.1) 12/08/18 05:14 Magnesium 2.3 mg/dL (1.7-2.9) 12/07/18 04:55 Total Bilirubin 0.30 mg/dL (0.2-1.0) 12/08/18 05:14 AST 28 Units/L (15-37) 12/08/18 05:14 ALT 28 Units/L (12-78) 12/08/18 05:14 Alkaline Phosphatase 65 Units/L (46-116) 12/08/18 05:14 Creatine Kinase 33 Units/L (26-192) 12/01/18 04:50 CK-MB (CK-2) 1.3 ng/mL (0-4.0) 12/01/18 04:50 CK/CKMB % Calc 3.9 % (<4) 12/01/18 04:50 Troponin I 0.05 ng/mL (0-1.5) 12/01/18 04:50 C-Reactive Protein 159.40 mg/L (0-3.0) H 11/30/18 13:56 Total Protein 6.2 g/dL (6.4-8.2) L 12/08/18 05:14 Albumin 2.9 g/dL (3.4-5.0) L 12/08/18 05:14 Globulin 3.3 g/dL (2.5-4.5) 12/08/18 05:14 Albumin/Globulin Ratio 0.9 Ratio (1.1-2.1) L 12/08/18 05:14 Specimen Type Catherized urine 11/30/18 14:21 Urine Color Yellow (YELLOW) 11/30/18 14:21 Urine Appearance Cloudy (CLEAR) 11/30/18 14:21 Urine pH 9.0 (5.0 - 8.0) 11/30/18 14:21 Ur Specific [place] 1.015 (1.000-1.030) 11/30/18 14:21 Urine Protein 2+ (NEGATIVE) 11/30/18 14:21 Urine Glucose (UA) Negative (NEGATIVE) 11/30/18 14:21 Urine Ketones 4+ (NEGATIVE) 11/30/18 14:21 Urine Occult Blood 4+ (NEGATIVE) 11/30/18 14:21 Urine Nitrite Negative (NEGATIVE) 11/30/18 14:21 Urine Bilirubin Negative (NEGATIVE) 11/30/18 14:21 Urine Urobilinogen Normal (NORMAL) 11/30/18 14:21 Ur Leukocyte Esterase 3+ (NEGATIVE) 11/30/18 14:21 Urine RBC 3-5 /HPF (NONE SEEN) 11/30/18 14:21 Urine WBC Tntc /HPF (NONE SEEN) 11/30/18 14:21 Ur Squamous Epith Cells Rare /HPF (NEGATIVE) 11/30/18 14:21 Amorphous Sediment 3+ /HPF (NEGATIVE) 11/30/18 14:21 Urine Bacteria 4+ /HPF (NEGATIVE) 11/30/18 14:21 Ur Culture Indicated? Yes/culture set up 11/30/18 14:21 Stool Description 8g,brown,liquid 12/05/18 10:10 Stl Occult Blood (IFOB) Negative (NEGATIVE) 12/05/18 10:10 Stl C. diff Tox B Gene Negative (NEGATIVE) 12/05/18 10:10 Stl C. diff [id number] Negative (NEGATIVE) 12/05/18 10:10 Digoxin 1.11 ng/mL (0.9-2) 12/05/18 10:15 - Plan (1) Urinary tract infection Status: Acute Qualifiers: Urinary tract infection type: acute cystitis Hematuria presence: with hematuria Qualified Code(s): N30.01 - Acute cystitis with hematuria Plan: NORMAL SALINE AT 125ML/HR, IV FORTAZ, IV LEVAQUIN, IV HYDRATION, CONTINUE TO MONITOR (2) Altered mental status Status: Acute Qualifiers: Altered mental status type: transient alteration of awareness Qualified Code(s): R40.4 - Transient alteration of awareness Plan: haldol 1-2mg iv q4h prn, continue to monitor (3) Dehydration Status: Acute Plan: NORMAL SALINE AT 125ML/HR (4) Hypertension Status: Chronic Qualifiers: Hypertension type: essential hypertension Qualified Code(s): I10 - Essential (primary) hypertension Plan: CONTINUE HOME MEDS,METOPROLOL XL 25MG ONE HALF TABLET DAILY, NORVASC TO 10MG PO DAILY, CONTINUE TO MONITOR
[2018-12-08] MEDS: PROTONIX INJ 40 MG VIAL IVP SCH ×2 (12:03→20:55)
[2018-12-08] MEDS: NS 1000 ML 1,000 ML IV SCH ×2 (13:15)
[2018-12-08] MEDS ORDERED: NS 100 ML IV 100 ML IV ONE (13:40)
[2018-12-08] MEDS: POTASSIUM CHL 40 MEQ/NS 0.45% 500 ML IV PRN (14:16)
--- NOTE | 2018-12-08 15:26 | CT ---
CT OF THE ABDOMEN AND PELVIS WITH CONTRAST HISTORY: Abdominal pain and distention Comparison: 07/01/2017 Technique: Multiple axial images of the abdomen and pelvis were obtained from the lung bases to the pubic symphysis follow the administration of IV contrast as well as oral contrast. Dose reduction techniques including Automated Exposure Control (AEC) and adjustment of mA and kV were utlized. Findings: Cardiomegaly. There is no pericardial effusion. Small bilateral effusions with adjacent atelectasis/consolidation. Liver and spleen are normal in size, enhancement characteristics and contour. No focal lesions. The portal vein is patent. No ductal dilitation. Gallbladder absent. The pancreas is unremarkable. Adrenal glands are normal. Kidneys enhance symmetrically without hydronephrosis or nephrolithiasis. Simple bilateral renal cysts. There is severe inflammation of the distal-most rectum with some perirectal fat stranding and fluid. Severe diverticulosis. No abnormal appearing mesenteric or retroperitoneal lymph nodes. No free fluid or fluid collections. The bladder is normal in appearance. Uterus appears to be absent. No free fluid or abnormal pelvic lymph nodes. No aggressive osseous lesions. IMPRESSION: 1. Findings suggestive of acute proctitis. Correlate clinically. 2. Cardiomegaly with small bilateral pleural effusions and adjacent atelectasis. Reported By:
[2018-12-08] MEDS: DESYREL PO SCH (20:55)
[2018-12-08] MEDS: NORCO 5/325 MG TAB PO PRN (21:50)
--- NOTE | 2018-12-08 21:50 | PCM.PROG ---
Progress Note - Progress Note for Day of Date of Exam: 12/08/18 - Subjective Subjective: WAS ADMITTED FOR UROSEPSIS AND ALTERED MENTAL STATUS. TODAY, SHE IS LYING IN BED WITH EYES OPEN ON MORNING ROUNDS. FAMILY AND STAFF REPORT THAT SHE HAS BEEN CALM AND WITHOUT DISTRESS THIS MORNING. SHE CONTINUES WITH DECREASED APPETITE AND IS NOT SPEAKING MUCH. SHE DOES REPORT ABDOMINAL PAIN. ON EXAMINATION, SHE IS NOTED WITH SCATTERED RHONCHI. ABDOMEN IS NOTED WITH DISTENTION. HYPOACTIVE BOWEL SOUNDS NOTED. HER VITALS THIS MORNING ARE 98.2-123-17-95%-156/63 MANUAL. LABS WERE OBTAINED. ABNORMAL LAB VALUES INCLUDE THE FOLLOWING: WBC DECREASED FROM 13.5 TO 11.0, RBC 3.01, HGB 9.7, HCT 27.7, POTASSIUM 3.0, GLUCOSE 107, TOTAL PROTEIN 6.2, ALBUMIN 2.9. URINE CULTURE POSITIVE FOR GROWTH OF PROTEUS MIRABILIS. SHE IS CURRENTLY RECEIVING IV FORTAZ. TODAY, WE WILL START PEPCID 20MG IV BID, PROTONIX 40MG IV BID, AND GI COCKTAIL QID. WE WILL OBTAIN AN ABDOMEN/PELVIS CT WITH CONTRAST. OTHERWISE, WE WILL CONTINUE WITH CURRENT PLAN OF CARE. WE PLAN TO FOLLOW UP WITH AM LABS AND CONTIN UE TO MONITOR. - Past Medical Family Social History Past Med/Fam/Surg Hx: No changes since H&P Allergies: Allergies tuberculin,PPD,multi-puncture Allergy (Verified 09/10/18 18:54) - Review of Systems ROS: No change since H&P - Vital Signs and I&O's Vital Signs: Temperature 98.5 F Pulse Rate [Left Brachial] 88 Pulse Rate 112 Respiratory Rate 21 Blood Pressure [Right Calf] 109/62 Blood Pressure [Right Arm] 158/70 Blood Pressure [Left Arm] 141/74 Blood Pressure 162/67 O2 Sat by Pulse Oximetry 99 Intake and Output: Intake & Output 12/06/18 12/07/18 12/08/18 12/09/18 10:59 11:59 11:59 11:59 Intake Total 2557 / 2557 1205 / 1205 Balance 2557 / 2557 1205 / 1205 - Physical Exam Oriented: Normal Eyes: Normal Ear: Normal Nose: Normal Throat: Normal Respiratory: Normal Cardiovascular: Normal : Normal Auscultation: Bowel Sounds: Normal Tenderness: Diffuse, Suprapubic Skin: Normal Musculoskeletal: Normal Psychiatric: Agitation Mood Description: Anxious Affect: Anxious Speech Pattern: Clear, Appropriate, Delayed - Laboratory and Diagnostics Result Diagrams: 12/08/18 05:14 12/08/18 05:14 Labs: 12/05/18 10:10 Stool Stool Culture - Final 12/05/18 10:10 Stool - Final 11/30/18 13:56 Blood Blood Culture - Final 11/30/18 13:52 Blood Blood Culture - Final Laboratory WBC 11.0 X10^3/uL (3.6-10.0) H 12/08/18 05:14 RBC 3.01 X10^6/uL (3.5-5.4) L 12/08/18 05:14 Hgb 9.7 g/dL (12.0-16.0) L 12/08/18 05:14 Hct 27.7 % (36.0-47.0) L 12/08/18 05:14 MCV 91.9 fL (80.0-100.0) 12/08/18 05:14 MCH 32.2 pg (27.0-34.0) 12/08/18 05:14 MCHC 35.0 g/dL (33.0-35.0) 12/08/18 05:14 RDW 13.5 % (11.6-16.5) 12/08/18 05:14 Plt Count 155 X10^3/uL (150.0-450.0) 12/08/18 05:14 Plt Count Comment Adequate (ADEQUATE) 12/08/18 05:14 MPV 5.7 fL (7.4-11.0) L 12/08/18 05:14 Neut % (Auto) 69.6 % (42.0-75.0) 12/08/18 05:14 Lymph % (Auto) 12.3 % (21.0-51.0) L 12/08/18 05:14 [place] % (Auto) 17.4 % (0.0-13.0) H 12/08/18 05:14 Eos % (Auto) 0.4 % (0.9-2.9) L 12/08/18 05:14 Baso % (Auto) 0.3 % (0.2-1.0) 12/08/18 05:14 Neut # (Auto) 7.6 x10^3/uL (2.2-4.8) H 12/08/18 05:14 Lymph # (Auto) 1.3 X10^3/uL (1.3-2.9) 12/08/18 05:14 [place] # (Auto) 1.9 x10^3/uL (0.3-0.8) H 12/08/18 05:14 Eos # (Auto) 0.0 x10^3/uL (0.0-0.2) 12/08/18 05:14 Baso # (Auto) 0.0 X10^3/uL (0.0-0.1) 12/08/18 05:14 Absolute Nucleated RBC 0.0 /100WBC 12/08/18 05:14 Total Counted 100 12/08/18 05:14 Neutrophils % (Manual) 69 % (39-76) 12/08/18 05:14 Band Neutrophils % 3 % (0-10) 12/08/18 05:14 Lymphocytes % (Manual) 16 % (13-43) 12/08/18 05:14 Monocytes % (Manual) 9 % (4-9) 12/08/18 05:14 Eosinophils % (Manual) 1 % (0-6) 12/08/18 05:14 Atypical Lymphocytes 2 12/08/18 05:14 Plt Morphology Comment Normal (NORMAL) 12/08/18 05:14 RBC Morphology Normal (NORMAL) 12/08/18 05:14 Sample Site Lr 11/30/18 14:08 ABG pH 7.410 (7.35-7.45) 11/30/18 14:08 ABG pCO2 46.0 mmHg (35.0-45.0) H 11/30/18 14:08 ABG pO2 60.0 mmHg (80.0-100.0) L 11/30/18 14:08 ABG HCO3 29.2 mmol/L (22-26) H 11/30/18 14:08 ABG O2 Saturation 91.0 % (90-100) 11/30/18 14:08 ABG Base Excess 3.8 mmol/L (-2.0-2.0) H 11/30/18 14:08 Chris Test Pos 11/30/18 14:08 A-a Gradient 82.0 mmHg 11/30/18 14:08 FiO2 28.0 11/30/18 14:08 Blood Gas Comments Pt osbaldo well. cdn 11/30/18 14:08 Sodium 139 mmol/L (136-145) 12/08/18 05:14 Corrected Sodium TNP 12/08/18 05:14 Potassium 3.0 mmol/L (3.5-5.1) L* 12/08/18 05:14 Chloride 105 mmol/L (98-107) 12/08/18 05:14 Carbon Dioxide 27.7 mmol/L (21-32) 12/08/18 05:14 BUN 9 mg/dL (7-18) 12/08/18 05:14 Creatinine 0.58 mg/dL (0.55-1.02) 12/08/18 05:14 Est GFR (MDRD) Af Amer > 60 (>60) 12/08/18 05:14 Est GFR (MDRD) Non-Af > 60 (>60) 12/08/18 05:14 Glucose 107 mg/dL (65-99) H 12/08/18 05:14 Lactic Acid 1.6 mmol/L (0.4-2.0) 11/30/18 13:56 Calcium 8.7 mg/dL (8.5-10.1) 12/08/18 05:14 Corrected Calcium 9.6 mg/dL (8.5-10.1) 12/08/18 05:14 Magnesium 2.3 mg/dL (1.7-2.9) 12/07/18 04:55 Total Bilirubin 0.30 mg/dL (0.2-1.0) 12/08/18 05:14 AST 28 Units/L (15-37) 12/08/18 05:14 ALT 28 Units/L (12-78) 12/08/18 05:14 Alkaline Phosphatase 65 Units/L (46-116) 12/08/18 05:14 Creatine Kinase 33 Units/L (26-192) 12/01/18 04:50 CK-MB (CK-2) 1.3 ng/mL (0-4.0) 12/01/18 04:50 CK/CKMB % Calc 3.9 % (<4) 12/01/18 04:50 Troponin I 0.05 ng/mL (0-1.5) 12/01/18 04:50 C-Reactive Protein 159.40 mg/L (0-3.0) H 11/30/18 13:56 Total Protein 6.2 g/dL (6.4-8.2) L 12/08/18 05:14 Albumin 2.9 g/dL (3.4-5.0) L 12/08/18 05:14 Globulin 3.3 g/dL (2.5-4.5) 12/08/18 05:14 Albumin/Globulin Ratio 0.9 Ratio (1.1-2.1) L 12/08/18 05:14 Specimen Type Catherized urine 11/30/18 14:21 Urine Color Yellow (YELLOW) 11/30/18 14:21 Urine Appearance Cloudy (CLEAR) 11/30/18 14:21 Urine pH 9.0 (5.0 - 8.0) 11/30/18 14:21 Ur Specific [place] 1.015 (1.000-1.030) 11/30/18 14:21 Urine Protein 2+ (NEGATIVE) 11/30/18 14:21 Urine Glucose (UA) Negative (NEGATIVE) 11/30/18 14:21 Urine Ketones 4+ (NEGATIVE) 11/30/18 14:21 Urine Occult Blood 4+ (NEGATIVE) 11/30/18 14:21 Urine Nitrite Negative (NEGATIVE) 11/30/18 14:21 Urine Bilirubin Negative (NEGATIVE) 11/30/18 14:21 Urine Urobilinogen Normal (NORMAL) 11/30/18 14:21 Ur Leukocyte Esterase 3+ (NEGATIVE) 11/30/18 14:21 Urine RBC 3-5 /HPF (NONE SEEN) 11/30/18 14:21 Urine WBC Tntc /HPF (NONE SEEN) 11/30/18 14:21 Ur Squamous Epith Cells Rare /HPF (NEGATIVE) 11/30/18 14:21 Amorphous Sediment 3+ /HPF (NEGATIVE) 11/30/18 14:21 Urine Bacteria 4+ /HPF (NEGATIVE) 11/30/18 14:21 Ur Culture Indicated? Yes/culture set up 11/30/18 14:21 Stool Description 8g,brown,liquid 12/05/18 10:10 Stl Occult Blood (IFOB) Negative (NEGATIVE) 12/05/18 10:10 Stl C. diff Tox B Gene Negative (NEGATIVE) 12/05/18 10:10 Stl C. diff [id number] Negative (NEGATIVE) 12/05/18 10:10 Digoxin 1.11 ng/mL (0.9-2) 12/05/18 10:15 - Plan (1) Urinary tract infection Status: Acute Qualifiers: Urinary tract infection type: acute cystitis Hematuria presence: with hematuria Qualified Code(s): N30.01 - Acute cystitis with hematuria Plan: NORMAL SALINE AT 125ML/HR, IV FORTAZ, IV LEVAQUIN, IV HYDRATION, CONTINUE TO MONITOR (2) Altered mental status Status: Acute Qualifiers: Altered mental status type: transient alteration of awareness Qualified Code(s): R40.4 - Transient alteration of awareness Plan: haldol 1-2mg iv q4h prn, continue to monitor (3) Dehydration Status: Acute Plan: CONTINUE IV HYDRATION, CONTINUE TO MONITOR (4) Hypertension Status: Chronic Qualifiers: Hypertension type: essential hypertension Qualified Code(s): I10 - Essential (primary) hypertension Plan: CONTINUE HOME MEDS,METOPROLOL XL 25MG ONE HALF TABLET DAILY, NORVASC TO 10MG PO DAILY, CONTINUE TO MONITOR (5) Abdominal pain Status: Acute Qualifiers: Abdominal location: generalized Qualified Code(s): R10.84 - Generalized abdominal pain Plan: OBTAIN ABDOMEN/PELVIS CT, START PEPCID/PROTONIX/GI COCKTAIL, CONTINUE TO MONITOR
[2018-12-09] MEDS: NS 1000 ML 1,000 ML IV SCH ×2 (03:36→16:33)
[2018-12-09 05:20] LABS: BASOPHILS % (AUTO) 0.3 % (0.2-1.0); EOSINOPHILS % (AUTO) 0.5 % (0.9-2.9); HEMATOCRIT 25.7 % (36.0-47.0); HEMOGLOBIN 8.9 g/dL (12.0-16.0); MEAN CORPUSCULAR HGB CONC 34.7 g/dL (33.0-35.0); MEAN CORPUSCULAR VOLUME 92.3 fL (80.0-100.0); MEAN PLATELET VOLUME 5.6 fL (7.4-11.0); MONOCYTES # (AUTO) 1.3 x10^3/uL (0.3-0.8); MONOCYTES % (AUTO) 15.1 % (0.0-13.0); NEUTROPHILS # (AUTO) 6.2 x10^3/uL (2.2-4.8); NEUTROPHILS % (AUTO) 72.1 % (42.0-75.0); PLATELET COUNT 178 X10^3/uL (150.0-450.0); RED BLOOD COUNT 2.78 X10^6/uL (3.5-5.4); RED CELL DISTRIBUTION WIDTH 13.9 % (11.6-16.5); WHITE BLOOD COUNT 8.7 X10^3/uL (3.6-10.0)
[2018-12-09 05:39] LABS: ALANINE AMINOTRANSFERASE 24 Units/L (12-78); ALKALINE PHOSPHATASE 58 Units/L (46-116); ASPARTATE AMINO TRANSFERASE 19 Units/L (15-37); BLOOD UREA NITROGEN 8 mg/dL (7-18); CALCIUM 8.5 mg/dL (8.5-10.1); CARBON DIOXIDE 26.7 mmol/L (21-32); CHLORIDE 105 mmol/L (98-107); COR CA(FOR HYPOALB) 9.3 mg/dL (8.5-10.1); SODIUM 138 mmol/L (136-145); eGFR NON BLACK RACES > 60 (>60)
[2018-12-09] MEDS: SOLU-Cortef INJ IVP SCH ×3 (06:21→22:05)
[2018-12-09] MEDS: FORTAZ or TAZICEF VIAL INJ IVP SCH ×3 (06:21→22:04)
[2018-12-09 06:38] LABS: BAND NEUTROPHILS % 1 % (0-10); PLATELET MORPHOLOGY COMMENT NORMAL (NORMAL)
[2018-12-09] MEDS: DUONEB 0.5 MG/3 MG NEB SCH ×4 (08:30→20:17)
[2018-12-09] MEDS ORDERED: ALLEGRA ONE (08:35)
[2018-12-09] MEDS: MIRALAX POWDER (1 DOSE 17 G) PO SCH (08:45)
[2018-12-09] MEDS: ARTIFICIAL TEARS DROPS EACHEYE SCH ×4 (08:45→21:13)
[2018-12-09] MEDS: CATAPRES-TTS-3 TD SCH (08:46)
[2018-12-09] MEDS: FLONASE NASAL SPRAY ENOSTRIL SCH ×2 (08:46→21:14)
[2018-12-09] MEDS: COZAAR PO SCH (08:48)
[2018-12-09] MEDS: OXYBUTYNIN CHLORIDE ER PO SCH (08:49)
[2018-12-09] MEDS: TOPROL XL PO SCH (08:49)
[2018-12-09] MEDS: ALLEGRA PO SCH (08:49)
[2018-12-09] MEDS: TAB-A-VITE PO SCH (08:49)
[2018-12-09] MEDS: NORVASC TAB 5 MG PO SCH (08:49)
[2018-12-09] MEDS: PROTONIX INJ 40 MG VIAL IVP SCH ×2 (08:50→21:00)
[2018-12-09] MEDS: COLACE CAP 100 MG PO SCH ×2 (08:50→21:00)
[2018-12-09] MEDS: FOLIC ACID TAB 1 MG PO SCH (08:50)
[2018-12-09] MEDS: SINGULAIR TAB 10 MG PO SCH (08:50)
[2018-12-09] MEDS: HEMOCYTE-PLUS PO SCH (08:50)
[2018-12-09] MEDS: LANOXIN PO SCH (08:51)
[2018-12-09] MEDS: MICRO K EXTEN CAP 10 MEQ PO SCH (08:51)
[2018-12-09] MEDS: LEVSIN/MAALOX/LIDOC VISC PO SCH ×4 (08:52→21:00)
[2018-12-09] MEDS: ALBUMIN HUMAN 25%- 100 ML 100 ML IV SCH (08:52)
[2018-12-09] MEDS: DIFLUCAN 200 MG IV PREMIX* 200 MG/100 ML BAG IV SCH (08:55)
[2018-12-09] MEDS: NORCO 5/325 MG TAB PO PRN ×2 (09:10→23:00)
[2018-12-09] MEDS: PEPCID 20 MG IV PREMIX* 20 MG/50 ML BAG IV SCH ×2 (09:48→21:00)
[2018-12-09] MEDS ORDERED: CARDIZEM INJ 125 MG VIAL ONE (10:05)
[2018-12-09] MEDS ORDERED: NS 100 ML IV 100 ML IV ONE (10:05)
[2018-12-09] MEDS: HALDOL INJ IM PRN ×2 (10:25→16:49)
[2018-12-09] MEDS: CARDIZEM INJ 125 MG VIAL 125 MG in NS 100 ML IV 100 ML IV PRN ×2 (10:27→21:00)
[2018-12-09] MEDS: CITRACAL + VITAMIN D PO SCH (10:28)
[2018-12-09] MEDS: MILK OF MAGNESIA PO SCH ×2 (17:18→21:00)
[2018-12-09] MEDS: DESYREL PO SCH (21:00)
--- NOTE | 2018-12-09 21:47 | PCM.PROG ---
Progress Note - Progress Note for Day of Date of Exam: 12/09/18 - Subjective Subjective: WAS ADMITTED FOR UROSEPSIS AND ALTERED MENTAL STATUS. TODAY, SHE IS LYING IN BED ON MORNING ROUNDS. SHE CONTINUES WITH DECREASED APPETITE AND ABDOMINAL PAIN. STAFF REPORTS THAT HER HEART RATE HAS BEEN ELEVATED THIS MONRING AND HER BLOOD PRESSURE LOWER THAN NORMAL. ON EXAMINATION, SHE CONTINUES WITH SCATTERED RHONCHI. ABDOMEN IS NOTED WITH DISTENTION. HYPOACTIVE BOWEL SOUNDS NOTED. HER VITALS THIS MORNING ARE 98.3-117-17-99%-183/76. HR HAS BEEN 150S-160S THIS MORNING. LABS WERE OBTAINED. ABNORMAL LAB VALUES INCLUDE THE FOLLOWING: RBC 2.78, HGB 8.9, HCT 25.7, GLUCOSE 108, TOTAL PROTEIN 6.0, ALBUMIN 3.0. AN ABDOMEN/PELVIS CT WAS OBTAINED YESTERDAY AND REVEALED: Findings suggest isamar of acute proctitis. Correlate clinically. Cardiomegaly with small bilateral pleural effusions and adjacent atelectasis. URINE CULTURE POSITIVE FOR GROWTH OF PROTEUS MIRABILIS. SHE IS CURRENTLY RECEIVING IV FORTAZ. TODAY, WE WILL START A CARDIZEM DRIP LONG HER BLOOD PRESSURE WILL TOLERATE IT. OTHERWISE, WE WILL CONTINUE WITH CURRENT PLAN OF CARE. WE PLAN TO FOLLOW UP WITH AM LABS AND CONT INUE TO MONITOR. - Past Medical Family Social History Past Med/Fam/Surg Hx: No changes since H&P Allergies: Allergies tuberculin,PPD,multi-puncture Allergy (Verified 09/10/18 18:54) - Review of Systems ROS: No change since H&P - Vital Signs and I&O's Vital Signs: Temperature 99.0 F Pulse Rate [Left Brachial] 88 Pulse Rate 96 Respiratory Rate 38 Blood Pressure [Right Calf] 109/62 Blood Pressure [Right Arm] 158/70 Blood Pressure [Left Arm] 141/74 Blood Pressure 148/65 O2 Sat by Pulse Oximetry 93 Intake and Output: Intake & Output 12/07/18 12/08/18 12/09/18 12/10/18 11:59 11:59 11:59 11:59 Intake Total 2557 / 2557 3043 / 3043 1151 / 1151 Balance 2557 / 2557 3043 / 3043 1151 / 1151 - Physical Exam Oriented: Normal Eyes: Normal Ear: Normal Nose: Normal Throat: Normal Respiratory: Normal Cardiovascular: Normal : Normal Auscultation: Bowel Sounds: Normal Palpation: Normal Tenderness: Diffuse, Suprapubic Skin: Normal Musculoskeletal: Normal Psychiatric: Agitation Mood Description: Anxious Affect: Anxious Speech Pattern: Clear, Appropriate, Delayed - Laboratory and Diagnostics Result Diagrams: 12/09/18 04:51 12/09/18 04:51 Labs: 12/05/18 10:10 Stool Stool Culture - Final 12/05/18 10:10 Stool - Final 11/30/18 13:56 Blood Blood Culture - Final 11/30/18 13:52 Blood Blood Culture - Final Laboratory WBC 8.7 X10^3/uL (3.6-10.0) 12/09/18 04:51 RBC 2.78 X10^6/uL (3.5-5.4) L 12/09/18 04:51 Hgb 8.9 g/dL (12.0-16.0) L 12/09/18 04:51 Hct 25.7 % (36.0-47.0) L 12/09/18 04:51 MCV 92.3 fL (80.0-100.0) 12/09/18 04:51 MCH 32.0 pg (27.0-34.0) 12/09/18 04:51 MCHC 34.7 g/dL (33.0-35.0) 12/09/18 04:51 RDW 13.9 % (11.6-16.5) 12/09/18 04:51 Plt Count 178 X10^3/uL (150.0-450.0) 12/09/18 04:51 Plt Count Comment Adequate (ADEQUATE) 12/09/18 04:51 MPV 5.6 fL (7.4-11.0) L 12/09/18 04:51 Neut % (Auto) 72.1 % (42.0-75.0) 12/09/18 04:51 Lymph % (Auto) 12.0 % (21.0-51.0) L 12/09/18 04:51 [place] % (Auto) 15.1 % (0.0-13.0) H 12/09/18 04:51 Eos % (Auto) 0.5 % (0.9-2.9) L 12/09/18 04:51 Baso % (Auto) 0.3 % (0.2-1.0) 12/09/18 04:51 Neut # (Auto) 6.2 x10^3/uL (2.2-4.8) H 12/09/18 04:51 Lymph # (Auto) 1.0 X10^3/uL (1.3-2.9) L 12/09/18 04:51 [place] # (Auto) 1.3 x10^3/uL (0.3-0.8) H 12/09/18 04:51 Eos # (Auto) 0.0 x10^3/uL (0.0-0.2) 12/09/18 04:51 Baso # (Auto) 0.0 X10^3/uL (0.0-0.1) 12/09/18 04:51 Absolute Nucleated RBC 0.1 /100WBC 12/09/18 04:51 Total Counted 100 12/09/18 04:51 Neutrophils % (Manual) 75 % (39-76) 12/09/18 04:51 Band Neutrophils % 1 % (0-10) 12/09/18 04:51 Lymphocytes % (Manual) 9 % (13-43) L 12/09/18 04:51 Monocytes % (Manual) 15 % (4-9) H 12/09/18 04:51 Eosinophils % (Manual) 1 % (0-6) 12/08/18 05:14 Atypical Lymphocytes 2 12/08/18 05:14 Plt Morphology Comment Normal (NORMAL) 12/09/18 04:51 RBC Morphology Normal (NORMAL) 12/09/18 04:51 Sample Site Lr 11/30/18 14:08 ABG pH 7.410 (7.35-7.45) 11/30/18 14:08 ABG pCO2 46.0 mmHg (35.0-45.0) H 11/30/18 14:08 ABG pO2 60.0 mmHg (80.0-100.0) L 11/30/18 14:08 ABG HCO3 29.2 mmol/L (22-26) H 11/30/18 14:08 ABG O2 Saturation 91.0 % (90-100) 11/30/18 14:08 ABG Base Excess 3.8 mmol/L (-2.0-2.0) H 11/30/18 14:08 Chris Test Pos 11/30/18 14:08 A-a Gradient 82.0 mmHg 11/30/18 14:08 FiO2 28.0 11/30/18 14:08 Blood Gas Comments Pt osbaldo well. cdn 11/30/18 14:08 Sodium 138 mmol/L (136-145) 12/09/18 04:51 Corrected Sodium TNP 12/09/18 04:51 Potassium 3.9 mmol/L (3.5-5.1) 12/09/18 04:51 Chloride 105 mmol/L (98-107) 12/09/18 04:51 Carbon Dioxide 26.7 mmol/L (21-32) 12/09/18 04:51 BUN 8 mg/dL (7-18) 12/09/18 04:51 Creatinine 0.70 mg/dL (0.55-1.02) 12/09/18 04:51 Est GFR (MDRD) Af Amer > 60 (>60) 12/09/18 04:51 Est GFR (MDRD) Non-Af > 60 (>60) 12/09/18 04:51 Glucose 108 mg/dL (65-99) H 12/09/18 04:51 Lactic Acid 1.6 mmol/L (0.4-2.0) 11/30/18 13:56 Calcium 8.5 mg/dL (8.5-10.1) 12/09/18 04:51 Corrected Calcium 9.3 mg/dL (8.5-10.1) 12/09/18 04:51 Magnesium 2.3 mg/dL (1.7-2.9) 12/07/18 04:55 Total Bilirubin 0.30 mg/dL (0.2-1.0) 12/09/18 04:51 AST 19 Units/L (15-37) 12/09/18 04:51 ALT 24 Units/L (12-78) 12/09/18 04:51 Alkaline Phosphatase 58 Units/L (46-116) 12/09/18 04:51 Creatine Kinase 33 Units/L (26-192) 12/01/18 04:50 CK-MB (CK-2) 1.3 ng/mL (0-4.0) 12/01/18 04:50 CK/CKMB % Calc 3.9 % (<4) 12/01/18 04:50 Troponin I 0.05 ng/mL (0-1.5) 12/01/18 04:50 C-Reactive Protein 159.40 mg/L (0-3.0) H 11/30/18 13:56 Total Protein 6.0 g/dL (6.4-8.2) L 12/09/18 04:51 Albumin 3.0 g/dL (3.4-5.0) L 12/09/18 04:51 Globulin 3.0 g/dL (2.5-4.5) 12/09/18 04:51 Albumin/Globulin Ratio 1.0 Ratio (1.1-2.1) L 12/09/18 04:51 Specimen Type Catherized urine 11/30/18 14:21 Urine Color Yellow (YELLOW) 11/30/18 14:21 Urine Appearance Cloudy (CLEAR) 11/30/18 14:21 Urine pH 9.0 (5.0 - 8.0) 11/30/18 14:21 Ur Specific [place] 1.015 (1.000-1.030) 11/30/18 14:21 Urine Protein 2+ (NEGATIVE) 11/30/18 14:21 Urine Glucose (UA) Negative (NEGATIVE) 11/30/18 14:21 Urine Ketones 4+ (NEGATIVE) 11/30/18 14:21 Urine Occult Blood 4+ (NEGATIVE) 11/30/18 14:21 Urine Nitrite Negative (NEGATIVE) 11/30/18 14:21 Urine Bilirubin Negative (NEGATIVE) 11/30/18 14:21 Urine Urobilinogen Normal (NORMAL) 11/30/18 14:21 Ur Leukocyte Esterase 3+ (NEGATIVE) 11/30/18 14:21 Urine RBC 3-5 /HPF (NONE SEEN) 11/30/18 14:21 Urine WBC Tntc /HPF (NONE SEEN) 11/30/18 14:21 Ur Squamous Epith Cells Rare /HPF (NEGATIVE) 11/30/18 14:21 Amorphous Sediment 3+ /HPF (NEGATIVE) 11/30/18 14:21 Urine Bacteria 4+ /HPF (NEGATIVE) 11/30/18 14:21 Ur Culture Indicated? Yes/culture set up 11/30/18 14:21 Stool Description 8g,brown,liquid 12/05/18 10:10 Stl Occult Blood (IFOB) Negative (NEGATIVE) 12/05/18 10:10 Stl C. diff Tox B Gene Negative (NEGATIVE) 12/05/18 10:10 Stl C. diff [id number] Negative (NEGATIVE) 12/05/18 10:10 Digoxin 1.11 ng/mL (0.9-2) 12/05/18 10:15 - Plan (1) Urinary tract infection Status: Acute Qualifiers: Urinary tract infection type: acute cystitis Hematuria presence: with hematuria Qualified Code(s): N30.01 - Acute cystitis with hematuria Plan: NORMAL SALINE AT 125ML/HR, IV FORTAZ, IV LEVAQUIN, IV HYDRATION, CONTINUE TO MONITOR (2) Altered mental status Status: Acute Qualifiers: Altered mental status type: transient alteration of awareness Qualified Code(s): R40.4 - Transient alteration of awareness Plan: haldol 1-2mg iv q4h prn, continue to monitor (3) Dehydration Status: Acute Plan: CONTINUE IV HYDRATION, CONTINUE TO MONITOR (4) Hypertension Status: Chronic Qualifiers: Hypertension type: essential hypertension Qualified Code(s): I10 - Essential (primary) hypertension Plan: CONTINUE HOME MEDS,METOPROLOL XL 25MG ONE HALF TABLET DAILY, NORVASC TO 10MG PO DAILY, CONTINUE TO MONITOR (5) Abdominal pain Status: Acute Qualifiers: Abdominal location: generalized Qualified Code(s): R10.84 - Generalized abdominal pain Plan: OBTAIN ABDOMEN/PELVIS CT, START PEPCID/PROTONIX/GI COCKTAIL, CONTINUE TO MONITOR (6) Atrial fibrillation Status: Acute Qualifiers: Atrial fibrillation type: unspecified Qualified Code(s): I48.91 - Unspecified atrial fibrillation Plan: CARDIZEM DRIP, [employer] ADMINISTRATOR, CONTINUE TO MONITOR
[2018-12-10] MEDS: NS 1000 ML 1,000 ML IV SCH ×3 (02:43→17:53)
[2018-12-10 05:37] LABS: BASOPHILS % (AUTO) 0.4 % (0.2-1.0); EOSINOPHILS % (AUTO) 0.1 % (0.9-2.9); HEMATOCRIT 23.5 % (36.0-47.0); HEMOGLOBIN 8.1 g/dL (12.0-16.0); LYMPHOCYTES # (AUTO) 0.9 X10^3/uL (1.3-2.9); MEAN CORPUSCULAR HGB CONC 34.4 g/dL (33.0-35.0); MEAN CORPUSCULAR VOLUME 92.9 fL (80.0-100.0); MEAN PLATELET VOLUME 5.6 fL (7.4-11.0); MONOCYTES # (AUTO) 1.4 x10^3/uL (0.3-0.8); MONOCYTES % (AUTO) 16.1 % (0.0-13.0); NEUTROPHILS # (AUTO) 6.5 x10^3/uL (2.2-4.8); NEUTROPHILS % (AUTO) 73.4 % (42.0-75.0); PLATELET COUNT 182 X10^3/uL (150.0-450.0); RED BLOOD COUNT 2.53 X10^6/uL (3.5-5.4); RED CELL DISTRIBUTION WIDTH 14.1 % (11.6-16.5); WHITE BLOOD COUNT 8.8 X10^3/uL (3.6-10.0)
[2018-12-10 05:51] LABS: ALANINE AMINOTRANSFERASE 21 Units/L (12-78); ALBUMIN 3.2 g/dL (3.4-5.0); ALKALINE PHOSPHATASE 51 Units/L (46-116); ASPARTATE AMINO TRANSFERASE 15 Units/L (15-37); BLOOD UREA NITROGEN 10 mg/dL (7-18); CALCIUM 8.7 mg/dL (8.5-10.1); CHLORIDE 107 mmol/L (98-107); COR CA(FOR HYPOALB) 9.3 mg/dL (8.5-10.1); COR NA(FOR HYPERGLY) 141 mmol/L (136-145); CREATININE 0.73 mg/dL (0.55-1.02); SODIUM 140 mmol/L (136-145); TOTAL PROTEIN 6.1 g/dL (6.4-8.2); eGFR NON BLACK RACES > 60 (>60)
[2018-12-10 06:18] LABS: BAND NEUTROPHILS % 4 % (0-10); PLATELET MORPHOLOGY COMMENT NORMAL (NORMAL)
[2018-12-10] MEDS: SOLU-Cortef INJ IVP SCH ×3 (06:24→21:55)
[2018-12-10] MEDS: FORTAZ or TAZICEF VIAL INJ IVP SCH ×3 (06:24→21:55)
--- NOTE | 2018-12-10 06:53 | RAD ---
HISTORY: Abdominal pain, abdominal distension Study: KUB Comparison: CT abdomen pelvis 12/08/2018 Findings: The abdominal gas pattern is nonspecific and nonobstructive. There is a moderately large amount of stool present in the right colon. No abnormal masses or abnormal calcifications are identified. There is residual contrast within the bladder from prior CT examination. IMPRESSION: No definite acute abnormality Moderately large amount of stool in the right colon Reported By:
[2018-12-10] MEDS: DUONEB 0.5 MG/3 MG NEB SCH ×4 (08:30→20:04)
[2018-12-10] MEDS ORDERED: ALLEGRA ONE (08:41)
[2018-12-10] MEDS: TAB-A-VITE PO SCH (08:57)
[2018-12-10] MEDS: TOPROL XL PO SCH ×2 (08:57→10:01)
[2018-12-10] MEDS: COZAAR PO SCH (08:57)
[2018-12-10] MEDS: FOLIC ACID TAB 1 MG PO SCH (08:57)
[2018-12-10] MEDS: SINGULAIR TAB 10 MG PO SCH (08:57)
[2018-12-10] MEDS: PROTONIX INJ 40 MG VIAL IVP SCH ×2 (08:57→21:11)
[2018-12-10] MEDS: COLACE CAP 100 MG PO SCH ×2 (08:58→21:12)
[2018-12-10] MEDS: CITRACAL + VITAMIN D PO SCH (08:58)
[2018-12-10] MEDS: LANOXIN PO SCH (08:58)
[2018-12-10] MEDS: OXYBUTYNIN CHLORIDE ER PO SCH (08:59)
[2018-12-10] MEDS: NORVASC TAB 5 MG PO SCH (08:59)
[2018-12-10] MEDS: ALLEGRA PO SCH (08:59)
[2018-12-10] MEDS: MICRO K EXTEN CAP 10 MEQ PO SCH (09:00)
[2018-12-10] MEDS: MIRALAX POWDER (1 DOSE 17 G) PO SCH (09:00)
[2018-12-10] MEDS: MILK OF MAGNESIA PO SCH ×4 (09:00→21:12)
[2018-12-10] MEDS: LEVSIN/MAALOX/LIDOC VISC PO SCH ×4 (09:00→21:09)
[2018-12-10] MEDS: HEMOCYTE-PLUS PO SCH (09:00)
[2018-12-10] MEDS: DIFLUCAN 200 MG IV PREMIX* 200 MG/100 ML BAG IV SCH (09:01)
[2018-12-10] MEDS: PEPCID 20 MG IV PREMIX* 20 MG/50 ML BAG IV SCH ×2 (09:01→21:13)
[2018-12-10] MEDS: ALBUMIN HUMAN 25%- 100 ML 100 ML IV SCH (09:01)
[2018-12-10] MEDS: ARTIFICIAL TEARS DROPS EACHEYE SCH ×4 (09:02→21:13)
[2018-12-10] MEDS: FLONASE NASAL SPRAY ENOSTRIL SCH ×2 (09:02→21:13)
[2018-12-10] MEDS: CARDIZEM INJ 125 MG VIAL 125 MG in NS 100 ML IV 100 ML IV PRN (13:15)
[2018-12-10] MEDS ORDERED: LASIX IVP ONE (16:27)
[2018-12-10 16:40] LABS: ABG BASE EXCESS 3.6 mmol/L (-2.0-2.0); ABG HCO3 26.1 mmol/L (22-26)
[2018-12-10 16:42] LABS: ABG ALLEN TEST POS
--- NOTE | 2018-12-10 16:56 | RAD ---
Chest, one view Indication: Urosepsis, shortness of breath, acute decreased O2 sat Comparison: 12/05/2018 Findings: There is stable enlargement of the cardiac silhouette. There is pulmonary vascular congestion and diffuse bilateral interstitial prominence with Dontae B-lines, compatible with edema. There are also small right greater than left pleural effusions and atelectasis versus consolidation of the bilateral lung bases. Upper lungs remain clear. No pneumothorax. Impression: Imaging findings suggestive for decompensated CHF as above. Bibasilar opacities, either representing atelectasis and/or acute infiltrates. Correlate clinically. Reported By:
[2018-12-10] MEDS: HALDOL INJ IM PRN (17:15)
[2018-12-10] MEDS: DESYREL PO SCH (21:12)
--- NOTE | 2018-12-10 22:35 | PCM.PROG ---
Progress Note - Progress Note for Day of Date of Exam: 12/10/18 - Subjective Subjective: WAS ADMITTED FOR UROSEPSIS AND ALTERED MENTAL STATUS. TODAY, SHE IS LYING IN BED ON MORNING ROUNDS. SHE CONTINUES ABDOMINAL PAIN. STAFF REPORTS THAT SHE HAS NOT HAD A BOWEL MOVEMENT IN 4 DAYS. SHE REMAINS ON A CARDIZEM DRIP. HR HAS BEEN IN THE 70S-80S. ON EXAMINATION, SHE CONTINUES WITH SCATTERED RHONCHI. ABDOMEN IS NOTED WITH DISTENTION. HYPOACTIVE BOWEL SOUNDS NOTED. HER VITALS THIS MORNING ARE 98.3-95-17-92%-165/76. LABS WERE OBTAINED. ABNORMAL LAB VALUES INCLUDE THE FOLLOWING: RBC 2.53, HGB 8.1, HCT 23.5, GLUCOSE 128, TOTAL PROTEIN 6.1, ,ALBUMIN 3.2. A KUB WAS OBTAINED THIS MORNING. IT REVEALED: No definite acute abnormality. Moderately large amount of stool in the right colon. URINE CULTURE POSITIVE FOR GROWTH OF PROTEUS MIRABILIS. SHE IS CURRENTLY RECEIVING IV FORTAZ. TODAY, WE WILL INCREASE METOPROLOL XL TO 25MG PO DAILY AND ATTEMPT TO WEAN HER OFF OF THE DRIP. SHE IS RECEIVING COLACE, MILK OF MAGNESIA, AND MIRALAX FOR CONSTIPATION. OTHERWISE, WE WILL CONTINUE WITH CURRENT PLAN OF CARE. WE PLAN TO FOLLOW UP WITH AM LABS AND CONTINUE TO MONITOR. - Past Medical Family Social History Past Med/Fam/Surg Hx: No changes since H&P Allergies: Allergies tuberculin,PPD,multi-puncture Allergy (Verified 09/10/18 18:54) - Review of Systems ROS: No change since H&P - Vital Signs and I&O's Vital Signs: Temperature 97.8 F Pulse Rate [Left Brachial] 88 Pulse Rate 94 Respiratory Rate 20 Blood Pressure [Right Calf] 109/62 Blood Pressure [Right Arm] 158/70 Blood Pressure [Left Arm] 141/74 Blood Pressure 146/61 O2 Sat by Pulse Oximetry 90 Intake and Output: Intake & Output 12/08/18 12/09/18 12/10/18 12/11/18 11:59 11:59 11:59 11:59 Intake Total 2557 / 2557 3043 / 3043 3277 / 3277 1432 / 1432 Balance 2557 / 2557 3043 / 3043 3277 / 3277 1432 / 1432 - Physical Exam Oriented: Normal Eyes: Normal Ear: Normal Nose: Normal Throat: Normal Respiratory: Normal Cardiovascular: Normal : Normal Auscultation: Bowel Sounds: Normal Palpation: Normal Tenderness: Diffuse, Suprapubic Skin: Normal Musculoskeletal: Normal Psychiatric: Agitation Mood Description: Anxious Affect: Anxious Speech Pattern: Clear, Appropriate, Delayed - Laboratory and Diagnostics Result Diagrams: 12/10/18 05:24 12/10/18 05:24 Labs: 12/05/18 10:10 Stool Stool Culture - Final 12/05/18 10:10 Stool - Final 11/30/18 13:56 Blood Blood Culture - Final 11/30/18 13:52 Blood Blood Culture - Final Laboratory WBC 8.8 X10^3/uL (3.6-10.0) 12/10/18 05:24 RBC 2.53 X10^6/uL (3.5-5.4) L 12/10/18 05:24 Hgb 8.1 g/dL (12.0-16.0) L 12/10/18 05:24 Hct 23.5 % (36.0-47.0) L 12/10/18 05:24 MCV 92.9 fL (80.0-100.0) 12/10/18 05:24 MCH 32.0 pg (27.0-34.0) 12/10/18 05:24 MCHC 34.4 g/dL (33.0-35.0) 12/10/18 05:24 RDW 14.1 % (11.6-16.5) 12/10/18 05:24 Plt Count 182 X10^3/uL (150.0-450.0) 12/10/18 05:24 Plt Count Comment Adequate (ADEQUATE) 12/10/18 05:24 MPV 5.6 fL (7.4-11.0) L 12/10/18 05:24 Neut % (Auto) 73.4 % (42.0-75.0) 12/10/18 05:24 Lymph % (Auto) 10.0 % (21.0-51.0) L 12/10/18 05:24 [place] % (Auto) 16.1 % (0.0-13.0) H 12/10/18 05:24 Eos % (Auto) 0.1 % (0.9-2.9) L 12/10/18 05:24 Baso % (Auto) 0.4 % (0.2-1.0) 12/10/18 05:24 Neut # (Auto) 6.5 x10^3/uL (2.2-4.8) H 12/10/18 05:24 Lymph # (Auto) 0.9 X10^3/uL (1.3-2.9) L 12/10/18 05:24 [place] # (Auto) 1.4 x10^3/uL (0.3-0.8) H 12/10/18 05:24 Eos # (Auto) 0.0 x10^3/uL (0.0-0.2) 12/10/18 05:24 Baso # (Auto) 0.0 X10^3/uL (0.0-0.1) 12/10/18 05:24 Absolute Nucleated RBC 0.0 /100WBC 12/10/18 05:24 Total Counted 100 12/10/18 05:24 Neutrophils % (Manual) 73 % (39-76) 12/10/18 05:24 Band Neutrophils % 4 % (0-10) 12/10/18 05:24 Lymphocytes % (Manual) 10 % (13-43) L 12/10/18 05:24 Monocytes % (Manual) 12 % (4-9) H 12/10/18 05:24 Eosinophils % (Manual) 1 % (0-6) 12/10/18 05:24 Atypical Lymphocytes 2 12/08/18 05:14 Plt Morphology Comment Normal (NORMAL) 12/10/18 05:24 RBC Morphology Normal (NORMAL) 12/10/18 05:24 Sample Site Rr 12/10/18 16:36 ABG pH 7.520 (7.35-7.45) H 12/10/18 16:36 ABG pCO2 32.0 mmHg (35.0-45.0) L 12/10/18 16:36 ABG pO2 32.0 mmHg (80.0-100.0) L* 12/10/18 16:36 ABG HCO3 26.1 mmol/L (22-26) H 12/10/18 16:36 ABG O2 Saturation 70.0 % (90-100) L* 12/10/18 16:36 ABG Base Excess 3.6 mmol/L (-2.0-2.0) H 12/10/18 16:36 Chris Test Pos 12/10/18 16:36 A-a Gradient 156.0 mmHg 12/10/18 16:36 FiO2 32.0 12/10/18 16:36 Blood Gas Comments Sonya well cb 12/10/18 16:36 Sodium 140 mmol/L (136-145) 12/10/18 05:24 Corrected Sodium 141 mmol/L (136-145) 12/10/18 05:24 Potassium 3.6 mmol/L (3.5-5.1) 12/10/18 05:24 Chloride 107 mmol/L (98-107) 12/10/18 05:24 Carbon Dioxide 28.0 mmol/L (21-32) 12/10/18 05:24 BUN 10 mg/dL (7-18) 12/10/18 05:24 Creatinine 0.73 mg/dL (0.55-1.02) 12/10/18 05:24 Est GFR (MDRD) Af Amer > 60 (>60) 12/10/18 05:24 Est GFR (MDRD) Non-Af > 60 (>60) 12/10/18 05:24 Glucose 128 mg/dL (65-99) H 12/10/18 05:24 Lactic Acid 1.6 mmol/L (0.4-2.0) 11/30/18 13:56 Calcium 8.7 mg/dL (8.5-10.1) 12/10/18 05:24 Corrected Calcium 9.3 mg/dL (8.5-10.1) 12/10/18 05:24 Magnesium 2.3 mg/dL (1.7-2.9) 12/07/18 04:55 Total Bilirubin 0.30 mg/dL (0.2-1.0) 12/10/18 05:24 AST 15 Units/L (15-37) 12/10/18 05:24 ALT 21 Units/L (12-78) 12/10/18 05:24 Alkaline Phosphatase 51 Units/L (46-116) 12/10/18 05:24 Creatine Kinase 33 Units/L (26-192) 12/01/18 04:50 CK-MB (CK-2) 1.3 ng/mL (0-4.0) 12/01/18 04:50 CK/CKMB % Calc 3.9 % (<4) 12/01/18 04:50 Troponin I 0.05 ng/mL (0-1.5) 12/01/18 04:50 C-Reactive Protein 159.40 mg/L (0-3.0) H 11/30/18 13:56 Total Protein 6.1 g/dL (6.4-8.2) L 12/10/18 05:24 Albumin 3.2 g/dL (3.4-5.0) L 12/10/18 05:24 Globulin 2.9 g/dL (2.5-4.5) 12/10/18 05:24 Albumin/Globulin Ratio 1.1 Ratio (1.1-2.1) 12/10/18 05:24 Specimen Type Catherized urine 11/30/18 14:21 Urine Color Yellow (YELLOW) 11/30/18 14:21 Urine Appearance Cloudy (CLEAR) 11/30/18 14:21 Urine pH 9.0 (5.0 - 8.0) 11/30/18 14:21 Ur Specific [place] 1.015 (1.000-1.030) 11/30/18 14:21 Urine Protein 2+ (NEGATIVE) 11/30/18 14:21 Urine Glucose (UA) Negative (NEGATIVE) 11/30/18 14:21 Urine Ketones 4+ (NEGATIVE) 11/30/18 14:21 Urine Occult Blood 4+ (NEGATIVE) 11/30/18 14:21 Urine Nitrite Negative (NEGATIVE) 11/30/18 14:21 Urine Bilirubin Negative (NEGATIVE) 11/30/18 14:21 Urine Urobilinogen Normal (NORMAL) 11/30/18 14:21 Ur Leukocyte Esterase 3+ (NEGATIVE) 11/30/18 14:21 Urine RBC 3-5 /HPF (NONE SEEN) 11/30/18 14:21 Urine WBC Tntc /HPF (NONE SEEN) 11/30/18 14:21 Ur Squamous Epith Cells Rare /HPF (NEGATIVE) 11/30/18 14:21 Amorphous Sediment 3+ /HPF (NEGATIVE) 11/30/18 14:21 Urine Bacteria 4+ /HPF (NEGATIVE) 11/30/18 14:21 Ur Culture Indicated? Yes/culture set up 11/30/18 14:21 Stool Description 8g,brown,liquid 12/05/18 10:10 Stl Occult Blood (IFOB) Negative (NEGATIVE) 12/05/18 10:10 Stl C. diff Tox B Gene Negative (NEGATIVE) 12/05/18 10:10 Stl C. diff [id number]-NAP1-BI Negative (NEGATIVE) 12/05/18 10:10 Digoxin 1.11 ng/mL (0.9-2) 12/05/18 10:15 - Plan (1) Urinary tract infection Status: Acute Qualifiers: Urinary tract infection type: acute cystitis Hematuria presence: with hematuria Qualified Code(s): N30.01 - Acute cystitis with hematuria Plan: NORMAL SALINE AT 125ML/HR, IV FORTAZ, IV LEVAQUIN, IV HYDRATION, CONTINUE TO MONITOR (2) Altered mental status Status: Acute Qualifiers: Altered mental status type: transient alteration of awareness Qualified Code(s): R40.4 - Transient alteration of awareness Plan: haldol 1-2mg iv q4h prn, continue to monitor (3) Dehydration Status: Acute Plan: CONTINUE IV HYDRATION, CONTINUE TO MONITOR (4) Hypertension Status: Chronic Qualifiers: Hypertension type: essential hypertension Qualified Code(s): I10 - Essential (primary) hypertension Plan: CONTINUE HOME MEDS,METOPROLOL XL 25MG ONE HALF TABLET DAILY, NORVASC TO 10MG PO DAILY, CONTINUE TO MONITOR (5) Abdominal pain Status: Acute Qualifiers: Abdominal location: generalized Qualified Code(s): R10.84 - Generalized abdominal pain Plan: PEPCID/PROTONIX/GI COCKTAIL, CONTINUE TO MONITOR (6) Atrial fibrillation Status: Acute Qualifiers: Atrial fibrillation type: unspecified Qualified Code(s): I48.91 - Unspecified atrial fibrillation Plan: WEAN CARDIZEM DRIP, METOPROLOL XL 25MG PO DAILY, DIGOXIN PO, MILK DELIVERER, CONTINUE TO MONITOR (7) Constipation Status: Chronic Qualifiers: Constipation type: slow transit constipation Qualified Code(s): K59.01 - Slow transit constipation Plan: COLACE, MILK OF MAGNESIA, MIRALAX
[2018-12-11] MEDS: NS 1000 ML 1,000 ML IV SCH (01:30)
[2018-12-11] MEDS: CARDIZEM INJ 125 MG VIAL 125 MG in NS 100 ML IV 100 ML IV PRN ×2 (01:30→11:39)
[2018-12-11] MEDS: FORTAZ or TAZICEF VIAL INJ IVP SCH ×3 (05:35→21:16)
[2018-12-11] MEDS: SOLU-Cortef INJ IVP SCH ×3 (05:45→21:16)
[2018-12-11 06:27] LABS: ALANINE AMINOTRANSFERASE 18 Units/L (12-78); ALBUMIN 3.3 g/dL (3.4-5.0); ALKALINE PHOSPHATASE 55 Units/L (46-116); ASPARTATE AMINO TRANSFERASE 14 Units/L (15-37); BLOOD UREA NITROGEN 11 mg/dL (7-18); CARBON DIOXIDE 25.9 mmol/L (21-32); CHLORIDE 107 mmol/L (98-107); COR CA(FOR HYPOALB) 9.6 mg/dL (8.5-10.1); COR NA(FOR HYPERGLY) 145 mmol/L (136-145); CREATININE 0.85 mg/dL (0.55-1.02); SODIUM 145 mmol/L (136-145); TOTAL PROTEIN 6.3 g/dL (6.4-8.2); eGFR NON BLACK RACES > 60 (>60)
[2018-12-11 06:38] LABS: BASOPHILS % (AUTO) 0.1 % (0.2-1.0); HEMATOCRIT 24.2 % (36.0-47.0); HEMOGLOBIN 8.3 g/dL (12.0-16.0); LYMPHOCYTES # (AUTO) 1.1 X10^3/uL (1.3-2.9); LYMPHOCYTES % (AUTO) 6.6 % (21.0-51.0); MEAN CORPUSCULAR HEMOGLOBIN 31.9 pg (27.0-34.0); MEAN CORPUSCULAR HGB CONC 34.2 g/dL (33.0-35.0); MEAN CORPUSCULAR VOLUME 93.2 fL (80.0-100.0); MEAN PLATELET VOLUME 5.9 fL (7.4-11.0); MONOCYTES # (AUTO) 1.8 x10^3/uL (0.3-0.8); MONOCYTES % (AUTO) 10.6 % (0.0-13.0); NEUTROPHILS # (AUTO) 13.9 x10^3/uL (2.2-4.8); NEUTROPHILS % (AUTO) 82.7 % (42.0-75.0); PLATELET COUNT 179 X10^3/uL (150.0-450.0); RED BLOOD COUNT 2.59 X10^6/uL (3.5-5.4); WHITE BLOOD COUNT 16.8 X10^3/uL (3.6-10.0)
--- NOTE | 2018-12-11 07:47 | RAD ---
HISTORY: Shortness of breath Study: Chest AP portable Comparison: 12/10/2018 Findings: Heart size difficult to assess due to obscuration of the right heart border by increased density involving the right lower anjali thorax. This is likely due to pleural effusion and infiltrate increased when compared with the prior examination. The right upper lung field is clear. The left upper lung field is clear. There is increased density in the retrocardiac area of the left lower lobe which could be on the basis of consolidation, atelectasis, effusion, or combination. The bony thorax is unremarkable with the exception of bilateral chronic rotator cuff disease. IMPRESSION: Increasing density in the right lower anjali thorax likely due to increasing right lower lobe, right middle lobe infiltrates and right pleural effusion Increased density retrocardiac area left lower lobe which could be on the basis of atelectasis, consolidation, effusion or combination. Reported By:
[2018-12-11] MEDS: DUONEB 0.5 MG/3 MG NEB SCH ×4 (08:52→20:40)
[2018-12-11] MEDS ORDERED: ALLEGRA ONE (08:59)
[2018-12-11] MEDS: PEPCID 20 MG IV PREMIX* 20 MG/50 ML BAG IV SCH ×2 (09:08→20:50)
[2018-12-11] MEDS: ARTIFICIAL TEARS DROPS EACHEYE SCH ×4 (09:11→20:50)
[2018-12-11] MEDS: FLONASE NASAL SPRAY ENOSTRIL SCH ×2 (09:11→20:50)
[2018-12-11] MEDS: CITRACAL + VITAMIN D PO SCH (09:17)
[2018-12-11] MEDS: MIRALAX POWDER (1 DOSE 17 G) PO SCH (09:17)
[2018-12-11] MEDS: LASIX IVP SCH ×2 (09:17→20:51)
[2018-12-11] MEDS: COZAAR PO SCH (09:18)
[2018-12-11] MEDS: NORVASC TAB 5 MG PO SCH (09:18)
[2018-12-11] MEDS: FOLIC ACID TAB 1 MG PO SCH (09:19)
[2018-12-11] MEDS: ALLEGRA PO SCH (09:19)
[2018-12-11] MEDS: TOPROL XL PO SCH (09:20)
[2018-12-11] MEDS: TAB-A-VITE PO SCH (09:21)
[2018-12-11] MEDS: MICRO K EXTEN CAP 10 MEQ PO SCH (09:21)
[2018-12-11] MEDS: MILK OF MAGNESIA PO SCH ×4 (09:21→20:47)
[2018-12-11] MEDS: SINGULAIR TAB 10 MG PO SCH (09:21)
[2018-12-11] MEDS: HEMOCYTE-PLUS PO SCH (09:21)
[2018-12-11] MEDS: COLACE CAP 100 MG PO SCH ×2 (09:21→20:47)
[2018-12-11] MEDS: OXYBUTYNIN CHLORIDE ER PO SCH (09:22)
[2018-12-11] MEDS: LEVSIN/MAALOX/LIDOC VISC PO SCH ×4 (09:22→20:49)
[2018-12-11] MEDS: PROTONIX INJ 40 MG VIAL IVP SCH ×2 (09:25→20:51)
[2018-12-11] MEDS: ALBUMIN HUMAN 25%- 100 ML 100 ML IV SCH (09:33)
[2018-12-11] MEDS: LANOXIN PO SCH (09:40)
[2018-12-11 10:08] LABS: ABG BASE EXCESS 6.5 mmol/L (-2.0-2.0); ABG HCO3 28.4 mmol/L (22-26)
[2018-12-11 10:09] LABS: ABG ALLEN TEST POS
[2018-12-11] MEDS: DIFLUCAN 200 MG IV PREMIX* 200 MG/100 ML BAG IV SCH (10:18)
[2018-12-11] MEDS: NORCO 5/325 MG TAB PO PRN (10:37)
[2018-12-11] MEDS ORDERED: NS + KCL 20 MEQ/L 1,000 ML IV SCH (11:00)
[2018-12-11] MEDS: CIPRO IV 400 MG PREMIX* 400 MG/200 ML IV.SOLN. IV SCH ×2 (11:23→20:51)
[2018-12-11] MEDS: DESYREL PO SCH (20:47)
[2018-12-12] MEDS: CARDIZEM INJ 125 MG VIAL 125 MG in NS 100 ML IV 100 ML IV PRN ×2 (01:56→15:59)
[2018-12-12] MEDS: SOLU-Cortef INJ IVP SCH ×3 (05:29→21:05)
[2018-12-12] MEDS: FORTAZ or TAZICEF VIAL INJ IVP SCH (05:29)
[2018-12-12] MEDS: NORCO 5/325 MG TAB PO PRN (05:42)
[2018-12-12] MEDS: ROBITUSSIN DM PO PRN ×3 (05:43→20:14)
[2018-12-12 06:22] LABS: BASOPHILS % (AUTO) 0.1 % (0.2-1.0); HEMOGLOBIN 8.6 g/dL (12.0-16.0); LYMPHOCYTES % (AUTO) 5.7 % (21.0-51.0); MEAN CORPUSCULAR HEMOGLOBIN 31.6 pg (27.0-34.0); MEAN CORPUSCULAR HGB CONC 34.3 g/dL (33.0-35.0); MEAN CORPUSCULAR VOLUME 92.1 fL (80.0-100.0); MEAN PLATELET VOLUME 6.2 fL (7.4-11.0); MONOCYTES # (AUTO) 1.8 x10^3/uL (0.3-0.8); MONOCYTES % (AUTO) 10.2 % (0.0-13.0); NEUTROPHILS # (AUTO) 14.7 x10^3/uL (2.2-4.8); PLATELET COUNT 147 X10^3/uL (150.0-450.0); RED BLOOD COUNT 2.72 X10^6/uL (3.5-5.4); RED CELL DISTRIBUTION WIDTH 14.1 % (11.6-16.5); WHITE BLOOD COUNT 17.5 X10^3/uL (3.6-10.0)
[2018-12-12 06:51] LABS: ALANINE AMINOTRANSFERASE 15 Units/L (12-78); ALBUMIN 3.4 g/dL (3.4-5.0); ALKALINE PHOSPHATASE 67 Units/L (46-116); ASPARTATE AMINO TRANSFERASE 15 Units/L (15-37); BLOOD UREA NITROGEN 14 mg/dL (7-18); CALCIUM 9.1 mg/dL (8.5-10.1); CARBON DIOXIDE 28.4 mmol/L (21-32); CHLORIDE 103 mmol/L (98-107); COR NA(FOR HYPERGLY) 143 mmol/L (136-145); CREATININE 0.98 mg/dL (0.55-1.02); SODIUM 143 mmol/L (136-145); TOTAL PROTEIN 6.7 g/dL (6.4-8.2); eGFR NON BLACK RACES 57 (>60)
--- NOTE | 2018-12-12 07:10 | RAD ---
HISTORY: Shortness of breath Study: Chest AP portable Comparison: 12/11/2018 Findings: Heart size is difficult to assess due to obscuration of the right heart border due to increased density involving the lower half of the right anjali thorax. This is likely due to pleural effusion, right middle, and right lower lobe infiltrate and is unchanged from the prior examination. The right upper lung field is clear. There is left perihilar infiltrate now present. There is continued increased density in the retrocardiac area of the left lower lobe. The left upper lung field is clear. IMPRESSION: Continued increased density lower half of the right anjali thorax likely due to pleural effusion with underlying right middle and right lower lobe infiltrate or atelectasis New left perihilar infiltrate Persistent increased density in the retrocardiac area of the left lower lobe which could be on the basis of atelectasis, consolidation, effusion or combination. Reported By:
--- NOTE | 2018-12-12 08:26 | PCM.PROG ---
Progress Note - Progress Note for Day of Date of Exam: 12/11/18 - Subjective Subjective: WAS ADMITTED FOR UROSEPSIS AND ALTERED MENTAL STATUS. TODAY, SHE IS LYING IN BED ON MORNING ROUNDS. SHE BEGAN TO HAVE INCREASED SHORTNESS OF BREATH AND COUGH YESTERDAY. SHE ALSO CONTINUES WITH ABDOMINAL PAIN. ON EXAMINATION, SHE CONTINUES WITH SCATTERED WHEEZING AND RHONCHI. ABDOMEN CONTINUES WITH DISTENTION. HYPOACTIVE BOWEL SOUNDS NOTED. HER VITALS THIS MORNING ARE 98.9-90-20-100%-154/74. LABS WERE OBTAINED. ABNORMAL LAB VALUES INCLUDE THE FOLLOWING: WBC 16.8, RBC 2.59, HGB 8.3, HCT 24.2, POTASSIUM 3.0, GLUCOSE 111, AST 14, TOTAL PROTEIN 6.3, ALBUMIN 3.3. A CHEST XRAY WAS OBTAINED THIS MORNING. IT REVEALED: Increasing density in the right lower anjali thorax likely due to increasing right lower lobe, right middle lobe infiltrates and right pleural effusion. Increased density retrocardiac area left lower lobe which could be on the basis of atelectasis, consolidation, effusion or combination. SHE WAS STARTED ON IV LASIX YESTERDAY AND CONTINUES TO RECEIVE FORTAZ FOR UTI. TODAY, WE WILL ADD CIPRO 400MG IV BID. OTHERWISE, WE WILL CONTINUE WITH CURRENT PLAN OF CARE. WE PLAN TO FOLLOW UP WITH AM LABS AND CONTINUE TO MONITOR. - Past Medical Family Social History Past Med/Fam/Surg Hx: No changes since H&P Allergies: Allergies tuberculin,PPD,multi-puncture Allergy (Verified 09/10/18 18:54) - Review of Systems ROS: No change since H&P - Vital Signs and I&O's Vital Signs: Temperature 99.4 F Pulse Rate [Left Brachial] 88 Pulse Rate 76 Respiratory Rate 20 Blood Pressure [Right Calf] 109/62 Blood Pressure [Right Arm] 158/70 Blood Pressure [Left Arm] 141/74 Blood Pressure 146/67 O2 Sat by Pulse Oximetry 93 Intake and Output: Intake & Output 12/09/18 12/10/18 12/11/18 12/12/18 11:59 11:59 11:59 11:59 Intake Total 3043 / 3043 3277 / 3277 2372 / 2372 1976 Output Total 1350 / 1350 2074 / 2074 Balance 3043 / 3043 3277 / 3277 1022 / 1022 -98 / -98 - Physical Exam Oriented: Normal Eyes: Normal Ear: Normal Nose: Normal Throat: Normal Respiratory: Generalized, Wheezes, Rhonchi Cardiovascular: Normal : Normal Auscultation: Bowel Sounds: Normal Palpation: Normal Tenderness: Diffuse, Suprapubic Skin: Normal Musculoskeletal: Normal Psychiatric: Agitation Mood Description: Anxious Affect: Anxious Speech Pattern: Clear, Appropriate - Laboratory and Diagnostics Result Diagrams: 12/12/18 06:00 12/12/18 06:00 Labs: 12/05/18 10:10 Stool Stool Culture - Final 12/05/18 10:10 Stool - Final 11/30/18 13:56 Blood Blood Culture - Final 11/30/18 13:52 Blood Blood Culture - Final Laboratory WBC 17.5 X10^3/uL (3.6-10.0) H 12/12/18 06:00 RBC 2.72 X10^6/uL (3.5-5.4) L 12/12/18 06:00 Hgb 8.6 g/dL (12.0-16.0) L 12/12/18 06:00 Hct 25.0 % (36.0-47.0) L 12/12/18 06:00 MCV 92.1 fL (80.0-100.0) 12/12/18 06:00 MCH 31.6 pg (27.0-34.0) 12/12/18 06:00 MCHC 34.3 g/dL (33.0-35.0) 12/12/18 06:00 RDW 14.1 % (11.6-16.5) 12/12/18 06:00 Plt Count 147 X10^3/uL (150.0-450.0) L 12/12/18 06:00 Plt Count Comment Adequate (ADEQUATE) 12/10/18 05:24 MPV 6.2 fL (7.4-11.0) L 12/12/18 06:00 Neut % (Auto) 84.0 % (42.0-75.0) H 12/12/18 06:00 Lymph % (Auto) 5.7 % (21.0-51.0) L 12/12/18 06:00 [place] % (Auto) 10.2 % (0.0-13.0) 12/12/18 06:00 Eos % (Auto) 0.0 % (0.9-2.9) L 12/12/18 06:00 Baso % (Auto) 0.1 % (0.2-1.0) L 12/12/18 06:00 Neut # (Auto) 14.7 x10^3/uL (2.2-4.8) H 12/12/18 06:00 Lymph # (Auto) 1.0 X10^3/uL (1.3-2.9) L 12/12/18 06:00 [place] # (Auto) 1.8 x10^3/uL (0.3-0.8) H 12/12/18 06:00 Eos # (Auto) 0.0 x10^3/uL (0.0-0.2) 12/12/18 06:00 Baso # (Auto) 0.0 X10^3/uL (0.0-0.1) 12/12/18 06:00 Absolute Nucleated RBC 0.0 /100WBC 12/12/18 06:00 Total Counted 100 12/10/18 05:24 Neutrophils % (Manual) 73 % (39-76) 12/10/18 05:24 Band Neutrophils % 4 % (0-10) 12/10/18 05:24 Lymphocytes % (Manual) 10 % (13-43) L 12/10/18 05:24 Monocytes % (Manual) 12 % (4-9) H 12/10/18 05:24 Eosinophils % (Manual) 1 % (0-6) 12/10/18 05:24 Atypical Lymphocytes 2 12/08/18 05:14 Plt Morphology Comment Normal (NORMAL) 12/10/18 05:24 RBC Morphology Normal (NORMAL) 12/10/18 05:24 Sample Site [place] 12/11/18 09:55 ABG pH 7.570 (7.35-7.45) H* 12/11/18 09:55 ABG pCO2 31.0 mmHg (35.0-45.0) L 12/11/18 09:55 ABG pO2 55.0 mmHg (80.0-100.0) L 12/11/18 09:55 ABG HCO3 28.4 mmol/L (22-26) H 12/11/18 09:55 ABG O2 Saturation 93.0 % (90-100) 12/11/18 09:55 ABG Base Excess 6.5 mmol/L (-2.0-2.0) H 12/11/18 09:55 Chris Test Pos 12/11/18 09:55 A-a Gradient 163.0 mmHg 12/11/18 09:55 FiO2 36.0 12/11/18 09:55 Blood Gas Comments Sonya well ah 12/11/18 09:55 Sodium 143 mmol/L (136-145) 12/12/18 06:00 Corrected Sodium 143 mmol/L (136-145) 12/12/18 06:00 Potassium 2.8 mmol/L (3.5-5.1) L* 12/12/18 06:00 Chloride 103 mmol/L (98-107) 12/12/18 06:00 Carbon Dioxide 28.4 mmol/L (21-32) 12/12/18 06:00 BUN 14 mg/dL (7-18) 12/12/18 06:00 Creatinine 0.98 mg/dL (0.55-1.02) 12/12/18 06:00 Est GFR (MDRD) Af Amer > 60 (>60) 12/12/18 06:00 Est GFR (MDRD) Non-Af 57 (>60) L 12/12/18 06:00 Glucose 116 mg/dL (65-99) H 12/12/18 06:00 Lactic Acid 1.6 mmol/L (0.4-2.0) 11/30/18 13:56 Calcium 9.1 mg/dL (8.5-10.1) 12/12/18 06:00 Corrected Calcium TNP 12/12/18 06:00 Magnesium 2.1 mg/dL (1.7-2.9) 12/11/18 05:40 Total Bilirubin 0.60 mg/dL (0.2-1.0) 12/12/18 06:00 AST 15 Units/L (15-37) 12/12/18 06:00 ALT 15 Units/L (12-78) 12/12/18 06:00 Alkaline Phosphatase 67 Units/L (46-116) 12/12/18 06:00 Creatine Kinase 33 Units/L (26-192) 12/01/18 04:50 CK-MB (CK-2) 1.3 ng/mL (0-4.0) 12/01/18 04:50 CK/CKMB % Calc 3.9 % (<4) 12/01/18 04:50 Troponin I 0.05 ng/mL (0-1.5) 12/01/18 04:50 C-Reactive Protein 159.40 mg/L (0-3.0) H 11/30/18 13:56 Total Protein 6.7 g/dL (6.4-8.2) 12/12/18 06:00 Albumin 3.4 g/dL (3.4-5.0) 12/12/18 06:00 Globulin 3.3 g/dL (2.5-4.5) 12/12/18 06:00 Albumin/Globulin Ratio 1.0 Ratio (1.1-2.1) L 12/12/18 06:00 Specimen Type Catherized urine 11/30/18 14:21 Urine Color Yellow (YELLOW) 11/30/18 14:21 Urine Appearance Cloudy (CLEAR) 11/30/18 14:21 Urine pH 9.0 (5.0 - 8.0) 11/30/18 14:21 Ur Specific [place] 1.015 (1.000-1.030) 11/30/18 14:21 Urine Protein 2+ (NEGATIVE) 11/30/18 14:21 Urine Glucose (UA) Negative (NEGATIVE) 11/30/18 14:21 Urine Ketones 4+ (NEGATIVE) 11/30/18 14:21 Urine Occult Blood 4+ (NEGATIVE) 11/30/18 14:21 Urine Nitrite Negative (NEGATIVE) 11/30/18 14:21 Urine Bilirubin Negative (NEGATIVE) 11/30/18 14:21 Urine Urobilinogen Normal (NORMAL) 11/30/18 14:21 Ur Leukocyte Esterase 3+ (NEGATIVE) 11/30/18 14:21 Urine RBC 3-5 /HPF (NONE SEEN) 11/30/18 14:21 Urine WBC Tntc /HPF (NONE SEEN) 11/30/18 14:21 Ur Squamous Epith Cells Rare /HPF (NEGATIVE) 11/30/18 14:21 Amorphous Sediment 3+ /HPF (NEGATIVE) 11/30/18 14:21 Urine Bacteria 4+ /HPF (NEGATIVE) 11/30/18 14:21 Ur Culture Indicated? Yes/culture set up 11/30/18 14:21 Stool Description 8g,brown,liquid 12/05/18 10:10 Stl Occult Blood (IFOB) Negative (NEGATIVE) 12/05/18 10:10 Stl C. diff Tox B Gene Negative (NEGATIVE) 12/05/18 10:10 Stl C. diff [id number] Negative (NEGATIVE) 12/05/18 10:10 Digoxin 0.85 ng/mL (0.9-2) L 12/12/18 06:00 - Plan (1) Urinary tract infection Status: Acute Qualifiers: Urinary tract infection type: acute cystitis Hematuria presence: with hemat uria Qualified Code(s): N30.01 - Acute cystitis with hematuria Plan: IV FORTAZ, IV LEVAQUIN, IV HYDRATION, CONTINUE TO MONITOR (2) Altered mental status Status: Acute Qualifiers: Altered mental status type: transient alteration of awareness Qualified Code(s): R40.4 - Transient alteration of awareness Plan: haldol 1-2mg iv q4h prn, continue to monitor (3) Dehydration Status: Resolved Plan: CONTINUE IV HYDRATION, CONTINUE TO MONITOR (4) Hypertension Status: Chronic Qualifiers: Hypertension type: essential hypertension Qualified Code(s): I10 - Essential (primary) hypertension Plan: CONTINUE HOME MEDS,METOPROLOL XL 25MG ONE HALF TABLET DAILY, NORVASC TO 10MG PO DAILY, CONTINUE TO MONITOR (5) Abdominal pain Status: Acute Qualifiers: Abdominal location: generalized Qualified Code(s): R10.84 - Generalized abdominal pain Plan: PEPCID/PROTONIX/GI COCKTAIL, CONTINUE TO MONITOR (6) Atrial fibrillation Status: Acute Qualifiers: Atrial fibrillation type: unspecified Qualified Code(s): I48.91 - Unspecified atrial fibrillation Plan: METOPROLOL XL 25MG PO DAILY, DIGOXIN PO, TRACTOR TRAILER OPERATOR, CONTINUE TO MONITOR (7) Constipation Status: Chronic Qualifiers: Constipation type: slow transit constipation Qualified Code(s): K59.01 - Slow transit constipation Plan: COLACE, MILK OF MAGNESIA, MIRALAX (8) CHF (congestive heart failure) Status: Chronic Qualifiers: Qualified Code(s): I50.23 - Acute on chronic systolic (congestive) heart failure Plan: LASIX 20MG IV BID, CONTINUE TO MONITOR
[2018-12-12] MEDS ORDERED: ALLEGRA ONE (08:34)
[2018-12-12] MEDS: PEPCID 20 MG IV PREMIX* 20 MG/50 ML BAG IV SCH ×2 (08:39→20:24)
[2018-12-12] MEDS: PROTONIX INJ 40 MG VIAL IVP SCH ×2 (08:40→20:23)
[2018-12-12] MEDS: LEVSIN/MAALOX/LIDOC VISC PO SCH ×4 (08:40→20:15)
[2018-12-12] MEDS: MILK OF MAGNESIA PO SCH ×4 (08:41→20:14)
[2018-12-12] MEDS: LASIX IVP SCH ×2 (08:44→20:23)
[2018-12-12] MEDS: MIRALAX POWDER (1 DOSE 17 G) PO SCH (08:45)
[2018-12-12] MEDS: LANOXIN PO SCH (08:45)
[2018-12-12] MEDS: COZAAR PO SCH (08:45)
[2018-12-12] MEDS: TOPROL XL PO SCH (08:46)
[2018-12-12] MEDS: COLACE CAP 100 MG PO SCH ×2 (08:47→20:13)
[2018-12-12] MEDS: MICRO K EXTEN CAP 10 MEQ PO SCH (08:47)
[2018-12-12] MEDS: HEMOCYTE-PLUS PO SCH (08:47)
[2018-12-12] MEDS: CITRACAL + VITAMIN D PO SCH (08:47)
[2018-12-12] MEDS: FOLIC ACID TAB 1 MG PO SCH (08:48)
[2018-12-12] MEDS: NORVASC TAB 5 MG PO SCH (08:48)
[2018-12-12] MEDS: SINGULAIR TAB 10 MG PO SCH (08:48)
[2018-12-12] MEDS: ALLEGRA PO SCH (08:48)
[2018-12-12] MEDS: TAB-A-VITE PO SCH (08:48)
[2018-12-12] MEDS: ARTIFICIAL TEARS DROPS EACHEYE SCH ×4 (08:49→20:16)
[2018-12-12] MEDS: FLONASE NASAL SPRAY ENOSTRIL SCH ×2 (08:49→20:16)
[2018-12-12] MEDS: OXYBUTYNIN CHLORIDE ER PO SCH (08:49)
[2018-12-12] MEDS: ALBUMIN HUMAN 25%- 100 ML 100 ML IV SCH (08:55)
[2018-12-12] MEDS: DUONEB 0.5 MG/3 MG NEB SCH ×4 (09:22→21:33)
[2018-12-12] MEDS: DIFLUCAN 200 MG IV PREMIX* 200 MG/100 ML BAG IV SCH (09:48)
[2018-12-12] MEDS: CIPRO IV 400 MG PREMIX* 400 MG/200 ML IV.SOLN. IV SCH (10:32)
[2018-12-12] MEDS: MERREM VIAL IVP SCH ×2 (11:29→21:05)
[2018-12-12] MEDS: NS IV SCH ×2 (11:31)
[2018-12-12] MEDS: POTASSIUM CHLORIDE IV SCH ×2 (11:31)
[2018-12-12] MEDS: ZYVOX 600MG IV 600 MG/300 ML BAG IV SCH ×2 (11:33→20:24)
[2018-12-12] MEDS: DESYREL PO SCH (20:14)
[2018-12-13] MEDS: ROBITUSSIN DM PO PRN ×2 (02:27→23:22)
[2018-12-13] MEDS: SOLU-Cortef INJ IVP SCH ×3 (05:00→21:50)
[2018-12-13] MEDS: MERREM VIAL IVP SCH ×3 (05:00→21:48)
[2018-12-13] MEDS: CARDIZEM INJ 125 MG VIAL 125 MG in NS 100 ML IV 100 ML IV PRN ×2 (06:03→21:50)
--- NOTE | 2018-12-13 06:12 | RAD ---
Examination: Portable AP chest History: SOB Comparison 12/12/2018 Findings: Stable heart size. Persistent opacification in left and right lower lungs consistent with airspace disease and pleural effusions. The upper lobes are relatively clear. No complicating pneumothorax is seen. Impression: No change since 1 day prior. Persistent bibasal airspace disease and pleural fluid. Reported By:
[2018-12-13 06:27] LABS: ALBUMIN 3.2 g/dL (3.4-5.0); CALCIUM 8.8 mg/dL (8.5-10.1); CARBON DIOXIDE 30.6 mmol/L (21-32); COR CA(FOR HYPOALB) 9.4 mg/dL (8.5-10.1); CREATININE 1.24 mg/dL (0.55-1.02); MAGNESIUM 2.3 mg/dL (1.7-2.9); TOTAL PROTEIN 6.2 g/dL (6.4-8.2)
[2018-12-13 06:28] LABS: BASOPHILS % (AUTO) 0.1 % (0.2-1.0); HEMATOCRIT 21.9 % (36.0-47.0); HEMOGLOBIN 7.5 g/dL (12.0-16.0); LYMPHOCYTES # (AUTO) 0.6 X10^3/uL (1.3-2.9); LYMPHOCYTES % (AUTO) 5.4 % (21.0-51.0); MEAN CORPUSCULAR HEMOGLOBIN 31.6 pg (27.0-34.0); MEAN CORPUSCULAR HGB CONC 34.1 g/dL (33.0-35.0); MEAN CORPUSCULAR VOLUME 92.7 fL (80.0-100.0); MEAN PLATELET VOLUME 7.1 fL (7.4-11.0); MONOCYTES # (AUTO) 1.1 x10^3/uL (0.3-0.8); MONOCYTES % (AUTO) 9.2 % (0.0-13.0); NEUTROPHILS # (AUTO) 9.9 x10^3/uL (2.2-4.8); NEUTROPHILS % (AUTO) 85.3 % (42.0-75.0); PLATELET COUNT 122 X10^3/uL (150.0-450.0); RED BLOOD COUNT 2.36 X10^6/uL (3.5-5.4); RED CELL DISTRIBUTION WIDTH 14.4 % (11.6-16.5); WHITE BLOOD COUNT 11.7 X10^3/uL (3.6-10.0)
[2018-12-13 06:44] LABS: HYPOCHROMASIA 1+; PLATELET MORPHOLOGY COMMENT NORMAL (NORMAL)
[2018-12-13] MEDS ORDERED: ALLEGRA ONE (07:42)
[2018-12-13] MEDS: PROTONIX INJ 40 MG VIAL IVP SCH ×2 (08:03→20:45)
[2018-12-13] MEDS: NORVASC TAB 5 MG PO SCH (08:03)
[2018-12-13] MEDS: TAB-A-VITE PO SCH (08:03)
[2018-12-13] MEDS: LANOXIN PO SCH (08:04)
[2018-12-13] MEDS: SINGULAIR TAB 10 MG PO SCH (08:04)
[2018-12-13] MEDS: FOLIC ACID TAB 1 MG PO SCH (08:05)
[2018-12-13] MEDS: TOPROL XL PO SCH (08:06)
[2018-12-13] MEDS: COLACE CAP 100 MG PO SCH ×2 (08:06→20:46)
[2018-12-13] MEDS: HEMOCYTE-PLUS PO SCH (08:06)
[2018-12-13] MEDS: MICRO K EXTEN CAP 10 MEQ PO SCH (08:06)
[2018-12-13] MEDS: ZYVOX 600MG IV 600 MG/300 ML BAG IV SCH ×2 (08:07→20:45)
[2018-12-13] MEDS: PEPCID 20 MG IV PREMIX* 20 MG/50 ML BAG IV SCH (08:07)
[2018-12-13] MEDS: LASIX IVP SCH ×2 (08:07→20:45)
[2018-12-13] MEDS: DIFLUCAN 200 MG IV PREMIX* 200 MG/100 ML BAG IV SCH (08:07)
[2018-12-13] MEDS: MILK OF MAGNESIA PO SCH (08:08)
[2018-12-13] MEDS: ALBUMIN HUMAN 25%- 100 ML 100 ML IV SCH (08:08)
[2018-12-13] MEDS: ARTIFICIAL TEARS DROPS EACHEYE SCH ×4 (08:09→20:45)
[2018-12-13] MEDS: ALLEGRA PO SCH (08:09)
[2018-12-13] MEDS: CITRACAL + VITAMIN D PO SCH (08:09)
[2018-12-13] MEDS: FLONASE NASAL SPRAY ENOSTRIL SCH ×2 (08:09→20:46)
[2018-12-13] MEDS: COZAAR PO SCH (08:09)
[2018-12-13] MEDS: OXYBUTYNIN CHLORIDE ER PO SCH (08:10)
[2018-12-13] MEDS: LEVSIN/MAALOX/LIDOC VISC PO SCH ×4 (08:10→20:46)
[2018-12-13] MEDS: MIRALAX POWDER (1 DOSE 17 G) PO SCH (08:10)
[2018-12-13] MEDS: DUONEB 0.5 MG/3 MG NEB SCH ×4 (09:41→20:52)
[2018-12-13] MEDS: K-RIDER 10 MEQ/NS 100 ML 10 MEQ/100 ML BAG IV PRN ×8 (10:06→22:02)
[2018-12-13] MEDS: NS IV SCH ×2 (10:18)
[2018-12-13] MEDS: POTASSIUM CHLORIDE IV SCH ×2 (10:18)
[2018-12-13 13:02] LABS: BILIRUBIN,URINE NEGATIVE (NEGATIVE); BLOOD/HEMOGLOBIN,URINE 4+ (NEGATIVE); GLUCOSE, URINE NEGATIVE (NEGATIVE); KETONES,URINE NEGATIVE (NEGATIVE); LEUKOCYTE ESTERASE ,URINE NEGATIVE (NEGATIVE); NITRITES,URINE NEGATIVE (NEGATIVE); PROTEIN,URINE 3+ (NEGATIVE); UROBILINOGEN,URINE NORMAL (NORMAL)
[2018-12-13 13:11] LABS: APPEARANCE,URINE CLEAR (CLEAR); COLOR,URINE YELLOW (YELLOW)
[2018-12-13 13:12] LABS: BACTERIA,URINE NEGATIVE /HPF (NEGATIVE); SQUAMOUS EPITHELIAL CELL,UR NEGATIVE /HPF (NEGATIVE)
[2018-12-13 13:13] LABS: HYALINE CASTS, URINE FEW /LPF (NEGATIVE)
[2018-12-13] MEDS ORDERED: MILK OF MAGNESIA PO PRN (13:25)
[2018-12-13 18:55] LABS: ABG BASE EXCESS 8.6 mmol/L (-2.0-2.0)
[2018-12-13 18:56] LABS: ABG ALLEN TEST POS; ABG HCO3 31.6 mmol/L (22-26)
[2018-12-13] MEDS: DESYREL PO SCH (20:46)
[2018-12-14] MEDS: NORCO 5/325 MG TAB PO PRN ×3 (02:40→18:24)
[2018-12-14] MEDS: MERREM VIAL IVP SCH ×3 (05:21→22:33)
[2018-12-14] MEDS: SOLU-Cortef INJ IVP SCH ×3 (05:21→21:54)
[2018-12-14 05:58] LABS: BASOPHILS % (AUTO) 0.2 % (0.2-1.0); EOSINOPHILS % (AUTO) 0.2 % (0.9-2.9); HEMATOCRIT 23.8 % (36.0-47.0); HEMOGLOBIN 8.2 g/dL (12.0-16.0); LYMPHOCYTES % (AUTO) 11.4 % (21.0-51.0); MEAN CORPUSCULAR HEMOGLOBIN 31.9 pg (27.0-34.0); MEAN CORPUSCULAR HGB CONC 34.7 g/dL (33.0-35.0); MEAN PLATELET VOLUME 6.6 fL (7.4-11.0); MONOCYTES # (AUTO) 1.1 x10^3/uL (0.3-0.8); MONOCYTES % (AUTO) 11.6 % (0.0-13.0); NEUTROPHILS % (AUTO) 76.6 % (42.0-75.0); PLATELET COUNT 136 X10^3/uL (150.0-450.0); RED BLOOD COUNT 2.58 X10^6/uL (3.5-5.4); RED CELL DISTRIBUTION WIDTH 14.2 % (11.6-16.5); WHITE BLOOD COUNT 9.1 X10^3/uL (3.6-10.0)
[2018-12-14 06:00] LABS: ALANINE AMINOTRANSFERASE 16 Units/L (12-78); ALBUMIN 3.2 g/dL (3.4-5.0); ALKALINE PHOSPHATASE 58 Units/L (46-116); ASPARTATE AMINO TRANSFERASE 13 Units/L (15-37); BLOOD UREA NITROGEN 15 mg/dL (7-18); CALCIUM 8.8 mg/dL (8.5-10.1); CARBON DIOXIDE 30.2 mmol/L (21-32); CHLORIDE 100 mmol/L (98-107); COR CA(FOR HYPOALB) 9.4 mg/dL (8.5-10.1); CREATININE 1.12 mg/dL (0.55-1.02); SODIUM 138 mmol/L (136-145); TOTAL PROTEIN 6.3 g/dL (6.4-8.2); eGFR NON BLACK RACES 49 (>60)
[2018-12-14] MEDS ORDERED: ALLEGRA ONE (07:12)
--- NOTE | 2018-12-14 07:42 | RAD ---
HISTORY: Shortness of breath Study: Single-view chest Comparison: Yesterday Findings: The trachea is midline. The cardiac silhouette is stable. The lungs demonstrate persistent right greater than left bibasilar airspace disease with associated small effusions.. The bony thorax is unremarkable. IMPRESSION: 1. Stable chest. Reported By:
[2018-12-14] MEDS: DUONEB 0.5 MG/3 MG NEB SCH ×4 (07:56→19:59)
[2018-12-14] MEDS: LASIX IVP SCH ×2 (08:03→21:53)
[2018-12-14] MEDS: CITRACAL + VITAMIN D PO SCH (08:04)
[2018-12-14] MEDS: COZAAR PO SCH (08:04)
[2018-12-14] MEDS: MIRALAX POWDER (1 DOSE 17 G) PO SCH (08:04)
[2018-12-14] MEDS: PEPCID 20 MG IV PREMIX* 20 MG/50 ML BAG IV SCH (08:04)
[2018-12-14] MEDS: FOLIC ACID TAB 1 MG PO SCH (08:05)
[2018-12-14] MEDS: SINGULAIR TAB 10 MG PO SCH (08:05)
[2018-12-14] MEDS: LANOXIN PO SCH (08:05)
[2018-12-14] MEDS: HEMOCYTE-PLUS PO SCH (08:06)
[2018-12-14] MEDS: MICRO K EXTEN CAP 10 MEQ PO SCH (08:06)
[2018-12-14] MEDS: TAB-A-VITE PO SCH (08:06)
[2018-12-14] MEDS: TOPROL XL PO SCH (08:06)
[2018-12-14] MEDS: COLACE CAP 100 MG PO SCH ×2 (08:06→21:52)
[2018-12-14] MEDS: NORVASC TAB 5 MG PO SCH (08:06)
[2018-12-14] MEDS: ALLEGRA PO SCH (08:07)
[2018-12-14] MEDS: PROTONIX INJ 40 MG VIAL IVP SCH ×2 (08:07→21:54)
[2018-12-14] MEDS: OXYBUTYNIN CHLORIDE ER PO SCH (08:08)
[2018-12-14] MEDS: LEVSIN/MAALOX/LIDOC VISC PO SCH ×4 (08:09→21:53)
[2018-12-14] MEDS: ARTIFICIAL TEARS DROPS EACHEYE SCH ×4 (08:09→21:52)
[2018-12-14] MEDS: FLONASE NASAL SPRAY ENOSTRIL SCH ×2 (08:09→21:53)
[2018-12-14] MEDS: ZYVOX 600MG IV 600 MG/300 ML BAG IV SCH ×2 (08:24→21:52)
[2018-12-14] MEDS: DIFLUCAN 200 MG IV PREMIX* 200 MG/100 ML BAG IV SCH (08:24)
[2018-12-14] MEDS ORDERED: NEXTERONE IV 150 MG PREMIX* 150 MG/100 ML BAG IV ONE (09:17)
[2018-12-14] MEDS ORDERED: NEXTERONE IV 360 MG PREMIX* 360 MG/200 ML BAG ONE (10:13)
[2018-12-14] MEDS ORDERED: NEXTERONE IV 360 MG PREMIX* 360 MG/200 ML BAG IV PRN (11:05)
[2018-12-14] MEDS ORDERED: NEXTERONE IV 360 MG PREMIX* 360 MG/200 ML BAG IV ONE ×2 (11:07→17:30)
[2018-12-14] MEDS: ATIVAN TAB 0.5 MG PO PRN ×2 (11:22→23:30)
[2018-12-14] MEDS: POTASSIUM CHLORIDE IV SCH ×2 (13:50)
[2018-12-14] MEDS: NS IV SCH ×2 (13:50)
[2018-12-14] MEDS: CARDIZEM TAB 30 MG PLAIN PO SCH ×2 (13:51→21:54)
[2018-12-14] MEDS: DESYREL PO SCH (21:52)
[2018-12-14] MEDS ORDERED: MERREM VIAL ONE (22:02)
--- NOTE | 2018-12-14 22:25 | PCM.PROG ---
Progress Note - Progress Note for Day of Date of Exam: 12/12/18 - Subjective Subjective: WAS ADMITTED FOR UROSEPSIS AND ALTERED MENTAL STATUS. SHE IS ALSO BEING TREATED FOR CHF AND PNEUMONIA. TODAY, SHE IS LYING IN BED WITH EYES CLOSED ON MORNING ROUNDS. SHE IS DIFFICULT TO AROUSE THIS MORNING. ON EXAMINATION, SHE CONTINUES WITH SCATTERED WHEEZING AND RHONCHI. ABDOMEN C ONTINUES WITH DISTENTION. HYPOACTIVE BOWEL SOUNDS NOTED. HER VITALS THIS MORNING ARE 98.1-100-21-91%-147/66. LABS WERE OBTAINED. ABNORMAL LAB VALUES INCLUDE THE FOLLOWING: WBC 17.5, RBC 2.72, HGB 8.6, HCT 25.0, PLT COUNT 147, POTASSIUM 2.8, GLUCOSE 116, DIGOXIN 0.85. A CHEST XRAY WAS OBTAINED THIS MORNING. IT REVEALED: Continued increased density lower half of the right anjali thorax likely due to p leural effusion with underlying right middle and right lower lobe infiltrate or atelectasis. New left perihilar infiltrate.Persistent increased density in the retrocardiac area of the left lower lobe which could be on the basis of atelectasis, consolidation, effusion or combination. WE WILL HAVE PHARMACY REVIEW HER ANTIBIOTICS AND MAKE CHANGES APPROPRIATE TODAY. OTHERWISE, WE WILL CONTINUE WITH CURRENT PLAN OF CARE. WE PLAN TO FOLLOW UP WITH AM LABS AND CONTINUE TO MONITOR. - Past Medical Family Social History Past Med/Fam/Surg Hx: No changes since H&P Allergies: Allergies tuberculin,PPD,multi-puncture Allergy (Verified 09/10/18 18:54) - Review of Systems ROS: No change since H&P - Vital Signs and I&O's Vital Signs: Temperature 98.5 F Pulse Rate [Left Brachial] 88 Pulse Rate 73 Respiratory Rate 17 Blood Pressure [Right Calf] 109/62 Blood Pressure [Right Arm] 158/70 Blood Pressure [Left Arm] 141/74 Blood Pressure 120/56 O2 Sat by Pulse Oximetry 97 Intake and Output: Intake & Output 12/12/18 12/13/18 12/14/18 12/15/18 11:59 11:59 11:59 11:59 Intake Total 2096 / 2096 1793 / 1793 2611 / 2611 800 / 800 Output Total 2074 / 5 875 / 875 1300 / 1300 400 / 400 Balance 918 / 918 1311 / 1311 400 / 400 - Physical Exam Oriented: Unable to test Eyes: Normal Ear: Normal Nose: Normal Throat: Normal Respiratory: Generalized, Wheezes, Rhonchi Cardiovascular: Normal : Normal Auscultation: Bowel Sounds: Normal Palpation: Normal Tenderness: Diffuse, Suprapubic Skin: Normal Musculoskeletal: Normal Psychiatric: Agitation Mood Description: Anxious Affect: Anxious Speech Pattern: Clear - Laboratory and Diagnostics Result Diagrams: 12/14/18 05:10 12/14/18 05:10 Labs: 12/05/18 10:10 Stool Stool Culture - Final 12/05/18 10:10 Stool - Final 11/30/18 13:56 Blood Blood Culture - Final 11/30/18 13:52 Blood Blood Culture - Final Laboratory WBC 9.1 X10^3/uL (3.6-10.0) 12/14/18 05:10 RBC 2.58 X10^6/uL (3.5-5.4) L 12/14/18 05:10 Hgb 8.2 g/dL (12.0-16.0) L 12/14/18 05:10 Hct 23.8 % (36.0-47.0) L 12/14/18 05:10 MCV 92.0 fL (80.0-100.0) 12/14/18 05:10 MCH 31.9 pg (27.0-34.0) 12/14/18 05:10 MCHC 34.7 g/dL (33.0-35.0) 12/14/18 05:10 RDW 14.2 % (11.6-16.5) 12/14/18 05:10 Plt Count 136 X10^3/uL (150.0-450.0) L 12/14/18 05:10 Plt Count Comment Adequate (ADEQUATE) 12/13/18 05:19 MPV 6.6 fL (7.4-11.0) L 12/14/18 05:10 Neut % (Auto) 76.6 % (42.0-75.0) H 12/14/18 05:10 Lymph % (Auto) 11.4 % (21.0-51.0) L 12/14/18 05:10 [place] % (Auto) 11.6 % (0.0-13.0) 12/14/18 05:10 Eos % (Auto) 0.2 % (0.9-2.9) L 12/14/18 05:10 Baso % (Auto) 0.2 % (0.2-1.0) 12/14/18 05:10 Neut # (Auto) 7.0 x10^3/uL (2.2-4.8) H 12/14/18 05:10 Lymph # (Auto) 1.0 X10^3/uL (1.3-2.9) L 12/14/18 05:10 [place] # (Auto) 1.1 x10^3/uL (0.3-0.8) H 12/14/18 05:10 Eos # (Auto) 0.0 x10^3/uL (0.0-0.2) 12/14/18 05:10 Baso # (Auto) 0.0 X10^3/uL (0.0-0.1) 12/14/18 05:10 Absolute Nucleated RBC 0.0 /100WBC 12/14/18 05:10 Total Counted 100 12/10/18 05:24 Neutrophils % (Manual) 73 % (39-76) 12/10/18 05:24 Band Neutrophils % 4 % (0-10) 12/10/18 05:24 Lymphocytes % (Manual) 10 % (13-43) L 12/10/18 05:24 Monocytes % (Manual) 12 % (4-9) H 12/10/18 05:24 Eosinophils % (Manual) 1 % (0-6) 12/10/18 05:24 Atypical Lymphocytes 2 12/08/18 05:14 Plt Morphology Comment Normal (NORMAL) 12/13/18 05:19 RBC Morphology Abnormal (NORMAL) A 12/13/18 05:19 Hypochromasia 1+ A 12/13/18 05:19 Sample Site Lr 12/13/18 18:53 ABG pH 7.540 (7.35-7.45) H 12/13/18 18:53 ABG pCO2 37.0 mmHg (35.0-45.0) 12/13/18 18:53 ABG pO2 69.0 mmHg (80.0-100.0) L 12/13/18 18:53 ABG HCO3 31.6 mmol/L (22-26) H* 12/13/18 18:53 ABG O2 Saturation 96.0 % (90-100) 12/13/18 18:53 ABG Base Excess 8.6 mmol/L (-2.0-2.0) H 12/13/18 18:53 Chris Test Pos 12/13/18 18:53 A-a Gradient 348.0 mmHg 12/13/18 18:53 FiO2 65.0 12/13/18 18:53 Blood Gas Comments Pt osbaldo well. cdn 12/13/18 18:53 Sodium 138 mmol/L (136-145) 12/14/18 05:10 Corrected Sodium TNP 12/14/18 05:10 Potassium 3.6 mmol/L (3.5-5.1) 12/14/18 05:10 Chloride 100 mmol/L (98-107) 12/14/18 05:10 Carbon Dioxide 30.2 mmol/L (21-32) 12/14/18 05:10 BUN 15 mg/dL (7-18) 12/14/18 05:10 Creatinine 1.12 mg/dL (0.55-1.02) H 12/14/18 05:10 Est GFR (MDRD) Af Amer 59 (>60) 12/14/18 05:10 Est GFR (MDRD) Non-Af 49 (>60) L 12/14/18 05:10 Glucose 96 mg/dL (65-99) 12/14/18 05:10 Lactic Acid 1.6 mmol/L (0.4-2.0) 11/30/18 13:56 Calcium 8.8 mg/dL (8.5-10.1) 12/14/18 05:10 Corrected Calcium 9.4 mg/dL (8.5-10.1) 12/14/18 05:10 Magnesium 2.3 mg/dL (1.7-2.9) 12/13/18 05:19 Total Bilirubin 0.60 mg/dL (0.2-1.0) 12/14/18 05:10 AST 13 Units/L (15-37) L 12/14/18 05:10 ALT 16 Units/L (12-78) 12/14/18 05:10 Alkaline Phosphatase 58 Units/L (46-116) 12/14/18 05:10 Creatine Kinase 33 Units/L (26-192) 12/01/18 04:50 CK-MB (CK-2) 1.3 ng/mL (0-4.0) 12/01/18 04:50 CK/CKMB % Calc 3.9 % (<4) 12/01/18 04:50 Troponin I 0.05 ng/mL (0-1.5) 12/01/18 04:50 C-Reactive Protein 159.40 mg/L (0-3.0) H 11/30/18 13:56 Total Protein 6.3 g/dL (6.4-8.2) L 12/14/18 05:10 Albumin 3.2 g/dL (3.4-5.0) L 12/14/18 05:10 Globulin 3.1 g/dL (2.5-4.5) 12/14/18 05:10 Albumin/Globulin Ratio 1.0 Ratio (1.1-2.1) L 12/14/18 05:10 Specimen Type Catherized urine 12/13/18 12:47 Urine Color Yellow (YELLOW) 12/13/18 12:47 Urine Appearance Clear (CLEAR) 12/13/18 12:47 Urine pH 5.0 (5.0 - 8.0) 12/13/18 12:47 Ur Specific [place] 1.015 (1.000-1.030) 12/13/18 12:47 Urine Protein 3+ (NEGATIVE) 12/13/18 12:47 Urine Glucose (UA) Negative (NEGATIVE) 12/13/18 12:47 Urine Ketones Negative (NEGATIVE) 12/13/18 12:47 Urine Occult Blood 4+ (NEGATIVE) 12/13/18 12:47 Urine Nitrite Negative (NEGATIVE) 12/13/18 12:47 Urine Bilirubin Negative (NEGATIVE) 12/13/18 12:47 Urine Urobilinogen Normal (NORMAL) 12/13/18 12:47 Ur Leukocyte Esterase Negative (NEGATIVE) 12/13/18 12:47 Urine RBC 3-5 /HPF (NONE SEEN) 12/13/18 12:47 Urine WBC 0-2 /HPF (NONE SEEN) 12/13/18 12:47 Ur Squamous Epith Cells Negative /HPF (NEGATIVE) 12/13/18 12:47 Amorphous Sediment 3+ /HPF (NEGATIVE) 11/30/18 14:21 Urine Bacteria Negative /HPF (NEGATIVE) 12/13/18 12:47 Hyaline Casts Few /LPF (NEGATIVE) 12/13/18 12:47 Ur Culture Indicated? No/not indicated 12/13/18 12:47 Stool Description 2g,unformed,dkbryane 12/13/18 09:29 Stl Occult Blood (IFOB) Negative (NEGATIVE) 12/13/18 09:29 Stl C. diff Tox B Gene Negative (NEGATIVE) 12/13/18 09:28 Stl C. diff [id number] Negative (NEGATIVE) 12/13/18 09:28 Digoxin 0.85 ng/mL (0.9-2) L 12/12/18 06:00 - Plan (1) Urinary tract infection Status: Acute Qualifiers: Urinary tract infection type: acute cystitis Hematuria presence: with hematuria Qualified Code(s): N30.01 - Acute cystitis with hematuria Plan: IV FORTAZ, IV LEVAQUIN, IV HYDRATION, CONTINUE TO MONITOR (2) Altered mental status Status: Acute Qualifiers: Altered mental status type: transient alteration of awareness Qualified Code(s): R40.4 - Transient alteration of awareness Plan: haldol 1-2mg iv q4h prn, continue to monitor (3) Dehydration Status: Resolved Plan: CONTINUE IV HYDRATION, CONTINUE TO MONITOR (4) Hypertension Status: Chronic Qualifiers: Hypertension type: essential hypertension Qualified Code(s): I10 - Essential (primary) hypertension Plan: CONTINUE HOME MEDS,METOPROLOL XL 25MG ONE HALF TABLET DAILY, NORVASC TO 10MG PO DAILY, CONTINUE TO MONITOR (5) Abdominal pain Status: Acute Qualifiers: Abdominal location: generalized Qualified Code(s): R10.84 - Generalized abdominal pain Plan: PEPCID/PROTONIX/GI COCKTAIL, CONTINUE TO MONITOR (6) Atrial fibrillation Status: Acute Qualifiers: Atrial fibrillation type: unspecified Qualified Code(s): I48.91 - Unspecified atrial fibrillation Plan: METOPROLOL XL 25MG PO DAILY, DIGOXIN PO, PHOTOGRAPHIC EDITOR, CONTINUE TO MONITOR (7) Constipation Status: Chronic Qualifiers: Constipation type: slow transit constipation Qualified Code(s): K59.01 - Slow transit constipation Plan: COLACE, MILK OF MAGNESIA, MIRALAX (8) CHF (congestive heart failure) Status: Chronic Qualifiers: Qualified Code(s): I50.23 - Acute on chronic systolic (congestive) heart failure Plan: LASIX 20MG IV BID, CONTINUE TO MONITOR (9) Pneumonia Status: Acute Qualifiers: Pneumonia type: due to unspecified organism Laterality: right Lung location: unspecified part of lung Qualified Code(s): J18.9 - Pneumonia, unspecified organism Plan: IV ANTIBIOTICS, RESPIRATORY TX, SUPPLEMENTAL OXYGEN, CONTINUE TO MONITOR
[2018-12-15] MEDS: ROBITUSSIN DM PO PRN ×3 (03:09→14:09)
[2018-12-15] MEDS ORDERED: MERREM VIAL ONE (05:31)
[2018-12-15] MEDS: SOLU-Cortef INJ IVP SCH ×2 (06:00→15:32)
--- NOTE | 2018-12-15 06:02 | RAD ---
HISTORY: Shortness of breath Study: Chest AP portable Comparison: 12/14/2018, 12/13/2018 Findings: The heart is enlarged. No definite congestive heart failure is noted. The aorta is calcified. Abnormal density is present in the lower lung [place] bilaterally likely representing infiltrates and pleural effusions. The bony thorax is unremarkable with the exception of bilateral chronic rotator cuff disease. IMPRESSION: No change moderate cardiomegaly with bilateral lower lobe airspace disease and bilateral pleural effusions right greater than left Reported By:
[2018-12-15] MEDS: MERREM VIAL IVP SCH ×2 (06:07→15:32)
[2018-12-15] MEDS: CARDIZEM TAB 30 MG PLAIN PO SCH ×2 (06:07→13:59)
[2018-12-15 06:36] LABS: ALBUMIN 2.8 g/dL (3.4-5.0); CALCIUM 8.3 mg/dL (8.5-10.1); CARBON DIOXIDE 28.9 mmol/L (21-32); COR CA(FOR HYPOALB) 9.3 mg/dL (8.5-10.1); CREATININE 1.15 mg/dL (0.55-1.02); TOTAL PROTEIN 5.8 g/dL (6.4-8.2)
[2018-12-15 06:40] LABS: BASOPHILS % (AUTO) 0.1 % (0.2-1.0); HEMATOCRIT 21.5 % (36.0-47.0); HEMOGLOBIN 7.4 g/dL (12.0-16.0); LYMPHOCYTES # (AUTO) 0.6 X10^3/uL (1.3-2.9); LYMPHOCYTES % (AUTO) 5.3 % (21.0-51.0); MEAN CORPUSCULAR HEMOGLOBIN 31.4 pg (27.0-34.0); MEAN CORPUSCULAR HGB CONC 34.2 g/dL (33.0-35.0); MEAN CORPUSCULAR VOLUME 91.6 fL (80.0-100.0); MEAN PLATELET VOLUME 6.3 fL (7.4-11.0); MONOCYTES % (AUTO) 8.8 % (0.0-13.0); NEUTROPHILS # (AUTO) 9.3 x10^3/uL (2.2-4.8); NEUTROPHILS % (AUTO) 85.8 % (42.0-75.0); PLATELET COUNT 122 X10^3/uL (150.0-450.0); RED BLOOD COUNT 2.35 X10^6/uL (3.5-5.4); RED CELL DISTRIBUTION WIDTH 14.3 % (11.6-16.5); WHITE BLOOD COUNT 10.9 X10^3/uL (3.6-10.0)
[2018-12-15 06:58] LABS: HYPOCHROMASIA SLIGHT; PLATELET MORPHOLOGY COMMENT NORMAL (NORMAL)
[2018-12-15] MEDS ORDERED: ALLEGRA ONE (07:48)
[2018-12-15] MEDS: DUONEB 0.5 MG/3 MG NEB SCH ×2 (08:15→12:00)
[2018-12-15] MEDS: ALLEGRA PO SCH (08:33)
[2018-12-15] MEDS: ARTIFICIAL TEARS DROPS EACHEYE SCH ×2 (08:33→13:59)
[2018-12-15] MEDS: CITRACAL + VITAMIN D PO SCH (08:33)
[2018-12-15] MEDS: COLACE CAP 100 MG PO SCH (08:33)
[2018-12-15] MEDS: FOLIC ACID TAB 1 MG PO SCH (08:34)
[2018-12-15] MEDS: DIFLUCAN 200 MG IV PREMIX* 200 MG/100 ML BAG IV SCH (08:34)
[2018-12-15] MEDS: COZAAR PO SCH (08:34)
[2018-12-15] MEDS: FLONASE NASAL SPRAY ENOSTRIL SCH (08:34)
[2018-12-15] MEDS: LANOXIN PO SCH (08:35)
[2018-12-15] MEDS: HEMOCYTE-PLUS PO SCH (08:35)
[2018-12-15] MEDS: LEVSIN/MAALOX/LIDOC VISC PO SCH ×2 (08:36→14:00)
[2018-12-15] MEDS: LASIX IVP SCH (08:36)
[2018-12-15] MEDS: MICRO K EXTEN CAP 10 MEQ PO SCH (08:37)
[2018-12-15] MEDS: PEPCID 20 MG IV PREMIX* 20 MG/50 ML BAG IV SCH (08:37)
[2018-12-15] MEDS: OXYBUTYNIN CHLORIDE ER PO SCH (08:37)
[2018-12-15] MEDS: MIRALAX POWDER (1 DOSE 17 G) PO SCH (08:37)
[2018-12-15] MEDS: TOPROL XL PO SCH (08:38)
[2018-12-15] MEDS: PROTONIX INJ 40 MG VIAL IVP SCH (08:38)
[2018-12-15] MEDS: SINGULAIR TAB 10 MG PO SCH (08:38)
[2018-12-15] MEDS: TAB-A-VITE PO SCH (08:38)
[2018-12-15] MEDS: ZYVOX 600MG IV 600 MG/300 ML BAG IV SCH (08:39)
[2018-12-15] MEDS: HALDOL INJ IM PRN (10:03)
[2018-12-15] MEDS: POTASSIUM CHLORIDE IV SCH ×2 (10:35)
[2018-12-15] MEDS: NS IV SCH ×2 (10:35)
[2018-12-15 14:19] VITALS: BP 133/63
== END 2018-12-15 15:10 | DRG 689 ==
LOC: ER 13:40 → ICU 16:36
PROVIDERS: ADMIT Internal Medicine; ATTEND Internal Medicine
DX: R10.84 Generalized abdominal pain; R94.31 Abnormal electrocardiogram [ECG] [EKG]; B96.4 Proteus (mirabilis) (morganii) as the cause of diseases classified elsewhere; I48.91 Unspecified atrial fibrillation; I50.23 Acute on chronic systolic (congestive) heart failure; K21.9 Gastro-esophageal reflux disease without esophagitis; R40.4 Transient alteration of awareness; E86.0 Dehydration; R79.82 Elevated C-reactive protein (CRP); F41.8 Other specified anxiety disorders; J16.8 Pneumonia due to other specified infectious organisms; N30.01 Acute cystitis with hematuria; Y95 Nosocomial condition; E87.6 Hypokalemia; R26.89 Other abnormalities of gait and mobility; E78.2 Mixed hyperlipidemia; K59.01 Slow transit constipation; I25.10 Atherosclerotic heart disease of native coronary artery without angina pectoris
CPT/HCPCS: 36415; 36600; 51702; 70450; 71010; 71045; 74000; 74018; 74177; 80048; 80053; 80162; 81001; 82270; 82550; 82553; 82803; 83605; 83735; 84132; 84484; 85025; 86140; 87040; 87045; 87086; 87427; 87449; 87493; 87899; 93005; 94640; 96365; 96367; 96372; 96374; 97110; 97163; 97166; 97530; 99231; 99285; A4222; C9113; P9047; S0028; J0282; J0360; J0713; J0744; J1450; J1630; J1720; J1940; J1956; J2020; J2060; J2185; J3475; J3480; J3490; J7030; J7050; J7060; J7620